=== PATIENT | female | born 1940 | race Caucasian/White ===

== ENCOUNTER 2016-06-03 19:03 | Inpatient (IN) | payer OTHER ==
[~2016-06-03] VITALS: Ht 162.6 cm; Wt 128.5 kg
[~2016-06-03 19:03] MED LIST: ADVIL PM CAPLE1 EACH PO; ADVIL100 MG PO; BAYER WOMEN'S1 EACH PO; HYDROCHLOROTHIA25 M1 PO; KEFLEX250 MG PO; LASIX20 MG PO; LOMOTIL 2.5-0.1 EACH PO; LOPRESSOR50 M1 PO; PANTOPRAZOLE SO40 M1 PO; SYNTHROID125 MCG PO; TRAMADOL50 MG PO
[2016-06-03 20:05] LABS: PT 12.4 SEC (9.4-12.5)
[2016-06-03 20:11] LABS: ABSOLUTE BASOPHIL COUNT 0.1 /CUMM (0.0-0.2); ABSOLUTE EOSINOPHIL COUNT 0.1 /CUMM (0.0-0.7); ABSOLUTE GRANULOCYTE CT 4.5 /CUMM (1.4-6.5); ABSOLUTE LYMPH COUNT 2.4 /CUMM (1.2-3.4); ABSOLUTE MONOCYTE COUNT 0.6 /CUMM (0.10-0.60); BASOPHIL % 0.8 % (0.0-2.0); EOSINOPHIL % 1.7 % (0-5); GRANULOCYTE % 58.6 % (42.2-75.2); MEAN CORPUSCULAR VOLUME 84.8 FL (81.0-99.0); MEAN PLATELET VOLUME 7.4 FL (7.4-10.4); PLATELET COUNT 214 /CUMM (130-400); RBC DISTRIBUTION WIDTH 15.6 % (11.5-14.5); RED BLOOD CELL CT 3.66 /CUMM (4.20-5.40); WHITE BLOOD CELL COUNT 7.7 /CUMM (4.8-10.8)
--- NOTE | 2016-06-03 20:29 | ED GI/GU/ABDOMINAL COMPLAINT ---
History of Present Illness General Chief Complaint: General Adult Stated Complaint: BLEEDING PER RECTUM Source: patient, family, old records Exam Limitations: no limitations Vital Signs & Intake/Output Vital Signs & Intake/Output Vital Signs Date Time Temp Pulse Resp B/P Pulse O2 O2 Flow FiO2 Ox Delivery Rate 06/04 0048 64 206/98 06/04 0000 97.8 64 20 206/98 92 Room Air 06/04 0000 94 Nasal 1.0L Cannula 06/03 2254 96.0 65 18 170/62 97 Room Air 06/03 2150 98.4 67 18 203/84 95 Room Air 06/03 2142 97.4 67 18 203/84 06/03 2118 Room Air 06/03 2029 200/96 06/03 1922 98.6 78 22 171/94 95 Room Air ED Intake and Output 06/04 0000 06/03 1200 Intake Total 0 Output Total Balance 0 Intake, Oral 0 Allergies Coded Allergies: NO KNOWN ALLERGIES (01/25/16) Reconcile Medications Aspirin/Calcium Carbonate (Nanette Women's Aspirin Tablet) 81 MG-300 MG CALCIUM ( 777 MG) TABLET 81 MG PO DAILY HEART (Reported) Hydrochlorothiazide 25 MG TABLET 25 MG PO EOD EDEMA (Reported) Ibuprofen (Advil) 100 MG TABLET 100 MG PO PRN PRN PAIN (Reported) Levothyroxine Sodium (Synthroid) 125 MCG TABLET 125 MCG PO DAILY HYPOTHYROID (Reported) Metoprolol Tartrate (Lopressor) 50 MG TABLET 50 MG PO DAILY HEART (Reported) Pantoprazole Sodium 40 MG TABLET.DR 40 MG PO DAILY ACID REFLUX (Reported) Triage Note: PER PT HAD ABD PAIN X 2 WEEKS NONE THIS WEEK BUT SINCE THIS AM WHEN WIPING NOTICED BLOOD ON PAPER, COMING FROM RECTUM. RIGHT PRIOR TO ARRIVAL PT NOTICED SIGNIFICANT BLODD IN TIOLET. DENIIES PAIN BUT REPORTS DIZZYNESS. Triage Nurses Notes Reviewed? yes ? n Is pt currently ? No HPI: Patient is a 75-year-old female presents complaining of rectal bleeding. Patient reports that when she urinated this morning she was wiping her rectum and she had blood on the toilet paper. His occurred a couple of times. This afternoon patient had an episode of diarrhea with a large amount of blood present. Intermittent lightheadedness. Lightheadedness is currently mild. Pain is 0 out of 10. Patient takes 81 mg of aspirin daily and takes Advil approximately 4 times per week. Patient denies chest pain, difficulty breathing , nausea, vomiting, fevers, chills. (JEFF ARIAS) Past History Travel History Traveled to [place] past 21 day No Medical History Any Pertinent Medical History? 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 No (JEFF ARIAS) Review of Systems Review of Systems Constitutional: Reports: malaise. Denies: chills, fever. EENTM: Reports: no symptoms. Respiratory: Denies: cough, short of breath. Cardiovascular: Denies: chest pain, syncope. GI: Reports: see HPI. Genitourinary: Reports: no symptoms. Musculoskeletal: Reports: no symptoms. Skin: Reports: no symptoms. Neurological/Psychological: Reports: no symptoms. Hematologic/Endocrine: Reports: bleeding. Immunologic/Allergic: Reports: no symptoms. (JEFF ARIAS) Physical Exam Physical Exam General Appearance: well developed/nourished, alert, awake Head: atraumatic, normal appearance Eyes: Bilateral: normal appearance, PERRL, EOMI. Ears, Nose, Throat, Mouth: hearing grossly normal, moist mucous membrane Neck: normal inspection, supple, full range of motion Respiratory: normal breath sounds, chest non-tender, no respiratory distress, lungs clear Cardiovascular: regular rate/rhythm (no appreciable murmur) Gastrointestinal: normal bowel sounds, soft, non-tender Rectal: bloody stool Back: normal inspection, normal range of motion Extremities: normal range of motion Neurologic/Psych: no motor/sensory deficits, awake, alert, oriented x 3, normal gait, normal mood/affect Skin: intact, normal color, warm/dry Core Measures ACS in differential dx? No Severe Sepsis Present: No Septic Shock Present: No (JEFF ARIAS) Progress Differential Diagnosis: upper GI bleed, lower GI bleed(diverticular, hemorrhoidal, ischemic colitis) Plan of Care: Orders Procedure Date/time Status Nothing by Mouth 06/04 B Active CBC WITHOUT DIFFERENTIAL 06/04 599 Active BASIC ELECTROLYTES PLUS BUN&CR 06/04 06 Active ICU LAB BUNDLE 06/04 030 Active CBC WITHOUT DIFFERENTIAL 06/04 030 Active Weight 06/04 137 Active Turn and Reposition 06/04 137 Active Teach/Educate 06/04 137 Active Skin Integrity Protocol 06/04 137 Active Skin/Pressure Ulcer Assess (Sk 06/04 137 Active Precautions 06/04 137 Active Pain Treatment and Response 06/04 137 Active Nutritional Intake, Monitor 06/04 137 Active Isolation 06/04 137 Active Patient Care Conference 06/04 137 Active Activity/Ambulation 06/04 137 Active Clear Liquid Diet 06/03 D Complete VRE ACTIVE SURVIELLANCE 06/03 2349 Active ACTIVE SURVEILLANCE NARES 06/03 234 Active URINALYSIS 06/03 2325 Active Code Status 06/03 223 Active Pathway - chart 06/03 215 Active Patient Data 06/03 2154 Active Patient Data 06/03 214 Active Add-on Test (ER Only) 06/03 2148 Active Admit to inpatient 06/03 213 Active EKG 06/03 2029 Active MISTAKE 06/03 2002 Active TROPONIN LEVEL 06/03 1942 Complete PROTHROMBIN TIME 06/03 1922 Complete LACTIC ACID 06/03 1922 Complete COMPREHENSIVE METABOLIC PANEL 06/03 1922 Complete CBC WITHOUT DIFFERENTIAL 06/03 1922 Complete TYPE & SCREEN (NOT X-MATCH) 06/03 1922 Complete Saline Lock 06/03 UNK Active VTE Mechanical Prophylaxis 06/03 UNK Active Vital Signs 06/03 UNK Active Intake & Output 06/03 UNK Active Current Medications Sig/Liv Start time Last Medication Dose Stop Time Status Admin Levothyroxine Sodium 0.125 MG DAILY AC 06/04 699 AC (Synthroid) Omeprazole 40 MG DAILY AC 06/04 699 AC (Prilosec) Laboratory Tests 06/03/162222: Lactic Acid Cancelled 06/03/161942: Anion Gap 8, Estimated GFR 34 L, BUN/Creatinine Ratio 24.7, Glucose 114 H, Lactic Acid 0.9, Calcium 8.8, Total Bilirubin 0.5, AST 20, ALT 25, Alkaline Phosphatase 74, Troponin I < 0.01, Total Protein 6.6, Albumin 3.3 L, Globulin 3.3, Albumin/Globulin Ratio 1.0 L, PT 12.4, INR 1.18, CBC w Diff NO MAN DIFF REQ, RBC 3.66 L, MCV 84.8, MCH 28.0, RDW 15.6 H, MPV 7.4, Gran % 58.6, Lymphocytes % 31.6, Monocytes % 7.3, Eosinophils % 1.7, Basophils % 0.8, Absolute Granulocytes 4.5, Absolute Lymphocytes 2.4, Absolute Monocytes 0.6, Absolute Eosinophils 0.1, Absolute Basophils 0.1, PUBS MCHC 33.0 Microbiology 06/03 2348 UPPER RESP: Surveillance Culture - COLB 06/03 2348 GI: Surveillance Culture - COLB 06/03/2016 9:04:50 PM: Discussed with Dr. Whatley. Discussed with Dr. Jernigan: recommends admission. Serial CBC. Possible colonoscopy tomorrow if continues to bleed. Discussed with Dr. Farrell: will admit patient. (JEFF ARIAS) Initial ED EKG: normal sinus rhythm, LVH, no ST T wave changes (JEFF ARIAS) Departure Departure Disposition: STILL A PATIENT Condition: Stable Clinical Impression Primary Impression: Lower GI bleed Secondary Impressions: Accelerated hypertension Referrals: BRAVO ROY MD (PCP/Family) Departure Forms: Customer Survey General Discharge Information Admission Note [facility] Documentation of Exam: Documentation of any treatments & extenuating circumstances including Concerns Regarding Discharge (functional status, medication knowledge or non-compliance, living conditions, etc.) that warrant an admission rather than observation: Serial CBC, GI consultation, monitor for any increase/further bleeding, possible colonoscopy, blood pressure monitoring (JEFF ARIAS) PA/SOFT HAT BINDER Co-Sign Statement Statement: ED Attending supervision documentation- [] I saw and evaluated the patient. I have also reviewed all the pertinent lab results and diagnostic results. I agree with the findings and the plan of care as documented in the PA's/SOFT HAT BINDER's documentation. [x] I have reviewed the ED Record and agree with the PA's/SOFT HAT BINDER's documentation. [] Additions or exceptions (if any) to the PAs/SOFT HAT BINDER's note and plan are summarized below: [] (MARY ROBBINS,RAFITA Bernal)
--- NOTE | 2016-06-03 22:47 | History & Physical ---
TYRONE PEARCE 06/03/16 2235: General Information and HPI MD Statement: I have seen and personally examined SIRENA CELESTIN and documented this H&P. The patient is a 75 year old F who presented with a patient stated chief complaint of [gi lbeed]. Source of Information: patient Exam Limitations: no limitations History of Present Illness: This is a 75 YO Female with past medical history of hypertension, hypothyroidism status post thyroidectomy, chronic pain, gastroesophageal reflux disease, current smoker, nonalcoholic came in with chief complain of bright red blood per rectum since the morning of admission. Apparently, the patient was doing all right until one day prior to admission, patient started having bleeding per rectum since the morning of the day of admission that is 06/03/2016. Initially the patient had some bright red blood on the tissue paper, every time that she would use the toilet, however later patient had a one episode of bigger loose watery bowel movement with bright red blood mixed with stools. It was difficult for her to quantify the blood as it was mixed with the stools however she said that this was a significant amount and she had to keep using more tissue paper in order to control the blood.After this episode she presented to [facility].She had nor more episodes after comign to ER till I saw her. She also complain of some dizziness, lightheadedness and chills since today morning. At baseline she has been constipated, however she would use Benefiber and have alternating diarrhea also. She denied any history of hemorrhoids or previous episodes of bright red blood. She has been following up with all her doctors at [facility] and she had a colonoscopy 6 years ago which was completely normal and showed mild diverticulitis. 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 Most of her doctors are at [facility]. She had a nuclear stress test recently 6 months ago which was within normal limit. Her financial analysis advisor is Dr. Barron at [facility]. Allergies/Medications Allergies: Coded Allergies: NO KNOWN ALLERGIES (01/25/16) Home Med list Aspirin/Calcium Carbonate (Nanette Women's Aspirin Tablet) 81 MG-300 MG CALCIUM ( 777 MG) TABLET 81 MG PO DAILY HEART (Reported) Hydrochlorothiazide 25 MG TABLET 25 MG PO EOD EDEMA (Reported) Ibuprofen (Advil) 100 MG TABLET 100 MG PO PRN PRN PAIN (Reported) Levothyroxine Sodium (Synthroid) 125 MCG TABLET 125 MCG PO DAILY HYPOTHYROID (Reported) Metoprolol Tartrate (Lopressor) 50 MG TABLET 50 MG PO DAILY HEART (Reported) Pantoprazole Sodium 40 MG TABLET.DR 40 MG PO DAILY ACID REFLUX (Reported) Compliance With Home Meds: GOOD Past History Travel History Traveled to [place] past 21 day No Medical History Neurological: NONE EENT: NONE Cardiovascular: hypertension Respiratory: NONE Gastrointestinal: diverticulitis, GERD Hepatic: NONE Renal: NONE Musculoskeletal: NONE Psychiatric: NONE Endocrine: NONE Blood Disorders: NONE Cancer(s): 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 Past Family/Social History Family History Relations & Conditions if any MOTHER FH: Alzheimers disease Psychosocial History Where do you live? Home Who Do You Live With? spouse Smoking Status: Current Everyday Smoker ETOH Use: denies use Illicit Drug Use: denies illicit drug use Functional Ability ADLs Independent: dressing, eating, toileting, bathing. Ambulation: independent IADLs Independent: shopping, housework, finances, food prep, telephone, transportation , medication admin. 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 Denies: diaphoresis, fever, malaise, unexplained weight loss. EENTM: Denies: blurred vision, double vision, visual changes, eye pain. Cardiovascular: Denies: chest pain, edema, orthopena, palpitations. Respiratory: Denies: cough, hemoptysis, orthopnea, short of breath. GI: Reports: diarrhea, melena, bloody stool. Denies: bloating, constipation, distention, bowel incontinence, nausea. Genitourinary: Reports: no symptoms. Musculoskeletal: Reports: no symptoms. Skin: Reports: no symptoms. Neurological/Psychological: Reports: no symptoms. Hematologic/Endocrine: Reports: no symptoms. Immunologic/Allergic: Reports: no symptoms. All Other Systems: Reviewed and Negative Exam & Diagnostic Data Last 24 Hrs of Vital Signs/I&O Vital Signs Date Time Temp Pulse Resp B/P Pulse O2 O2 Flow FiO2 Ox Delivery Rate 06/03 2149 98.4 67 18 203/84 95 Room Air 06/03 2141 97.4 67 18 203/84 06/03 2117 Room Air 06/03 2028 200/96 06/032 98.6 78 22 171/94 95 Room Air Physical Exam General Appearance Alert, Oriented X3, Cooperative, No Acute Distress Skin No Rashes, No Breakdown, No Significant Lesion HEENT Atraumatic, PERRLA, EOMI Neck Supple, No JVD, No thryomegaly Lymphatic no lad Cardiovascular Regular Rate, Normal S1, Normal S2, No Murmurs Lungs Clear to Auscultation, Normal Air Movement Abdomen Normal Bowel Sounds, Soft, No Tenderness Extremities No Clubbing, No Cyanosis, edema + Vascular Normal Pulses Rectal guaic positive. bright red blood present on intial presentation. Last 24 Hrs of Labs/Raji: Laboratory Tests 06/03/162222: Lactic Acid Cancelled 06/03/161942: Anion Gap 8, Estimated GFR 34 L, BUN/Creatinine Ratio 24.7, Glucose 114 H, Lactic Acid 0.9, Calcium 8.8, Total Bilirubin 0.5, AST 20, ALT 25, Alkaline Phosphatase 74, Troponin I < 0.01, Total Protein 6.6, Albumin 3.3 L, Globulin 3.3, Albumin/Globulin Ratio 1.0 L, PT 12.4, INR 1.18, CBC w Diff NO MAN DIFF REQ, RBC 3.66 L, MCV 84.8, MCH 28.0, RDW 15.6 H, MPV 7.4, Gran % 58.6, Lymphocytes % 31.6, Monocytes % 7.3, Eosinophils % 1.7, Basophils % 0.8, Absolute Granulocytes 4.5, Absolute Lymphocytes 2.4, Absolute Monocytes 0.6, Absolute Eosinophils 0.1, Absolute Basophils 0.1, PUBS MCHC 33.0 Diagnostic Data EKG Results Normal sinus rhythm, rate of 65, left axis deviation, QTC of 441, PA of 172. Assessment/Plan Assessment: This is a 75-year-old morbidly obese female with past medical history of hypertension, hypothyroidism status post thyroidectomy, chronic pain, gastroesophageal reflux disease, current smoker, nonalcoholic came in with chief complain of bright red blood per rectum since the morning of admission with one episode of significant bright red blood along with loose stools mixed. Tmax - 98.6, pulse of 78, respirations 22, blood pressure of 200/96, 95% on room air. White count of 7.7, H/H of 10.3/31.0, platelet of 214.(Baseline H/H of 10.5/34). Sodium of 139, potassium of 3.8, BUN and creatinine 35/1.5. GFR of 34. Glucose of 114, lactic acid 0.9, liver function tests within normal limit. We'll admit patient to ICU for close monitoring. #1 BRBPR * Continue to maintain on 2 large bore IV lines. * Continue to monitor vitals every shift. * Crossmatch and type. * Keep the patient nothing by mouth in anticipation of colonoscopy/endoscopy. * Blood transfusion if H/H less than 8. * Continue Po protonix daily. * Hold aspirin, hold ibuprofen. * GI consult placed for am. * NPO after MN,clear liquis now. * If patient deteriorates overnight/ more bleeding episodes,then call gI stat. * Next CBC at 3 am with am labs. #2 Hypertension. * Patient takes metoprolol Tartarete 50 mg OD , which she had taken today. * She also takes hydrochlorthiazide 25 mg daily which she hasnt take since last 2 weeks as she ran out of it. * BP on higher side. * Recived 5 mg norvasc in ER. * Continue to watch BP closely. * Will hold home BP medications for now. * If BP still higher will give one time dose. * Will hold aspirin. #3 Hypothyroidism. * s/p thyroidectomy for thyroid cancer * Continue levothyroxine 125mcg daily. * Will check Tsh and free t4. #4 CKD * Stage : G3b * Creatinine 1.5 ( baseline 1.4) * Avoid all nephrotoxin. * Avoid nsaids, even on discharge, patient 3 to 5 every week for long time * Ideally we would like to hydrate patient but her BP in on higher side and she is also not. actively bleeding, therefore will watch BP. FC Mild/Mod/severe pain pathway. DVT px with ALPS ( gi bleed) clear liquids now and npo after MN. As Ranked By This Provider Problem List: 1. Lower GI bleed 2. Hypertension 3. Hypothyroidism Core Measures/Miscellaneous Acute Coronary Syndrome ACS Diagnosis: No Cerebrovascular Accident CVA/TIA Diagnosis: No Congestive Heart Failure CHF Diagnosis: No Venous Thromboembolism VTE Risk Factors: Age > 40 [facility] prophylaxis d/t: No contraindications No VTE Pharm Prophylaxis d/t: Active bleeding VTE Diagnosis: No VTE Type: NONE VTE Confirmed by (Test): NONE Severe Sepsis Severe Sepsis Present: No Septic Shock Septic Shock Present: No Miscellaneous Documentation Attending [facility] Primary Care Physician: BRAVO ROY MD Patient sees these Specialists .. Level of Patient Care: Critical Care (CRI) MT NIEVES MD 06/03/16 2330: Attending MD Review Statement Attending Statement Attending MD Statement: examined this patient, discuss w/resident/PA/ENTEROSTOMAL THERAPY NURSE, agreed w/resident/PA/ENTEROSTOMAL THERAPY NURSE Attending Assessment/Plan: 75 yo morbidly obese F smoker with h/o HTN, CKD stage 3B, acquired hypothyroidism 2/2 thyroidectomy for thyroid cancer, GERD, vertigo, stroke, arthritis, chronic diarrhea of unclear etiology, pw 2-episodes of bright red blood per rectum. She initiatlly noted blood on toilet paper followed by an episode of painless bloody diarrhea with a few clots. She then had another small bleeding episode without any stools in it. No further episodes in the ER. C/o lightheadedness, but no LOC. No similar episodes in the past, no h/o hemorrhoids. Last colonoscopy 6 yrs ago showed diverticulosis (Nancy). She reports last episode of diverticulitis was 4 months ago for which she was placed on antibiotics but she developed profuse diarrhea so she stopped them. She is on a low-dose aspirin for stroke and she also takes Advil at bedtime 4 times a week for arthritic pain. Vitals are stable except for hypertension. Rectal exam done in the ER bloody stool. Labs: H/H 10.3/31, INR 1.18, BUN 37, creat 1.5 (baseline), glucose 114, lactic acid 0.9, trop neg, EKG: SR, LVH, Qtc 441. Orthostats are negative. 1. Lower GI bleed likely diverticular bleed vs. Hemorrhoidal bleed, other possibility is ischemic colitis; with acute blood loss anemia. ICU admit, vitals Q1 hour, monitor further bleeding, guaiac all stools, type and crossmatch, monitor CBC Q12, transfuse if Hb < 7.0, hold aspirin and NSAIDs, NPO, gentle IV hydration as BP tolerates. GI consulted (Dr. Jernigan). Plan is if patient bleeds again, will prep her for colonoscopy in AM. 2. Hypertensive urgency. Patient's home meds are metoprolol and HCTZ, but she ran out of HCTZ for over 2 weeks. Amlodipine 5 mg was given in ER, will consider IV hydralazine as needed. Will keep SBP ~ 140-160, avoid drastic drop in BP. Repeat EKG and troponin in AM. Obtain Echo and Cardio consult in AM. Smoking cessation counseling. 3. GERD. Ct. PPI. 4. Hypothyroidism. Ct. Synthroid. DVT ppx Alps. Full code. TTS > 40 mins
--- NOTE | 2016-06-03 23:30 | Admission Certification ---
Admission Certification Certification Statement - As attending physician, I certify that at the time of - admission, based on clinical presentation, severity of - symptoms, need for further diagnostic testing and - therapeutic interventions, and risk of adverse outcomes - without in-hospital treatment, in my clinical assessment, - this patient requires an acute hospital stay for a minimum - of two nights or longer. I have also considered psychsocial - factors such as support system, advanced age, financial - issues, cognitive issues, and failed out-patient treatments, - past re-admission history, safety of patient, and lack of - compliance as applicable. Specific rationale supporting this admission is: Lower GI bleeding, ABLA, hypertensive urgency.
[2016-06-04] VITALS: BP 206/98
[2016-06-04 03:42] LABS: ABSOLUTE BASOPHIL COUNT 0.1 /CUMM (0.0-0.2); ABSOLUTE EOSINOPHIL COUNT 0.2 /CUMM (0.0-0.7); ABSOLUTE GRANULOCYTE CT 4.5 /CUMM (1.4-6.5); ABSOLUTE LYMPH COUNT 2.9 /CUMM (1.2-3.4); ABSOLUTE MONOCYTE COUNT 0.7 /CUMM (0.10-0.60); EOSINOPHIL % 1.9 % (0-5); GRANULOCYTE % 53.7 % (42.2-75.2); HEMATOCRIT 28.3 % (37-47); MEAN CORPUSCULAR HGB CONC 32.7 G/DL (33.0-37.0); MEAN CORPUSCULAR VOLUME 85.4 FL (81.0-99.0); MEAN PLATELET VOLUME 7.2 FL (7.4-10.4); PLATELET COUNT 200 /CUMM (130-400); RED BLOOD CELL CT 3.32 /CUMM (4.20-5.40); WHITE BLOOD CELL COUNT 8.4 /CUMM (4.8-10.8)
[2016-06-04 08:00] VITALS: BP 160/80
--- NOTE | 2016-06-04 08:52 | Cons- CRCU ---
DINORA BRAGG MD 06/04/16 0851: General Information and HPI Consulting Request Date of Consult: 06/04/16 Requested By: Dr. Farrell Reason for Consult: GI bleed Source of Information: patient Exam Limitations: no limitations History of Present Illness: Pt was admitted to ICU for GI bleed and hypertensive urgency. Pt reported having 1 bloody bowel movement consisting of loose stool mixed in with bright red blood, most likely diverticular bleed given her hx of diverculitis. The amount was significant for her to present to the hospital. Her hb on admssion was 10.3, which is her baseline, and 9.3 this morning. 9am - pt had cranberry colored formed stool . She has not been prepped for colonoscopy. SHe has history of diverticulitis (classic abdominal pain, without bleed), and has noted blood in the past when she wipes, which could be internal hemorrhoid. Denies pain with bowel movement, unlikely external hemorrhoid. She has never been diagnosed with hemorrhoid in the past. SHe had colonoscopy 6 years ago and was asked to return in 10 years. Her blood pressure was up to 206/98, for which she was given 1X amlodipie. Her BP this morning 160/80, will give one time 10mg hydralazine. Her HR is in the low 60s. She follows up with p d driver at [facility] and recently had a stress test, which she reported as normal. Cardiology consult with Dr. Golden has been called. Mag was 1.4, given 2 gm mag sulfate. She is currently stable, BP on the higher side, not tachycardic, she is complaining of diffuse throbbing headache for which we are going to give tylenol and 1Xhydralazine to lower her bp. Pt reports that her BP is never as high as what she came in with. Her home meds are still held - including antihypertensives, aspirin, advil. Allergies/Medications Allergies: Coded Allergies: NO KNOWN ALLERGIES (01/25/16) Home Med List: Aspirin/Calcium Carbonate (Nanette Women's Aspirin Tablet) 81 MG-300 MG CALCIUM ( 777 MG) TABLET 81 MG PO DAILY HEART (Reported) Hydrochlorothiazide 25 MG TABLET 25 MG PO EOD EDEMA (Reported) Ibuprofen (Advil) 100 MG TABLET 100 MG PO PRN PRN PAIN (Reported) Levothyroxine Sodium (Synthroid) 125 MCG TABLET 125 MCG PO DAILY HYPOTHYROID (Reported) Metoprolol Tartrate (Lopressor) 50 MG TABLET 50 MG PO DAILY HEART (Reported) Pantoprazole Sodium 40 MG TABLET.DR 40 MG PO DAILY ACID REFLUX (Reported) Review of Systems Review of Systems Constitutional: Denies: chills, fever. EENTM: Reports: see HPI. Cardiovascular: Denies: chest pain. Respiratory: Denies: cough, short of breath. GI: Reports: bloody stool. Denies: abdominal pain, bloating, constipation, diarrhea , nausea. 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 Family History Relations & Conditions If Any: MOTHER FH: Alzheimers disease Psychosocial History Where Do You Live? Home Who Do You Live With? spouse Smoking Status: Current Everyday Smoker ETOH Use: denies use Illicit Drug Use: denies illicit drug use Functional Ability ADLs Independent: dressing, eating, toileting, bathing. Ambulation: independent IADLs Independent: shopping, housework, finances, food prep, telephone, transportation , medication admin. 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 Exam & Diagnostic Data Last 24 Hrs of Vital Signs/I&O Vital Signs Date Time Temp Pulse Resp B/P Pulse O2 O2 Flow FiO2 Ox Delivery Rate 06/05 799 96 Nasal 1.0L Cannula 06/04 08 97.7 68 20 160/80 96 Nasal 1.0L Cannula 06/04 0426 94 Nasal 1.0L Cannula 06/04 0048 64 206/98 08 0000 97.8 64 20 206/98 92 Room Air 06/04 0000 94 Nasal 1.0L Cannula 06/03 2254 96.0 65 18 170/62 97 Room Air 06/03 2150 98.4 67 18 203/84 95 Room Air 06/03 2142 97.4 67 18 203/84 06/038 Room Air 06/039 200/96 06/03 1922 98.6 78 22 171/94 95 Room Air Intake & Output 06/04 1600 06/04 0800 04 0000 Intake Total 240 0 Output Total 275 Balance -35 0 Intake, IV 120 Intake, Oral 120 0 Number 0 Bowel Movements Output, Urine 275 Patient 128.537 kg Weight Physical Exam General Appearance: alert, awake, comfortable Head: normal appearance Eyes: Bilateral: normal appearance. Ears, Nose, Throat: hearing grossly normal Neck: full range of motion Respiratory: normal breath sounds, no respiratory distress Cardiovascular: regular rate/rhythm Peripheral Pulses: 2+ radial (R), 2+ radial (L) Gastrointestinal: normal bowel sounds, soft, non-tender Last 48 Hrs of Labs/Raji: Laboratory Tests 06/04/16 0620: Urine Color YEL, Urine Clarity CLEAR, Urine pH 5.5, Ur Specific [place] >= 1.030 , Urine Protein 100 H, Urine Ketones NEG, Urine Nitrite NEG, Urine Bilirubin NEG, Urine Urobilinogen 0.2, Ur Leukocyte Esterase NEG, Ur Microscopic SEDIMENT EXAMINED, Urine RBC 25-50 H, Urine WBC 1-3 H, Ur Epithelial Cells MOD H, Urine Bacteria MOD H, Hyaline Casts 3-5 H, Granular Casts FEW H, Urine Mucus FEW, Urine Hemoglobin MOD H, Urine Glucose NEG 06/04/16 0600: Sodium Cancelled, Potassium Cancelled, Chloride Cancelled, Carbon Dioxide Cancelled, Anion Gap Cancelled, BUN Cancelled, Creatinine Cancelled, BUN/ Creatinine Ratio Cancelled, CBC w Diff Cancelled, WBC Cancelled, RBC Cancelled, Hgb Cancelled, Hct Cancelled, MCV Cancelled, MCH Cancelled, RDW Cancelled, Plt Count Cancelled, MPV Cancelled, PUBS MCHC Cancelled 06/04/16 0310: Anion Gap 9, Estimated GFR 34 L, Glucose 96, Calcium 8.5, Phosphorus 3.9, Magnesium 1.4 L, Total Bilirubin 0.4, AST 18, ALT 29, Troponin I < 0.01, Albumin 2.9 L, CBC w Diff NO MAN DIFF REQ, RBC 3.32 L, MCV 85.4, MCH 28.0, RDW 16.0 H, MPV 7.2 L, Gran % 53.7, Lymphocytes % 34.9, Monocytes % 8.5, Eosinophils % 1.9, Basophils % 1.0, Absolute Granulocytes 4.5, Absolute Lymphocytes 2.9, Absolute Monocytes 0.7 H, Absolute Eosinophils 0.2, Absolute Basophils 0.1, PUBS MCHC 32.7 L 06/03/162222: Lactic Acid Cancelled 06/03/161942: Anion Gap 8, Estimated GFR 34 L, BUN/Creatinine Ratio 24.7, Glucose 114 H, Lactic Acid 0.9, Calcium 8.8, Total Bilirubin 0.5, AST 20, ALT 25, Alkaline Phosphatase 74, Troponin I < 0.01, Total Protein 6.6, Albumin 3.3 L, Globulin 3.3, Albumin/Globulin Ratio 1.0 L, PT 12.4, INR 1.18, CBC w Diff NO MAN DIFF REQ, RBC 3.66 L, MCV 84.8, MCH 28.0, RDW 15.6 H, MPV 7.4, Gran % 58.6, Lymphocytes % 31.6, Monocytes % 7.3, Eosinophils % 1.7, Basophils % 0.8, Absolute Granulocytes 4.5, Absolute Lymphocytes 2.4, Absolute Monocytes 0.6, Absolute Eosinophils 0.1, Absolute Basophils 0.1, PUBS MCHC 33.0 Diagnostic Data EKG Results SR rate 66 LVH Qtc 453 Assessment/Plan Impression/Plan: 75-year-old morbidly obese female with PMH of hypertension, hypothyroidism s/p thyroidectomy, chronic pain, gastroesophageal reflux disease, current smoker, nonalcoholic came in with chief complain of bright red blood per rectum. Hb was 10.3 on admission, which is her baseline. Problem list: # Bright red blood per rectum most likely diverticular bleed # Acute blood loss anemia due to GI bleed # Hypertensive urgency # Hypothyroidism # CKD stage 3b Respiratory - Stable ID - No infection suspected Cardiovascular # Hypertensive urgency - Pt on metoprolol tartrate 50 mg OD (taken on day of admission), and HCTZ 25mg daily (has not taken in 2weeks since she ran out) - Pt sees p d driver at [facility], recently had stress test that pt reports as normal - BP was 206/98, given 5 mg amlodipine --> BP 170 * Resume metoprolol 50 mg od and hctz 25 mg as discussed with GI * Cardiology, Dr. Golden, consulted * Aspirin on hold Hematology # Acute blood loss anemia due to GI bleed - HB 10.3 on admission (baseline 10.5) * CBC Q8 * Type and cross done, transfuse if hb < 8 * Hold aspirin and ibuprofen Metabolic # Hypothyroidism s/p thyroidectomy for thyroid cancer * Continue levothyroxine 125mcg daily. * Will check Tsh and free t4. # CKD stage 3b - Creatinine 1.5 ( baseline 1.4) * Avoid all nephrotoxin. * Avoid nsaids, even on discharge, patient takes 3 to 5 every week for long time Alimentary # GI bleed, most likely diverticular bleed given her hx of diverticulitis - Last colonoscopy 6 years ago, told to come back in 10 years * NPO--> full liquid, as disccused with GI, will advance diet as per GI * Dr. Jernigan has been consulted * Continue PPI * Hold aspirin, ibuprofen * If pt has significant bleed and would like to pursue colonoscopy, then we would prep her for colonoscopy tomorrow as she is currently stable Neuro - No issues Diet: Full liquid DVT ppx: alps, no pharm due to GI bleed FULL CODE Consults: GI , cardio, CRCU Labs: ICU and CBC (acute blood loss anemia), hypomagnesiumia Consult Acknowledgment - Thank you for your consult request. DESHAWN BILLS MD 06/04/16 1056: Assessment/Plan Other Findings/Comments: Deshawn Helton M.D. have examined this patient, reviewed available EMR data, personally reviewed images, discussed with resident/PA/ORTHOTIC/PROSTHETIC PRACTITIONER, discussed management plan with housestaff and nursing staff, discussed managment plan all of healthcare providers, discussed management plan with patient and/or family, agreed with resident/PA/ORTHOTIC/PROSTHETIC PRACTITIONER. The past history and parts of the chart have been autopopulated. Impression 75 year old woman * Lower GI bleed - acute blood loss anemia * Diverticulosis * CKD * HTN urgency * Hypothyrodism Plan - GI consultation appreciated - IV access - 2 large bore IV catheters - monitor cbc, coags - patient type and crossed - Ibuprofen and aspirin held - NPO - PPI - Cardiology consultation was requested overnight - ECHO - bp monitoring and management DVT prophylaxis - ALPS - no a/c given GI bleed TTS 40 min Consult Acknowledgment - Thank you for your consult request.
--- NOTE | 2016-06-04 10:07 | Cons- Gastroenterology ---
General Information and HPI Consulting Request Date of Consult: 06/04/16 Requested By: LIZBETH ROBBINS,SKY Reason for Consult: Painless rectal bleeding, anemia. Irregular bowel habits. Source of Information: patient, old records Exam Limitations: no limitations History of Present Illness: Ms. Barton is a 75-year-old female with a history of hypertension and diverticulosis on a colonoscopy approximately 6 years ago who presented to [facility] yesterday with reports of bright blood per rectum. The patient notes that yesterday morning after going to the bathroom and wiping she noted a scant amount of blood on the toilet paper. After noticing this several hours later she went to the bathroom and then had one bloody bowel movement mixed in with stool and she was not able to completely assess how much stool she passed only to say that it was a lot. The bleeding was not associated any lightheadedness, shortness of breath or chest pain. She also did not have any associated abdominal pain with the bleeding. She has never had similar bleeding like this in the past. She does have some constipation which alternates with diarrhea, but she denies any recent straining. She has also been without any abdominal pain with eating, heartburn, dysphagia, or vomiting. She does take a daily baby aspirin, but she does not take any other NSAIDs. On presentation to the emergency room she was hypertensive and not tachycardic. She had a hemoglobin checked which was at her baseline levels and she was started on IV protonix. She was admitted to the ICU where she has remained hemodynamically stable, but she did have a bowel movement this morning with some blood mixed in with it and her hemoglobin has fallen approximately 1 g from yesterday. She has been nothing by mouth since midnight, but she has not been given a bowel prep. Allergies/Medications Allergies: Coded Allergies: NO KNOWN ALLERGIES (01/25/16) Home Med List: Aspirin/Calcium Carbonate (Nanette Women's Aspirin Tablet) 81 MG-300 MG CALCIUM ( 777 MG) TABLET 81 MG PO DAILY HEART (Reported) Hydrochlorothiazide 25 MG TABLET 25 MG PO EOD EDEMA (Reported) Ibuprofen (Advil) 100 MG TABLET 100 MG PO PRN PRN PAIN (Reported) Levothyroxine Sodium (Synthroid) 125 MCG TABLET 125 MCG PO DAILY HYPOTHYROID (Reported) Metoprolol Tartrate (Lopressor) 50 MG TABLET 50 MG PO DAILY HEART (Reported) Pantoprazole Sodium 40 MG TABLET.DR 40 MG PO DAILY ACID REFLUX (Reported) Current Medications: Current Medications Sig/Liv Start time Last Medication Dose Route Stop Time Status Admin Acetaminophen 650 MG ONCE ONE 06/04 0900 DC 06/04 PO 06/04 0801 0917 Amlodipine Besylate 5 MG ONCE ONE 06/04 0015 DC 06/04 PO 06/04 0016 0048 Amlodipine Besylate 0 .STK-MED ONE 06/039 DC PO Amlodipine Besylate 5 MG ONCE ONE 06/03 213 DC 06/03 PO 06/03 2130 214 Hydralazine HCl 10 MG ONCE ONE 06/04 0900 DC IV 06/04 09 Hydrochlorothiazide 25 MG Q48H 06/04 1000 AC PO Levothyroxine Sodium 0.125 MG DAILY AC 06/04 0700 AC 06/04 PO 0614 Magnesium Sulfate 1 GM ONCE ONE 06/04 0715 AC 06/04 Dextrose/Water 100 ML IV 06/04 1114 0804 Magnesium Sulfate 1 GM ONCE ONE 06/04 0430 DC 06/04 Dextrose/Water 100 ML IV 06/04 0529 0530 Metoprolol Tartrate 50 MG DAILY 06/04 1000 UNVr PO Omeprazole 40 MG DAILY AC 06/04 0700 AC 06/04 PO 0702 Pantoprazole Sodium 0 .STK-MED ONE 06/03 2210 DC IV Pantoprazole Sodium 40 MG BID 06/03 2200 DC 06/03 IV 2213 Patient Medication 1 UNIT ONE NR 06/04 1000 AC Teaching ED 06/04 1030 Past History Travel History Traveled to [place] past 21 day No Medical History Blood Transfusion Hx: No Neurological: vertigo EENT: NONE Cardiovascular: hypertension Respiratory: NONE Gastrointestinal: diverticulitis, GERD Hepatic: NONE Renal: NONE Musculoskeletal: osteoarthritis Psychiatric: NONE Endocrine: NONE Blood Disorders: NONE Cancer(s): thyroid cancer COLLECTIONS REP/Reproductive: NONE Surgical History Surgical History: appendectomy, cholecystectomy, hysterectomy, thyroidectomy. Family History Relations & Conditions If Any: MOTHER FH: Alzheimers disease Psychosocial History Where Do You Live? Home Who Do You Live With? spouse Smoking Status: Current Everyday Smoker ETOH Use: denies use Illicit Drug Use: denies illicit drug use Functional Ability ADLs Independent: dressing, eating, toileting, bathing. Ambulation: independent IADLs Independent: shopping, housework, finances, food prep, telephone, transportation , medication admin. 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 EENTM: Denies: no symptoms. Cardiovascular: Denies: no symptoms. Respiratory: Denies: no symptoms. GI: Reports: see HPI. Genitourinary: Denies: no symptoms. Musculoskeletal: Denies: no symptoms. Skin: Denies: no symptoms. Neurological/Psychological: Denies: no symptoms. Hematologic/Endocrine: Denies: no symptoms. Immunologic/Allergic: Denies: no symptoms. All Other Systems: Reviewed and Negative Exam & Diagnostic Data Vital Signs and I&O Vital Signs Date Time Temp Pulse Resp B/P Pulse O2 O2 Flow FiO2 Ox Delivery Rate 06/05 799 96 Nasal 1.0L Cannula 06/05 799 97.7 68 20 160/80 96 Nasal 1.0L Cannula 06/04 0426 94 Nasal 1.0L Cannula 06/04 0048 64 206/98 06/04 0000 97.8 64 20 206/98 92 Room Air 06/04 0000 94 Nasal 1.0L Cannula 06/03 2254 96.0 65 18 170/62 97 Room Air 06/03 2150 98.4 67 18 203/84 95 Room Air 06/03 2142 97.4 67 18 203/84 06/03 2118 Room Air 06/03 2029 200/96 06/03 1922 98.6 78 22 171/94 95 Room Air Intake & Output 06/04 1600 06/04 0400 06/03 1600 06/03 0400 06/02 1600 06/02 0400 Intake Total 240 0 Output Total 275 Balance -35 0 Intake, IV 120 Intake, Oral 120 0 Number 0 Bowel Movements Output, Urine 275 Patient 283 lb Weight Physical Exam General Appearance: well developed/nourished, no apparent distress, alert, awake , comfortable, obese Head: atraumatic, normal appearance Eyes: Bilateral: normal appearance. Ears, Nose, Throat: normal pharynx, normal ENT inspection Neck: normal inspection, supple, full range of motion Respiratory: normal breath sounds, chest non-tender, no respiratory distress Cardiovascular: regular rate/rhythm Gastrointestinal: normal bowel sounds, soft, non-tender Rectal: deferred Back: normal inspection, normal range of motion Extremities: normal inspection, normal capillary refill, normal range of motion, no edema Neurologic/Psych: no motor/sensory deficits, awake, alert, oriented x 3 Skin: intact, normal color, warm/dry Results Pertinent Lab Results: Laboratory Tests 06/04 06/04 06/04 0918 0620 0600 Chemistry Sodium Cancelled Potassium Cancelled Chloride Cancelled Carbon Dioxide Cancelled Anion Gap Cancelled BUN Cancelled Creatinine Cancelled BUN/Creatinine Ratio Cancelled Troponin I Pending Hematology CBC w Diff Pending Cancelled WBC Pending Cancelled RBC Pending Cancelled Hgb Pending Cancelled Hct Pending Cancelled MCV Pending Cancelled MCH Pending Cancelled RDW Pending Cancelled Plt Count Pending Cancelled MPV Pending Cancelled PUBS MCHC Pending Cancelled Urines Urine Color (YEL,AMB,STR) YEL Urine Clarity (CLEAR) CLEAR Urine pH (5.0 - 8.0) 5.5 Ur Specific [place] (1.001 - 1.035) >= 1.030 Urine Protein (NEG,<30 MG/DL) 100 H Urine Ketones (NEG) NEG Urine Nitrite (NEG) NEG Urine Bilirubin (NEG) NEG Urine Urobilinogen (0.1 - 1.0 EU/dl) 0.2 Ur Leukocyte Esterase (NEG) NEG Ur Microscopic SEDIMENT EXAMINED Urine RBC (0 - 5 /HPF) 25-50 H Urine WBC (0 - 2 /HPF) 1-3 H Ur Epithelial Cells (NONE,FEW) MOD H Urine Bacteria (NEG/NONE) MOD H Hyaline Casts (0/LPF) 3-5 H Granular Casts (NONE /LPF) FEW H Urine Mucus (FEW,NONE) FEW Urine Hemoglobin (NEG) MOD H Urine Glucose (N MG/DL) NEG 06/04 06/03 0310 2223 Chemistry Sodium (137 - 145 mmol/L) 142 Potassium (3.5 - 5.1 mmol/L) 3.8 Chloride (98 - 107 mmol/L) 108 H Carbon Dioxide (22 - 30 mmol/L) 25 Anion Gap (5 - 16) 9 BUN (7 - 17 mg/dL) 34 H Creatinine (0.5 - 1.0 mg/dL) 1.5 H Estimated GFR (>60 ml/min) 34 L Glucose (65 - 99 mg/dL) 96 Lactic Acid Cancelled Calcium (8.4 - 10.2 mg/dL) 8.5 Phosphorus (2.5 - 4.5 mg/dL) 3.9 Magnesium (1.6 - 2.3 mg/dL) 1.4 L Total Bilirubin (0.2 - 1.3 mg/dL) 0.4 AST (14 - 36 U/L) 18 ALT (9 - 52 U/L) 29 Troponin I (< 0.11 ng/ml) < 0.01 Albumin (3.5 - 5.0 g/dL) 2.9 L Hematology CBC w Diff NO MAN DIFF REQ WBC (4.8 - 10.8 /CUMM) 8.4 RBC (4.20 - 5.40 /CUMM) 3.32 L Hgb (12.0 - 16.0 G/DL) 9.3 L Hct (37 - 47 %) 28.3 L MCV (81.0 - 99.0 FL) 85.4 MCH (27.0 - 31.0 PG) 28.0 RDW (11.5 - 14.5 %) 16.0 H Plt Count (130 - 400 /CUMM) 200 MPV (7.4 - 10.4 FL) 7.2 L Gran % (42.2 - 75.2 %) 53.7 Lymphocytes % (20.5 - 51.1 %) 34.9 Monocytes % (1.7 - 9.3 %) 8.5 Eosinophils % (0 - 5 %) 1.9 Basophils % (0.0 - 2.0 %) 1.0 Absolute Granulocytes (1.4 - 6.5 /CUMM) 4.5 Absolute Lymphocytes (1.2 - 3.4 /CUMM) 2.9 Absolute Monocytes (0.10 - 0.60 /CUMM) 0.7 H Absolute Eosinophils (0.0 - 0.7 /CUMM) 0.2 Absolute Basophils (0.0 - 0.2 /CUMM) 0.1 PUBS MCHC (33.0 - 37.0 G/DL) 32.7 L 06/03 1942 Chemistry Sodium (137 - 145 mmol/L) 139 Potassium (3.5 - 5.1 mmol/L) 3.8 Chloride (98 - 107 mmol/L) 106 Carbon Dioxide (22 - 30 mmol/L) 25 Anion Gap (5 - 16) 8 BUN (7 - 17 mg/dL) 37 H Creatinine (0.5 - 1.0 mg/dL) 1.5 H Estimated GFR (>60 ml/min) 34 L BUN/Creatinine Ratio (7 - 25 %) 24.7 Glucose (65 - 99 mg/dL) 114 H Lactic Acid (0.7 - 2.1 mmol/L) 0.9 Calcium (8.4 - 10.2 mg/dL) 8.8 Total Bilirubin (0.2 - 1.3 mg/dL) 0.5 AST (14 - 36 U/L) 20 ALT (9 - 52 U/L) 25 Alkaline Phosphatase (<127 U/L) 74 Troponin I (< 0.11 ng/ml) < 0.01 Total Protein (6.3 - 8.2 g/dL) 6.6 Albumin (3.5 - 5.0 g/dL) 3.3 L Globulin (1.9 - 4.2 gm/dL) 3.3 Albumin/Globulin Ratio (1.1 - 2.2 %) 1.0 L Coagulation PT (9.4 - 12.5 SEC) 12.4 INR (0.90 - 1.19) 1.18 Hematology CBC w Diff NO MAN DIFF REQ WBC (4.8 - 10.8 /CUMM) 7.7 RBC (4.20 - 5.40 /CUMM) 3.66 L Hgb (12.0 - 16.0 G/DL) 10.3 L Hct (37 - 47 %) 31.0 L MCV (81.0 - 99.0 FL) 84.8 MCH (27.0 - 31.0 PG) 28.0 RDW (11.5 - 14.5 %) 15.6 H Plt Count (130 - 400 /CUMM) 214 MPV (7.4 - 10.4 FL) 7.4 Gran % (42.2 - 75.2 %) 58.6 Lymphocytes % (20.5 - 51.1 %) 31.6 Monocytes % (1.7 - 9.3 %) 7.3 Eosinophils % (0 - 5 %) 1.7 Basophils % (0.0 - 2.0 %) 0.8 Absolute Granulocytes (1.4 - 6.5 /CUMM) 4.5 Absolute Lymphocytes (1.2 - 3.4 /CUMM) 2.4 Absolute Monocytes (0.10 - 0.60 /CUMM) 0.6 Absolute Eosinophils (0.0 - 0.7 /CUMM) 0.1 Absolute Basophils (0.0 - 0.2 /CUMM) 0.1 PUBS MCHC (33.0 - 37.0 G/DL) 33.0 Assessment/Plan Assessment/Recommendations: Assessment: Ms. Barton is a 75-year-old female who presents with painless rectal bleeding most likely secondary to a self-limited diverticular bleed based on her history and clinical course. As the bleeding started with first noticing just some blood on the toilet paper it is also possible she may have just had a hemorrhoidal bleed, but she denies any recent straining. Other potential etiologies of the bleeding are bleeding from a large polyp or tumor, an AVM, a dieulafoys lesion or colitis, but the latter possibility is less likely without any abdominal pain. A rapid transit upper GI bleed is also possible, however she is without any dyspeptic symptoms and is too hemodynamically stable to be the case. As it has been 6 years since her last colonoscopy she should have a repeat one to further assess the etiology of the bleeding, but that doesn't necessarily need to be done as an inpatient if the bleeding clinically stops. She did have some scant bleeding this am and her hgb hasn't fallen by that much so as she is now hypertensive I suspect her bleeding has markedly slowed if it hasn't arleady stopped altogether. Recommendations: 1. Continue observation in the ICU. 2. Advanced to a full liquid diet with nothing red. 3. Maintain 2 large-bore IVs at all times. 4. Follow CBCs Q8 hours and transfuse as needed to keep her hemoglobin greater than 7. 5. Would hold her aspirin for now. 6. Would discontinue the IV Protonix. 7. If she continues to have bloody bowel movements would prep with Colyte until she is passing pinkish clear stool in anticipation of performing a diagnostic/ therapeutic colonoscopy in the a.m. or will do sooner if hemodynamically significant bleeding ensues. 8. If bleeding completely stops and patient is uninterested in performing a colonoscopy while she is here with then transfer her out of the ICU and advance her diet and have her follow-up as an outpatient for a colonoscopy. I will continue to follow this patient and make further recommendations based on her clinical course and results of repeat blood work. Problem List: 1. Lower GI bleed Copies To: BRAVO ROY MD Consult Acknowledgment - Thank you for your consult request.
[2016-06-04 10:50] LABS: ABSOLUTE BASOPHIL COUNT 0.1 /CUMM (0.0-0.2); ABSOLUTE EOSINOPHIL COUNT 0.2 /CUMM (0.0-0.7); ABSOLUTE GRANULOCYTE CT 4.1 /CUMM (1.4-6.5); ABSOLUTE LYMPH COUNT 2.3 /CUMM (1.2-3.4); ABSOLUTE MONOCYTE COUNT 0.6 /CUMM (0.10-0.60); BASOPHIL % 0.9 % (0.0-2.0); EOSINOPHIL % 2.2 % (0-5); GRANULOCYTE % 56.9 % (42.2-75.2); HEMATOCRIT 28.9 % (37-47); MEAN CORPUSCULAR HGB 27.8 PG (27.0-31.0); MEAN CORPUSCULAR HGB CONC 32.4 G/DL (33.0-37.0); MEAN CORPUSCULAR VOLUME 85.7 FL (81.0-99.0); MEAN PLATELET VOLUME 7.5 FL (7.4-10.4); PLATELET COUNT 196 /CUMM (130-400); RED BLOOD CELL CT 3.37 /CUMM (4.20-5.40); WHITE BLOOD CELL COUNT 7.3 /CUMM (4.8-10.8)
[2016-06-04 16:00] VITALS: BP 160/82
[2016-06-04 18:00] LABS: ABSOLUTE BASOPHIL COUNT 0.1 /CUMM (0.0-0.2); ABSOLUTE EOSINOPHIL COUNT 0.1 /CUMM (0.0-0.7); ABSOLUTE GRANULOCYTE CT 4.1 /CUMM (1.4-6.5); ABSOLUTE LYMPH COUNT 2.2 /CUMM (1.2-3.4); ABSOLUTE MONOCYTE COUNT 0.6 /CUMM (0.10-0.60); BASOPHIL % 0.8 % (0.0-2.0); GRANULOCYTE % 58.2 % (42.2-75.2); MEAN CORPUSCULAR HGB 27.8 PG (27.0-31.0); MEAN CORPUSCULAR HGB CONC 32.7 G/DL (33.0-37.0); MEAN CORPUSCULAR VOLUME 84.9 FL (81.0-99.0); MEAN PLATELET VOLUME 7.5 FL (7.4-10.4); PLATELET COUNT 186 /CUMM (130-400); RBC DISTRIBUTION WIDTH 16.2 % (11.5-14.5); RED BLOOD CELL CT 3.42 /CUMM (4.20-5.40); WHITE BLOOD CELL COUNT 7.1 /CUMM (4.8-10.8)
--- NOTE | 2016-06-04 22:29 | Cons- Cardiology ---
General Information and HPI Consulting Request Date of Consult: 06/04/16 Requested By: LIZBETH ROBBINS,SKY Reason for Consult: Poorly controlled hypertension. Source of Information: patient, old records Exam Limitations: no limitations History of Present Illness: Mrs. Princess Barton is 75-year-old female with a history of morbid obesity, obstructive sleep apnea without CPAP, long-standing tobacco use, hypertension, thyroid cancer s/p resection and subsequent hypothyroidism on replacement, chronic kidney disease, chronic anemia, gastroesophageal reflux disease who presented to the ED on 06/03/2016 with a c/o BRBPR on a background of known diverticular disease. She states she has had abdominal pain starting 3 weeks ago for approximately 2 weeks, but this past week had none, but yesterday morning noted blood on the toilet paper and then when she went to the bathroom, thinking she was having diarrhea saw bright red blood in the toilet. She denied any associated chest discomfort, palpitations, shortness of breath, etc. recently but did admit to some earlier dizziness. She denies any history of coronary, valvular, dysrhythmic/conduction disease, or cardiomyopathy. She states that she had a "negative" pharmacologic stress test and echocardiogram that revealed some "wall thickening" in December 2015. Allergies/Medications Allergies: Coded Allergies: NO KNOWN ALLERGIES (01/25/16) Home Med List: Aspirin/Calcium Carbonate ([facility] Women's Aspirin Tablet) 81 MG-300 MG CALCIUM ( 777 MG) TABLET 81 MG PO DAILY HEART (Reported) Hydrochlorothiazide 25 MG TABLET 25 MG PO EOD EDEMA (Reported) Ibuprofen (Advil) 100 MG TABLET 100 MG PO PRN PRN PAIN (Reported) Levothyroxine Sodium (Synthroid) 125 MCG TABLET 125 MCG PO DAILY HYPOTHYROID (Reported) Metoprolol Tartrate (Lopressor) 50 MG TABLET 50 MG PO DAILY HEART (Reported) Pantoprazole Sodium 40 MG TABLET.DR 40 MG PO DAILY ACID REFLUX (Reported) Review of Systems Review of Systems: A 14 point system review was obtained was not contributory, other than for the fact that she wears glasses, has had bronchitis, intermittent diarrhea, previous UTIs, and previous anemia. 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 Family History Relations & Conditions If Any: MOTHER FH: Alzheimers disease Psychosocial History Where Do You Live? Home Who Do You Live With? spouse Smoking Status: Current Everyday Smoker ETOH Use: denies use Illicit Drug Use: denies illicit drug use Functional Ability ADLs Independent: dressing, eating, toileting, bathing. Ambulation: independent IADLs Independent: shopping, housework, finances, food prep, telephone, transportation , medication admin. 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 Exam & Diagnostic Data Vital Signs and I&O Vital Signs Date Time Temp Pulse Resp B/P Pulse O2 O2 Flow FiO2 Ox Delivery Rate 06/04 1600 97.2 61 24 160/82 94 Room Air 06/04 1600 94 Room Air 06/04 1200 93 Room Air Room Air 06/04 1143 67 171/63 06/04 1133 72 146/77 06/04 0800 96 Nasal 1.0L Cannula 06/04 0800 97.7 68 20 160/80 96 Nasal 1.0L Cannula 06/04 0426 94 Nasal 1.0L Cannula 06/04 0048 64 206/98 04/08 0000 97.8 64 20 206/98 92 Room Air 06/04 0000 94 Nasal 1.0L Cannula 06/03 2254 96.0 65 18 170/62 97 Room Air Intake & Output 06/04 1600 08 0800 /08 0000 06/03 1600 06/03 0800 06/03 0000 Intake Total 860 240 0 Output Total 600 275 Balance 260 -35 0 Intake, IV 260 120 Intake, Oral 600 120 0 Number 2 0 Bowel Movements Output, Urine 600 275 Patient 283 lb Weight Physical Exam: Well-developed, morbidly obese elderly female in no acute distress. Vital signs: See above. HEENT: Normocephalic, atraumatic, EOMI, slightly dry mucous membranes. Neck: No JVD, no bruits. Lungs: Clear to auscultation bilaterally. Heart: S1, S2 with no murmur, gallop, or rub appreciated. PMI not well felt. Abdomen: Soft, nontender, positive bowel sounds. Extremities: No edema. Labs/Raji Results: Laboratory Tests 06/04 06/04 1650 0918 Chemistry Troponin I (< 0.11 ng/ml) < 0.01 Hematology CBC w Diff NO MAN DIFF REQ NO MAN DIFF REQ WBC (4.8 - 10.8 /CUMM) 7.1 7.3 RBC (4.20 - 5.40 /CUMM) 3.42 L 3.37 L Hgb (12.0 - 16.0 G/DL) 9.5 L 9.4 L Hct (37 - 47 %) 29.0 L 28.9 L MCV (81.0 - 99.0 FL) 84.9 85.7 MCH (27.0 - 31.0 PG) 27.8 27.8 RDW (11.5 - 14.5 %) 16.2 H 16.0 H Plt Count (130 - 400 /CUMM) 186 196 MPV (7.4 - 10.4 FL) 7.5 7.5 Gran % (42.2 - 75.2 %) 58.2 56.9 Lymphocytes % (20.5 - 51.1 %) 30.5 31.9 Monocytes % (1.7 - 9.3 %) 8.5 8.1 Eosinophils % (0 - 5 %) 2.0 2.2 Basophils % (0.0 - 2.0 %) 0.8 0.9 Absolute Granulocytes (1.4 - 6.5 /CUMM) 4.1 4.1 Absolute Lymphocytes (1.2 - 3.4 /CUMM) 2.2 2.3 Absolute Monocytes (0.10 - 0.60 /CUMM) 0.6 0.6 Absolute Eosinophils (0.0 - 0.7 /CUMM) 0.1 0.2 Absolute Basophils (0.0 - 0.2 /CUMM) 0.1 0.1 PUBS MCHC (33.0 - 37.0 G/DL) 32.7 L 32.4 L 06/04 06/04 0620 0600 Chemistry Sodium Cancelled Potassium Cancelled Chloride Cancelled Carbon Dioxide Cancelled Anion Gap Cancelled BUN Cancelled Creatinine Cancelled BUN/Creatinine Ratio Cancelled Hematology CBC w Diff Cancelled WBC Cancelled RBC Cancelled Hgb Cancelled Hct Cancelled MCV Cancelled MCH Cancelled RDW Cancelled Plt Count Cancelled MPV Cancelled PUBS MCHC Cancelled Urines Urine Color (YEL,AMB,STR) YEL Urine Clarity (CLEAR) CLEAR Urine pH (5.0 - 8.0) 5.5 Ur Specific [place] (1.001 - 1.035) >= 1.030 Urine Protein (NEG,<30 MG/DL) 100 H Urine Ketones (NEG) NEG Urine Nitrite (NEG) NEG Urine Bilirubin (NEG) NEG Urine Urobilinogen (0.1 - 1.0 EU/dl) 0.2 Ur Leukocyte Esterase (NEG) NEG Ur Microscopic SEDIMENT EXAMINED Urine RBC (0 - 5 /HPF) 25-50 H Urine WBC (0 - 2 /HPF) 1-3 H Ur Epithelial Cells (NONE,FEW) MOD H Urine Bacteria (NEG/NONE) MOD H Hyaline Casts (0/LPF) 3-5 H Granular Casts (NONE /LPF) FEW H Urine Mucus (FEW,NONE) FEW Urine Hemoglobin (NEG) MOD H Urine Glucose (N MG/DL) NEG 06/04 06/03 0310 2223 Chemistry Sodium (137 - 145 mmol/L) 142 Potassium (3.5 - 5.1 mmol/L) 3.8 Chloride (98 - 107 mmol/L) 108 H Carbon Dioxide (22 - 30 mmol/L) 25 Anion Gap (5 - 16) 9 BUN (7 - 17 mg/dL) 34 H Creatinine (0.5 - 1.0 mg/dL) 1.5 H Estimated GFR (>60 ml/min) 34 L Glucose (65 - 99 mg/dL) 96 Lactic Acid Cancelled Calcium (8.4 - 10.2 mg/dL) 8.5 Phosphorus (2.5 - 4.5 mg/dL) 3.9 Magnesium (1.6 - 2.3 mg/dL) 1.4 L Total Bilirubin (0.2 - 1.3 mg/dL) 0.4 AST (14 - 36 U/L) 18 ALT (9 - 52 U/L) 29 Troponin I (< 0.11 ng/ml) < 0.01 Albumin (3.5 - 5.0 g/dL) 2.9 L Hematology CBC w Diff NO MAN DIFF REQ WBC (4.8 - 10.8 /CUMM) 8.4 RBC (4.20 - 5.40 /CUMM) 3.32 L Hgb (12.0 - 16.0 G/DL) 9.3 L Hct (37 - 47 %) 28.3 L MCV (81.0 - 99.0 FL) 85.4 MCH (27.0 - 31.0 PG) 28.0 RDW (11.5 - 14.5 %) 16.0 H Plt Count (130 - 400 /CUMM) 200 MPV (7.4 - 10.4 FL) 7.2 L Gran % (42.2 - 75.2 %) 53.7 Lymphocytes % (20.5 - 51.1 %) 34.9 Monocytes % (1.7 - 9.3 %) 8.5 Eosinophils % (0 - 5 %) 1.9 Basophils % (0.0 - 2.0 %) 1.0 Absolute Granulocytes (1.4 - 6.5 /CUMM) 4.5 Absolute Lymphocytes (1.2 - 3.4 /CUMM) 2.9 Absolute Monocytes (0.10 - 0.60 /CUMM) 0.7 H Absolute Eosinophils (0.0 - 0.7 /CUMM) 0.2 Absolute Basophils (0.0 - 0.2 /CUMM) 0.1 PUBS MCHC (33.0 - 37.0 G/DL) 32.7 L 06/03 1943 Chemistry Sodium (137 - 145 mmol/L) 139 Potassium (3.5 - 5.1 mmol/L) 3.8 Chloride (98 - 107 mmol/L) 106 Carbon Dioxide (22 - 30 mmol/L) 25 Anion Gap (5 - 16) 8 BUN (7 - 17 mg/dL) 37 H Creatinine (0.5 - 1.0 mg/dL) 1.5 H Estimated GFR (>60 ml/min) 34 L BUN/Creatinine Ratio (7 - 25 %) 24.7 Glucose (65 - 99 mg/dL) 114 H Lactic Acid (0.7 - 2.1 mmol/L) 0.9 Calcium (8.4 - 10.2 mg/dL) 8.8 Total Bilirubin (0.2 - 1.3 mg/dL) 0.5 AST (14 - 36 U/L) 20 ALT (9 - 52 U/L) 25 Alkaline Phosphatase (<127 U/L) 74 Troponin I (< 0.11 ng/ml) < 0.01 Total Protein (6.3 - 8.2 g/dL) 6.6 Albumin (3.5 - 5.0 g/dL) 3.3 L Globulin (1.9 - 4.2 gm/dL) 3.3 Albumin/Globulin Ratio (1.1 - 2.2 %) 1.0 L Coagulation PT (9.4 - 12.5 SEC) 12.4 INR (0.90 - 1.19) 1.18 Hematology CBC w Diff NO MAN DIFF REQ WBC (4.8 - 10.8 /CUMM) 7.7 RBC (4.20 - 5.40 /CUMM) 3.66 L Hgb (12.0 - 16.0 G/DL) 10.3 L Hct (37 - 47 %) 31.0 L MCV (81.0 - 99.0 FL) 84.8 MCH (27.0 - 31.0 PG) 28.0 RDW (11.5 - 14.5 %) 15.6 H Plt Count (130 - 400 /CUMM) 214 MPV (7.4 - 10.4 FL) 7.4 Gran % (42.2 - 75.2 %) 58.6 Lymphocytes % (20.5 - 51.1 %) 31.6 Monocytes % (1.7 - 9.3 %) 7.3 Eosinophils % (0 - 5 %) 1.7 Basophils % (0.0 - 2.0 %) 0.8 Absolute Granulocytes (1.4 - 6.5 /CUMM) 4.5 Absolute Lymphocytes (1.2 - 3.4 /CUMM) 2.4 Absolute Monocytes (0.10 - 0.60 /CUMM) 0.6 Absolute Eosinophils (0.0 - 0.7 /CUMM) 0.1 Absolute Basophils (0.0 - 0.2 /CUMM) 0.1 PUBS MCHC (33.0 - 37.0 G/DL) 33.0 Diagnostic Data EKG Results 06/04/2016) sinus rhythm and left ventricular hypertrophy with repolarization abnormalities. No significant change when compared to the previous tracing from 06/03/2016. Assessment/Plan Assessment/Plan Mrs. Barton is an elderly female with a history of morbid obesity, ONIEL w/o CPAP, long-standing tobacco use, HTN, thyroid cancer s/p resection and subsequent hypothyroidism, CKD, chronic anemia, and GERD who presented to the ED on 08/2016 with a c/o BRBPR on a background of known diverticular disease. According to the record, she takes metoprolol titrate 50 mg once daily and hydrochlorothiazide 25 mg once daily for her hypertension. Metoprolol tartrate is a twice daily agent can should be taken as 25 mg twice daily. The record also suggested she is on ibuprofen which is contraindicated given her CKD and relatively contraindicated given her long-standing hypertension. This needs to be stopped. Would hold her diuretic for at least a short-term and continue her on metoprolol 25 mg twice daily until she needs to be nothing by mouth. Can then give IV metoprolol 2.5-5 mg every 6 hours as needed assuming her heart rate does not become too bradycardic. Would also try and get the results of her recent noninvasive cardiac evaluation (echocardiogram and pharmacologic stress test). Continue to follow-up on GI recommendations. Continue with mechanical DVT prophylaxis. Further recommendations will follow, Thank you. Consult Acknowledgment - Thank you for your consult request.
[2016-06-04 23:17] LABS: ABSOLUTE BASOPHIL COUNT 0.1 /CUMM (0.0-0.2); ABSOLUTE EOSINOPHIL COUNT 0.2 /CUMM (0.0-0.7); ABSOLUTE GRANULOCYTE CT 4.4 /CUMM (1.4-6.5); ABSOLUTE LYMPH COUNT 2.3 /CUMM (1.2-3.4); ABSOLUTE MONOCYTE COUNT 0.6 /CUMM (0.10-0.60); EOSINOPHIL % 2.1 % (0-5); HEMATOCRIT 28.9 % (37-47); MEAN CORPUSCULAR HGB 27.9 PG (27.0-31.0); MEAN CORPUSCULAR HGB CONC 32.8 G/DL (33.0-37.0); MEAN PLATELET VOLUME 7.3 FL (7.4-10.4); PLATELET COUNT 191 /CUMM (130-400); RBC DISTRIBUTION WIDTH 15.6 % (11.5-14.5); WHITE BLOOD CELL COUNT 7.6 /CUMM (4.8-10.8)
[2016-06-05 01:02] VITALS: BP 175/71
[2016-06-05 04:24] LABS: ABSOLUTE BASOPHIL COUNT 0 /CUMM (0.0-0.2); ABSOLUTE EOSINOPHIL COUNT 0.2 /CUMM (0.0-0.7); ABSOLUTE GRANULOCYTE CT 4.1 /CUMM (1.4-6.5); ABSOLUTE LYMPH COUNT 2.7 /CUMM (1.2-3.4); ABSOLUTE MONOCYTE COUNT 0.6 /CUMM (0.10-0.60); BASOPHIL % 0.6 % (0.0-2.0); EOSINOPHIL % 2.1 % (0-5); GRANULOCYTE % 54.1 % (42.2-75.2); HEMATOCRIT 28.7 % (37-47); MEAN CORPUSCULAR HGB 28.1 PG (27.0-31.0); MEAN CORPUSCULAR VOLUME 85.3 FL (81.0-99.0); MEAN PLATELET VOLUME 7.7 FL (7.4-10.4); PLATELET COUNT 187 /CUMM (130-400); RBC DISTRIBUTION WIDTH 15.9 % (11.5-14.5); RED BLOOD CELL CT 3.36 /CUMM (4.20-5.40); WHITE BLOOD CELL COUNT 7.6 /CUMM (4.8-10.8)
[2016-06-05 08:00] VITALS: BP 160/82
--- NOTE | 2016-06-05 08:19 | PN- Resident CRCU ---
Subjective HPI/CRCU Issues: Patient seen and examined this morning. She was lying comfortably in bed in no acute distress. Nothing by mouth for colonoscopy today. She had episode of bleeding per rectum this a.m. but lesser in amount as compared to previous episodes. Otherwise no complain of any nausea vomiting abdominal pain, dizziness or any urinary symptoms.. 24 Hour Events: Had an episode of V. tach 8 beat run Objective Vital Signs & I&O Last 8 Hrs of Vitals and I&O: Laboratory Tests 06/05/16 1620: Anion Gap 10, Estimated GFR 37 L, Glucose 113 H, Calcium 8.4, Phosphorus 4.5, Magnesium 1.7, Total Bilirubin 0.7, AST 22, ALT 28, Albumin 3.4 L, PT 11.4, INR 1.09, APTT 28, CBC w Diff NO MAN DIFF REQ, RBC 3.56 L, MCV 85.4, MCH 27.5, RDW 15.9 H, MPV 7.4, Gran % 85.0 H, Lymphocytes % 8.7 L, Monocytes % 5.4, Eosinophils % 0.6, Basophils % 0.3, Absolute Granulocytes 11.2 H, Absolute Lymphocytes 1.1 L, Absolute Monocytes 0.7 H, Absolute Eosinophils 0.1, Absolute Basophils 0, PUBS MCHC 32.2 L 06/05/16 0400: Anion Gap 9, Estimated GFR 37 L, Glucose 90, Calcium 8.9, Phosphorus 3.6, Magnesium 1.8, Total Bilirubin 0.7, AST 22, ALT 33, Albumin 3.2 L, CBC w Diff NO MAN DIFF REQ, RBC 3.36 L, MCV 85.3, MCH 28.1, RDW 15.9 H, MPV 7.7, Gran % 54.1, Lymphocytes % 35.9, Monocytes % 7.3, Eosinophils % 2.1, Basophils % 0.6, Absolute Granulocytes 4.1, Absolute Lymphocytes 2.7, Absolute Monocytes 0.6, Absolute Eosinophils 0.2, Absolute Basophils 0, PUBS MCHC 33.0 06/05/16 0132: Magnesium Cancelled 06/04/16 2240: CBC w Diff NO MAN DIFF REQ, RBC 3.40 L, MCV 85.0, MCH 27.9, RDW 15.6 H, MPV 7.3 L, Gran % 58.0, Lymphocytes % 30.8, Monocytes % 8.1, Eosinophils % 2.1, Basophils % 1.0, Absolute Granulocytes 4.4, Absolute Lymphocytes 2.3, Absolute Monocytes 0.6, Absolute Eosinophils 0.2, Absolute Basophils 0.1, PUBS MCHC 32.8 L Vital Signs Date Time Temp Pulse Resp B/P Pulse O2 O2 Flow FiO2 Ox Delivery Rate 06/05 1200 96 Nasal 2.0L Cannula 06/05 810 66 160/80 06/06 799 98.0 59 20 160/82 94 Room Air 06/06 799 94 Room Air 06/05 0102 98.4 64 20 175/71 95 Intake & Output 06/05 1600 06/05 0800 04 0000 Intake Total 6269 389 0529 Output Total 900 450 500 Balance 498 -210 2220 Intake, IV 798 Intake, Oral 284 946 3763 Number 4 6 5 Bowel Movements Output, Stool 600 Output, Urine 300 450 500 Intake & Output 06/05 1600 Intake Total 1398 Output Total 900 Balance 498 Intake, IV 798 Intake, Oral 600 Number 4 Bowel Movements Output, Stool 600 Output, Urine 300 Exam General Appearance: well developed/nourished, no apparent distress, comfortable Respiratory: normal breath sounds Cardiovascular: regular rate/rhythm Gastrointestinal: normal bowel sounds, soft Extremities: normal inspection Current Medications: Current Medications Sig/Liv Start time Last Medication Dose Route Stop Time Status Admin Acetaminophen 650 MG Q6P PRN 06/04 1945 AC 06/04 PO 2327 Dextrose/Sodium 1,000 ML Q20H 06/05 0830 AC 06/05 [place] 0850 Hydrochlorothiazide 25 MG Q48H 06/04 1000 AC 06/04 PO 1143 Levothyroxine Sodium 0.125 MG DAILY AC 06/04 699 AC 06/05 PO 0613 Magnesium Sulfate 1 GM ONCE ONE 06/06 0745 [place] 06/05 Dextrose/Water 100 ML IV 06/05 1244 0850 Metoprolol Tartrate 25 MG BID 06/05 1000 AC 06/05 PO 0811 Metoprolol Tartrate 50 MG DAILY 06/04 1000 DC 06/04 PO 1143 Omeprazole 40 MG DAILY AC 06/04 0700 AC 06/05 PO 0613 Ondansetron HCl 4 MG ONCE ONE 06/05 1530 DC IV 06/05 1531 Potassium Phosphate 15 mMol ONE ONE 06/06 0745 DC 06/05 Dextrose/Water 250 ML IV 06/05 8337 7889 Impression/Plan Impression/Problem List Impression: This is a 75-year-old morbidly obese female with past medical history of hypertension, hypothyroidism status post thyroidectomy, chronic pain, gastroesophageal reflux disease, current smoker, nonalcoholic came in with chief complain of bright red blood per rectum since the morning of admission with one episode of significant bright red blood along with loose stools mixed. Tmax - 98.6, pulse of 78, respirations 22, blood pressure of 200/96, 95% on room air. White count of 7.7, H/H of 10.3/31.0, platelet of 214.(Baseline H/H of 10.5/34). Sodium of 139, potassium of 3.8, BUN and creatinine 35/1.5. GFR of 34. Glucose of 114, lactic acid 0.9, liver function tests within normal limit. Patient monitored in ICU for the following. #1 BRBPR * Continue to maintain on 2 large bore IV lines. * Continue to monitor vitals every shift. * Crossmatch and type. * Keep the patient nothing by mouth in anticipation of colonoscopy/endoscopy today. * Blood transfusion if H/H less than 8. * Continue protonix daily. * Hold aspirin, hold ibuprofen #2 Hypertension. * Cont metoprolol Tartarete 50 mg OD, hydrochlorthiazide 25 mg daily * Continue to watch BP closely. #3 Hypothyroidism. * s/p thyroidectomy for thyroid cancer * Continue levothyroxine 125mcg daily. #4 CKD * Stage : G3b * Creatinine 1.5 ( baseline 1.4) * Avoid all nephrotoxin. * Avoid nsaids, FC Mild/Mod/severe pain pathway. DVT px with ALPS ( gi bleed) Problem List: 1. Hypertension 2. Lower GI bleed 3. Hypothyroidism Pain Ratin Tomorrow's Labs & Rationales: icu bundle cbc Plan DVT/Prophylaxis: pharmacological
--- NOTE | 2016-06-05 09:45 | PN- CRCU ---
Subjective HPI/Critical Care Issues: pt seen and examined afebrile hemodynamically stable 94% on room air hemoglobin stable some clots/bleeding overnight plan for scope today Objective Current Medications: Current Medications Sig/Liv Start time Last Medication Dose Route Stop Time Status Admin Acetaminophen 650 MG Q6P PRN 06/04 1945 AC 06/04 PO 2327 Dextrose/Sodium 1,000 ML Q20H 06/05 0830 AC 06/05 Chloride IV 0850 Hydrochlorothiazide 25 MG Q48H 06/04 1000 AC 06/04 PO 1143 Levothyroxine Sodium 0.125 MG DAILY AC 06/04 0700 AC 06/05 PO 0613 Magnesium Sulfate 1 GM ONCE ONE 06/05 0845 AC 06/05 Dextrose/Water 100 ML IV 06/05 1244 0850 Magnesium Sulfate 1 GM ONCE ONE 06/04 0715 DC 06/04 Dextrose/Water 100 ML IV 06/04 1114 0804 Metoprolol Tartrate 25 MG BID 06/05 1000 AC 06/05 PO 0811 Metoprolol Tartrate 50 MG DAILY 06/04 1000 DC 06/04 PO 1143 Omeprazole 40 MG DAILY AC 06/04 0700 AC 06/05 PO 0613 Patient Medication 1 UNIT ONE NR 06/04 1000 SD Teaching ED 06/04 1030 Patient Medication 1 UNIT ONE NR 06/04 1000 SD Teaching ED 06/04 1030 Polyethylene Glycol 1 GAL ONCE ONE 06/04 1345 DC 06/04 PO 06/04 1346 1650 Potassium Phosphate 15 mMol ONE ONE 06/05 0845 AC Dextrose/Water 250 ML IV 06/05 1248 Vital Signs & I&O Last 24 Hrs of Vitals and I&O: Vital Signs Date Time Temp Pulse Resp B/P Pulse O2 O2 Flow FiO2 Ox Delivery Rate 06/05 0811 66 160/80 06/05 0800 98.0 59 20 160/82 94 Room Air 06/05 0800 94 Room Air 06/05 0102 98.4 64 20 175/71 95 06/04 1600 97.2 61 24 160/82 94 Room Air 06/04 1600 94 Room Air 06/04 1200 93 Room Air Room Air 06/04 1143 67 171/63 06/04 1133 72 146/77 Intake & Output 06/05 1600 06/05 0800 06/05 0000 Intake Total 240 2720 Output Total 450 500 Balance -210 2220 Intake, Oral 240 2720 Number 6 5 Bowel Movements Output, Urine 450 500 Exam Other Physical Findings: Gen - alert and awake HEENT - NCAT CVS - S1, S2, no murmurs, rubs or gallops Lungs - clear to auscultation bilaterally Abdomen - soft, non-tender, bs+ Ext - no edema, no cyanosis Results Last 24 Hrs of Lab Results: Laboratory Tests 06/05/16 0400: Anion Gap 9, Estimated GFR 37 L, Glucose 90, Calcium 8.9, Phosphorus 3.6, Magnesium 1.8, Total Bilirubin 0.7, AST 22, ALT 33, Albumin 3.2 L, CBC w Diff NO MAN DIFF REQ, RBC 3.36 L, MCV 85.3, MCH 28.1, RDW 15.9 H, MPV 7.7, Gran % 54.1, Lymphocytes % 35.9, Monocytes % 7.3, Eosinophils % 2.1, Basophils % 0.6, Absolute Granulocytes 4.1, Absolute Lymphocytes 2.7, Absolute Monocytes 0.6, Absolute Eosinophils 0.2, Absolute Basophils 0, PUBS MCHC 33.0 06/05/16 0132: Magnesium Cancelled 06/04/16 2240: CBC w Diff NO MAN DIFF REQ, RBC 3.40 L, MCV 85.0, MCH 27.9, RDW 15.6 H, MPV 7.3 L, Gran % 58.0, Lymphocytes % 30.8, Monocytes % 8.1, Eosinophils % 2.1, Basophils % 1.0, Absolute Granulocytes 4.4, Absolute Lymphocytes 2.3, Absolute Monocytes 0.6, Absolute Eosinophils 0.2, Absolute Basophils 0.1, PUBS MCHC 32.8 L 06/04/16 1650: CBC w Diff NO MAN DIFF REQ, RBC 3.42 L, MCV 84.9, MCH 27.8, RDW 16.2 H, MPV 7.5, Gran % 58.2, Lymphocytes % 30.5, Monocytes % 8.5, Eosinophils % 2.0, Basophils % 0.8, Absolute Granulocytes 4.1, Absolute Lymphocytes 2.2, Absolute Monocytes 0.6, Absolute Eosinophils 0.1, Absolute Basophils 0.1, PUBS MCHC 32.7 L Impression/Plan Impression/Plan Impression/Plan: Impression 75 year old woman * Lower GI bleed - acute blood loss anemia * Diverticulosis * CKD * HTN urgency * Hypothyrodism Plan - GI consultation appreciated - IV access - 2 large bore IV catheters - monitor cbc, coags - patient type and crossed - Ibuprofen and aspirin held - NPO - PPI - Cardiology consultation appreciated, f/u recommendations - plan for endoscopy today - bp monitoring and management DVT prophylaxis - ALPS - no a/c given GI bleed TTS 35 min
--- NOTE | 2016-06-05 11:26 | Proc Note Colonoscopy ---
Colonoscopy Procedure Medical History: unchanged (see meditech consult) Mental Status: alert/oriented Candidate for Sedation? Yes Date of Last Colonoscopy: Approximately 6 years ago. Procedure Date: 06/05/16 Procedure Type: colonoscopy w/biopsy Dermatology Physician: Cesar Jernigan MD ASA Classification: III Indications: Hematochezia. Instrument (Colonoscope): single channel Meds Received: MAC Patient's Tolerance: good Complications: none Extent Reached: cecum Prep: good Procedure: After getting written informed consent the patient was placed in the left lateral decubitus position with pulse oximetry, cardiac monitoring, and supplemental oxygen was given. IV sedation was given until the desired effect was achieved. A rectal exam was performed which was normal. A high definition variable stiffness Olympus colonoscope was then inserted into the anus and advanced to the cecum with little difficulty. Retroflexed views were obtained and photodocumentation was obtained. Close inspection of the colonic mucosa was performed on insertion and withdrawal of the colonoscope with a withdrawal time that was adequate in length to closely inspect all folds and wild of the colon. Findings: There were numerous scattered diverticula appreciated in the sigmoid colon and there were also a few diverticula appreciated in the descending colon, in the ascending colon and cecum. There was a moderate amount of fresh and old blood with clots in the sigmoid colon, but when the blood was irrigated away there was no active reaccumulation appreciated. None of the visualized diverticula had any stigmata of recent bleeding such as a visible vessel and no active bleeding was appreciated anywhere within the colon. There was bile appreciated in the transverse colon and right colon and there was also bile seen coming from the terminal ileum, but the ileum was not able to be intubated. There were two 4 mm sessile polyps and a 2mm sessile polyp in the ascending colon which were removed with cold biopsy forceps without any significant bleeding ensuing and the pieces were sent to pathology for further evaluation. Retroflexed views in the rectum revealed small internal hemorrhoids. Impression: 1. Findings consistent with a resolving sigmoid diverticular bleed without any active bleeding appreciated. 2. 3 diminutive ascending colon polyp status post removal via cold biopsy forceps. 3. Small internal hemorrhoids. Recommendations: 1. Advance diet as tolerated. 2. Follow CBCs Q 12 hours and transfuse as needed to keep hemoglobin greater than 8. 3. If she continues to have evidence of active bleeding would then consult interventional radiology to pursue an angiogram for potential treatment. 4. She should follow up the pathology results with me as an outpatient. 5. Would hold NSAIDs. Followup Colonscopy Screen In: pending biopsy result(s) CC: KIRILL ROBBINS,BRAVO
[2016-06-05 16:00] VITALS: BP 160/82
--- NOTE | 2016-06-05 16:14 | Event Note ---
Event Note Event Note: Patient developed a one episode of bloody bowel movements with clots this afternoon. GI was consulted by the housestaff recommended IR intervention start. Discussed with Dr. sinha and Dr. Kan recommended CT angiogram with and without contrast (GI protocol) if evidence of bleeding she will probably need a mineralization. Patient white this appears to be stable. Her heart rate initially was in the 60s currently in 70s. Blood pressure on manual was was 160. Currently on IV fluids. Stat labs ordered, ICU attending updated who agreed with the above plan Patient has history of chronic kidney disease with readmitted baseline today. CT angio Will put her to risk of worsening kidney functions and possible dialysis. Risks and benefits explained to the patient and her family. She agreed to have the imaging done. We will go ahead and obtain a angiogram and further plan based on the reports. Nursing updated on the plan
[2016-06-05 16:54] LABS: ABSOLUTE BASOPHIL COUNT 0 /CUMM (0.0-0.2); ABSOLUTE EOSINOPHIL COUNT 0.1 /CUMM (0.0-0.7); ABSOLUTE GRANULOCYTE CT 11.2 /CUMM (1.4-6.5); ABSOLUTE LYMPH COUNT 1.1 /CUMM (1.2-3.4); ABSOLUTE MONOCYTE COUNT 0.7 /CUMM (0.10-0.60); BASOPHIL % 0.3 % (0.0-2.0); EOSINOPHIL % 0.6 % (0-5); HEMATOCRIT 30.4 % (37-47); MEAN CORPUSCULAR HGB 27.5 PG (27.0-31.0); MEAN CORPUSCULAR HGB CONC 32.2 G/DL (33.0-37.0); MEAN CORPUSCULAR VOLUME 85.4 FL (81.0-99.0); MEAN PLATELET VOLUME 7.4 FL (7.4-10.4); PLATELET COUNT 207 /CUMM (130-400); RBC DISTRIBUTION WIDTH 15.9 % (11.5-14.5); RED BLOOD CELL CT 3.56 /CUMM (4.20-5.40)
[2016-06-05 17:02] LABS: PT 11.4 SEC (9.4-12.5); PTT 28 SEC (25-37)
[2016-06-05 17:18] LABS: WHITE BLOOD CELL COUNT 13.1 /CUMM (4.8-10.8)
--- NOTE | 2016-06-05 18:27 | Event Note ---
Event Note Event Note: [facility] called, reported that patient has CT evidence of perforated bowel. Dr. Jernigan was made aware, surgery was consulted stat, patient to go to OR soon. Also spoke to anesthesia, for placement of central line.
--- NOTE | 2016-06-05 18:36 | CT SCAN REPORT ---
EXAMINATION: CT ANGIOGRAM ABDOMEN AND PELVIS CLINICAL INFORMATION: A 75-year-old female presented with GI bleed following recent colonoscopic polyp removal. COMPARISON: None. TECHNIQUE: Multiple axial images were obtained through the abdomen and pelvis before, and after the administration of 100 mL of Optiray 320 intravenous contrast. Images were reviewed on a dedicated 3-D workstation. DLP: 2072.66 mGy-cm. FINDINGS: There is a large amount of free intraperitoneal air and significant amount of right-sided retroperitoneal air present, consistent with a hollow viscus perforation. Although the exact site of perforation cannot be definitely identified, given the patient's history of recent right-sided colonoscopic polypectomy, possibly arising from the right-sided colon, at the site of polypectomy. There is no CT evidence of any GI bleed identified. Moderate-sized hiatal hernia is noted. The small bowel loops are decompressed. Extensive colonic diverticulosis related changes are noted predominantly within the sigmoid and descending colon. The liver, biliary tree, pancreas, spleen, both adrenals are unremarkable. The gallbladder is not visualized, presumably surgically absent. There is an exophytic cortical renal cyst present at the superior as well as inferior pole of the left kidney, otherwise both kidneys are unremarkable. Atherosclerotic changes are noted within the aorta and its branches. There is no pelvic mass present. There is no free fluid identified. The urinary bladder is unremarkable. No suspicious lytic or sclerotic abnormality. IMPRESSION: 1. Extensive predominantly right hemiabdomen, right hemipelvic intraperitoneal as well as retroperitoneal extraluminal air identified, consistent with hollow viscus perforation. Although the exact site of perforation is not evident on these images, given the patient's recent history of right-sided colonoscopic polypectomy, possibly arising from the right-sided colon at the site of polypectomy. Please correlate with endoscopic findings. 2. No CT evidence of acute GI hemorrhage. 3. Surgical consultation is recommended. This critical result was discussed with Dr. Yamini Reynaga at 5:47 PM on 06/05/2016 and it was ascertained that the content and urgency of the report was understood at the time of direct communication.
--- NOTE | 2016-06-05 19:53 | Cons- General Surgery ---
General Information and HPI Consulting Request Date of Consult: 06/05/16 Requested By: LIZBETH ROBBINS,SKY Reason for Consult: bowel perforation History of Present Illness: This is a 75-year-old woman who presents to the medical service with gastrointestinal bleeding. She had symptoms of hematochezia and underwent colonoscopy for further evaluation, after bowel prep. Findings at colonoscopy showed diverticulosis with blood and clots in the sigmoid colon. The remainder the findings were unremarkable. Following colonoscopy she had some mild abdominal pain. She also passed some more clotted blood and CT scan with IV contrast (CT angiogram) was performed to look for source of bleeding. There is no contrast extravasation to suggest an active bleed. There was however free. Intraperitoneal air consistent with perforation. Patient now complains of diffuse abdominal pain. However she is comfortable. There is no nausea vomiting. No fevers chills or sweats. Allergies/Medications Allergies: Coded Allergies: NO KNOWN ALLERGIES (01/25/16) Home Med List: Aspirin/Calcium Carbonate (Nanette Women's Aspirin Tablet) 81 MG-300 MG CALCIUM ( 777 MG) TABLET 81 MG PO DAILY HEART (Reported) Hydrochlorothiazide 25 MG TABLET 25 MG PO EOD EDEMA (Reported) Ibuprofen (Advil) 100 MG TABLET 100 MG PO PRN PRN PAIN (Reported) Levothyroxine Sodium (Synthroid) 125 MCG TABLET 125 MCG PO DAILY HYPOTHYROID (Reported) Metoprolol Tartrate (Lopressor) 50 MG TABLET 50 MG PO DAILY HEART (Reported) Pantoprazole Sodium 40 MG TABLET.DR 40 MG PO DAILY ACID REFLUX (Reported) Current Medications: Current Medications Sig/Liv Start time Last Medication Dose Route Stop Time Status Admin Acetaminophen 650 MG Q6P PRN 06/04 1945 AC 06/04 PO 2327 Ampicillin Sodium/ 1,500 MG Q6 06/05 1815 AC Sulbactam Sodium IV Sodium Chloride 100 ML Dextrose/Sodium 1,000 ML Q20H 06/05 0830 AC 06/05 [place] 0850 Furosemide 20 MG ONCE ONE 06/05 1830 CAN IV 06/05 1831 Hydrochlorothiazide 25 MG Q48H 06/04 1000 AC 06/04 PO 1143 Levothyroxine Sodium 0.125 MG DAILY AC 06/04 0700 AC 06/05 PO 0613 Magnesium Sulfate 1 GM ONCE ONE 06/05 0845 DC 06/05 Dextrose/Water 100 ML IV 06/05 1244 0850 Metoprolol Tartrate 25 MG BID 06/05 1000 AC 06/05 PO 0811 Metoprolol Tartrate 50 MG DAILY 06/04 1000 DC 06/04 PO 1143 Omeprazole 40 MG DAILY AC 06/04 0700 AC 06/05 PO 0613 Ondansetron HCl 4 MG ONCE ONE 06/05 1530 DC IV 06/05 1531 Potassium Phosphate 15 mMol ONE ONE 06/05 0845 DC 06/05 Dextrose/Water 250 ML IV 06/05 1248 1215 Past History Medical History Blood Transfusion Hx: No Neurological: vertigo EENT: NONE Cardiovascular: hypertension Respiratory: NONE Gastrointestinal: diverticulitis, GERD Hepatic: NONE Renal: NONE Musculoskeletal: osteoarthritis Psychiatric: NONE Endocrine: obesity Blood Disorders: NONE Cancer(s): thyroid cancer BANDER/Reproductive: NONE Surgical History Pertinent Surgical History: appendectomy, cholecystectomy, hysterectomy, thyroidectomy. Family History Relations & Conditions If Any: MOTHER FH: Alzheimers disease Psychosocial History Where Do You Live? Home Who Do You Live With? spouse Smoking Status: Current Everyday Smoker ETOH Use: denies use Illicit Drug Use: denies illicit drug use Functional Ability ADLs Independent: dressing, eating, toileting, bathing. Ambulation: independent IADLs Independent: shopping, housework, finances, food prep, telephone, transportation , medication admin. 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 Abdominal pain per HPI. Remainder 12 points negative Exam & Diagnostic Data Vital Signs and I&O Vital Signs Date Time Temp Pulse Resp B/P Pulse O2 O2 Flow FiO2 Ox Delivery Rate 06/05 1200 96 Nasal 2.0L Cannula 06/05 810 66 160/80 06/06 799 98.0 59 20 160/82 94 Room Air 06/06 799 94 Room Air 06/05 0102 98.4 64 20 175/71 95 Intake & Output 06/05 1600 06/05 0000 06/04 1600 06/04 0000 Intake Total 5121 122 5364 860 240 0 Output Total 900 450 500 600 275 Balance 498 -210 2220 260 -35 0 Intake, IV 798 260 120 Intake, Oral 104 845 5333 600 120 0 Number 4 6 5 2 0 Bowel Movements Output, Stool 600 Output, Urine 300 450 500 600 275 Patient 283 lb Weight Physical Exam: Gen.: She looks her stated age she is of obese habitus. She is in no distress. HEENT: Anicteric PERRL EOMI Chest: Nontender normal excursion normal effort Abdomen: Morbidly obese, soft diffuse tenderness without guarding. No hernias no mass Extremities: No cyanosis clubbing or edema Last 24 Hours of Labs: Laboratory Tests 06/05 06/05 1830 1620 Chemistry Sodium (137 - 145 mmol/L) 139 Potassium (3.5 - 5.1 mmol/L) 4.1 Chloride (98 - 107 mmol/L) 103 Carbon Dioxide (22 - 30 mmol/L) 26 Anion Gap (5 - 16) 10 BUN (7 - 17 mg/dL) 24 H Creatinine (0.5 - 1.0 mg/dL) 1.4 H Estimated GFR (>60 ml/min) 37 L Glucose (65 - 99 mg/dL) 113 H Calcium (8.4 - 10.2 mg/dL) 8.4 Phosphorus (2.5 - 4.5 mg/dL) 4.5 Magnesium (1.6 - 2.3 mg/dL) 1.7 Total Bilirubin (0.2 - 1.3 mg/dL) 0.7 AST (14 - 36 U/L) 22 ALT (9 - 52 U/L) 28 Albumin (3.5 - 5.0 g/dL) 3.4 L Coagulation PT (9.4 - 12.5 SEC) 11.4 INR (0.90 - 1.19) 1.09 APTT (25 - 37 SEC) 28 Hematology CBC w Diff NO MAN DIFF REQ WBC (4.8 - 10.8 /CUMM) 13.1 H RBC (4.20 - 5.40 /CUMM) 3.56 L Hgb (12.0 - 16.0 G/DL) 9.8 L Hct (37 - 47 %) 30.4 L MCV (81.0 - 99.0 FL) 85.4 MCH (27.0 - 31.0 PG) 27.5 RDW (11.5 - 14.5 %) 15.9 H Plt Count (130 - 400 /CUMM) 207 MPV (7.4 - 10.4 FL) 7.4 Gran % (42.2 - 75.2 %) 85.0 H Lymphocytes % (20.5 - 51.1 %) 8.7 L Monocytes % (1.7 - 9.3 %) 5.4 Eosinophils % (0 - 5 %) 0.6 Basophils % (0.0 - 2.0 %) 0.3 Absolute Granulocytes (1.4 - 6.5 /CUMM) 11.2 H Absolute Lymphocytes (1.2 - 3.4 /CUMM) 1.1 L Absolute Monocytes (0.10 - 0.60 /CUMM) 0.7 H Absolute Eosinophils (0.0 - 0.7 /CUMM) 0.1 Absolute Basophils (0.0 - 0.2 /CUMM) 0 PUBS MCHC (33.0 - 37.0 G/DL) 32.2 L Urines Urine Color (YEL,AMB,STR) Pending Urine Clarity (CLEAR) Pending Urine pH (5.0 - 8.0) Pending Ur Specific [place] (1.001 - 1.035) Pending Urine Protein (NEG,<30 MG/DL) Pending Urine Ketones (NEG) Pending Urine Nitrite (NEG) Pending Urine Bilirubin (NEG) Pending Urine Urobilinogen (0.1 - 1.0 EU/dl) Pending Ur Leukocyte Esterase (NEG) Pending Ur Microscopic SEDIMENT EXAMINED Urine RBC (0 - 5 /HPF) Pending Urine Hemoglobin (NEG) Pending Urine Glucose (N MG/DL) Pending 06/05 06/05 0400 0132 Chemistry Sodium (137 - 145 mmol/L) 137 Potassium (3.5 - 5.1 mmol/L) 3.9 Chloride (98 - 107 mmol/L) 105 Carbon Dioxide (22 - 30 mmol/L) 23 Anion Gap (5 - 16) 9 BUN (7 - 17 mg/dL) 28 H Creatinine (0.5 - 1.0 mg/dL) 1.4 H Estimated GFR (>60 ml/min) 37 L Glucose (65 - 99 mg/dL) 90 Calcium (8.4 - 10.2 mg/dL) 8.9 Phosphorus (2.5 - 4.5 mg/dL) 3.6 Magnesium (1.6 - 2.3 mg/dL) 1.8 Cancelled Total Bilirubin (0.2 - 1.3 mg/dL) 0.7 AST (14 - 36 U/L) 22 ALT (9 - 52 U/L) 33 Albumin (3.5 - 5.0 g/dL) 3.2 L Hematology CBC w Diff NO MAN DIFF REQ WBC (4.8 - 10.8 /CUMM) 7.6 RBC (4.20 - 5.40 /CUMM) 3.36 L Hgb (12.0 - 16.0 G/DL) 9.5 L Hct (37 - 47 %) 28.7 L MCV (81.0 - 99.0 FL) 85.3 MCH (27.0 - 31.0 PG) 28.1 RDW (11.5 - 14.5 %) 15.9 H Plt Count (130 - 400 /CUMM) 187 MPV (7.4 - 10.4 FL) 7.7 Gran % (42.2 - 75.2 %) 54.1 Lymphocytes % (20.5 - 51.1 %) 35.9 Monocytes % (1.7 - 9.3 %) 7.3 Eosinophils % (0 - 5 %) 2.1 Basophils % (0.0 - 2.0 %) 0.6 Absolute Granulocytes (1.4 - 6.5 /CUMM) 4.1 Absolute Lymphocytes (1.2 - 3.4 /CUMM) 2.7 Absolute Monocytes (0.10 - 0.60 /CUMM) 0.6 Absolute Eosinophils (0.0 - 0.7 /CUMM) 0.2 Absolute Basophils (0.0 - 0.2 /CUMM) 0 PUBS MCHC (33.0 - 37.0 G/DL) 33.0 06/04 2240 Hematology CBC w Diff NO MAN DIFF REQ WBC (4.8 - 10.8 /CUMM) 7.6 RBC (4.20 - 5.40 /CUMM) 3.40 L Hgb (12.0 - 16.0 G/DL) 9.5 L Hct (37 - 47 %) 28.9 L MCV (81.0 - 99.0 FL) 85.0 MCH (27.0 - 31.0 PG) 27.9 RDW (11.5 - 14.5 %) 15.6 H Plt Count (130 - 400 /CUMM) 191 MPV (7.4 - 10.4 FL) 7.3 L Gran % (42.2 - 75.2 %) 58.0 Lymphocytes % (20.5 - 51.1 %) 30.8 Monocytes % (1.7 - 9.3 %) 8.1 Eosinophils % (0 - 5 %) 2.1 Basophils % (0.0 - 2.0 %) 1.0 Absolute Granulocytes (1.4 - 6.5 /CUMM) 4.4 Absolute Lymphocytes (1.2 - 3.4 /CUMM) 2.3 Absolute Monocytes (0.10 - 0.60 /CUMM) 0.6 Absolute Eosinophils (0.0 - 0.7 /CUMM) 0.2 Absolute Basophils (0.0 - 0.2 /CUMM) 0.1 PUBS MCHC (33.0 - 37.0 G/DL) 32.8 L Imaging Results: CT scan of the abdomen pelvis with IV contrast was personally reviewed. The images show diffuse intraperitoneal air. It is difficult to assess with a perforation originates but more than likely the sigmoid colon. No contrast extravasation to suggest ongoing bleeding. Assessment/Plan Assessment/Plan Colonic perforation after colonoscopy performed for assessment of lower intestinal bleeding. Her clinical syndrome on presentation was that of diverticular bleeding. No active bleeding was seen on colonoscopy. From a discussion with the research technologist, his impression was that she was bleeding from her sigmoid colon which is also the site of perforation. Patient was taken the operating room for emergent exploration. She was given Unasyn 1.5 g IV. She'll get another dose as her volume of distribution is quite large. In regards to surgery, options for her would be repair of the perforation and/or resection. Since she was giving a bowel prep, there is a good chance that there will not be peritonitis present which would prohibit an anastomosis. If the source of her perforation and the source of bleeding is her sigmoid colon, the best avenue of surgical approach would be sigmoid colectomy with anastomosis, assuming there is not the presence of peritonitis. If the bowels inflamed such that an anastomotic leak would be higher than usual, diverting end colostomy or ileostomy will be performed. Patient understands the rationale behind surgical intervention. She is informed the risks of the operation including bleeding infection, anastomotic leak and other unforeseen medical complications such as DVT, PE, pneumonia, myocardial infarction. She agrees to proceed. Copies To: BRAVO ROY MD Consult Acknowledgment - Thank you for your consult request.
--- NOTE | 2016-06-05 23:15 | ECHOCARDIOGRAM REPORT ---
SIRENA CELESTIN Age: 75 : 1940 Gender: F Exam Date: 06/05/2016 08:18 Exam Location: [facility] Ht (in): 64 Wt (lb): 283 BSA: 2.49 BP: 175 / 71 Ordering Physician: LUX CLARK MD Referring Physician: Hung Golden MD Technologist: Sheri Morales [facility] Room Number: 108 Indications: HYPERTENSION Rhythm: Sinus Technical Quality: Fair FINDINGS Left Ventricle Normal size left ventricle. Severe concentric left ventricular hypertrophy. No obvious regional wall motion abnormalities. Normal left ventricular ejection fraction visually estimated at >60%. Abnormal relaxation filling pattern of the left ventricle for age (stage 1 diastolic dysfunction). Mildly increased left ventricular outflow tract velocity (1.3 m/s). Right Ventricle Normal right ventricular size and function. Right Atrium Normal right atrial size. Left Atrium Normal left atrial size. Mitral Valve Mild mitral annular calcification. Mitral valve mildly thickened. Mild mitral regurgitation. Aortic Valve Trileaflet aortic valve. Minimal aortic sclerosis. No hemodynamically significant aortic stenosis. Mild aortic regurgitation. Tricuspid Valve Structurally normal tricuspid valve. Trace tricuspid regurgitation. Right ventricular systolic pressure estimated at 33 mmHg. Pulmonic Valve Pulmonic valve not well visualized, grossly normal. Trace/mild pulmonic regurgitation Pericardium No pericardial effusion. Great Vessels Normal size aortic root. Dilated inferior vena cava. CONCLUSIONS Normal size left ventricle. Severe concentric left ventricular hypertrophy. No obvious regional wall motion abnormalities. Normal left ventricular ejection fraction visually estimated at > 60%. Abnormal relaxation filling pattern of the left ventricle for age (stage 1 diastolic dysfunction). Mildly increased left ventricular outflow tract velocity (1.3 m/s). Normal right ventricular size and function. Normal atrial size. Mild mitral regurgitation. Mild aortic regurgitation. Trace tricuspid regurgitation. Right ventricular systolic pressure estimated at 33 mmHg. Trace/mild pulmonic regurgitation. Dilated inferior vena cava. Hung Golden M.D. (Electronically Signed) Final Date: 05 June 2016 23:14 MEASUREMENTS (Male / Female) Normal Values 2D ECHO LV Diastolic Diameter PLAX 4.6 cm 4.2 - 5.9 / 3.9 - 5.3 cm LV Systolic Diameter PLAX 3.1 cm 2.1 - 4.0 cm LV Fractional Shortening PLAX 32.6 % 25 - 46 % LV Ejection Fraction 2D Teich 61.0 % IVS Diastolic Thickness 1.7 cm LVPW Diastolic Thickness 1.7 cm LV Relative Wall Thickness 0.7 RV Internal Dim ED PLAX 3.1 cm 1.9 - 3.8 cm LVOT Diameter 2.0 cm Aortic Root Diameter 3.2 cm LA Systolic Diameter LX 4.1 cm 3.0 - 4.0 / 2.7 - 3.8 cm LA Volume 46.0 cm 18 - 58 / 22 - 52 cm Ascending Aorta Diameter 3.3 cm DOPPLER AV Peak Velocity 181.0 cm/s AV Peak Gradient 13.1 mmHg AV Mean Velocity 125.0 cm/s AV Mean Gradient 7.0 mmHg AV Velocity Time Integral 45.9 cm LVOT Peak Velocity 132.0 cm/s LVOT Peak Gradient 7.0 mmHg LVOT Mean Velocity 93.3 cm/s LVOT Mean Gradient 4.0 mmHg LVOT Velocity Time Integral 34.4 cm LVOT Stroke Volume 108.1 cm AV Area Cont Eq vti 2.4 cm AV Area Cont Eq pk 2.3 cm MV Peak Velocity 134.0 cm/s MV Peak Gradient 7.2 mmHg MV Mean Velocity 71.8 cm/s MV Mean Gradient 2.0 mmHg Mitral E Point Velocity 88.8 cm/s Mitral A Point Velocity 113.0 cm/s Mitral E to A Ratio 0.8 MV PHT Velocity 113.0 cm/s MV Deceleration [place] 440.0 cm/s MV Pressure Half Time 77.0 ms MV Area PHT 2.9 cm MV Deceleration Time 299.0 ms TR Peak Velocity 266.0 cm/s TR Peak Gradient 28.3 mmHg Right Atrial Pressure 5.0 mmHg Pulmonary Artery Systolic Pressu 33.3 mmHg Right Ventricular Systolic Press 33.3 mmHg PV Peak Velocity 123.0 cm/s PV Peak Gradient 6.1 mmHg PV Mean Velocity 79.6 cm/s PV Mean Gradient 3.0 mmHg PV Velocity Time Integral 31.7 cm LV E' Lateral Velocity 4.7 cm/s Mitral E to LV E' Lateral Ratio 19.0 LV E' Septal Velocity 6.1 cm/s Mitral E to LV E' Septal Ratio 14.5
--- NOTE | 2016-06-05 23:37 | Operative Report ---
Operative/Inv Procedure Report Surgery Date: 06/05/16 Name of Procedure: Exploratory laparotomy with right hemicolectomy Pre-Operative Diagnosis: Colonic perforation Post-Operative Diagnosis: Same Estimated Blood Loss: 50ml to 100ml Surgeon/Tobacco Flavorer: Samir Garrido M.D./Monse SOLANO Anesthesia: general endotracheal tube Specimens: Right colon Operative Indication: See consultation note same day Operative/Procedure Note Note: Patient brought to the operating room and laid supine. Gen. anesthesia was obtained and she was then placed in lithotomy position. Her abdomen was prepped and draped. A midline incision made sharply subcutaneous tissues dissected with cautery. We incised the fascia with cautery and open the wound fully. Bookwalter retraction system was placed. There were numerous dense adhesions of omentum in the pelvis from her prior hysterectomy. This was difficult portion of the case and we used LigaSure as well as cautery dissection to mobilize it up out of the pelvis. We were then able to reflect it superiorly. Concerned that the sigmoid colon was a site of the perforation. Sigmoid was chronically inflamed from what appeared to be diverticular disease. Mobilized along the white line at this left colon/sigmoid junction. The left ovary was adhered densely to it and was dissected free. The colon was tortuous with a knuckle of distal sigmoid stuck to the left pelvic sidewall. Eventually I was able to dissect it free. The colon was then run from the splenic flexure down to the rectum. There is no evidence of perforation this area. The transverse colon was normal. There is retroperitoneal pneumatosis on the right hemipelvis. I looked at the right colon and indeed there was an area of pneumatosis intestinalis emanating from the mid right colon. I then mobilized the right colon along the white line of T[place]t with cautery. We then brought the right colon up through the avascular plane with cautery. We chose lines of transection. The transverse colon was circumferentially dissected and then divided with the BRODY stapler. The mesentery was then taken with LigaSure device. The ileum was then divided with the BRODY stapler. In the right colon passed off the field. The ileum was attached to the transverse colon with the 3 -0 silk suture. Enterotomies were created and a [id number]-plaw anastomosis created with a reload of the BRODY stapler. The common enterotomy was then closed with another reload of the BRODY stapler. The mesenteric defect wasn't closed with interrupted 3-0 Vicryl suture. Right upper quadrant and pelvis with and suction irrigated normal saline. Hemostasis was adequate. I reinspected the sigmoid again no injury was identified. An concluded the operation. The omentum was placed back over the bowel. The fascia was closed with a running 0 Maxon suture. The wound irrigated with saline and skin closed with kemi. Sterile dressings were applied. Sponge and needle counts are correct. CC: KIRILL ROBBINS,BRAVO
[2016-06-06] VITALS: BP 154/58
--- NOTE | 2016-06-06 01:20 | RADIOLOGY REPORT ---
EXAMINATION: CHEST 1 VIEW CLINICAL INFORMATION: Intubated. COMPARISON: Abdominal and pelvic CT from 06/05/2016. TECHNIQUE: An AP view of the chest is provided. FINDINGS: The cardiac silhouette is enlarged. There is retrocardiac opacification. An endotracheal tube has been placed. The tip is directed towards the right mainstem bronchus. Retraction by approximately 3 cm is recommended. A right central venous line is in place. The tip extends into the upper left hemithorax, likely within the left subclavian vein. An enteric tube is in place. The tip extends into the left upper quadrant, likely within the stomach. There is left perihilar infiltration. The osseous structures are unremarkable. IMPRESSION: Lines and tubes in place as stated above. Right mainstem intubation. Retraction of the endotracheal tube by approximately 3 cm is recommended. Placement of a right central venous line. Tip extends into the left subclavian vein. Repositioning is recommended. Cardiomegaly with retrocardiac opacification and left perihilar infiltration. The aforementioned was discussed with Dr. Altman at 0111 hours.
[2016-06-06 01:57] LABS: ABSOLUTE BASOPHIL COUNT 0 /CUMM (0.0-0.2); ABSOLUTE EOSINOPHIL COUNT 0 /CUMM (0.0-0.7); ABSOLUTE GRANULOCYTE CT 15.4 /CUMM (1.4-6.5); ABSOLUTE LYMPH COUNT 0.8 /CUMM (1.2-3.4); ABSOLUTE MONOCYTE COUNT 0.9 /CUMM (0.10-0.60); BASOPHIL % 0 % (0.0-2.0); EOSINOPHIL % 0 % (0-5); GRANULOCYTE % 90.3 % (42.2-75.2); HEMATOCRIT 29.9 % (37-47); MEAN CORPUSCULAR HGB 28.4 PG (27.0-31.0); MEAN CORPUSCULAR HGB CONC 33.3 G/DL (33.0-37.0); MEAN CORPUSCULAR VOLUME 85.3 FL (81.0-99.0); MEAN PLATELET VOLUME 7.2 FL (7.4-10.4); PLATELET COUNT 202 /CUMM (130-400); RBC DISTRIBUTION WIDTH 15.6 % (11.5-14.5); RED BLOOD CELL CT 3.51 /CUMM (4.20-5.40)
--- NOTE | 2016-06-06 06:01 | PN- General Surgery ---
See Addendum Subjective Subjective: Pt awake and alert on the vent - just starting to wean She is appropriately responsive. No complaints. No pain Objective Vital Signs and I&Os Vital Signs Date Time Temp Pulse Resp B/P Pulse O2 O2 Flow FiO2 Ox Delivery Rate 06/06 0400 100 Ventilator 60% 06/06 0220 60 06/06 0148 84 16 172/70 06/06 0107 97.7 84 16 172/62 06/06 0100 97 Ventilator 60% 06/06 0000 97.9 88 12 154/58 92 Ventilator 60% 06/05 2358 60 06/05 1600 99.3 76 24 160/82 94 Nasal 2.0L Cannula 06/05 1600 94 Nasal 2.0L Cannula 06/05 1200 96 Nasal 2.0L Cannula 06/05 0811 66 160/80 06/05 0800 98.0 59 20 160/82 94 Room Air 06/05 0800 94 Room Air Intake & Output 06/06 0800 06/06 0000 06/05 1600 06/05 0800 06/05 0000 06/04 1600 Intake Total 600 0407 866 6354 860 Output Total 310 900 450 500 600 Balance 290 498 -210 2220 260 Intake, Blood 350 Product Intake, IV 250 798 260 Intake, Oral 377 473 0759 600 Number 1 4 6 5 2 Bowel Movements Output, Stool 600 Output, Urine 310 300 450 500 600 Physical Exam: temp 98.5 HR 78 regular 150/63 (systolic 120-150) Vent currently AC16/500/60/+5/100% IVF: D5 1/2NS at 75cc/hr Urine output 55+cc/hr NGT: 50cc total from OR - light colored General: vented, awake, alert, responds appropriately Chest: clear anteriorly bilaterally, RRR Abd: soft, nondistended, hypoactive bs Ext: warm, no edema, +sensate, 5/5 JANEL BLE Wound: dressed, dry Assessment/Plan Assessment/Plan 75 yo female with GI bleed from diverticulitis s/p right hemicolectomy following colonoscopy perforation Pt is doing well VSS Unasyn - 1 dose post op completed - no further antibiotics needed from surgical standpoint Wean vent per pulmonary/critical care team Further recommendations after extubation npo/ngt/ivf
[2016-06-06 06:14] LABS: ABSOLUTE BASOPHIL COUNT 0 /CUMM (0.0-0.2); ABSOLUTE EOSINOPHIL COUNT 0 /CUMM (0.0-0.7); ABSOLUTE GRANULOCYTE CT 17.8 /CUMM (1.4-6.5); ABSOLUTE LYMPH COUNT 0.5 /CUMM (1.2-3.4); ABSOLUTE MONOCYTE COUNT 1.1 /CUMM (0.10-0.60); BASOPHIL % 0 % (0.0-2.0); EOSINOPHIL % 0.1 % (0-5); GRANULOCYTE % 91.9 % (42.2-75.2); HEMATOCRIT 28.8 % (37-47); MEAN CORPUSCULAR HGB CONC 32.9 G/DL (33.0-37.0); MEAN CORPUSCULAR VOLUME 85.1 FL (81.0-99.0); MEAN PLATELET VOLUME 7.2 FL (7.4-10.4); PLATELET COUNT 211 /CUMM (130-400); RBC DISTRIBUTION WIDTH 15.5 % (11.5-14.5); RED BLOOD CELL CT 3.39 /CUMM (4.20-5.40); WHITE BLOOD CELL COUNT 19.4 /CUMM (4.8-10.8)
[2016-06-06 08:00] VITALS: BP 112/70; BP 114/60
--- NOTE | 2016-06-06 08:11 | RADIOLOGY REPORT ---
EXAMINATION: XR PORTABLE CHEST CLINICAL INFORMATION: Follow-up intubation. COMPARISON: CXR from 06/05/2016 TECHNIQUE: Portable AP view of the chest was obtained. FINDINGS: Lungs are hypoinflated resulting in crowding of bronchovascular structures in the bases. Probable atelectasis in the retrocardiac region of the left lower lobe. No pneumothorax. Endotracheal tube is now 2.2 cm above the de. Enteric tube extends below the diaphragm and into the stomach. The right IJ central line has been adjusted and its tip is now located in the region of junction of the SVC with the azygos vein. Cardiac silhouette is normal in size. No acute osseous findings. IMPRESSION: - Endotracheal tube tip is now 2.2 cm above the de. - Right IJ central line has been adjusted and its tip is now located in the proximal SVC.
--- NOTE | 2016-06-06 09:42 | PN- Resident CRCU ---
Subjective HPI/CRCU Issues: Pt had colonoscopy 06/05/16, polyps were removed from sigmoid and ascending colon. Initially was doing well, but after about 4 hours, had BM with about 500 ml of blood clot. Pt was taken for CTA which showed perforation. Pt was taken to OR for exploratory laparotomy and right colectomy was done with anastomosis of ileum with transverse colon. Pt remained intubated overnight, but has been off sedation (propofol). She is calm, so UE restrains removed. Her blood sugar was 250 this morning. Pt put on novolin ss (npo), will change to low dose novolog once pt extubated and eating. she is currently on d51/2 ns at 75ml/hr. SHe has right IJ central line, a line, and dailey as well. 24 Hour Events: max temp 100.9 hr 56-84 sb sr systolic bp 129-199 diastolic bp 52-82 + 5097 - 2045 BS 253 on tele monitor, alexia down to 40, and had an episode of 8 beat run. na 139 to 136 k 4 to 3.6, ordered 40 meq kcl via central line wbc 17 to 19.4 with bands . given the inc in wbc , would continue unasyn (3000 q12 based on her clearance, discussed with pharmacy). hb 10 to 9.5 sp 1 unit RBC after large amount of bloody bm. her bun/cr went up after the cta, from cr of 1.4 to 1.6 Objective Vital Signs & I&O Last 8 Hrs of Vitals and I&O: Intake & Output 06/06 1600 06/06 0800 06/06 0000 Intake Total 449 600 Output Total 265 310 Balance 184 290 Intake, Blood 350 Product Intake, IV 389 250 Intake, Other 60 Number 1 Bowel Movements Output, 50 Gastric Drainage Output, Urine 215 310 Laboratory Tests 06/06 06/06 06/06 0800 0620 0555 Blood Gas pH (7.35 - 7.45 PH) 7.37 pCO2 (35 - 45 TORR) 39 pO2 (80 - 100 TORR) 84 HCO3 (21 - 28 MEQ/L) 22 ABG O2 Sat (Measured) (>96.0 %) 96.0 P-50 (Temp Corrected) N Carboxyhemoglobin (1.5 - 5.0 %) 0.3 L O2 Concentration % .50 Respiration Rate (BPM) 16 O2 Delivery Method VENT Vent Mode A/C Expiratory Pressure (CMH2O/P) 5 Tidal Volume (CC) 500 Chemistry Sodium (137 - 145 mmol/L) 136 L Potassium (3.5 - 5.1 mmol/L) 3.6 Chloride (98 - 107 mmol/L) 103 Carbon Dioxide (22 - 30 mmol/L) 21 L Anion Gap (5 - 16) 11 BUN (7 - 17 mg/dL) 24 H Creatinine (0.5 - 1.0 mg/dL) 1.6 H Estimated GFR (>60 ml/min) 32 L Glucose (65 - 99 mg/dL) 253 H Calcium (8.4 - 10.2 mg/dL) 8.3 L Phosphorus (2.5 - 4.5 mg/dL) 3.2 Magnesium (1.6 - 2.3 mg/dL) 1.6 Total Bilirubin (0.2 - 1.3 mg/dL) 0.5 AST (14 - 36 U/L) 18 ALT (9 - 52 U/L) 25 Albumin (3.5 - 5.0 g/dL) 2.6 L Hematology CBC w Diff Cancelled MAN DIFF ORDERED WBC (4.8 - 10.8 /CUMM) Cancelled 19.4 H RBC (4.20 - 5.40 /CUMM) Cancelled 3.39 L Hgb (12.0 - 16.0 G/DL) Cancelled 9.5 L Hct (37 - 47 %) Cancelled 28.8 L MCV (81.0 - 99.0 FL) Cancelled 85.1 MCH (27.0 - 31.0 PG) Cancelled 28.0 RDW (11.5 - 14.5 %) Cancelled 15.5 H Plt Count (130 - 400 /CUMM) Cancelled 211 MPV (7.4 - 10.4 FL) Cancelled 7.2 L Gran % (42.2 - 75.2 %) 91.9 H Lymphocytes % (20.5 - 51.1 %) 2.5 L Monocytes % (1.7 - 9.3 %) 5.5 Eosinophils % (0 - 5 %) 0.1 Basophils % (0.0 - 2.0 %) 0 L Absolute Granulocytes (1.4 - 6.5 /CUMM) 17.8 H Segmented Neutrophils (42.2 - 75.2 %) 90 H Band Neutrophils (0.0 - 5.0 %) 7 H Absolute Lymphocytes (1.2 - 3.4 /CUMM) 0.5 L Lymphocytes (20.5 - 51.1 %) 1 L Monocytes (1.7 - 9.3 %) 1 L Absolute Monocytes (0.10 - 0.60 /CUMM) 1.1 H Absolute Eosinophils (0.0 - 0.7 /CUMM) 0 Basophils (0.0 - 2.0 %) 1 Absolute Basophils (0.0 - 0.2 /CUMM) 0 Platelet Estimate (ADEQUATE) ADEQUATE Polychromasia 1+ Basophilic Stippling SLIGHT Ovalocytes FEW Stomatocytes FEW PUBS MCHC (33.0 - 37.0 G/DL) Cancelled 32.9 L Miscellaneous Phlebotomy Draw Site LAUREN Other Body Source Fld Total RBCs Counted (%) 100 06/06 06/06 06/06 0130 0100 0020 Blood Gas pH (7.35 - 7.45 PH) 7.30 *L pCO2 (35 - 45 TORR) 41 pO2 (80 - 100 TORR) 85 HCO3 (21 - 28 MEQ/L) 20 L ABG O2 Sat (Measured) (>96.0 %) 94.0 L P-50 (Temp Corrected) N Carboxyhemoglobin (1.5 - 5.0 %) 0.3 L O2 Concentration % .60 Respiration Rate (BPM) 12 O2 Delivery Method VENT Vent Mode A/C Expiratory Pressure (CMH2O/P) 5 Tidal Volume (CC) 500 Hematology CBC w Diff MAN DIFF ORDERED Cancelled WBC (4.8 - 10.8 /CUMM) 17.0 H Cancelled RBC (4.20 - 5.40 /CUMM) 3.51 L Cancelled Hgb (12.0 - 16.0 G/DL) 10.0 L Cancelled Hct (37 - 47 %) 29.9 L Cancelled MCV (81.0 - 99.0 FL) 85.3 Cancelled MCH (27.0 - 31.0 PG) 28.4 Cancelled RDW (11.5 - 14.5 %) 15.6 H Cancelled Plt Count (130 - 400 /CUMM) 202 Cancelled MPV (7.4 - 10.4 FL) 7.2 L Cancelled Gran % (42.2 - 75.2 %) 90.3 H Lymphocytes % (20.5 - 51.1 %) 4.5 L Monocytes % (1.7 - 9.3 %) 5.2 Eosinophils % (0 - 5 %) 0 Basophils % (0.0 - 2.0 %) 0 L Absolute Granulocytes (1.4 - 6.5 /CUMM) 15.4 H Segmented Neutrophils (42.2 - 75.2 %) 80 H Band Neutrophils (0.0 - 5.0 %) 7 H Absolute Lymphocytes (1.2 - 3.4 /CUMM) 0.8 L Lymphocytes (20.5 - 51.1 %) 6 L Monocytes (1.7 - 9.3 %) 7 Absolute Monocytes (0.10 - 0.60 /CUMM) 0.9 H Absolute Eosinophils (0.0 - 0.7 /CUMM) 0 Absolute Basophils (0.0 - 0.2 /CUMM) 0 Platelet Estimate (ADEQUATE) ADEQUATE Polychromasia 1+ Ovalocytes FEW Stomatocytes FEW PUBS MCHC (33.0 - 37.0 G/DL) 33.3 Cancelled Miscellaneous Phlebotomy Draw Site LAUREN Other Body Source Fld Total RBCs Counted (%) 100 06/05 06/05 2117 1830 Blood Gas pH (7.35 - 7.45 PH) 7.42 pCO2 (35 - 45 TORR) 37 pO2 (80 - 100 TORR) 64 L HCO3 (21 - 28 MEQ/L) 24 ABG O2 Sat (Measured) (>96.0 %) 91.0 L Carboxyhemoglobin (1.5 - 5.0 %) 0.3 L O2 Concentration % 100% O2 Delivery Method ANESTHESIA Miscellaneous Phlebotomy Draw Site [facility] Urines Urinalysis MANY H Urine Color (YEL,AMB,STR) YEL Urine Clarity (CLEAR) CLEAR Urine pH (5.0 - 8.0) 6.0 Ur Specific [place] (1.001 - 1.035) 1.025 Urine Protein (NEG,<30 MG/DL) 100 H Urine Ketones (NEG) NEG Urine Nitrite (NEG) NEG Urine Bilirubin (NEG) NEG Urine Urobilinogen (0.1 - 1.0 EU/dl) 0.2 Ur Leukocyte Esterase (NEG) NEG Ur Microscopic SEDIMENT EXAMINED Urine RBC (0 - 5 /HPF) 3-5 Urine WBC (0 - 2 /HPF) 3-5 H Ur Epithelial Cells (NONE,FEW) FEW Urine Bacteria (NEG/NONE) FEW H Urine Mucus (FEW,NONE) FEW Urine Hemoglobin (NEG) MOD H Urine Glucose (N MG/DL) NEG 06/05 1620 Chemistry Sodium (137 - 145 mmol/L) 139 Potassium (3.5 - 5.1 mmol/L) 4.1 Chloride (98 - 107 mmol/L) 103 Carbon Dioxide (22 - 30 mmol/L) 26 Anion Gap (5 - 16) 10 BUN (7 - 17 mg/dL) 24 H Creatinine (0.5 - 1.0 mg/dL) 1.4 H Estimated GFR (>60 ml/min) 37 L Glucose (65 - 99 mg/dL) 113 H Calcium (8.4 - 10.2 mg/dL) 8.4 Phosphorus (2.5 - 4.5 mg/dL) 4.5 Magnesium (1.6 - 2.3 mg/dL) 1.7 Total Bilirubin (0.2 - 1.3 mg/dL) 0.7 AST (14 - 36 U/L) 22 ALT (9 - 52 U/L) 28 Albumin (3.5 - 5.0 g/dL) 3.4 L Coagulation PT (9.4 - 12.5 SEC) 11.4 INR (0.90 - 1.19) 1.09 APTT (25 - 37 SEC) 28 Hematology CBC w Diff NO MAN DIFF REQ WBC (4.8 - 10.8 /CUMM) 13.1 H RBC (4.20 - 5.40 /CUMM) 3.56 L Hgb (12.0 - 16.0 G/DL) 9.8 L Hct (37 - 47 %) 30.4 L MCV (81.0 - 99.0 FL) 85.4 MCH (27.0 - 31.0 PG) 27.5 RDW (11.5 - 14.5 %) 15.9 H Plt Count (130 - 400 /CUMM) 207 MPV (7.4 - 10.4 FL) 7.4 Gran % (42.2 - 75.2 %) 85.0 H Lymphocytes % (20.5 - 51.1 %) 8.7 L Monocytes % (1.7 - 9.3 %) 5.4 Eosinophils % (0 - 5 %) 0.6 Basophils % (0.0 - 2.0 %) 0.3 Absolute Granulocytes (1.4 - 6.5 /CUMM) 11.2 H Absolute Lymphocytes (1.2 - 3.4 /CUMM) 1.1 L Absolute Monocytes (0.10 - 0.60 /CUMM) 0.7 H Absolute Eosinophils (0.0 - 0.7 /CUMM) 0.1 Absolute Basophils (0.0 - 0.2 /CUMM) 0 PUBS MCHC (33.0 - 37.0 G/DL) 32.2 L Laboratory Tests 06/06/16 0800: CBC w Diff Cancelled, WBC Cancelled, RBC Cancelled, Hgb Cancelled, Hct Cancelled , MCV Cancelled, MCH Cancelled, RDW Cancelled, Plt Count Cancelled, MPV Cancelled, PUBS MCHC Cancelled 06/06/16 0620: pH 7.37, pCO2 39, pO2 84, HCO3 22, ABG O2 Sat (Measured) 96.0, P-50 (Temp Corrected) N, Carboxyhemoglobin 0.3 L, O2 Concentration % .50, Respiration Rate 16, O2 Delivery Method VENT, Vent Mode A/C, Expiratory Pressure 5, Tidal Volume 500, Phlebotomy Draw Site [facility] 06/06/16 0555: Anion Gap 11, Estimated GFR 32 L, Glucose 253 H, Calcium 8.3 L, Phosphorus 3.2, Magnesium 1.6, Total Bilirubin 0.5, AST 18, ALT 25, Albumin 2.6 L, CBC w Diff MAN DIFF ORDERED, RBC 3.39 L, MCV 85.1, MCH 28.0, RDW 15.5 H, MPV 7.2 L, Gran % 91.9 H, Lymphocytes % 2.5 L, Monocytes % 5.5, Eosinophils % 0.1, Basophils % 0 L, Absolute Granulocytes 17.8 H, Segmented Neutrophils 90 H, Band Neutrophils 7 H, Absolute Lymphocytes 0.5 L, Lymphocytes 1 L, Monocytes 1 L, Absolute Monocytes 1.1 H, Absolute Eosinophils 0, Basophils 1, Absolute Basophils 0, Platelet Estimate ADEQUATE, Polychromasia 1+, Basophilic Stippling SLIGHT, Ovalocytes FEW, Stomatocytes FEW, PUBS MCHC 32.9 L, Fld Total RBCs Counted 100 06/06/16 0130: CBC w Diff MAN DIFF ORDERED, RBC 3.51 L, MCV 85.3, MCH 28.4, RDW 15.6 H, MPV 7.2 L, Gran % 90.3 H, Lymphocytes % 4.5 L, Monocytes % 5.2, Eosinophils % 0, Basophils % 0 L, Absolute Granulocytes 15.4 H, Segmented Neutrophils 80 H, Band Neutrophils 7 H, Absolute Lymphocytes 0.8 L, Lymphocytes 6 L, Monocytes 7, Absolute Monocytes 0.9 H, Absolute Eosinophils 0, Absolute Basophils 0, Platelet Estimate ADEQUATE, Polychromasia 1+, Ovalocytes FEW, Stomatocytes FEW, PUBS MCHC 33.3, Fld Total RBCs Counted 100 06/06/16 0100: CBC w Diff Cancelled, WBC Cancelled, RBC Cancelled, Hgb Cancelled, Hct Cancelled , MCV Cancelled, MCH Cancelled, RDW Cancelled, Plt Count Cancelled, MPV Cancelled, PUBS MCHC Cancelled 06/06/16 0020: pH 7.30 *L, pCO2 41, pO2 85, HCO3 20 L, ABG O2 Sat (Measured) 94.0 L, P-50 ( Temp Corrected) N, Carboxyhemoglobin 0.3 L, O2 Concentration % .60, Respiration Rate 12, O2 Delivery Method VENT, Vent Mode A/C, Expiratory Pressure 5, Tidal Volume 500, Phlebotomy Draw Site [facility] 06/05/16 2117: pH 7.42, pCO2 37, pO2 64 L, HCO3 24, ABG O2 Sat (Measured) 91.0 L, Carboxyhemoglobin 0.3 L, O2 Concentration % 100%, O2 Delivery Method ANESTHESIA , Phlebotomy Draw Site [facility] 06/05/16 1830: Urinalysis MANY H, Urine Color YEL, Urine Clarity CLEAR, Urine pH 6.0, Ur Specific [place] 1.025, Urine Protein 100 H, Urine Ketones NEG, Urine Nitrite NEG, Urine Bilirubin NEG, Urine Urobilinogen 0.2, Ur Leukocyte Esterase NEG, Ur Microscopic SEDIMENT EXAMINED, Urine RBC 3-5, Urine WBC 3-5 H, Ur Epithelial Cells FEW, Urine Bacteria FEW H, Urine Mucus FEW, Urine Hemoglobin MOD H, Urine Glucose NEG 06/05/16 1620: Anion Gap 10, Estimated GFR 37 L, Glucose 113 H, Calcium 8.4, Phosphorus 4.5, Magnesium 1.7, Total Bilirubin 0.7, AST 22, ALT 28, Albumin 3.4 L, PT 11.4, INR 1.09, APTT 28, CBC w Diff NO MAN DIFF REQ, RBC 3.56 L, MCV 85.4, MCH 27.5, RDW 15.9 H, MPV 7.4, Gran % 85.0 H, Lymphocytes % 8.7 L, Monocytes % 5.4, Eosinophils % 0.6, Basophils % 0.3, Absolute Granulocytes 11.2 H, Absolute Lymphocytes 1.1 L, Absolute Monocytes 0.7 H, Absolute Eosinophils 0.1, Absolute Basophils 0, PUBS MCHC 32.2 L Microbiology Date/Time Procedure - Status Source Growth 06/05 1846 Blood Culture - RECD BLOOD 06/06 1831 Blood Culture - RECD BLOOD 06/05 1829 Urine Culture - RES URINE ROUT Vital Signs Date Time Temp Pulse Resp B/P Pulse O2 O2 Flow FiO2 Ox Delivery Rate 06/06 0824 40 06/06 0800 100 Ventilator 50% 06/06 0800 97.7 74 16 114/60 100 Ventilator 50% 06/06 0555 50 06/06 0400 100 Ventilator 60% 06/06 0220 60 06/06 0148 84 16 172/70 06/06 0107 97.7 84 16 172/62 06/06 0100 97 Ventilator 60% 06/06 0000 97.9 88 12 154/58 92 Ventilator 60% 06/05 2358 60 06/05 1600 99.3 76 24 160/82 94 Nasal 2.0L Cannula 06/05 1600 94 Nasal 2.0L Cannula 06/05 1200 96 Nasal 2.0L Cannula Exam General Appearance: alert, awake, comfortable, intubated Head: atraumatic, normal appearance Respiratory: normal breath sounds Cardiovascular: regular rate/rhythm Gastrointestinal: normal bowel sounds, soft, non-tender Extremities: no edema Weaning Parameters NIF: 38 Minute Volume: 10.5 Resp rate: 18 Vt: 588 Heart Rate: 80 Weaning Schedule Start Time: 903 Minute Volume: 9.09 Resp Rate: 17 Vt: 535 Heart Rate: 77 Current Medications: Current Medications Sig/Liv Start time Last Medication Dose Route Stop Time Status Admin Acetaminophen 650 MG Q6P PRN 06/06 0045 AC PO Acetaminophen 1,000 MG .STK-MED ONE 06/05 1841 DC IV 06/05 1842 Acetaminophen 650 MG Q6P PRN 06/04 1944 DC 06/04 PO 2327 Ampicillin Sodium/ 3,000 MG Q12H 06/06 1330 AC Sulbactam Sodium IV Sodium Chloride 100 ML Ampicillin Sodium/ 3,000 MG ONCE ONE 06/06 0045 DC 06/06 Sulbactam Sodium IV 06/06 0114 0139 Sodium Chloride 100 ML Ampicillin Sodium/ 1,500 MG Q6 06/05 1815 DC 06/05 Sulbactam Sodium IV 1905 Sodium Chloride 100 ML Dexamethasone 4 MG .STK-MED ONE 06/05 1842 DC IM 06/05 1843 Dextrose/Sodium 1,000 ML Q20H 06/06 0430 AC 06/06 Chloride IV 0140 Dextrose/Sodium 1,000 ML Q20H 06/05 0830 DC 06/05 Chloride IV 06/06 0429 0850 Fentanyl Citrate 250 MCG .STK-MED ONE 06/05 184 DC IM 06/05 1842 Furosemide 20 MG ONCE ONE 06/05 1830 CAN IV 06/05 1831 Hydrochlorothiazide 25 MG Q48H 06/06 1000 AC PO Hydrochlorothiazide 25 MG Q48H 06/04 1000 DC 06/04 PO 1143 Hydromorphone HCl 2 MG .STK-MED ONE 06/05 1840 DC IM 06/05 1841 Insulin Aspart 0 TIDAC 06/06 1200 CAN SC Insulin Human Regular 0 Q6 06/06 1200 AC SC Levothyroxine Sodium 0.125 MG DAILY AC 06/06 0700 AC 06/06 PO 0701 Levothyroxine Sodium 0.125 MG DAILY AC 06/04 0700 DC 06/05 PO 0613 Lidocaine 3 ML ONCE ONE 06/06 0600 DC 06/06 SC 06/06 0601 0701 Lorazepam 1 MG Q4P PRN 06/06 0345 AC IV Magnesium Sulfate 1 GM ONCE ONE 06/05 0845 DC 06/05 Dextrose/Water 100 ML IV 06/05 1244 0850 Metoprolol Tartrate 25 MG BID 06/06 1000 AC 06/06 PO 0107 Metoprolol Tartrate 5 MG .STK-MED ONE 06/06 0032 DC IV 06/06 0033 Metoprolol Tartrate 25 MG BID 06/05 1000 DC 06/05 PO 0811 Midazolam HCl 2 MG .STK-MED ONE 06/05 184 DC IM 06/05 1842 Morphine Sulfate 2 MG Q3P PRN 06/06 0045 AC 06/06 IV 0335 Morphine Sulfate 4 MG Q3P PRN 06/06 0045 AC IV Non-Formulary 0 SEE ADMIN CRITERIA 06/06 0015 CAN Medication ANY Omeprazole 40 MG DAILY AC 06/04 0700 DC 06/05 PO 0613 Ondansetron HCl 4 MG Q6P PRN 06/06 0045 AC IV Ondansetron HCl 4 MG ONCE ONE 06/05 1530 DC IV 06/05 1531 Pantoprazole Sodium 40 MG DAILY 06/06 1000 AC IV Potassium Chloride 40 MEQ ONCE ONE 06/06 0830 CAN PO 06/06 0831 Potassium Chloride 20 MEQ Q1H 06/06 0830 DC IV 06/06 0931 Potassium Phosphate 15 mMol ONE ONE 06/05 0845 DC 06/05 Dextrose/Water 250 ML IV 06/05 1248 1215 Propofol 1,000 MG Q3H PRN 06/06 0345 CAN N/A 100 ML IV Propofol 1,000 MG Q3H 06/06 0100 DC N/A 100 ML IV Sodium Chloride 1,000 ML Q13H 06/06 0045 DC IV Impression/Plan Impression/Problem List Impression: 75-year-old morbidly obese female with PMH of hypertension, hypothyroidism s/p thyroidectomy, chronic pain, gastroesophageal reflux disease, current smoker, nonalcoholic came in with chief complain of bright red blood per rectum. Hb was 10.3 on admission, which is her baseline. Pt continued to have frankly bloody bowel movement, hence colonoscopy was pursued. Pt had colonoscopy 06/05/16, polyps were removed from sigmoid and ascending colon. Initially was doing well, but after about 4 hours, had BM with about 500 ml of blood clot, with 1 PRBC given without checking CBC. Pt was taken for CTA which showed perforation. Pt was taken to OR for exploratory laparotomy and right colectomy was done with anastomosis of ileum with transverse colon. Problem list: # Bright red blood per rectum most likely diverticular bleed # Perforation post colonoscopy, sp right colectomy # Acute blood loss anemia due to GI bleed # Hypertensive urgency # Hypothyroidism # CKD stage 3b Right IJ Day #2 (not on pressors) Intubated day # 2 (plan to extubate today, not on sedation) - extubated / A line day #2 (plan to remove today) - removed 06/06 Dailey day #2 (plan to remove if pt able to ambulate, pt prefers to keep it on for today) NG tube day # 2 (remove once diet can be advanced, as per surgery would wait until return of bowel functon before advancing diet) UE restrain discontinued after 1 day Respiratory - Intubated for exploratory laparotomy 06/05/16 * Will try to extubate today ID - WBC up to 19.4, possible peritonitis with perforation * Continue unasyn 3000 q 12 based on cr clearance Cardiovascular # Hypertensive urgency - Pt on metoprolol tartrate 50 mg OD (taken on day of admission), and HCTZ 25mg daily (has not taken in 2weeks since she ran out) - 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 Golden, consulted * Aspirin on hold # 8 beat run Vtach 06/05/16 * Replete K, mag, and phos as needed Hematology # Acute blood loss anemia due to GI bleed - HB 10.3 on admission (baseline 10.5) - Pt had 1 PRBC transfusion 06/05/16 after large bloody bm post colonoscopy ( without checking CBC) * CBC Q12 * Type and cross done, transfuse if hb < 8 * Hold aspirin and ibuprofen Metabolic # Hyperglycemia - BS was 253 on 06/05/16 * Place on novolin (as NPO), on d51/2 ns at 75ml/hr. Will change to novolog ss once patient resumes diet post extubation. * Accucheck tidac/qhs, follow up blood sugar closely # Hypothyroidism s/p thyroidectomy for thyroid cancer * Continue levothyroxine 125mcg daily. * Will check Tsh and free t4. # CKD stage 3b - Creatinine 1.5 on admission ( baseline 1.4) - Cr went up from 1.4 to 1.6 after CTA 06/05/16 * Avoid all nephrotoxin. * Avoid nsaids, even on discharge, patient takes 3 to 5 every week for long time Alimentary # GI bleed, most likely diverticular bleed given her hx of diverticulitis - Last colonoscopy 6 years ago, told to come back in 10 years * Dr. Jernigan has been consulted, sp colonoscopy 06/05/16 with polypectomy, follow up pathology as outpatient * Continue PPI * Hold aspirin, ibuprofen * Advance diet as per GI and surgery Neuro - No issues Diet: NPO DVT ppx: alps, no pharm due to GI bleed FULL CODE Consults: GI , cardio, CRCU, surgery Labs: ICU and CBC (acute blood loss anemia), hypomagnesiumia, hypokalemia Problem List: 1. Lower GI bleed 2. S/P right colectomy Pain Ratin Tomorrow's Labs & Rationales: ICU and CBC critically ill Plan DVT/Prophylaxis: mechanical
--- NOTE | 2016-06-06 09:45 | PN- CRCU ---
Subjective HPI/Critical Care Issues: Patient seen and examined this morning. Overnight events are noted. She is status post exploratory laparotomy with a right hemicolectomy. This was performed secondary to findings after colonoscopy of a intraperitoneal as well as retroperitoneal extraluminal hair. This was consistent with a hollow viscus perforation. Her hemoglobin is stable and her mental status is intact she is on mechanical ventilation overnight without any IV pressors. Objective Current Medications: Current Medications Sig/Liv Start time Last Medication Dose Route Stop Time Status Admin Acetaminophen 650 MG Q6P PRN 06/06 0045 AC PO Acetaminophen 1,000 MG .STK-MED ONE 06/05 1842 DC IV 06/05 1843 Acetaminophen 650 MG Q6P PRN 06/04 1945 DC 06/04 PO 2327 Ampicillin Sodium/ 3,000 MG Q12H 06/06 1330 AC Sulbactam Sodium IV Sodium Chloride 100 ML Ampicillin Sodium/ 3,000 MG ONCE ONE 06/06 0045 DC 06/06 Sulbactam Sodium IV 06/06 0114 0139 Sodium Chloride 100 ML Ampicillin Sodium/ 1,500 MG Q6 06/05 1815 DC 06/05 Sulbactam Sodium IV 1905 Sodium Chloride 100 ML Dexamethasone 4 MG .STK-MED ONE 06/05 1842 DC IM 06/05 1843 Dextrose/Sodium 1,000 ML Q20H 06/06 0430 AC 06/06 Chloride IV 0140 Dextrose/Sodium 1,000 ML Q20H 06/05 0830 DC 06/05 Chloride IV 06/06 0429 0850 Fentanyl Citrate 250 MCG .STK-MED ONE 06/05 184 DC IM 06/05 184 Furosemide 20 MG ONCE ONE 06/05 1830 CAN IV 06/05 183 Hydrochlorothiazide 25 MG Q48H 06/06 1000 AC PO Hydrochlorothiazide 25 MG Q48H 06/04 1000 DC 06/04 PO 1143 Hydromorphone HCl 2 MG .STK-MED ONE 06/05 1840 DC IM 06/05 184 Insulin Aspart 0 TIDAC 06/06 1200 CAN SC Insulin Human Regular 0 Q6 06/06 1200 AC SC Levothyroxine Sodium 0.125 MG DAILY AC 06/06 0700 AC 06/06 PO 0701 Levothyroxine Sodium 0.125 MG DAILY AC 06/04 0700 DC 06/05 PO 0613 Lidocaine 3 ML ONCE ONE 06/06 0600 DC 06/06 SC 06/06 0601 0701 Lorazepam 1 MG Q4P PRN 06/06 0345 AC IV Magnesium Sulfate 1 GM ONCE ONE 06/05 0845 DC 06/05 Dextrose/Water 100 ML IV 06/05 1244 0850 Metoprolol Tartrate 25 MG BID 06/06 1000 AC 06/06 PO 0107 Metoprolol Tartrate 5 MG .STK-MED ONE 06/06 0032 DC IV 06/06 0033 Metoprolol Tartrate 25 MG BID 06/05 1000 DC 06/05 PO 0811 Midazolam HCl 2 MG .STK-MED ONE 06/05 1841 DC IM 06/05 1842 Morphine Sulfate 2 MG Q3P PRN 06/06 0045 AC 06/06 IV 0335 Morphine Sulfate 4 MG Q3P PRN 06/06 0045 AC IV Non-Formulary 0 SEE ADMIN CRITERIA 06/06 0015 CAN Medication ANY Omeprazole 40 MG DAILY AC 06/04 0700 DC 06/05 PO 0613 Ondansetron HCl 4 MG Q6P PRN 06/06 0045 AC IV Ondansetron HCl 4 MG ONCE ONE 06/05 1530 DC IV 06/05 1531 Pantoprazole Sodium 40 MG DAILY 06/06 1000 AC IV Potassium Chloride 40 MEQ ONCE ONE 06/06 0830 CAN PO 06/06 0831 Potassium Chloride 20 MEQ Q1H 06/06 0830 DC IV 06/06 0931 Potassium Phosphate 15 mMol ONE ONE 06/05 0845 DC 06/05 Dextrose/Water 250 ML IV 06/05 1248 1215 Propofol 1,000 MG Q3H PRN 06/06 0345 CAN N/A 100 ML IV Propofol 1,000 MG Q3H 06/06 0100 DC N/A 100 ML IV Sodium Chloride 1,000 ML Q13H 06/06 0045 DC IV Vital Signs & I&O Last 24 Hrs of Vitals and I&O: Vital Signs Date Time Temp Pulse Resp B/P Pulse O2 O2 Flow FiO2 Ox Delivery Rate 06/06 0824 40 06/06 08 100 Ventilator 50% 06/06 08 97.7 74 16 114/60 100 Ventilator 50% 06/06 0555 50 06/06 0400 100 Ventilator 60% 06/06 0220 60 06/06 0148 84 16 172/70 06/067 97.7 84 16 172/62 06/06 0100 97 Ventilator 60% 06/06 0000 97.9 88 12 154/58 92 Ventilator 60% 06/05 2358 60 06/05 1600 99.3 76 24 160/82 94 Nasal 2.0L Cannula 06/05 1600 94 Nasal 2.0L Cannula 06/05 1200 96 Nasal 2.0L Cannula Intake & Output 06/06 0800 06/06 0000 Intake Total 449 600 Output Total 265 310 Balance 184 290 Intake, Blood 350 Product Intake, IV 389 250 Intake, Other 60 Number 1 Bowel Movements Output, 50 Gastric Drainage Output, Urine 215 310 Exam Other Physical Findings: Gen - alert and awake HEENT - ETT CVS - S1, S2, no murmurs, rubs or gallops Lungs - transmitted Abdomen - soft, non-tender, bs+, dressing intact Ext - no edema, no cyanosis Results Last 24 Hrs of Lab Results: Laboratory Tests 06/06/16 0800: CBC w Diff Cancelled, WBC Cancelled, RBC Cancelled, Hgb Cancelled, Hct Cancelled , MCV Cancelled, MCH Cancelled, RDW Cancelled, Plt Count Cancelled, MPV Cancelled, PUBS MCHC Cancelled 06/06/16 0620: pH 7.37, pCO2 39, pO2 84, HCO3 22, ABG O2 Sat (Measured) 96.0, P-50 (Temp Corrected) N, Carboxyhemoglobin 0.3 L, O2 Concentration % .50, Respiration Rate 16, O2 Delivery Method VENT, Vent Mode A/C, Expiratory Pressure 5, Tidal Volume 500, Phlebotomy Draw Site [place] 06/06/16 0555: Anion Gap 11, Estimated GFR 32 L, Glucose 253 H, Calcium 8.3 L, Phosphorus 3.2, Magnesium 1.6, Total Bilirubin 0.5, AST 18, ALT 25, Albumin 2.6 L, CBC w Diff MAN DIFF ORDERED, RBC 3.39 L, MCV 85.1, MCH 28.0, RDW 15.5 H, MPV 7.2 L, Gran % 91.9 H, Lymphocytes % 2.5 L, Monocytes % 5.5, Eosinophils % 0.1, Basophils % 0 L, Absolute Granulocytes 17.8 H, Segmented Neutrophils 90 H, Band Neutrophils 7 H, Absolute Lymphocytes 0.5 L, Lymphocytes 1 L, Monocytes 1 L, Absolute Monocytes 1.1 H, Absolute Eosinophils 0, Basophils 1, Absolute Basophils 0, Platelet Estimate ADEQUATE, Polychromasia 1+, Basophilic Stippling SLIGHT, Ovalocytes FEW, Stomatocytes FEW, PUBS MCHC 32.9 L, Fld Total RBCs Counted 100 06/06/16 0130: CBC w Diff MAN DIFF ORDERED, RBC 3.51 L, MCV 85.3, MCH 28.4, RDW 15.6 H, MPV 7.2 L, Gran % 90.3 H, Lymphocytes % 4.5 L, Monocytes % 5.2, Eosinophils % 0, Basophils % 0 L, Absolute Granulocytes 15.4 H, Segmented Neutrophils 80 H, Band Neutrophils 7 H, Absolute Lymphocytes 0.8 L, Lymphocytes 6 L, Monocytes 7, Absolute Monocytes 0.9 H, Absolute Eosinophils 0, Absolute Basophils 0, Platelet Estimate ADEQUATE, Polychromasia 1+, Ovalocytes FEW, Stomatocytes FEW, PUBS MCHC 33.3, Fld Total RBCs Counted 100 06/06/16 0100: CBC w Diff Cancelled, WBC Cancelled, RBC Cancelled, Hgb Cancelled, Hct Cancelled , MCV Cancelled, MCH Cancelled, RDW Cancelled, Plt Count Cancelled, MPV Cancelled, PUBS MCHC Cancelled 06/06/16 0020: pH 7.30 *L, pCO2 41, pO2 85, HCO3 20 L, ABG O2 Sat (Measured) 94.0 L, P-50 ( Temp Corrected) N, Carboxyhemoglobin 0.3 L, O2 Concentration % .60, Respiration Rate 12, O2 Delivery Method VENT, Vent Mode A/C, Expiratory Pressure 5, Tidal Volume 500, Phlebotomy Draw Site [place] 06/05/16 2117: pH 7.42, pCO2 37, pO2 64 L, HCO3 24, ABG O2 Sat (Measured) 91.0 L, Carboxyhemoglobin 0.3 L, O2 Concentration % 100%, O2 Delivery Method ANESTHESIA , Phlebotomy Draw Site [place] 06/05/16 1830: Urinalysis MANY H, Urine Color YEL, Urine Clarity CLEAR, Urine pH 6.0, Ur Specific [place] 1.025, Urine Protein 100 H, Urine Ketones NEG, Urine Nitrite NEG, Urine Bilirubin NEG, Urine Urobilinogen 0.2, Ur Leukocyte Esterase NEG, Ur Microscopic SEDIMENT EXAMINED, Urine RBC 3-5, Urine WBC 3-5 H, Ur Epithelial Cells FEW, Urine Bacteria FEW H, Urine Mucus FEW, Urine Hemoglobin MOD H, Urine Glucose NEG 06/05/16 1620: Anion Gap 10, Estimated GFR 37 L, Glucose 113 H, Calcium 8.4, Phosphorus 4.5, Magnesium 1.7, Total Bilirubin 0.7, AST 22, ALT 28, Albumin 3.4 L, PT 11.4, INR 1.09, APTT 28, CBC w Diff NO MAN DIFF REQ, RBC 3.56 L, MCV 85.4, MCH 27.5, RDW 15.9 H, MPV 7.4, Gran % 85.0 H, Lymphocytes % 8.7 L, Monocytes % 5.4, Eosinophils % 0.6, Basophils % 0.3, Absolute Granulocytes 11.2 H, Absolute Lymphocytes 1.1 L, Absolute Monocytes 0.7 H, Absolute Eosinophils 0.1, Absolute Basophils 0, PUBS MCHC 32.2 L Impression/Plan Impression/Plan Impression/Plan: Impression 75 year old woman * Lower GI bleed - acute blood loss anemia * Diverticulosis * CKD * HTN urgency * Hypothyrodism Plan - GI and surgery appreciated, f/u recommendations - monitor cbc, coags - Ibuprofen and aspirin held - NPO - PPI - Cardiology consultation appreciated, f/u recommendations - bp monitoring and management - CPAP trial with plan for extubation DVT prophylaxis - ALPS - no a/c given GI bleed TTS 35 min
--- NOTE | 2016-06-06 11:01 | Transfer of Care Summary ---
Hospital Course Course Hospital Course: 75-year-old morbidly obese female with PMH of hypertension, hypothyroidism s/p thyroidectomy, chronic pain, gastroesophageal reflux disease, current smoker, nonalcoholic came in with chief complain of bright red blood per rectum. Hb was 10.3 on admission, which is her baseline. Pt continued to have frankly bloody bowel movement, hence colonoscopy was pursued. Her hemoglobin remained stable. Pt had colonoscopy 06/05/16, findings consistent with a resolving sigmoid diverticular bleed without any active bleeding appreciated, 3 diminutive ascending colon polyps s/p removal via cold biopsy forceps, & small internal hemorrhoids. Initially was doing well, but after about 4 hours, had BM with about 500 ml of blood clot, with 1 PRBC given without rechecking CBC. Pt was taken for CTA which showed perforation. Pt was taken to OR for exploratory laparotomy and right colectomy was done with anastomosis of ileum with transverse colon. Post op, she remained intubated in the ICU, but sedation was discontinued overnight, and patient remained calm. Pt was successfully extubated. A line removed. Spoke to surgery regarding possibly advancing her diet, they recommend waiting for return of bowel function (passing gas/stool) before starting diet. Pt prefers to have dailey in place for now for comfort. Still has a right IJ and NG in place. She is receiving IVF 75ml/hr D51/2 NS, and blood sugar was noted to be high at 253. Hence accucheck and novolin ordered Q6. Pt has no prior hx of diabetes. Assessment/Plan: Problem list: # Bright red blood per rectum most likely diverticular bleed # Perforation post colonoscopy, sp right colectomy # Acute blood loss anemia due to GI bleed # Hypertensive urgency # Hypothyroidism # CKD stage 3b Right IJ Day #2 (not on pressors) Dailey day #2 (plan to remove if pt able to ambulate, pt prefers to keep it on for today) NG tube day # 2 (remove once diet can be advanced, as per surgery would wait until return of bowel functon before advancing diet) Intubated for 2 days, extubated now A line for 2 days removed 06/06 UE restrain discontinued after 1 day Respiratory - Intubated for exploratory laparotomy 06/05/16 - Extubated 06/06/16 - Respiratory status now stable ID - WBC up to 19.4, possible peritonitis with perforation * Continue unasyn 3000 q 12 based on cr clearance. Would consider discontinuing based on clinical course. 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 Golden, consulted * Aspirin on hold # 8 beat run Vtach 06/05/16 * Replete K, mag, and phos as needed Hematology # Acute blood loss anemia due to GI bleed - HB 10.3 on admission (baseline 10.5) - Pt had 1 PRBC transfusion 06/05/16 after large bloody BM post colonoscopy ( without rechecking CBC) * CBC Q12 * Type and cross done, transfuse if hb < 8 * Hold aspirin and ibuprofen Metabolic # Hyperglycemia - BS was 253 on 06/05/16 * Place on novolin (as NPO), on d51/2 ns at 75ml/hr. Will change to novolog ss once patient resumes diet post extubation. * Accucheck Q6, follow up blood sugar closely # Hypothyroidism s/p thyroidectomy for thyroid cancer - tsh 3.130, ft4 1.21 * Continue levothyroxine 125mcg daily # CKD stage 3b - Creatinine 1.5 on admission ( baseline 1.4) - Cr went up from 1.4 to 1.6 after CTA 06/05/16 * Avoid all nephrotoxin. * Avoid nsaids, even on discharge, patient takes 3 to 5 every week for long time Alimentary # GI bleed, most likely diverticular bleed given her hx of diverticulitis - Last colonoscopy 6 years ago, told to come back in 10 years * Dr. Jernigan has been consulted, sp colonoscopy 06/05/16 with polypectomy, follow up pathology as outpatient * Continue PPI * Hold aspirin, ibuprofen * Advance diet as per GI and surgery Neuro - No issues Diet: NPO DVT ppx: alps, no pharm due to GI bleed FULL CODE Consults: GI , cardio, CRCU, surgery Labs: ICU and CBC (acute blood loss anemia), hypomagnesiumia, hypokalemia Attending MD Review Statement Documenting Attending: OSMEL BILLS MD
--- NOTE | 2016-06-06 11:24 | PN- Cardiology ---
Subjective Subjective: Yesterday's events reviewed in detail. Was in the ICU yesterday (06/05/2016) to see Mrs. Barton and learned that she had been taken to the OR for a bowel perforation following her colonoscopy. Objective Vital Signs and I&Os Vital Signs Date Time Temp Pulse Resp B/P Pulse O2 O2 Flow FiO2 Ox Delivery Rate 06/06 1020 69 136/53 06/06 0824 40 06/06 0800 100 Ventilator 50% 06/06 0800 97.7 74 16 114/60 100 Ventilator 50% 06/06 0555 50 06/06 0400 100 Ventilator 60% 06/06 0220 60 06/06 0148 84 16 172/70 06/06 0107 97.7 84 16 172/62 06/06 0100 97 Ventilator 60% 06/06 0000 97.9 88 12 154/58 92 Ventilator 60% 06/05 2358 60 06/05 1600 99.3 76 24 160/82 94 Nasal 2.0L Cannula 06/05 1600 94 Nasal 2.0L Cannula 06/05 1200 96 Nasal 2.0L Cannula Intake & Output 06/06 1600 06/06 0800 06/06 0000 06/05 1600 06/05 0800 06/05 0000 Intake Total 573 613 6077 240 2720 Output Total 265 310 900 450 500 Balance 184 290 498 -210 2220 Intake, Blood 350 Product Intake, IV 389 250 798 Intake, Oral 343 484 2620 Intake, Other 60 Number 1 4 6 5 Bowel Movements Output, 50 Gastric Drainage Output, Stool 600 Output, Urine 215 310 300 450 500 Current Medications: Current Medications Sig/Liv Start time Last Medication Dose Route Stop Time Status Admin Acetaminophen 650 MG Q6P PRN 06/06 0045 AC PO Acetaminophen 1,000 MG .STK-MED ONE 06/05 1842 DC IV 06/05 1843 Acetaminophen 650 MG Q6P PRN 06/04 1945 DC 06/04 PO 2327 Ampicillin Sodium/ 3,000 MG Q12H 06/06 1330 AC Sulbactam Sodium IV Sodium Chloride 100 ML Ampicillin Sodium/ 3,000 MG ONCE ONE 06/06 0045 DC 06/06 Sulbactam Sodium IV 06/06 0114 0139 Sodium Chloride 100 ML Ampicillin Sodium/ 1,500 MG Q6 06/05 1815 DC 06/05 Sulbactam Sodium IV 1905 Sodium Chloride 100 ML Dexamethasone 4 MG .STK-MED ONE 06/05 184 DC IM 06/05 1843 Dextrose/Sodium 1,000 ML Q20H 06/06 0430 AC 06/06 Chloride IV 0140 Dextrose/Sodium 1,000 ML Q20H 06/05 0830 DC 06/05 Chloride IV 06/06 0429 0850 Fentanyl Citrate 250 MCG .STK-MED ONE 06/05 184 DC IM 06/05 1842 Furosemide 20 MG ONCE ONE 06/05 1830 CAN IV 06/05 1831 Hydrochlorothiazide 25 MG Q48H 06/06 1000 AC PO Hydrochlorothiazide 25 MG Q48H 06/04 1000 DC 06/04 PO 1143 Hydromorphone HCl 2 MG .STK-MED ONE 06/05 184 DC IM 06/05 184 Insulin Aspart 0 TIDAC 06/06 1200 CAN SC Insulin Human Regular 0 Q6 06/06 1200 AC SC Levothyroxine Sodium 0.125 MG DAILY AC 06/06 0700 AC 06/06 PO 0701 Levothyroxine Sodium 0.125 MG DAILY AC 06/04 0700 DC 06/05 PO 0613 Lidocaine 3 ML ONCE ONE 06/06 0600 DC 06/06 SC 06/06 0601 0701 Lorazepam 1 MG Q4P PRN 06/06 0345 DC IV Magnesium Sulfate 1 GM ONCE ONE 06/05 0845 DC 06/05 Dextrose/Water 100 ML IV 06/05 1244 0850 Metoprolol Tartrate 25 MG BID 06/06 1000 AC 06/06 PO 1020 Metoprolol Tartrate 5 MG .STK-MED ONE 06/06 0032 DC IV 06/06 0033 Metoprolol Tartrate 25 MG BID 06/05 1000 DC 06/05 PO 0811 Midazolam HCl 2 MG .STK-MED ONE 06/05 184 DC IM 06/05 184 Morphine Sulfate 2 MG Q3P PRN 06/06 0045 AC 06/06 IV 0335 Morphine Sulfate 4 MG Q3P PRN 06/06 0045 AC IV Non-Formulary 0 SEE ADMIN CRITERIA 06/06 0015 CAN Medication ANY Omeprazole 40 MG DAILY AC 06/04 0700 DC 06/05 PO 0613 Ondansetron HCl 4 MG Q6P PRN 06/06 0045 AC IV Ondansetron HCl 4 MG ONCE ONE 06/05 1530 DC IV 06/05 1531 Pantoprazole Sodium 40 MG DAILY 06/06 1000 AC 06/06 IV 1020 Potassium Chloride 40 MEQ ONCE ONE 06/06 0830 CAN PO 06/06 0831 Potassium Chloride 20 MEQ Q1H 06/06 0830 DC 06/06 IV 06/06 0931 1016 Potassium Phosphate 15 mMol ONE ONE 06/05 0845 DC 06/05 Dextrose/Water 250 ML IV 06/05 1248 1215 Propofol 1,000 MG Q3H PRN 06/06 0345 CAN N/A 100 ML IV Propofol 1,000 MG Q3H 06/06 0100 DC N/A 100 ML IV Sodium Chloride 1,000 ML Q13H 06/06 0045 DC IV Results Last 48 Hrs of Labs/Mics: Laboratory Tests 06/06/16 0800: CBC w Diff Cancelled, WBC Cancelled, RBC Cancelled, Hgb Cancelled, Hct Cancelled , MCV Cancelled, MCH Cancelled, RDW Cancelled, Plt Count Cancelled, MPV Cancelled, PUBS MCHC Cancelled 06/06/16 0620: pH 7.37, pCO2 39, pO2 84, HCO3 22, ABG O2 Sat (Measured) 96.0, P-50 (Temp Corrected) N, Carboxyhemoglobin 0.3 L, O2 Concentration % .50, Respiration Rate 16, O2 Delivery Method VENT, Vent Mode A/C, Expiratory Pressure 5, Tidal Volume 500, Phlebotomy Draw Site [place] 06/06/16 0555: Anion Gap 11, Estimated GFR 32 L, Glucose 253 H, Calcium 8.3 L, Phosphorus 3.2, Magnesium 1.6, Total Bilirubin 0.5, AST 18, ALT 25, Albumin 2.6 L, TSH 3.130, Free T4 1.21, CBC w Diff MAN DIFF ORDERED, RBC 3.39 L, MCV 85.1, MCH 28.0, RDW 15.5 H, MPV 7.2 L, Gran % 91.9 H, Lymphocytes % 2.5 L, Monocytes % 5.5, Eosinophils % 0.1, Basophils % 0 L, Absolute Granulocytes 17.8 H, Segmented Neutrophils 90 H, Band Neutrophils 7 H, Absolute Lymphocytes 0.5 L, Lymphocytes 1 L, Monocytes 1 L, Absolute Monocytes 1.1 H, Absolute Eosinophils 0, Basophils 1, Absolute Basophils 0, Platelet Estimate ADEQUATE, Polychromasia 1+, Basophilic Stippling SLIGHT, Ovalocytes FEW, Stomatocytes FEW, PUBS MCHC 32.9 L, Fld Total RBCs Counted 100 06/06/16 0525: Hemoglobin A1c Pending 06/06/16 0130: CBC w Diff MAN DIFF ORDERED, RBC 3.51 L, MCV 85.3, MCH 28.4, RDW 15.6 H, MPV 7.2 L, Gran % 90.3 H, Lymphocytes % 4.5 L, Monocytes % 5.2, Eosinophils % 0, Basophils % 0 L, Absolute Granulocytes 15.4 H, Segmented Neutrophils 80 H, Band Neutrophils 7 H, Absolute Lymphocytes 0.8 L, Lymphocytes 6 L, Monocytes 7, Absolute Monocytes 0.9 H, Absolute Eosinophils 0, Absolute Basophils 0, Platelet Estimate ADEQUATE, Polychromasia 1+, Ovalocytes FEW, Stomatocytes FEW, PUBS MCHC 33.3, Fld Total RBCs Counted 100 06/06/16 0100: CBC w Diff Cancelled, WBC Cancelled, RBC Cancelled, Hgb Cancelled, Hct Cancelled , MCV Cancelled, MCH Cancelled, RDW Cancelled, Plt Count Cancelled, MPV Cancelled, PUBS MCHC Cancelled 06/06/16 0020: pH 7.30 *L, pCO2 41, pO2 85, HCO3 20 L, ABG O2 Sat (Measured) 94.0 L, P-50 ( Temp Corrected) N, Carboxyhemoglobin 0.3 L, O2 Concentration % .60, Respiration Rate 12, O2 Delivery Method VENT, Vent Mode A/C, Expiratory Pressure 5, Tidal Volume 500, Phlebotomy Draw Site [place] 06/05/16 2117: pH 7.42, pCO2 37, pO2 64 L, HCO3 24, ABG O2 Sat (Measured) 91.0 L, Carboxyhemoglobin 0.3 L, O2 Concentration % 100%, O2 Delivery Method ANESTHESIA , Phlebotomy Draw Site [place] 06/05/16 1830: Urinalysis MANY H, Urine Color YEL, Urine Clarity CLEAR, Urine pH 6.0, Ur Specific [place] 1.025, Urine Protein 100 H, Urine Ketones NEG, Urine Nitrite NEG, Urine Bilirubin NEG, Urine Urobilinogen 0.2, Ur Leukocyte Esterase NEG, Ur Microscopic SEDIMENT EXAMINED, Urine RBC 3-5, Urine WBC 3-5 H, Ur Epithelial Cells FEW, Urine Bacteria FEW H, Urine Mucus FEW, Urine Hemoglobin MOD H, Urine Glucose NEG 04/09/17 1620: Anion Gap 10, Estimated GFR 37 L, Glucose 113 H, Calcium 8.4, Phosphorus 4.5, Magnesium 1.7, Total Bilirubin 0.7, AST 22, ALT 28, Albumin 3.4 L, PT 11.4, INR 1.09, APTT 28, CBC w Diff NO MAN DIFF REQ, RBC 3.56 L, MCV 85.4, MCH 27.5, RDW 15.9 H, MPV 7.4, Gran % 85.0 H, Lymphocytes % 8.7 L, Monocytes % 5.4, Eosinophils % 0.6, Basophils % 0.3, Absolute Granulocytes 11.2 H, Absolute Lymphocytes 1.1 L, Absolute Monocytes 0.7 H, Absolute Eosinophils 0.1, Absolute Basophils 0, PUBS MCHC 32.2 L 06/05/16 0400: Anion Gap 9, Estimated GFR 37 L, Glucose 90, Calcium 8.9, Phosphorus 3.6, Magnesium 1.8, Total Bilirubin 0.7, AST 22, ALT 33, Albumin 3.2 L, CBC w Diff NO MAN DIFF REQ, RBC 3.36 L, MCV 85.3, MCH 28.1, RDW 15.9 H, MPV 7.7, Gran % 54.1, Lymphocytes % 35.9, Monocytes % 7.3, Eosinophils % 2.1, Basophils % 0.6, Absolute Granulocytes 4.1, Absolute Lymphocytes 2.7, Absolute Monocytes 0.6, Absolute Eosinophils 0.2, Absolute Basophils 0, PUBS MCHC 33.0 06/05/16 0132: Magnesium Cancelled 06/04/16 2240: CBC w Diff NO MAN DIFF REQ, RBC 3.40 L, MCV 85.0, MCH 27.9, RDW 15.6 H, MPV 7.3 L, Gran % 58.0, Lymphocytes % 30.8, Monocytes % 8.1, Eosinophils % 2.1, Basophils % 1.0, Absolute Granulocytes 4.4, Absolute Lymphocytes 2.3, Absolute Monocytes 0.6, Absolute Eosinophils 0.2, Absolute Basophils 0.1, PUBS MCHC 32.8 L 06/04/16 1650: CBC w Diff NO MAN DIFF REQ, RBC 3.42 L, MCV 84.9, MCH 27.8, RDW 16.2 H, MPV 7.5, Gran % 58.2, Lymphocytes % 30.5, Monocytes % 8.5, Eosinophils % 2.0, Basophils % 0.8, Absolute Granulocytes 4.1, Absolute Lymphocytes 2.2, Absolute Monocytes 0.6, Absolute Eosinophils 0.1, Absolute Basophils 0.1, PUBS MCHC 32.7 L Recent Imaging Studies: CXR (06/06/2069): Endotracheal tube tip is now 2.2 cm above the de. Right IJ central line has been adjusted and its tip is now located in the proximal SVC. Echocardiogram (06/05/2016): Normal size left ventricle. Severe concentric left ventricular hypertrophy. No obvious regional wall motion abnormalities. Normal left ventricular ejection fraction visually estimated at >60%. Abnormal relaxation filling pattern of the left ventricle for age (stage 1 diastolic dysfunction). Mildly increased left ventricular outflow tract velocity (1.3 m/s). Normal right ventricular size and function. Normal atrial size. Mild mitral regurgitation. Mild aortic regurgitation. Trace tricuspid regurgitation. Right ventricular systolic pressure estimated at 33 mmHg. Trace/mild pulmonic regurgitation. Dilated inferior vena cava. CT abdomen/pelvis (06/05/2016): Extensive predominantly right hemiabdomen, right hemipelvic intraperitoneal as well as retroperitoneal extraluminal air identified, consistent with hollow viscus perforation. Although the exact site of perforation is not evident on these images, given the patient's recent history of right-sided colonoscopic polypectomy, possibly arising from the right-sided colon at the site of polypectomy. Please correlate with endoscopic findings. No CT evidence of acute GI hemorrhage. Surgical consultation is recommended. This critical result was discussed with Dr. Yamini Reynaga at 5:47 PM on 2016 and it was ascertained that the content and urgency of the report was understood at the time of direct communication. Assessment/Plan Assessment/Plan Mrs. Barton is an elderly female with a history of morbid obesity, ONIEL w/o CPAP, long-standing tobacco use, HTN, thyroid cancer s/p resection and subsequent hypothyroidism, CKD, chronic anemia, and GERD who presented to the ED on 08/2016 with a c/o BRBPR on a background of known diverticular disease. She underwent a colonoscopy yesterday (06/05/2016): findings c/w a resolving sigmoid diverticular bleed without any active bleeding appreciated, 3 diminutive ascending colon polyps s/p removal via cold biopsy forceps, & small internal hemorrhoids. She remained hemodynamically stable, but passed BRBPR and subsequently began having abdominal pain and was discovered to have had a colonic perforation requiring emergency exploratory laparotomy with right hemicolectomy. Fortunately, her echocardiogram revealed preserved left ventricular systolic function. She clinically continues to improve and is presently without complaints. For now, we'll continue with her present cardiac regimen. Continue telemetry? Yes
[2016-06-06 16:00] VITALS: BP 140/62
[2016-06-06 17:53] LABS: ABSOLUTE BASOPHIL COUNT 0 /CUMM (0.0-0.2); ABSOLUTE EOSINOPHIL COUNT 0 /CUMM (0.0-0.7); ABSOLUTE GRANULOCYTE CT 17.1 /CUMM (1.4-6.5); ABSOLUTE LYMPH COUNT 1.4 /CUMM (1.2-3.4); ABSOLUTE MONOCYTE COUNT 1.4 /CUMM (0.10-0.60); BASOPHIL % 0.1 % (0.0-2.0); EOSINOPHIL % 0 % (0-5); HEMATOCRIT 26.4 % (37-47); MEAN CORPUSCULAR HGB 27.8 PG (27.0-31.0); MEAN CORPUSCULAR HGB CONC 32.5 G/DL (33.0-37.0); MEAN CORPUSCULAR VOLUME 85.6 FL (81.0-99.0); MEAN PLATELET VOLUME 7.6 FL (7.4-10.4); PLATELET COUNT 202 /CUMM (130-400); RBC DISTRIBUTION WIDTH 15.6 % (11.5-14.5); RED BLOOD CELL CT 3.09 /CUMM (4.20-5.40)
[2016-06-06 18:05] LABS: GRANULOCYTE % 85.7 % (42.2-75.2)
[2016-06-07] VITALS: BP 128/76
[2016-06-07 04:21] LABS: ABSOLUTE BASOPHIL COUNT 0 /CUMM (0.0-0.2); ABSOLUTE EOSINOPHIL COUNT 0 /CUMM (0.0-0.7); ABSOLUTE GRANULOCYTE CT 13.9 /CUMM (1.4-6.5); ABSOLUTE LYMPH COUNT 1.8 /CUMM (1.2-3.4); ABSOLUTE MONOCYTE COUNT 1.4 /CUMM (0.10-0.60); BASOPHIL % 0.2 % (0.0-2.0); EOSINOPHIL % 0.1 % (0-5); GRANULOCYTE % 81.3 % (42.2-75.2); HEMATOCRIT 25.4 % (37-47); MEAN CORPUSCULAR HGB 28.1 PG (27.0-31.0); MEAN CORPUSCULAR HGB CONC 32.6 G/DL (33.0-37.0); MEAN CORPUSCULAR VOLUME 86.3 FL (81.0-99.0); MEAN PLATELET VOLUME 7.3 FL (7.4-10.4); PLATELET COUNT 198 /CUMM (130-400); RBC DISTRIBUTION WIDTH 15.7 % (11.5-14.5); RED BLOOD CELL CT 2.94 /CUMM (4.20-5.40); WHITE BLOOD CELL COUNT 17.1 /CUMM (4.8-10.8)
--- NOTE | 2016-06-07 05:28 | PN- General Surgery ---
See Addendum Subjective Subjective: POD#2, extubated yesterday. No OOB postop. Pain controlled. +flatus, no bm. denies n/v. Objective Vital Signs and I&Os Vital Signs Date Time Temp Pulse Resp B/P Pulse O2 O2 Flow FiO2 Ox Delivery Rate 06/07 0400 97 Nasal 3.0L Cannula 06/07 0000 97.1 68 16 128/76 98 Nasal 3.0L Cannula 06/07 0000 98 Nasal 3.0L Cannula 06/06 2141 86 158/60 06/06 2000 98 Nasal 3.0L Cannula 06/06 1600 94 Nasal 3.0L Cannula 06/06 1600 97.9 72 19 140/62 96 Nasal 3.0L Cannula 06/06 1200 97 Nasal 3.0L Cannula 06/06 1020 69 136/53 06/06 0824 40 06/06 0800 100 Ventilator 50% 06/06 08 97.7 74 16 114/60 100 Ventilator 50% 06/06 0555 50 Intake & Output 06/07 0800 06/07 0000 06/06 1600 06/06 0800 06/06 0000 06/05 1600 Intake Total 613 820 790 490 2453 Output Total 500 450 265 310 900 Balance 113 370 184 290 498 Intake, Blood 350 Product Intake, IV 613 820 389 250 798 Intake, Oral 600 Intake, Other 60 Number 1 4 Bowel Movements Output, 150 250 50 Gastric Drainage Output, Stool 600 Output, Urine 350 200 215 310 300 Patient 283 lb Weight Physical Exam: Gen NAD: Card: s1s2 RRR Pulm: no audible wheeze Abd: obese, ttp, dressig c/d/i, +bs, no r/g Ext: calves soft nt, obese, ALPS on Assessment/Plan Assessment/Plan 75yoF POD2 s/p r colectomy 2/2 colonic perforation, currently extubated and stable. recommendations: - WBC trending down, continue to follow - watch BUN/Cr, ?need more IVF - dc dailey - strict i&os- ?dc ngt if return bowel fxn, low ngt output, continue iv ppi while ngt in place - dvt ppx, OOB, ambulate- NEEDS hep sq or lovenox, NEEDS OOB - unasyn per medical team\- will dw attending Problem List: 1. S/P right colectomy Core Measures/Miscellaneous Venous Thromboembolism VTE Risk Factors: Surgery VTE Contraindications: No Contraindications VTE Diagnosis: No VTE Type: NONE VTE Confirmed by (Test): NONE Beta Nawaf Is Beta Nawaf a Home Med? Yes Antibiotics Is Patient on Antibiotics? Yes
--- NOTE | 2016-06-07 07:03 | PN- Resident CRCU ---
Subjective HPI/CRCU Issues: Pt had colonoscopy on 06/05/16, polyps were removed from sigmoid and ascending colon. Initially was doing well, but after about 4 hours, had BM with about 500 ml of blood clot. Pt was taken for CTA which showed perforation. Pt was taken to OR for exploratory laparotomy and right colectomy was done with anastomosis of ileum with transverse colon. Pt remained intubated overnight on 06/06/15, but has been off sedation (propofol) since 06/07/15. She is calm, off of UE restrains removed. Her blood sugar was 250 this morning. Pt put on novolin ss (npo), will change to low dose novolog once pt extubated and eating. she is currently on d51/2 ns at 75ml/hr. She has right IJ central line, a line, and dailey as well. 24 Hour Events: max temp 97.1 hr 68-74 sr systolic bp 147-156 diastolic bp 69 + 2148 - 1450 BS 115 Objective Vital Signs & I&O Last 8 Hrs of Vitals and I&O: Intake & Output 06/07 1600 06/07 0800 06/07 0000 Intake Total 715 613 Output Total 500 500 Balance 215 113 Intake, IV 715 613 Output, 50 150 Gastric Drainage Output, Urine 450 350 Laboratory Tests 06/07 06/06 0400 1700 Chemistry Sodium (137 - 145 mmol/L) 136 L 137 Potassium (3.5 - 5.1 mmol/L) 4.4 4.3 Chloride (98 - 107 mmol/L) 104 103 Carbon Dioxide (22 - 30 mmol/L) 27 25 Anion Gap (5 - 16) 5 10 BUN (7 - 17 mg/dL) 30 H 28 H Creatinine (0.5 - 1.0 mg/dL) 1.8 H 1.8 H Estimated GFR (>60 ml/min) 28 L 28 L BUN/Creatinine Ratio (7 - 25 %) 15.6 Glucose (65 - 99 mg/dL) 98 Calcium (8.4 - 10.2 mg/dL) 8.0 L Phosphorus (2.5 - 4.5 mg/dL) 3.9 Magnesium (1.6 - 2.3 mg/dL) 1.6 Total Bilirubin (0.2 - 1.3 mg/dL) 0.7 AST (14 - 36 U/L) 18 ALT (9 - 52 U/L) 29 Albumin (3.5 - 5.0 g/dL) 2.3 L Hematology CBC w Diff NO MAN DIFF REQ NO MAN DIFF REQ WBC (4.8 - 10.8 /CUMM) 17.1 H 20.0 H RBC (4.20 - 5.40 /CUMM) 2.94 L 3.09 L Hgb (12.0 - 16.0 G/DL) 8.3 L 8.6 L Hct (37 - 47 %) 25.4 L 26.4 L MCV (81.0 - 99.0 FL) 86.3 85.6 MCH (27.0 - 31.0 PG) 28.1 27.8 RDW (11.5 - 14.5 %) 15.7 H 15.6 H Plt Count (130 - 400 /CUMM) 198 202 MPV (7.4 - 10.4 FL) 7.3 L 7.6 Gran % (42.2 - 75.2 %) 81.3 H 85.7 H Lymphocytes % (20.5 - 51.1 %) 10.5 L 7.1 L Monocytes % (1.7 - 9.3 %) 7.9 7.1 Eosinophils % (0 - 5 %) 0.1 0 Basophils % (0.0 - 2.0 %) 0.2 0.1 Absolute Granulocytes (1.4 - 6.5 /CUMM) 13.9 H 17.1 H Absolute Lymphocytes (1.2 - 3.4 /CUMM) 1.8 1.4 Absolute Monocytes (0.10 - 0.60 /CUMM) 1.4 H 1.4 H Absolute Eosinophils (0.0 - 0.7 /CUMM) 0 0 Absolute Basophils (0.0 - 0.2 /CUMM) 0 0 PUBS MCHC (33.0 - 37.0 G/DL) 32.6 L 32.5 L Vital Signs Date Time Temp Pulse Resp B/P Pulse O2 O2 Flow FiO2 Ox Delivery Rate 06/07 0801 81 162/74 06/07 0800 97.0 79 22 162/74 94 Nasal 1.0L Cannula 06/07 0800 94 Nasal 1.0L Cannula 06/07 0400 97 Nasal 3.0L Cannula 06/07 0000 97.1 68 16 128/76 98 Nasal 3.0L Cannula 06/07 0000 98 Nasal 3.0L Cannula 06/06 2141 86 158/60 06/07 1999 98 Nasal 3.0L Cannula 06/06 1600 94 Nasal 3.0L Cannula 06/06 1600 97.9 72 19 140/62 96 Nasal 3.0L Cannula 06/06 1200 97 Nasal 3.0L Cannula 06/06 1020 69 136/53 Exam General Appearance: alert, awake, comfortable, obese Head: atraumatic, normal appearance Neck: normal inspection, supple, full range of motion, CV line site no tederness or erythema Respiratory: chest non-tender, no respiratory distress Cardiovascular: regular rate/rhythm, normal peripheral pulses Gastrointestinal: tenderness over the incision site on the left side of the midline abdomen tenderness in epigaster Extremities: normal capillary refill, no edema Cranial Nerves: normal hearing, normal speech, PERRL Skin: intact, normal color, warm/dry Weaning Parameters NIF: 38 Minute Volume: 10.5 Resp rate: 18 Vt: 588 Heart Rate: 80 Weaning Schedule Start Time: 0904 Minute Volume: 9.09 Resp Rate: 17 Vt: 535 Heart Rate: 77 End Time: 0941 Minute Volume: 11.4 Resp Rate: 19 Vt: 601 Heart Rate: 73 Current Medications: Current Medications Sig/Liv Start time Last Medication Dose Route Stop Time Status Admin Acetaminophen 650 MG Q6P PRN 06/06 0045 AC PO Ampicillin Sodium/ 3,000 MG Q12H 06/06 1330 AC 06/07 Sulbactam Sodium IV 0150 Sodium Chloride 100 ML Dextrose/Sodium 1,000 ML Q20H 06/06 0430 AC 06/07 Chloride IV 0009 Hydrochlorothiazide 25 MG Q48H 06/06 1000 AC PO Insulin Aspart 0 TIDAC 06/06 1200 CAN SC Insulin Human Regular 0 Q6 06/06 1200 AC 06/07 SC 0610 Levothyroxine Sodium 0.125 MG DAILY AC 06/06 0700 AC 06/07 PO 0610 Lorazepam 1 MG Q4P PRN 06/06 0345 DC IV Magnesium Sulfate 1 GM Q2H 06/07 0630 AC 06/07 Dextrose/Water 100 ML IV 06/07 1029 0800 Metoprolol Tartrate 25 MG BID 06/06 1000 AC 06/07 PO 0801 Morphine Sulfate 2 MG Q3P PRN 06/06 0045 AC 06/07 IV 0801 Morphine Sulfate 4 MG Q3P PRN 06/06 0045 AC IV Ondansetron HCl 4 MG Q6P PRN 06/06 0045 AC IV Pantoprazole Sodium 40 MG DAILY 06/06 1000 AC 06/07 IV 0800 Potassium Chloride 20 MEQ Q1H 06/06 0830 DC 06/06 IV 06/06 0931 1030 Sodium Chloride 2 SPRAY Q4P PRN 06/06 1645 AC 06/06 MILLA 1814 Impression/Plan Impression/Problem List Impression: 75-year-old morbidly obese female with PMH of hypertension, hypothyroidism s/p thyroidectomy, chronic pain, gastroesophageal reflux disease, current smoker, nonalcoholic came in with chief complain of bright red blood per rectum. Hb was 10.3 on admission, which is her baseline. Pt continued to have frankly bloody bowel movement, hence colonoscopy was pursued. Pt had colonoscopy 06/05/16, polyps were removed from sigmoid and ascending colon. Initially was doing well, but after about 4 hours, had BM with about 500 ml of blood clot, with 1 PRBC given without checking CBC. Pt was taken for CTA which showed perforation. Pt was taken to OR for exploratory laparotomy and right colectomy was done with anastomosis of ileum with transverse colon. Problem list: # Bright red blood per rectum most likely diverticular bleed # Perforation post colonoscopy, sp right colectomy # Acute blood loss anemia due to GI bleed # Hypertensive urgency # Hypothyroidism # CKD stage 3b Right IJ Day #3 (not on pressors) Intubated day # 2 (plan to extubate today, not on sedation) - extubated 06/06 A line day #3 (plan to remove today) - removed 06/06 Dailey day #3 (plan to remove if pt able to ambulate, pt prefers to keep it on for today) NG tube day # 3 (remove once diet can be advanced, as per surgery would wait until return of bowel functon before advancing diet) UE restrain discontinued after 1 day Respiratory - Intubated for exploratory laparotomy 06/05/16 * Will try to extubate today ID - WBC up to 19.4, possible peritonitis with perforation * Continue unasyn 3000 q 12 based on cr clearance Cardiovascular Hypertensive urgency - Pt on metoprolol tartrate 50 mg OD (taken on day of admission), and HCTZ 25mg daily (has not taken in 2weeks since she ran out) - 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 Golden, consulted * Aspirin on hold 8 beat run Vtach 06/05/16 * Replete K, mag, and phos as needed Hematology Acute blood loss anemia due to GI bleed - HB 10.3 on admission (baseline 10.5) - Pt had 1 PRBC transfusion 06/05/16 after large bloody bm post colonoscopy ( without checking CBC) * CBC Q12 * Type and cross done, transfuse if hb < 8 * Hold aspirin and ibuprofen Metabolic Hyperglycemia - BS was 253 on 06/05/16 * Place on novolin (as NPO), on d51/2 ns at 75ml/hr. Will change to novolog ss once patient resumes diet post extubation. * Accucheck tidac/qhs, follow up blood sugar closely Hypothyroidism s/p thyroidectomy for thyroid cancer * Continue levothyroxine 125mcg daily. * Will check Tsh and free t4. CKD stage 3b - Creatinine 1.5 on admission ( baseline 1.4) - Cr went up from 1.4 to 1.6 after CTA 06/05/16 * Avoid all nephrotoxin. * Avoid nsaids, even on discharge, patient takes 3 to 5 every week for long time Alimentary GI bleed, most likely diverticular bleed given her hx of diverticulitis - Last colonoscopy 6 years ago, told to come back in 10 years * Dr. Jernigan has been consulted, sp colonoscopy 06/05/16 with polypectomy, follow up pathology as outpatient * Continue PPI * Hold aspirin, ibuprofen * Advance diet as per GI and surgery Neuro - No issues Diet: NPO DVT ppx: alps, no pharm due to GI bleed FULL CODE Consults: GI , cardio, CRCU, surgery Labs: ICU and CBC (acute blood loss anemia), hypomagnesiumia, hypokalemia Problem List: 1. Lower GI bleed 2. S/P right colectomy Pain Ratin Tomorrow's Labs & Rationales: ICU and CBC critically ill Plan DVT/Prophylaxis: mechanical
[2016-06-07 08:00] VITALS: BP 162/74
--- NOTE | 2016-06-07 09:18 | PN- CRCU ---
Subjective HPI/Critical Care Issues: Patient seen and examined this morning. She appears to be doing much better. She has been extubated and feeling well. The pain is controlled. Her hemoglobin is stable at this time. Objective Current Medications: Current Medications Sig/Liv Start time Last Medication Dose Route Stop Time Status Admin Acetaminophen 650 MG Q6P PRN 06/06 0045 AC PO Ampicillin Sodium/ 3,000 MG Q12H 06/06 1330 AC 06/07 Sulbactam Sodium IV 0150 Sodium Chloride 100 ML Dextrose/Sodium 1,000 ML Q20H 06/06 0430 AC 06/07 Chloride IV 0009 Hydrochlorothiazide 25 MG Q48H 06/06 1000 AC PO Insulin Aspart 0 TIDAC 06/06 1200 CAN SC Insulin Human Regular 0 Q6 06/06 1200 AC 06/07 SC 0610 Levothyroxine Sodium 0.125 MG DAILY AC 06/06 0700 AC 06/07 PO 0610 Lorazepam 1 MG Q4P PRN 06/06 0345 DC IV Magnesium Sulfate 1 GM Q2H 06/07 0630 AC 06/07 Dextrose/Water 100 ML IV 06/07 1029 0800 Metoprolol Tartrate 25 MG BID 06/06 1000 AC 06/07 PO 0801 Morphine Sulfate 2 MG Q3P PRN 06/06 0045 AC 06/07 IV 0801 Morphine Sulfate 4 MG Q3P PRN 06/06 0045 AC IV Ondansetron HCl 4 MG Q6P PRN 06/06 0045 AC IV Pantoprazole Sodium 40 MG DAILY 06/06 1000 AC 06/07 IV 0800 Potassium Chloride 20 MEQ Q1H 06/06 0830 DC 06/06 IV 06/06 0931 1030 Sodium Chloride 2 SPRAY Q4P PRN 06/06 1645 AC 06/06 MILLA 1814 Vital Signs & I&O Last 24 Hrs of Vitals and I&O: Vital Signs Date Time Temp Pulse Resp B/P Pulse O2 O2 Flow FiO2 Ox Delivery Rate 06/07 0801 81 162/74 06/07 0800 97.0 79 22 162/74 94 Nasal 1.0L Cannula 06/07 0400 97 Nasal 3.0L Cannula 06/07 0000 97.1 68 16 128/76 98 Nasal 3.0L Cannula 06/07 0000 98 Nasal 3.0L Cannula 06/06 2141 86 158/60 06/06 2000 98 Nasal 3.0L Cannula 06/06 1600 94 Nasal 3.0L Cannula 06/06 1600 97.9 72 19 140/62 96 Nasal 3.0L Cannula 06/06 1200 97 Nasal 3.0L Cannula 06/06 1020 69 136/53 Intake & Output 06/07 1600 06/07 0800 06/07 0000 Intake Total 715 613 Output Total 500 500 Balance 215 113 Intake, IV 715 613 Output, 50 150 Gastric Drainage Output, Urine 450 350 Exam Other Physical Findings: Gen - alert and awake HEENT - nasogastric tube CVS - S1, S2, no murmurs, rubs or gallops Lungs - clear to auscultation bilaterally Abdomen - soft, non-tender, bs+, surgical incision and dressing are intact Ext - no edema, no cyanosis Results Last 24 Hrs of Lab Results: Laboratory Tests 06/07/16 0400: Anion Gap 5, Estimated GFR 28 L, Glucose 98, Calcium 8.0 L, Phosphorus 3.9, Magnesium 1.6, Total Bilirubin 0.7, AST 18, ALT 29, Albumin 2.3 L, CBC w Diff NO MAN DIFF REQ, RBC 2.94 L, MCV 86.3, MCH 28.1, RDW 15.7 H, MPV 7.3 L, Gran % 81.3 H, Lymphocytes % 10.5 L, Monocytes % 7.9, Eosinophils % 0.1, Basophils % 0.2, Absolute Granulocytes 13.9 H, Absolute Lymphocytes 1.8, Absolute Monocytes 1.4 H, Absolute Eosinophils 0, Absolute Basophils 0, PUBS MCHC 32.6 L 06/06/16 1700: Anion Gap 10, Estimated GFR 28 L, BUN/Creatinine Ratio 15.6, CBC w Diff NO MAN DIFF REQ, RBC 3.09 L, MCV 85.6, MCH 27.8, RDW 15.6 H, MPV 7.6, Gran % 85.7 H, Lymphocytes % 7.1 L, Monocytes % 7.1, Eosinophils % 0, Basophils % 0.1, Absolute Granulocytes 17.1 H, Absolute Lymphocytes 1.4, Absolute Monocytes 1.4 H, Absolute Eosinophils 0, Absolute Basophils 0, PUBS MCHC 32.5 L Impression/Plan Impression/Plan Impression/Plan: Impression 75 year old woman * Lower GI bleed - acute blood loss anemia * Bowel perforation status post resection * Diverticulosis * CKD * HTN urgency * Hypothyrodism Plan - GI and surgery appreciated, f/u recommendations - monitor cbc, coags - Ibuprofen and aspirin held - Elementary status post surgery and GI - PPI - Cardiology consultation appreciated, f/u recommendations - bp monitoring and management DVT prophylaxis - ALPS - no a/c given GI bleed ask gastroenterology when the DVT prophylaxis can be restarted safely TTS 35 min
[2016-06-07 15:58] VITALS: BP 120/58
[2016-06-08] VITALS: BP 130/54
--- NOTE | 2016-06-08 05:41 | PN- General Surgery ---
See Addendum Subjective Subjective: The patient continues to feel better. She is passing gas. There is no nausea or vomiting. She has mild to moderate pain throughout her abdomen and required IV morphine a few hours ago. She denies any fever or flulike illness. Objective Vital Signs and I&Os Vital Signs Date Time Temp Pulse Resp B/P Pulse O2 O2 Flow FiO2 Ox Delivery Rate 06/08 0400 97 Nasal 1.0L Cannula 06/08 0000 97 Nasal 1.0L Cannula 06/07 2126 84 148/66 06/07 2000 94 Nasal 1.0L Cannula 06/07 1600 96 Nasal 1.0L Cannula 06/07 1558 98.7 80 22 120/58 96 Nasal 1.0L Cannula 06/07 1200 95 Nasal 1.0L Cannula 06/07 0801 81 162/74 06/07 0800 97.0 79 22 162/74 94 Nasal 1.0L Cannula 06/07 0800 94 Nasal 1.0L Cannula Intake & Output 06/08 0800 06/08 0000 06/07 1600 06/07 0800 06/07 0000 06/06 1600 Intake Total 1091 1273 715 613 820 Output Total 400 350 500 500 450 Balance 691 923 215 113 370 Intake, IV 1091 1153 715 613 820 Intake, Oral 0 Intake, Other 120 Number 0 Bowel Movements Output, 50 50 150 250 Gastric Drainage Output, Urine 350 350 450 350 200 Patient 283 lb Weight Physical Exam: Well-developed well-nourished no apparent distress. HEENT: Atraumatic, extraocular motion intact Neck: Supple, no lymphadenopathy Respiratory: No respiratory distress clear to auscultation anterior Heart: Regular rate and rhythm no murmur Abdomen: Midline Incision clean dry and intact, no erythema no discharge kemi in place. Mild to moderate tenderness throughout abdomen Bowel sounds hypoactive Extremities: No edema, no calf pain Neuro: Alert and oriented x3 Psych: Mood affect normal, normal memory normal judgment. Skin: Warm and dry, no rash on exposed skin Results Last 48 Hours of Labs: Laboratory Tests 06/07 06/06 0400 1700 Chemistry Sodium (137 - 145 mmol/L) 136 L 137 Potassium (3.5 - 5.1 mmol/L) 4.4 4.3 Chloride (98 - 107 mmol/L) 104 103 Carbon Dioxide (22 - 30 mmol/L) 27 25 Anion Gap (5 - 16) 5 10 BUN (7 - 17 mg/dL) 30 H 28 H Creatinine (0.5 - 1.0 mg/dL) 1.8 H 1.8 H Estimated GFR (>60 ml/min) 28 L 28 L BUN/Creatinine Ratio (7 - 25 %) 15.6 Glucose (65 - 99 mg/dL) 98 Calcium (8.4 - 10.2 mg/dL) 8.0 L Phosphorus (2.5 - 4.5 mg/dL) 3.9 Magnesium (1.6 - 2.3 mg/dL) 1.6 Total Bilirubin (0.2 - 1.3 mg/dL) 0.7 AST (14 - 36 U/L) 18 ALT (9 - 52 U/L) 29 Albumin (3.5 - 5.0 g/dL) 2.3 L Hematology CBC w Diff NO MAN DIFF REQ NO MAN DIFF REQ WBC (4.8 - 10.8 /CUMM) 17.1 H 20.0 H RBC (4.20 - 5.40 /CUMM) 2.94 L 3.09 L Hgb (12.0 - 16.0 G/DL) 8.3 L 8.6 L Hct (37 - 47 %) 25.4 L 26.4 L MCV (81.0 - 99.0 FL) 86.3 85.6 MCH (27.0 - 31.0 PG) 28.1 27.8 RDW (11.5 - 14.5 %) 15.7 H 15.6 H Plt Count (130 - 400 /CUMM) 198 202 MPV (7.4 - 10.4 FL) 7.3 L 7.6 Gran % (42.2 - 75.2 %) 81.3 H 85.7 H Lymphocytes % (20.5 - 51.1 %) 10.5 L 7.1 L Monocytes % (1.7 - 9.3 %) 7.9 7.1 Eosinophils % (0 - 5 %) 0.1 0 Basophils % (0.0 - 2.0 %) 0.2 0.1 Absolute Granulocytes (1.4 - 6.5 /CUMM) 13.9 H 17.1 H Absolute Lymphocytes (1.2 - 3.4 /CUMM) 1.8 1.4 Absolute Monocytes (0.10 - 0.60 /CUMM) 1.4 H 1.4 H Absolute Eosinophils (0.0 - 0.7 /CUMM) 0 0 Absolute Basophils (0.0 - 0.2 /CUMM) 0 0 PUBS MCHC (33.0 - 37.0 G/DL) 32.6 L 32.5 L 06/06 06/06 06/06 0800 0620 0555 Blood Gas pH (7.35 - 7.45 PH) 7.37 pCO2 (35 - 45 TORR) 39 pO2 (80 - 100 TORR) 84 HCO3 (21 - 28 MEQ/L) 22 ABG O2 Sat (Measured) (>96.0 %) 96.0 P-50 (Temp Corrected) N Carboxyhemoglobin (1.5 - 5.0 %) 0.3 L O2 Concentration % .50 Respiration Rate (BPM) 16 O2 Delivery Method VENT Vent Mode A/C Expiratory Pressure (CMH2O/P) 5 Tidal Volume (CC) 500 Chemistry Sodium (137 - 145 mmol/L) 136 L Potassium (3.5 - 5.1 mmol/L) 3.6 Chloride (98 - 107 mmol/L) 103 Carbon Dioxide (22 - 30 mmol/L) 21 L Anion Gap (5 - 16) 11 BUN (7 - 17 mg/dL) 24 H Creatinine (0.5 - 1.0 mg/dL) 1.6 H Estimated GFR (>60 ml/min) 32 L Glucose (65 - 99 mg/dL) 253 H Calcium (8.4 - 10.2 mg/dL) 8.3 L Phosphorus (2.5 - 4.5 mg/dL) 3.2 Magnesium (1.6 - 2.3 mg/dL) 1.6 Total Bilirubin (0.2 - 1.3 mg/dL) 0.5 AST (14 - 36 U/L) 18 ALT (9 - 52 U/L) 25 Albumin (3.5 - 5.0 g/dL) 2.6 L TSH (0.270 - 4.200 uIU/mL) 3.130 Free T4 (0.78 - 2.44 ng/dL) 1.21 Hematology CBC w Diff Cancelled MAN DIFF ORDERED WBC (4.8 - 10.8 /CUMM) Cancelled 19.4 H RBC (4.20 - 5.40 /CUMM) Cancelled 3.39 L Hgb (12.0 - 16.0 G/DL) Cancelled 9.5 L Hct (37 - 47 %) Cancelled 28.8 L MCV (81.0 - 99.0 FL) Cancelled 85.1 MCH (27.0 - 31.0 PG) Cancelled 28.0 RDW (11.5 - 14.5 %) Cancelled 15.5 H Plt Count (130 - 400 /CUMM) Cancelled 211 MPV (7.4 - 10.4 FL) Cancelled 7.2 L Gran % (42.2 - 75.2 %) 91.9 H Lymphocytes % (20.5 - 51.1 %) 2.5 L Monocytes % (1.7 - 9.3 %) 5.5 Eosinophils % (0 - 5 %) 0.1 Basophils % (0.0 - 2.0 %) 0 L Absolute Granulocytes (1.4 - 6.5 /CUMM) 17.8 H Segmented Neutrophils (42.2 - 75.2 %) 90 H Band Neutrophils (0.0 - 5.0 %) 7 H Absolute Lymphocytes (1.2 - 3.4 /CUMM) 0.5 L Lymphocytes (20.5 - 51.1 %) 1 L Monocytes (1.7 - 9.3 %) 1 L Absolute Monocytes (0.10 - 0.60 /CUMM) 1.1 H Absolute Eosinophils (0.0 - 0.7 /CUMM) 0 Basophils (0.0 - 2.0 %) 1 Absolute Basophils (0.0 - 0.2 /CUMM) 0 Platelet Estimate (ADEQUATE) ADEQUATE Polychromasia 1+ Basophilic Stippling SLIGHT Ovalocytes FEW Stomatocytes FEW PUBS MCHC (33.0 - 37.0 G/DL) Cancelled 32.9 L Miscellaneous Phlebotomy Draw Site LAUREN Other Body Source Fld Total RBCs Counted (%) 100 Assessment/Plan Assessment/Plan 75yoF POD 3 s/p r colectomy 2/2 colonic perforation, currently stable. recommendations: - follow labs today. - watch BUN/Cr - dc dailey -DC right IJ central line - strict i&os, continue IV fluids until adequate by mouth intake - dvt ppx, OOB, ambulate -heparin sq for DVT prophylaxsis -Out of bed with physical therapy -Clear diet, advance as tolerated per surgery -No antibiotics required from a surgical standpoint Core Measures/Miscellaneous Venous Thromboembolism VTE Risk Factors: Surgery VTE Contraindications: No Contraindications VTE Diagnosis: No VTE Type: NONE VTE Confirmed by (Test): NONE Beta Nawaf Is Beta Nawaf a Home Med? Yes Antibiotics Is Patient on Antibiotics? Yes
[2016-06-08 06:01] LABS: ABSOLUTE BASOPHIL COUNT 0.1 /CUMM (0.0-0.2); ABSOLUTE EOSINOPHIL COUNT 0.2 /CUMM (0.0-0.7); ABSOLUTE GRANULOCYTE CT 10.6 /CUMM (1.4-6.5); ABSOLUTE LYMPH COUNT 2.1 /CUMM (1.2-3.4); ABSOLUTE MONOCYTE COUNT 0.9 /CUMM (0.10-0.60); BASOPHIL % 0.4 % (0.0-2.0); EOSINOPHIL % 1.4 % (0-5); GRANULOCYTE % 76.8 % (42.2-75.2); MEAN CORPUSCULAR HGB 28.4 PG (27.0-31.0); MEAN CORPUSCULAR HGB CONC 33.1 G/DL (33.0-37.0); MEAN CORPUSCULAR VOLUME 85.6 FL (81.0-99.0); PLATELET COUNT 210 /CUMM (130-400); RBC DISTRIBUTION WIDTH 15.7 % (11.5-14.5); RED BLOOD CELL CT 2.68 /CUMM (4.20-5.40); WHITE BLOOD CELL COUNT 13.8 /CUMM (4.8-10.8)
--- NOTE | 2016-06-08 07:53 | PN- Resident CRCU ---
Subjective HPI/CRCU Issues: CRCU issues: 1. Acute blood loss anemia due to GI bleed 2. Impaired kidney function 3. S/P colonoscopy and polypectomy on 06/05/16 4. S/P right colectomy due to bowel perforation on 06/05/16 5. Hypertensive urgency Patient's NG tube was DC'd yesterday, she is started on clear liquid diet today and will advance as tolerated. She has not had a bowel movement since 06/05/16, has gas passage, denies any abdominal pain. 24 Hour Events: Intake & Output 06/08 1600 06/08 0800 06/08 0000 Intake Total 689 1091 Output Total 550 400 Balance 139 691 Intake, IV 629 1091 Intake, Oral 60 Output, 50 Gastric Drainage Output, Urine 550 350 Laboratory Tests 06/08 0405 Chemistry Sodium (137 - 145 mmol/L) 134 L Potassium (3.5 - 5.1 mmol/L) 4.3 Chloride (98 - 107 mmol/L) 103 Carbon Dioxide (22 - 30 mmol/L) 26 Anion Gap (5 - 16) 5 BUN (7 - 17 mg/dL) 32 H Creatinine (0.5 - 1.0 mg/dL) 1.9 H Estimated GFR (>60 ml/min) 26 L Glucose (65 - 99 mg/dL) 86 Calcium (8.4 - 10.2 mg/dL) 7.7 L Phosphorus (2.5 - 4.5 mg/dL) 3.4 Magnesium (1.6 - 2.3 mg/dL) 2.0 Total Bilirubin (0.2 - 1.3 mg/dL) 0.8 AST (14 - 36 U/L) 15 ALT (9 - 52 U/L) 27 Albumin (3.5 - 5.0 g/dL) 2.1 L Hematology CBC w Diff NO MAN DIFF REQ WBC (4.8 - 10.8 /CUMM) 13.8 H RBC (4.20 - 5.40 /CUMM) 2.68 L Hgb (12.0 - 16.0 G/DL) 7.6 L Hct (37 - 47 %) 23.0 L MCV (81.0 - 99.0 FL) 85.6 MCH (27.0 - 31.0 PG) 28.4 RDW (11.5 - 14.5 %) 15.7 H Plt Count (130 - 400 /CUMM) 210 MPV (7.4 - 10.4 FL) 8.0 Gran % (42.2 - 75.2 %) 76.8 H Lymphocytes % (20.5 - 51.1 %) 15.0 L Monocytes % (1.7 - 9.3 %) 6.4 Eosinophils % (0 - 5 %) 1.4 Basophils % (0.0 - 2.0 %) 0.4 Absolute Granulocytes (1.4 - 6.5 /CUMM) 10.6 H Absolute Lymphocytes (1.2 - 3.4 /CUMM) 2.1 Absolute Monocytes (0.10 - 0.60 /CUMM) 0.9 H Absolute Eosinophils (0.0 - 0.7 /CUMM) 0.2 Absolute Basophils (0.0 - 0.2 /CUMM) 0.1 PUBS MCHC (33.0 - 37.0 G/DL) 33.1 Vital Signs Date Time Temp Pulse Resp B/P Pulse O2 O2 Flow FiO2 Ox Delivery Rate 06/08 0846 79 170/70 06/08 0800 98.9 79 18 140/80 95 Nasal 1.0L Cannula 06/08 0800 95 Nasal 1.0L Cannula 06/08 0400 97 Nasal 1.0L Cannula 06/08 0000 98.1 76 16 130/54 95 Nasal 1.0L Cannula 06/08 0000 97 Nasal 1.0L Cannula 06/07 2126 84 148/66 06/07 2000 94 Nasal 1.0L Cannula 06/07 1600 96 Nasal 1.0L Cannula 06/07 1558 98.7 80 22 120/58 96 Nasal 1.0L Cannula Intake & Output 06/08 1600 06/08 0800 06/08 0000 Intake Total 689 1091 Output Total 550 400 Balance 139 691 Intake, IV 629 1091 Intake, Oral 60 Output, 50 Gastric Drainage Output, Urine 550 350 Objective Vital Signs & I&O Last 8 Hrs of Vitals and I&O: max temp 98.1 hr 72-78 sr systolic bp 112-160 diastolic bp 51-57 BS 101-169 Exam General Appearance: well developed/nourished, no apparent distress, comfortable, obese Head: atraumatic, normal appearance, has right IJ line in place , there is no tenderness or erythema at the site. Ears, Nose, Throat: normal ENT inspection, hearing grossly normal Neck: normal inspection, supple, full range of motion Respiratory: chest non-tender, no respiratory distress, quiet respiration, lungs clear Cardiovascular: regular rate/rhythm Gastrointestinal: soft, non-tender Extremities: normal inspection, normal capillary refill, normal range of motion Cranial Nerves: normal hearing, normal speech, PERRL Skin: intact, normal color, warm/dry Back: normal inspection Weaning Parameters NIF: 38 Minute Volume: 10.5 Resp rate: 18 Vt: 588 Heart Rate: 80 Weaning Schedule Start Time: 0904 Minute Volume: 9.09 Resp Rate: 17 Vt: 535 Heart Rate: 77 End Time: 0941 Minute Volume: 11.4 Resp Rate: 19 Vt: 601 Heart Rate: 73 Current Medications: Current Medications Sig/Liv Start time Last Medication Dose Route Stop Time Status Admin Acetaminophen 1,000 MG Q6P PRN 06/07 1330 AC 06/08 N/A 1 UNIT IV 0755 Acetaminophen 650 MG Q6P PRN 06/06 0045 AC PO Ampicillin Sodium/ 3,000 MG Q12H 06/06 1330 DC 06/07 Sulbactam Sodium IV 0150 Sodium Chloride 100 ML Benzocaine/Menthol 1 DIVYA Q2P PRN 06/07 2045 AC PO Dextrose/Sodium 1,000 ML Q20H 06/06 0430 DC 06/08 Chloride IV 0604 Heparin Sodium 5,000 UNIT Q8 06/07 1400 AC 06/08 (Porcine) SC 0604 Hydrochlorothiazide 25 MG Q48H 06/06 1000 DC PO Insulin Human Regular 0 Q6 06/06 1200 DC 06/07 SC 1340 Levothyroxine Sodium 0.125 MG DAILY AC 06/06 0700 AC 06/08 PO 0604 Metoprolol Tartrate 25 MG BID 06/06 1000 AC 06/08 PO 0846 Morphine Sulfate 2 MG Q3P PRN 06/06 0045 AC 06/08 IV 0847 Morphine Sulfate 4 MG Q3P PRN 06/06 0045 AC IV Omeprazole 40 MG DAILY AC 06/09 0700 AC PO Ondansetron HCl 4 MG Q6P PRN 06/06 0045 AC IV Pantoprazole Sodium 40 MG DAILY 06/06 1000 DC 06/08 IV 0846 Sodium Chloride 500 ML BOLUS ONE 06/07 1800 DC 06/07 IV 06/07 1859 1815 Sodium Chloride 2 SPRAY Q4P PRN 06/06 1645 AC 06/06 MILLA 1814 Impression/Plan Impression/Problem List Impression: 75-year-old morbidly obese female with PMH of hypertension, hypothyroidism s/p thyroidectomy, chronic pain, gastroesophageal reflux disease, current smoker, nonalcoholic came in with chief complain of bright red blood per rectum. Hb was 10.3 on admission, which is her baseline. Pt continued to have frankly bloody bowel movement, hence colonoscopy was pursued. Pt had colonoscopy 06/05/16, polyps were removed from sigmoid and ascending colon. Initially was doing well, but after about 4 hours, had BM with about 500 ml of blood clot, with 1 PRBC given without checking CBC. Pt was taken for CTA which showed perforation. Pt was taken to OR for exploratory laparotomy and right colectomy was done with anastomosis of ileum with transverse colon. Problem list: # Bright red blood per rectum most likely diverticular bleed # Perforation post colonoscopy, sp right colectomy # Acute blood loss anemia due to GI bleed # Hypertensive urgency # Hypothyroidism # CKD stage 3b Right IJ Day #4 (not on pressors, will DC today, after H/H results and if no episode of GIB)) Extubated on 06/06 (one day after operation) A line day #3 (plan to remove today) - removed 06/06 Dailey day #4 (DC'd dailey today) NG tube DC's on 06/07/16 (started diet today) UE restrain discontinued after 1 day Respiratory Intubated for exploratory laparotomy 06/05/16. Extubated on 06/06/2016. currently no issues, lung exam clear, no coughs or SOB. ID WBC went up to 19.4 after colonoscopy, possible peritonitis with perforation. She was given Unasyn until 1 day postop, now off antibiotics. WBC is trending down and pt has not had any fevers. Cardiovascular Hypertensive urgency * Pt on metoprolol tartrate 50 mg OD (taken on day of admission), and HCTZ 25mg daily (on hold due to impaired renal fx) * Pt sees certified orthotist practice manager at [place], recently had stress test that pt reports as normal * BP wet up to 206/98, currently well controlled * Continue metoprolol 50 mg od and hctz 25 mg (hold if hypotensive) * Cardiology, Dr. Golden, consulted appreciate recommendations * Aspirin on hold due to GIB 8 beat run Vtach on 06/05/16, no further epidsodes so far * Replete K, mag, and phos as needed Hematology -Acute blood loss anemia due to GI bleed * HB 10.3 on admission (baseline 10.5) * Pt had 1 PRBC transfusion 06/05/16 after large bloody bm post colonoscopy ( without checking CBC) * slight drop in H/H since yesterday, repeat CBC this pm * Type and cross done, transfuse if hb < 7 * Hold aspirin and ibuprofen Endocrine -Hyperglycemia * BS was 253 on 06/05/16 * Placed on novolin (as NPO), on d51/2 ns at 75ml/hr. Will change to novolog ss once patient resumes diet post extubation. * Accucheck tidac/qhs, follow up blood sugar closely - Hypothyroidism s/p thyroidectomy for thyroid cancer, Tsh and free t4 WNL * Continue levothyroxine 125mcg daily. 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 Jernigan has been consulted, sp colonoscopy 06/05/16 with polypectomy, follow up pathology as outpatient * Continue PPI * Hold aspirin, ibuprofen * Advanced diet as per GI and surgery Neuro - No issues Diet: Full liquid diet DVT ppx: alps, no pharm due to GI bleed FULL CODE Consults: GI , cardio, CRCU, surgery Labs: ICU and CBC (acute blood loss anemia), hypomagnesiumia, hypokalemia Problem List: 1. Lower GI bleed 2. Hypothyroidism 3. Hypertension 4. S/P right colectomy Pain Ratin Tomorrow's Labs & Rationales: CBC (acute blood loss anemia) ICU bundle (monitoring kidney function and electrolytes) Plan DVT/Prophylaxis: mechanical
[2016-06-08 08:00] VITALS: BP 140/80
--- NOTE | 2016-06-08 08:03 | PN- Gastroenterology ---
Assessment/Plan Assessment/Recommendations: Assessment: Ms. Barton is a 75-year-old female who presented with painless rectal bleeding found to be secondary to a diverticular bleed who unfortunately then was found to have free air on a ct angiogram which was being done to assess for active bleeding. She was found to have right sided pneumatosis in her surgery and she ultimately underwent a right sided hemicolectomy from which she is now recovering from without any significant complications and she also has not had any further rectal bleeding since the surgery. Recommendations: 1. Diet as per surgical team. 2. Analgesia as needed 3. She should follow up the pathology results with me as an outpatient. 4. GI should be reconsulted for any recurrent bleeding. As she is no longer bleeding and is now s/p right sided hemicolectomy will sign off at this time and ask that GI be re-contacted for any new GI issues. Problem List: 1. Constipation 2. Lower GI bleed Subjective Subjective: Pt s/p extubation yesterday and doing well. She is passing gas, but has not passed any stool. She also has not had any further rectal bleeding. Minimal abdominal pain. Objective Vital Signs and I&Os Vital Signs Date Time Temp Pulse Resp B/P Pulse O2 O2 Flow FiO2 Ox Delivery Rate 06/10 0800 95 Nasal 1.0L Cannula 06/10 0800 98.5 75 23 198/90 94 Nasal 1.0L Cannula 06/10 0752 79 212/83 06/10 0752 79 212/83 06/10 0400 96 Nasal 1.0L Cannula 06/10 0000 93 Ventilator 40% 06/10 0000 98.3 83 20 180/88 93 Nasal 1.0L Cannula 06/09 2357 81 20 180/83 06/09 2055 80 20 190/90 06/09 2000 95 Nasal 1.0L Cannula 06/09 1928 74 183/67 06/09 1600 95 Nasal 1.0L Cannula 06/09 1600 99.0 74 18 148/62 95 Nasal 1.0L Cannula 06/09 1454 99.3 06/09 1338 100.4 06/09 1309 76 200/88 06/09 1229 67 193/87 06/09 1200 94 Nasal 1.0L Cannula Intake & Output 06/10 1600 06/10 0400 06/09 1600 06/09 0400 06/08 1600 06/08 0400 Intake Total 388 007 4749 1160 3573 1091 Output Total 6621 143 3927 400 Balance 439 808 242 506 0524 691 Intake, Blood 143 Product Intake, IV 146 480 1819 700 1453 1091 Intake, Oral 50 450 082 945 5239 Number 0 Bowel Movements Output, 50 Gastric Drainage Output, Urine 3248 097 2018 350 Physical Exam General Appearance: well developed/nourished, obese, NGT in place Ears, Nose, Throat: normal pharynx, normal ENT inspection Neck: normal inspection, supple Respiratory: normal breath sounds, chest non-tender Cardiovascular: regular rate/rhythm Abdomen: normal bowel sounds, soft, tenderness Rectal: deferred Extremities: normal inspection Current Medications: Current Medications Sig/Liv Start time Last Medication Dose Route Stop Time Status Admin Acetaminophen 1,000 MG Q6P PRN 06/07 1330 AC 06/09 N/A 1 UNIT IV 1338 Acetaminophen 650 MG Q6P PRN 06/06 0045 AC PO Benzocaine/Menthol 1 DIVYA Q2P PRN 06/07 2045 AC PO Bisacodyl 10 MG ONCE ONE 06/10 0945 CAN UT 06/10 0946 Heparin Sodium 5,000 UNIT Q8 06/07 1400 AC 06/10 (Porcine) SC 0544 Hydralazine HCl 25 MG TID 06/09 1830 AC 06/10 PO 0752 Hydralazine HCl 5 MG ONCE ONE 06/09 1315 DC 06/09 IV 06/09 1316 1309 Hydralazine HCl 5 MG ONCE ONE 06/09 1230 DC 06/09 IV 06/09 1231 1229 Levothyroxine Sodium 0.125 MG DAILY AC 06/06 0700 AC 06/10 PO 0656 Metoprolol Tartrate 25 MG BID 06/06 1000 AC 06/10 PO 0752 Morphine Sulfate 2 MG Q3P PRN 06/06 0045 AC 06/08 IV 2200 Morphine Sulfate 4 MG Q3P PRN 06/06 0045 AC IV Omeprazole 40 MG DAILY AC 06/09 0700 AC 06/10 PO 0656 Ondansetron HCl 4 MG Q6P PRN 06/06 0045 AC IV Sodium Chloride 1,000 ML Q13H 06/08 1500 AC 06/10 IV 0546 Sodium Chloride 2 SPRAY Q4P PRN 06/06 1645 AC 06/06 MILLA 1814 Results Pertinent Lab Results: Laboratory Tests 06/10 06/09 0459 1500 Chemistry Sodium (137 - 145 mmol/L) 136 L Potassium (3.5 - 5.1 mmol/L) 4.1 Chloride (98 - 107 mmol/L) 105 Carbon Dioxide (22 - 30 mmol/L) 24 Anion Gap (5 - 16) 7 BUN (7 - 17 mg/dL) 25 H Creatinine (0.5 - 1.0 mg/dL) 1.6 H Estimated GFR (>60 ml/min) 32 L Glucose (65 - 99 mg/dL) 96 Calcium (8.4 - 10.2 mg/dL) 8.2 L Phosphorus (2.5 - 4.5 mg/dL) 3.0 Magnesium (1.6 - 2.3 mg/dL) 1.8 Total Bilirubin (0.2 - 1.3 mg/dL) 0.9 AST (14 - 36 U/L) 14 ALT (9 - 52 U/L) 28 Albumin (3.5 - 5.0 g/dL) 2.2 L Hematology CBC w Diff NO MAN DIFF REQ Cancelled WBC (4.8 - 10.8 /CUMM) 10.8 Cancelled RBC (4.20 - 5.40 /CUMM) 2.86 L Cancelled Hgb (12.0 - 16.0 G/DL) 8.1 L Cancelled Hct (37 - 47 %) 24.4 L Cancelled MCV (81.0 - 99.0 FL) 85.2 Cancelled MCH (27.0 - 31.0 PG) 28.2 Cancelled RDW (11.5 - 14.5 %) 15.5 H Cancelled Plt Count (130 - 400 /CUMM) 267 Cancelled MPV (7.4 - 10.4 FL) 7.3 L Cancelled Gran % (42.2 - 75.2 %) 75.7 H Lymphocytes % (20.5 - 51.1 %) 13.3 L Monocytes % (1.7 - 9.3 %) 9.2 Eosinophils % (0 - 5 %) 1.5 Basophils % (0.0 - 2.0 %) 0.3 Absolute Granulocytes (1.4 - 6.5 /CUMM) 8.2 H Absolute Lymphocytes (1.2 - 3.4 /CUMM) 1.4 Absolute Monocytes (0.10 - 0.60 /CUMM) 1.0 H Absolute Eosinophils (0.0 - 0.7 /CUMM) 0.2 Absolute Basophils (0.0 - 0.2 /CUMM) 0 PUBS MCHC (33.0 - 37.0 G/DL) 33.1 Cancelled 06/094 2040 Chemistry Sodium (137 - 145 mmol/L) 134 L Potassium (3.5 - 5.1 mmol/L) 4.1 Chloride (98 - 107 mmol/L) 104 Carbon Dioxide (22 - 30 mmol/L) 24 Anion Gap (5 - 16) 6 BUN (7 - 17 mg/dL) 30 H Creatinine (0.5 - 1.0 mg/dL) 1.8 H 1.8 H Estimated GFR (>60 ml/min) 28 L 28 L Glucose (65 - 99 mg/dL) 82 Calcium (8.4 - 10.2 mg/dL) 7.7 L Phosphorus (2.5 - 4.5 mg/dL) 3.5 Magnesium (1.6 - 2.3 mg/dL) 1.9 Total Bilirubin (0.2 - 1.3 mg/dL) 0.8 AST (14 - 36 U/L) 15 ALT (9 - 52 U/L) 33 Albumin (3.5 - 5.0 g/dL) 2.1 L Hematology CBC w Diff NO MAN DIFF REQ NO MAN DIFF REQ WBC (4.8 - 10.8 /CUMM) 9.5 11.6 H RBC (4.20 - 5.40 /CUMM) 2.60 L 2.72 L Hgb (12.0 - 16.0 G/DL) 7.3 *L 7.7 L Hct (37 - 47 %) 22.5 L 23.1 L MCV (81.0 - 99.0 FL) 86.5 85.2 MCH (27.0 - 31.0 PG) 28.0 28.5 RDW (11.5 - 14.5 %) 15.3 H 15.8 H Plt Count (130 - 400 /CUMM) 225 223 MPV (7.4 - 10.4 FL) 7.5 8.1 Gran % (42.2 - 75.2 %) 70.0 71.7 Lymphocytes % (20.5 - 51.1 %) 18.9 L 19.0 L Monocytes % (1.7 - 9.3 %) 8.0 6.9 Eosinophils % (0 - 5 %) 2.6 2.1 Basophils % (0.0 - 2.0 %) 0.5 0.3 Absolute Granulocytes (1.4 - 6.5 /CUMM) 6.7 H 8.3 H Absolute Lymphocytes (1.2 - 3.4 /CUMM) 1.8 2.2 Absolute Monocytes (0.10 - 0.60 /CUMM) 0.8 H 0.8 H Absolute Eosinophils (0.0 - 0.7 /CUMM) 0.3 0.2 Absolute Basophils (0.0 - 0.2 /CUMM) 0 0 PUBS MCHC (33.0 - 37.0 G/DL) 32.3 L 33.5 06/08 06/08 06/08 1630 1455 1306 Chemistry Sodium (137 - 145 mmol/L) 134 L Potassium (3.5 - 5.1 mmol/L) 4.2 Chloride (98 - 107 mmol/L) 101 Carbon Dioxide (22 - 30 mmol/L) 25 Anion Gap (5 - 16) 7 BUN (7 - 17 mg/dL) 32 H Creatinine (0.5 - 1.0 mg/dL) 2.0 H Estimated GFR (>60 ml/min) 24 L Glucose (65 - 99 mg/dL) 112 H Calcium (8.4 - 10.2 mg/dL) 7.7 L Phosphorus (2.5 - 4.5 mg/dL) 3.5 Magnesium (1.6 - 2.3 mg/dL) 2.0 Total Bilirubin (0.2 - 1.3 mg/dL) 1.0 AST (14 - 36 U/L) 16 ALT (9 - 52 U/L) 29 Albumin (3.5 - 5.0 g/dL) 2.3 L Miscellaneous Ref Lab Test Result Pending Urines Ur Random Creatinine (mg/dL) 69.9 Ur Random Microalbumin (<1.7 mg/dl) 71.4 H Ur Random Sodium (30 - 90 mmol/L) 75 Ur Random Potassium (mmol/L) 17.0 Fraction Sodium Excret (<1% %) 1.6 H U Cystine/Creat Ratio (mcg/mg) 1021.45 06/08 06/08 1242 UNK Coagulation PT (9.4 - 12.5 SEC) 12.4 INR (0.90 - 1.19) 1.18 APTT (25 - 37 SEC) 28 Hematology CBC w Diff NO MAN DIFF REQ WBC (4.8 - 10.8 /CUMM) 12.8 H RBC (4.20 - 5.40 /CUMM) 2.81 L Hgb (12.0 - 16.0 G/DL) 7.9 L Hct (37 - 47 %) 24.0 L MCV (81.0 - 99.0 FL) 85.7 MCH (27.0 - 31.0 PG) 28.2 RDW (11.5 - 14.5 %) 15.6 H Plt Count (130 - 400 /CUMM) 237 MPV (7.4 - 10.4 FL) 6.9 L Gran % (42.2 - 75.2 %) 76.0 H Lymphocytes % (20.5 - 51.1 %) 14.7 L Monocytes % (1.7 - 9.3 %) 6.8 Eosinophils % (0 - 5 %) 1.9 Basophils % (0.0 - 2.0 %) 0.6 Absolute Granulocytes (1.4 - 6.5 /CUMM) 9.8 H Absolute Lymphocytes (1.2 - 3.4 /CUMM) 1.9 Absolute Monocytes (0.10 - 0.60 /CUMM) 0.9 H Absolute Eosinophils (0.0 - 0.7 /CUMM) 0.2 Absolute Basophils (0.0 - 0.2 /CUMM) 0.1 PUBS MCHC (33.0 - 37.0 G/DL) 32.9 L Urines Urine Total Volume Cancelled Ur Total Protein 24 Hr Cancelled 06/08 0405 Chemistry Sodium (137 - 145 mmol/L) 134 L Potassium (3.5 - 5.1 mmol/L) 4.3 Chloride (98 - 107 mmol/L) 103 Carbon Dioxide (22 - 30 mmol/L) 26 Anion Gap (5 - 16) 5 BUN (7 - 17 mg/dL) 32 H Creatinine (0.5 - 1.0 mg/dL) 1.9 H Estimated GFR (>60 ml/min) 26 L Glucose (65 - 99 mg/dL) 86 Calcium (8.4 - 10.2 mg/dL) 7.7 L Phosphorus (2.5 - 4.5 mg/dL) 3.4 Magnesium (1.6 - 2.3 mg/dL) 2.0 Total Bilirubin (0.2 - 1.3 mg/dL) 0.8 AST (14 - 36 U/L) 15 ALT (9 - 52 U/L) 27 Albumin (3.5 - 5.0 g/dL) 2.1 L Hematology CBC w Diff NO MAN DIFF REQ WBC (4.8 - 10.8 /CUMM) 13.8 H RBC (4.20 - 5.40 /CUMM) 2.68 L Hgb (12.0 - 16.0 G/DL) 7.6 L Hct (37 - 47 %) 23.0 L MCV (81.0 - 99.0 FL) 85.6 MCH (27.0 - 31.0 PG) 28.4 RDW (11.5 - 14.5 %) 15.7 H Plt Count (130 - 400 /CUMM) 210 MPV (7.4 - 10.4 FL) 8.0 Gran % (42.2 - 75.2 %) 76.8 H Lymphocytes % (20.5 - 51.1 %) 15.0 L Monocytes % (1.7 - 9.3 %) 6.4 Eosinophils % (0 - 5 %) 1.4 Basophils % (0.0 - 2.0 %) 0.4 Absolute Granulocytes (1.4 - 6.5 /CUMM) 10.6 H Absolute Lymphocytes (1.2 - 3.4 /CUMM) 2.1 Absolute Monocytes (0.10 - 0.60 /CUMM) 0.9 H Absolute Eosinophils (0.0 - 0.7 /CUMM) 0.2 Absolute Basophils (0.0 - 0.2 /CUMM) 0.1 PUBS MCHC (33.0 - 37.0 G/DL) 33.1
--- NOTE | 2016-06-08 09:37 | PN- CRCU ---
Subjective HPI/Critical Care Issues: pt seen and examined comfortable some fatigue hgb 7.6 cr 1.9 no bleeding or bm no dyspnea, no cp, no n/v/d/c Objective Current Medications: Current Medications Sig/Liv Start time Last Medication Dose Route Stop Time Status Admin Acetaminophen 1,000 MG Q6P PRN 06/07 1330 AC 06/08 N/A 1 UNIT IV 0755 Acetaminophen 650 MG Q6P PRN 06/06 0045 AC PO Ampicillin Sodium/ 3,000 MG Q12H 06/06 1330 DC 06/07 Sulbactam Sodium IV 0150 Sodium Chloride 100 ML Benzocaine/Menthol 1 DIVYA Q2P PRN 06/07 2045 AC PO Dextrose/Sodium 1,000 ML Q20H 06/06 0430 DC 06/08 Chloride IV 0604 Heparin Sodium 5,000 UNIT Q8 06/07 1400 AC 06/08 (Porcine) SC 0604 Hydrochlorothiazide 25 MG Q48H 06/06 1000 DC PO Insulin Human Regular 0 Q6 06/06 1200 DC 06/07 SC 1340 Levothyroxine Sodium 0.125 MG DAILY AC 06/06 0700 AC 06/08 PO 0604 Magnesium Sulfate 1 GM Q2H 06/07 0630 DC 06/07 Dextrose/Water 100 ML IV 06/07 1029 0800 Metoprolol Tartrate 25 MG BID 06/06 1000 AC 06/08 PO 0846 Morphine Sulfate 2 MG Q3P PRN 06/06 0045 AC 06/08 IV 0847 Morphine Sulfate 4 MG Q3P PRN 06/06 0045 AC IV Omeprazole 40 MG DAILY AC 06/09 0700 AC PO Ondansetron HCl 4 MG Q6P PRN 06/06 0045 AC IV Pantoprazole Sodium 40 MG DAILY 06/06 1000 DC 06/08 IV 0846 Sodium Chloride 500 ML BOLUS ONE 06/07 1800 DC 06/07 IV 06/07 1859 1815 Sodium Chloride 2 SPRAY Q4P PRN 06/06 1645 AC 06/06 MILLA 1814 Vital Signs & I&O Last 24 Hrs of Vitals and I&O: Vital Signs Date Time Temp Pulse Resp B/P Pulse O2 O2 Flow FiO2 Ox Delivery Rate 06/08 0846 79 170/70 06/08 0800 98.9 79 18 140/80 95 Nasal 1.0L Cannula 06/08 0800 95 Nasal 1.0L Cannula 06/08 0400 97 Nasal 1.0L Cannula 06/08 0000 98.1 76 16 130/54 95 Nasal 1.0L Cannula 06/08 0000 97 Nasal 1.0L Cannula 06/07 2126 84 148/66 06/08 1999 94 Nasal 1.0L Cannula 06/07 1600 96 Nasal 1.0L Cannula 06/07 1558 98.7 80 22 120/58 96 Nasal 1.0L Cannula 06/07 1200 95 Nasal 1.0L Cannula Intake & Output 06/08 1600 06/08 0800 06/08 0000 Intake Total 689 1091 Output Total 550 400 Balance 139 691 Intake, IV 629 1091 Intake, Oral 60 Output, 50 Gastric Drainage Output, Urine 550 350 Exam Other Physical Findings: Gen - alert and awake HEENT - right ij CVS - S1, S2, no murmurs, rubs or gallops Lungs - clear to auscultation bilaterally Abdomen - soft, non-tender, bs+, surgical incision and dressing are intact Ext - no edema, no cyanosis Results Last 24 Hrs of Lab Results: Laboratory Tests 06/08/16 0405: Anion Gap 5, Estimated GFR 26 L, Glucose 86, Calcium 7.7 L, Phosphorus 3.4, Magnesium 2.0, Total Bilirubin 0.8, AST 15, ALT 27, Albumin 2.1 L, CBC w Diff NO MAN DIFF REQ, RBC 2.68 L, MCV 85.6, MCH 28.4, RDW 15.7 H, MPV 8.0, Gran % 76.8 H, Lymphocytes % 15.0 L, Monocytes % 6.4, Eosinophils % 1.4, Basophils % 0.4, Absolute Granulocytes 10.6 H, Absolute Lymphocytes 2.1, Absolute Monocytes 0.9 H, Absolute Eosinophils 0.2, Absolute Basophils 0.1, PUBS MCHC 33.1 Impression/Plan Impression/Plan Impression/Plan: Impression 75 year old woman * Lower GI bleed - acute blood loss anemia * Bowel perforation status post resection * Diverticulosis * CKD * HTN urgency * Hypothyrodism * MARGAUX - prerenal and contrast induced most likely Plan - GI and surgery appreciated, f/u recommendations - nephrology consultation - repeat cbc this afternoon - monitor cbc, coags - Alimentary status post surgery and GI - PPI - Cardiology consultation appreciated, f/u recommendations - bp monitoring and management DVT prophylaxis at all times TTS 35 min if h/h stable this pm, remove ij
--- NOTE | 2016-06-08 10:05 | Cons- Nephrology ---
General Information and HPI Consulting Request Date of Consult: 06/08/16 Requested By: OSMEL BILLS MD Reason for Consult: MARGAUX on CKD Source of Information: patient, old records Exam Limitations: no limitations History of Present Illness: The patient is a 75-year-old woman with a past medical history most significant for stage III chronic kidney disease with baseline serum creatinine of 1.4, hypertension, hypothyroidism, GERD who initially presented on 06/03 with bright red blood per rectum. In the ER, her initial blood pressure was 171/94. Her initial hemoglobin was 10.3. She was seen by GI and ultimately had an endoscopy on 06/05 which demonstrated findings consistent with a resolving sigmoid diverticular bleed without any active bleeding appreciated. The patient had an episode of bloody bowel movement after the procedure for which she ultimately underwent a CTA ( 100ml contrast) on 06/05. The CTA demonstrated a perforated bowel. She ended up needing to be taken to the operating room emergently that night and underwent a right hemicolectomy. The procedure had an estimated blood loss of 50-100ml. No notation of any drop in blood pressure during the procedureher lowest blood pressure documented was 120/58 yesterday. Her hemoglobin has since done trended to 7.6. Nephrology is now consulted for an elevation in her creatinine. Her creatinine was 1.4 prior to the CTA (06/05 - 100ml contrast) as well as prior to going to the operating room and her creatinine has slowly trended and is now 1.9. No shock although BP down to 120/58 yesterday and Hg downtrending to 7.6. No other notable nephrotoxins noted. No peripheral eosinophilia. Urinalysis prior to these interventions with 100 mg/dL protein, 3-5 RBCs, 3-5 WBCs. No dedicated renal imaging although the CTA noted that there were 2 exophytic cortical renal cysts in the left kidney but the kidneys are otherwise noted to be unremarkable without hydronephrosis. Of note, the patient also underwent a transthoracic echocardiogram which demonstrated heart failure with preserved EF and a dilated inferior vena cava. The patient has been getting IVF - 3L yesterday - 1.1L UOP. IVF currently at 75cc/hr. No swelling or SOB. She is having clear liquids. Last chest x-ray on 06/06 with low lung volumes and some vascular crowding - she has some cough. 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 She does not remember any details about the visit nor dysuria remember about any follow- up. She reports having had HTN for a few years and has been taking NSAID's for a few years. No hx of DM. No hx of nephrolithiasis. No urinary issues. No famhx of kidney disease. Allergies/Medications Allergies: Coded Allergies: NO KNOWN ALLERGIES (01/25/16) Home Med List: Aspirin/Calcium Carbonate ([facility] Women's Aspirin Tablet) 81 MG-300 MG CALCIUM ( 777 MG) TABLET 81 MG PO DAILY HEART (Reported) Hydrochlorothiazide 25 MG TABLET 25 MG PO EOD EDEMA (Reported) Ibuprofen (Advil) 100 MG TABLET 100 MG PO PRN PRN PAIN (Reported) Levothyroxine Sodium (Synthroid) 125 MCG TABLET 125 MCG PO DAILY HYPOTHYROID (Reported) Metoprolol Tartrate (Lopressor) 50 MG TABLET 50 MG PO DAILY HEART (Reported) Pantoprazole Sodium 40 MG TABLET.DR 40 MG PO DAILY ACID REFLUX (Reported) Current Medications: Current Medications Sig/Liv Start time Last Medication Dose Route Stop Time Status Admin Acetaminophen 1,000 MG Q6P PRN 06/07 1330 AC 06/08 N/A 1 UNIT IV 0755 Acetaminophen 650 MG Q6P PRN 06/06 0045 AC PO Ampicillin Sodium/ 3,000 MG Q12H 06/06 1330 DC 06/07 Sulbactam Sodium IV 0150 Sodium Chloride 100 ML Benzocaine/Menthol 1 DIVYA Q2P PRN 06/07 2045 AC PO Dextrose/Sodium 1,000 ML Q20H / 0430 DC 06/08 Chloride IV 0604 Heparin Sodium 5,000 UNIT Q8 06/07 1400 AC 06/08 (Porcine) SC 0604 Hydrochlorothiazide 25 MG Q48H 06/06 1000 DC PO Insulin Human Regular 0 Q6 06/06 1200 DC 06/07 SC 1340 Levothyroxine Sodium 0.125 MG DAILY AC 06/06 0700 AC 06/08 PO 0604 Magnesium Sulfate 1 GM Q2H 06/07 0630 DC 06/07 Dextrose/Water 100 ML IV 06/07 1029 0800 Metoprolol Tartrate 25 MG BID / 1000 AC 06/08 PO 0846 Morphine Sulfate 2 MG Q3P PRN 06/06 0045 AC 06/08 IV 0847 Morphine Sulfate 4 MG Q3P PRN 06/06 0045 AC IV Omeprazole 40 MG DAILY AC 06/09 0700 AC PO Ondansetron HCl 4 MG Q6P PRN 06/06 0045 AC IV Pantoprazole Sodium 40 MG DAILY 06/06 1000 DC 06/08 IV 0846 Sodium Chloride 500 ML BOLUS ONE 06/07 1800 DC 06/07 IV 06/07 1859 1815 Sodium Chloride 2 SPRAY Q4P PRN 06/06 1645 AC 06/06 MILLA 1814 Review of Systems Review of Systems: Complete 14 point ROS neg except as per HPI Past History Travel History Traveled to [place] past 21 day No Medical History Blood Transfusion Hx: No Neurological: vertigo EENT: NONE Cardiovascular: hypertension Respiratory: NONE Gastrointestinal: diverticulitis, GERD Hepatic: NONE Renal: NONE Musculoskeletal: osteoarthritis Psychiatric: NONE Endocrine: obesity Blood Disorders: NONE Cancer(s): thyroid cancer 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 Family History Relations & Conditions If Any: MOTHER FH: Alzheimers disease Psychosocial History Where Do You Live? Home Who Do You Live With? spouse Smoking Status: Current Everyday Smoker ETOH Use: denies use Illicit Drug Use: denies illicit drug use Functional Ability ADLs Independent: dressing, eating, toileting, bathing. Ambulation: independent IADLs Independent: shopping, housework, finances, food prep, telephone, transportation , medication admin. 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 Exam & Diagnostic Data Vital Signs and I&O Vital Signs Date Time Temp Pulse Resp B/P Pulse O2 O2 Flow FiO2 Ox Delivery Rate 06/08 0846 79 170/70 06/08 0800 98.9 79 18 140/80 95 Nasal 1.0L Cannula 06/08 0800 95 Nasal 1.0L Cannula 06/08 0400 97 Nasal 1.0L Cannula 06/08 0000 98.1 76 16 130/54 95 Nasal 1.0L Cannula 06/08 0000 97 Nasal 1.0L Cannula 06/07 2126 84 148/66 06/07 2000 94 Nasal 1.0L Cannula 06/07 1600 96 Nasal 1.0L Cannula 06/07 1558 98.7 80 22 120/58 96 Nasal 1.0L Cannula 06/07 1200 95 Nasal 1.0L Cannula Intake & Output 06/08 1600 06/08 0400 0406/07 Intake Total 689 1091 0647 531 1088 600 Output Total 550 400 850 500 715 310 Balance 888 089 0934 113 554 290 Intake, Blood 350 Product Intake, IV 629 1091 9203 298 1589 250 Intake, Oral 60 0 Intake, Other 120 60 Number 0 1 Bowel Movements Output, 50 50 150 300 Gastric Drainage Output, Urine 550 350 800 350 415 310 Patient 283 lb Weight Physical Exam: Gen - OK appearing Head - NCAT Eyes - anicteric sclera, EOMI Neck - supple CV - RRR Chest - coughing, clear anteriorly Abd - soft Upper ext - no edema Lower ext - no edema Skin - no rash Neuro - AOX3 Results Pertinent Lab Results: Laboratory Tests 06/080 Chemistry Sodium (137 - 145 mmol/L) 134 L 136 L Potassium (3.5 - 5.1 mmol/L) 4.3 4.4 Chloride (98 - 107 mmol/L) 103 104 Carbon Dioxide (22 - 30 mmol/L) 26 27 Anion Gap (5 - 16) 5 5 BUN (7 - 17 mg/dL) 32 H 30 H Creatinine (0.5 - 1.0 mg/dL) 1.9 H 1.8 H Estimated GFR (>60 ml/min) 26 L 28 L Glucose (65 - 99 mg/dL) 86 98 Calcium (8.4 - 10.2 mg/dL) 7.7 L 8.0 L Phosphorus (2.5 - 4.5 mg/dL) 3.4 3.9 Magnesium (1.6 - 2.3 mg/dL) 2.0 1.6 Total Bilirubin (0.2 - 1.3 mg/dL) 0.8 0.7 AST (14 - 36 U/L) 15 18 ALT (9 - 52 U/L) 27 29 Albumin (3.5 - 5.0 g/dL) 2.1 L 2.3 L Hematology CBC w Diff NO MAN DIFF REQ NO MAN DIFF REQ WBC (4.8 - 10.8 /CUMM) 13.8 H 17.1 H RBC (4.20 - 5.40 /CUMM) 2.68 L 2.94 L Hgb (12.0 - 16.0 G/DL) 7.6 L 8.3 L Hct (37 - 47 %) 23.0 L 25.4 L MCV (81.0 - 99.0 FL) 85.6 86.3 MCH (27.0 - 31.0 PG) 28.4 28.1 RDW (11.5 - 14.5 %) 15.7 H 15.7 H Plt Count (130 - 400 /CUMM) 210 198 MPV (7.4 - 10.4 FL) 8.0 7.3 L Gran % (42.2 - 75.2 %) 76.8 H 81.3 H Lymphocytes % (20.5 - 51.1 %) 15.0 L 10.5 L Monocytes % (1.7 - 9.3 %) 6.4 7.9 Eosinophils % (0 - 5 %) 1.4 0.1 Basophils % (0.0 - 2.0 %) 0.4 0.2 Absolute Granulocytes (1.4 - 6.5 /CUMM) 10.6 H 13.9 H Absolute Lymphocytes (1.2 - 3.4 /CUMM) 2.1 1.8 Absolute Monocytes (0.10 - 0.60 /CUMM) 0.9 H 1.4 H Absolute Eosinophils (0.0 - 0.7 /CUMM) 0.2 0 Absolute Basophils (0.0 - 0.2 /CUMM) 0.1 0 PUBS MCHC (33.0 - 37.0 G/DL) 33.1 32.6 L 06/06 06/06 06/06 1700 0800 0620 Blood Gas pH (7.35 - 7.45 PH) 7.37 pCO2 (35 - 45 TORR) 39 pO2 (80 - 100 TORR) 84 HCO3 (21 - 28 MEQ/L) 22 ABG O2 Sat (Measured) (>96.0 %) 96.0 P-50 (Temp Corrected) N Carboxyhemoglobin (1.5 - 5.0 %) 0.3 L O2 Concentration % .50 Respiration Rate (BPM) 16 O2 Delivery Method VENT Vent Mode A/C Expiratory Pressure (CMH2O/P) 5 Tidal Volume (CC) 500 Chemistry Sodium (137 - 145 mmol/L) 137 Potassium (3.5 - 5.1 mmol/L) 4.3 Chloride (98 - 107 mmol/L) 103 Carbon Dioxide (22 - 30 mmol/L) 25 Anion Gap (5 - 16) 10 BUN (7 - 17 mg/dL) 28 H Creatinine (0.5 - 1.0 mg/dL) 1.8 H Estimated GFR (>60 ml/min) 28 L BUN/Creatinine Ratio (7 - 25 %) 15.6 Hematology CBC w Diff NO MAN DIFF REQ Cancelled WBC (4.8 - 10.8 /CUMM) 20.0 H Cancelled RBC (4.20 - 5.40 /CUMM) 3.09 L Cancelled Hgb (12.0 - 16.0 G/DL) 8.6 L Cancelled Hct (37 - 47 %) 26.4 L Cancelled MCV (81.0 - 99.0 FL) 85.6 Cancelled MCH (27.0 - 31.0 PG) 27.8 Cancelled RDW (11.5 - 14.5 %) 15.6 H Cancelled Plt Count (130 - 400 /CUMM) 202 Cancelled MPV (7.4 - 10.4 FL) 7.6 Cancelled Gran % (42.2 - 75.2 %) 85.7 H Lymphocytes % (20.5 - 51.1 %) 7.1 L Monocytes % (1.7 - 9.3 %) 7.1 Eosinophils % (0 - 5 %) 0 Basophils % (0.0 - 2.0 %) 0.1 Absolute Granulocytes (1.4 - 6.5 /CUMM) 17.1 H Absolute Lymphocytes (1.2 - 3.4 /CUMM) 1.4 Absolute Monocytes (0.10 - 0.60 /CUMM) 1.4 H Absolute Eosinophils (0.0 - 0.7 /CUMM) 0 Absolute Basophils (0.0 - 0.2 /CUMM) 0 PUBS MCHC (33.0 - 37.0 G/DL) 32.5 L Cancelled Miscellaneous Phlebotomy Draw Site [place] 06/06 06/06 9080 2336 Chemistry Sodium (137 - 145 mmol/L) 136 L Potassium (3.5 - 5.1 mmol/L) 3.6 Chloride (98 - 107 mmol/L) 103 Carbon Dioxide (22 - 30 mmol/L) 21 L Anion Gap (5 - 16) 11 BUN (7 - 17 mg/dL) 24 H Creatinine (0.5 - 1.0 mg/dL) 1.6 H Estimated GFR (>60 ml/min) 32 L Glucose (65 - 99 mg/dL) 253 H Hemoglobin A1c (4.2 - 5.8 %) 5.5 Calcium (8.4 - 10.2 mg/dL) 8.3 L Phosphorus (2.5 - 4.5 mg/dL) 3.2 Magnesium (1.6 - 2.3 mg/dL) 1.6 Total Bilirubin (0.2 - 1.3 mg/dL) 0.5 AST (14 - 36 U/L) 18 ALT (9 - 52 U/L) 25 Albumin (3.5 - 5.0 g/dL) 2.6 L TSH (0.270 - 4.200 uIU/mL) 3.130 Free T4 (0.78 - 2.44 ng/dL) 1.21 Hematology CBC w Diff MAN DIFF ORDERED WBC (4.8 - 10.8 /CUMM) 19.4 H RBC (4.20 - 5.40 /CUMM) 3.39 L Hgb (12.0 - 16.0 G/DL) 9.5 L Hct (37 - 47 %) 28.8 L MCV (81.0 - 99.0 FL) 85.1 MCH (27.0 - 31.0 PG) 28.0 RDW (11.5 - 14.5 %) 15.5 H Plt Count (130 - 400 /CUMM) 211 MPV (7.4 - 10.4 FL) 7.2 L Gran % (42.2 - 75.2 %) 91.9 H Lymphocytes % (20.5 - 51.1 %) 2.5 L Monocytes % (1.7 - 9.3 %) 5.5 Eosinophils % (0 - 5 %) 0.1 Basophils % (0.0 - 2.0 %) 0 L Absolute Granulocytes (1.4 - 6.5 /CUMM) 17.8 H Segmented Neutrophils (42.2 - 75.2 %) 90 H Band Neutrophils (0.0 - 5.0 %) 7 H Absolute Lymphocytes (1.2 - 3.4 /CUMM) 0.5 L Lymphocytes (20.5 - 51.1 %) 1 L Monocytes (1.7 - 9.3 %) 1 L Absolute Monocytes (0.10 - 0.60 /CUMM) 1.1 H Absolute Eosinophils (0.0 - 0.7 /CUMM) 0 Basophils (0.0 - 2.0 %) 1 Absolute Basophils (0.0 - 0.2 /CUMM) 0 Platelet Estimate (ADEQUATE) ADEQUATE Polychromasia 1+ Basophilic Stippling SLIGHT Ovalocytes FEW Stomatocytes FEW PUBS MCHC (33.0 - 37.0 G/DL) 32.9 L Other Body Source F[place] Total RBCs Counted (%) 100 06/06 06/06 06/06 0130 0100 0020 Blood Gas pH (7.35 - 7.45 PH) 7.30 *L pCO2 (35 - 45 TORR) 41 pO2 (80 - 100 TORR) 85 HCO3 (21 - 28 MEQ/L) 20 L ABG O2 Sat (Measured) (>96.0 %) 94.0 L P-50 (Temp Corrected) N Carboxyhemoglobin (1.5 - 5.0 %) 0.3 L O2 Concentration % .60 Respiration Rate (BPM) 12 O2 Delivery Method VENT Vent Mode A/C Expiratory Pressure (CMH2O/P) 5 Tidal Volume (CC) 500 Hematology CBC w Diff MAN DIFF ORDERED Cancelled WBC (4.8 - 10.8 /CUMM) 17.0 H Cancelled RBC (4.20 - 5.40 /CUMM) 3.51 L Cancelled Hgb (12.0 - 16.0 G/DL) 10.0 L Cancelled Hct (37 - 47 %) 29.9 L Cancelled MCV (81.0 - 99.0 FL) 85.3 Cancelled MCH (27.0 - 31.0 PG) 28.4 Cancelled RDW (11.5 - 14.5 %) 15.6 H Cancelled Plt Count (130 - 400 /CUMM) 202 Cancelled MPV (7.4 - 10.4 FL) 7.2 L Cancelled Gran % (42.2 - 75.2 %) 90.3 H Lymphocytes % (20.5 - 51.1 %) 4.5 L Monocytes % (1.7 - 9.3 %) 5.2 Eosinophils % (0 - 5 %) 0 Basophils % (0.0 - 2.0 %) 0 L Absolute Granulocytes (1.4 - 6.5 /CUMM) 15.4 H Segmented Neutrophils (42.2 - 75.2 %) 80 H Band Neutrophils (0.0 - 5.0 %) 7 H Absolute Lymphocytes (1.2 - 3.4 /CUMM) 0.8 L Lymphocytes (20.5 - 51.1 %) 6 L Monocytes (1.7 - 9.3 %) 7 Absolute Monocytes (0.10 - 0.60 /CUMM) 0.9 H Absolute Eosinophils (0.0 - 0.7 /CUMM) 0 Absolute Basophils (0.0 - 0.2 /CUMM) 0 Platelet Estimate (ADEQUATE) ADEQUATE Polychromasia 1+ Ovalocytes FEW Stomatocytes FEW PUBS MCHC (33.0 - 37.0 G/DL) 33.3 Cancelled Miscellaneous Phlebotomy Draw Site [place] Other Body Source Fld Total RBCs Counted (%) 100 06/05 06/05 2117 1830 Blood Gas pH (7.35 - 7.45 PH) 7.42 pCO2 (35 - 45 TORR) 37 pO2 (80 - 100 TORR) 64 L HCO3 (21 - 28 MEQ/L) 24 ABG O2 Sat (Measured) (>96.0 %) 91.0 L Carboxyhemoglobin (1.5 - 5.0 %) 0.3 L O2 Concentration % 100% O2 Delivery Method ANESTHESIA Miscellaneous Phlebotomy Draw Site [place] Urines Urinalysis MANY H Urine Color (YEL,AMB,STR) YEL Urine Clarity (CLEAR) CLEAR Urine pH (5.0 - 8.0) 6.0 Ur Specific [place] (1.001 - 1.035) 1.025 Urine Protein (NEG,<30 MG/DL) 100 H Urine Ketones (NEG) NEG Urine Nitrite (NEG) NEG Urine Bilirubin (NEG) NEG Urine Urobilinogen (0.1 - 1.0 EU/dl) 0.2 Ur Leukocyte Esterase (NEG) NEG Ur Microscopic SEDIMENT EXAMINED Urine RBC (0 - 5 /HPF) 3-5 Urine WBC (0 - 2 /HPF) 3-5 H Ur Epithelial Cells (NONE,FEW) FEW Urine Bacteria (NEG/NONE) FEW H Urine Mucus (FEW,NONE) FEW Urine Hemoglobin (NEG) MOD H Urine Glucose (N MG/DL) NEG 06/05 1620 Chemistry Sodium (137 - 145 mmol/L) 139 Potassium (3.5 - 5.1 mmol/L) 4.1 Chloride (98 - 107 mmol/L) 103 Carbon Dioxide (22 - 30 mmol/L) 26 Anion Gap (5 - 16) 10 BUN (7 - 17 mg/dL) 24 H Creatinine (0.5 - 1.0 mg/dL) 1.4 H Estimated GFR (>60 ml/min) 37 L Glucose (65 - 99 mg/dL) 113 H Calcium (8.4 - 10.2 mg/dL) 8.4 Phosphorus (2.5 - 4.5 mg/dL) 4.5 Magnesium (1.6 - 2.3 mg/dL) 1.7 Total Bilirubin (0.2 - 1.3 mg/dL) 0.7 AST (14 - 36 U/L) 22 ALT (9 - 52 U/L) 28 Albumin (3.5 - 5.0 g/dL) 3.4 L Coagulation PT (9.4 - 12.5 SEC) 11.4 INR (0.90 - 1.19) 1.09 APTT (25 - 37 SEC) 28 Hematology CBC w Diff NO MAN DIFF REQ WBC (4.8 - 10.8 /CUMM) 13.1 H RBC (4.20 - 5.40 /CUMM) 3.56 L Hgb (12.0 - 16.0 G/DL) 9.8 L Hct (37 - 47 %) 30.4 L MCV (81.0 - 99.0 FL) 85.4 MCH (27.0 - 31.0 PG) 27.5 RDW (11.5 - 14.5 %) 15.9 H Plt Count (130 - 400 /CUMM) 207 MPV (7.4 - 10.4 FL) 7.4 Gran % (42.2 - 75.2 %) 85.0 H Lymphocytes % (20.5 - 51.1 %) 8.7 L Monocytes % (1.7 - 9.3 %) 5.4 Eosinophils % (0 - 5 %) 0.6 Basophils % (0.0 - 2.0 %) 0.3 Absolute Granulocytes (1.4 - 6.5 /CUMM) 11.2 H Absolute Lymphocytes (1.2 - 3.4 /CUMM) 1.1 L Absolute Monocytes (0.10 - 0.60 /CUMM) 0.7 H Absolute Eosinophils (0.0 - 0.7 /CUMM) 0.1 Absolute Basophils (0.0 - 0.2 /CUMM) 0 PUBS MCHC (33.0 - 37.0 G/DL) 32.2 L Imaging/Other Studies: EXAMINATION: XR PORTABLE CHEST CLINICAL INFORMATION: Follow-up intubation. COMPARISON: CXR from 06/05/2016 TECHNIQUE: Portable AP view of the chest was obtained. FINDINGS: Lungs are hypoinflated resulting in crowding of bronchovascular structures in the bases. Probable atelectasis in the retrocardiac region of the left lower lobe. No pneumothorax. Endotracheal tube is now 2.2 cm above the de. Enteric tube extends below the diaphragm and into the stomach. The right IJ central line has been adjusted and its tip is now located in the region of junction of the SVC with the azygos vein. Cardiac silhouette is normal in size. No acute osseous findings. IMPRESSION: - Endotracheal tube tip is now 2.2 cm above the de. - Right IJ central line has been adjusted and its tip is now located in the proximal SVC. EXAMINATION: CT ANGIOGRAM ABDOMEN AND PELVIS CLINICAL INFORMATION: A 75-year-old female presented with GI bleed following recent colonoscopic polyp removal. COMPARISON: None. TECHNIQUE: Multiple axial images were obtained through the abdomen and pelvis before, and after the administration of 100 mL of Optiray 320 intravenous contrast. Images were reviewed on a dedicated 3-D workstation. DLP: 2072.66 mGy-cm. FINDINGS: There is a large amount of free intraperitoneal air and significant amount of right-sided retroperitoneal air present, consistent with a hollow viscus perforation. Although the exact site of perforation cannot be definitely identified, given the patient's history of recent right-sided colonoscopic polypectomy, possibly arising from the right-sided colon, at the site of polypectomy. There is no CT evidence of any GI bleed identified. Moderate-sized hiatal hernia is noted. The small bowel loops are decompressed. Extensive colonic diverticulosis related changes are noted predominantly within the sigmoid and descending colon. The liver, biliary tree, pancreas, spleen, both adrenals are unremarkable. The gallbladder is not visualized, presumably surgically absent. There is an exophytic cortical renal cyst present at the superior as well as inferior pole of the left kidney, otherwise both kidneys are unremarkable. Atherosclerotic changes are noted within the aorta and its branches. There is no pelvic mass present. There is no free fluid identified. The urinary bladder is unremarkable. No suspicious lytic or sclerotic abnormality. IMPRESSION: 1. Extensive predominantly right hemiabdomen, right hemipelvic intraperitoneal as well as retroperitoneal extraluminal air identified, consistent with hollow viscus perforation. Although the exact site of perforation is not evident on these images, given the patient's recent history of right-sided colonoscopic polypectomy, possibly arising from the right-sided colon at the site of polypectomy. Please correlate with endoscopic findings. 2. No CT evidence of acute GI hemorrhage. 3. Surgical consultation is recommended. TTE\ CONCLUSIONS Normal size left ventricle. Severe concentric left ventricular hypertrophy. No obvious regional wall motion abnormalities. Normal left ventricular ejection fraction visually estimated at > 60%. Abnormal relaxation filling pattern of the left ventricle for age (stage 1 diastolic dysfunction). Mildly increased left ventricular outflow tract velocity (1.3 m/s). Normal right ventricular size and function. Normal atrial size. Mild mitral regurgitation. Mild aortic regurgitation. Trace tricuspid regurgitation. Right ventricular systolic pressure estimated at 33 mmHg. Trace/mild pulmonic regurgitation. Dilated inferior vena cava. Assessment/Plan Assessment/Recommendations Assessment: Stage III CKD - Unclear if proteinuric prior to this admission. DDx for kidney disease would include hypertensive nephrosclerosis, obesity glomerulopathy, and 2/2 chronic NSAID use. Should rule out monoclonal protein. MARGAUX - 2/2 contrast induced nephropathy. Cannot rule out undocumented intra-op hypotension (or at least relative hypotension). Agree with some IVF to avoid pre-renal azotemia while PO intake is low post-op although would have a low threshold to stop and/or at least lower to 50cc/hr. HTN - Somewhat labile. Off thiazide now. Just on BB which seems reasonable. Recommendations: -Low threshold to lower IVF to 50cc/hr by the end of the day if taking in adequate PO - may even need to stop if increased SOB -Would check urine protein, microalbumin, creatinine -Would check urine Na -SPEP and KLFLC -Non-urgent renal U/S for sizing -Agree with BB monotherapy for now - would not overtreat HTN given GI bleed with downtrending Hg -?Transfusion if Hg<7 -Would avoid NSAID's in future Please call [phone] with ?'s
[2016-06-08 12:54] LABS: ABSOLUTE BASOPHIL COUNT 0.1 /CUMM (0.0-0.2); ABSOLUTE EOSINOPHIL COUNT 0.2 /CUMM (0.0-0.7); ABSOLUTE GRANULOCYTE CT 9.8 /CUMM (1.4-6.5); ABSOLUTE LYMPH COUNT 1.9 /CUMM (1.2-3.4); ABSOLUTE MONOCYTE COUNT 0.9 /CUMM (0.10-0.60); BASOPHIL % 0.6 % (0.0-2.0); EOSINOPHIL % 1.9 % (0-5); MEAN CORPUSCULAR HGB 28.2 PG (27.0-31.0); MEAN CORPUSCULAR HGB CONC 32.9 G/DL (33.0-37.0); MEAN CORPUSCULAR VOLUME 85.7 FL (81.0-99.0); MEAN PLATELET VOLUME 6.9 FL (7.4-10.4); PLATELET COUNT 237 /CUMM (130-400); RBC DISTRIBUTION WIDTH 15.6 % (11.5-14.5); RED BLOOD CELL CT 2.81 /CUMM (4.20-5.40); WHITE BLOOD CELL COUNT 12.8 /CUMM (4.8-10.8)
[2016-06-08 13:27] LABS: PT 12.4 SEC (9.4-12.5); PTT 28 SEC (25-37)
[2016-06-08 16:00] VITALS: BP 155/62
[2016-06-08 21:39] LABS: ABSOLUTE BASOPHIL COUNT 0 /CUMM (0.0-0.2); ABSOLUTE EOSINOPHIL COUNT 0.2 /CUMM (0.0-0.7); ABSOLUTE GRANULOCYTE CT 8.3 /CUMM (1.4-6.5); ABSOLUTE LYMPH COUNT 2.2 /CUMM (1.2-3.4); ABSOLUTE MONOCYTE COUNT 0.8 /CUMM (0.10-0.60); BASOPHIL % 0.3 % (0.0-2.0); EOSINOPHIL % 2.1 % (0-5); GRANULOCYTE % 71.7 % (42.2-75.2); HEMATOCRIT 23.1 % (37-47); MEAN CORPUSCULAR HGB 28.5 PG (27.0-31.0); MEAN CORPUSCULAR HGB CONC 33.5 G/DL (33.0-37.0); MEAN CORPUSCULAR VOLUME 85.2 FL (81.0-99.0); MEAN PLATELET VOLUME 8.1 FL (7.4-10.4); PLATELET COUNT 223 /CUMM (130-400); RBC DISTRIBUTION WIDTH 15.8 % (11.5-14.5); RED BLOOD CELL CT 2.72 /CUMM (4.20-5.40); WHITE BLOOD CELL COUNT 11.6 /CUMM (4.8-10.8)
[2016-06-09] VITALS: BP 174/80
[2016-06-09 05:35] LABS: ABSOLUTE GRANULOCYTE CT 6.7 /CUMM (1.4-6.5); ABSOLUTE LYMPH COUNT 1.8 /CUMM (1.2-3.4)
[2016-06-09 05:42] LABS: ABSOLUTE BASOPHIL COUNT 0 /CUMM (0.0-0.2); ABSOLUTE EOSINOPHIL COUNT 0.3 /CUMM (0.0-0.7); ABSOLUTE MONOCYTE COUNT 0.8 /CUMM (0.10-0.60); BASOPHIL % 0.5 % (0.0-2.0); EOSINOPHIL % 2.6 % (0-5); HEMATOCRIT 22.5 % (37-47); MEAN CORPUSCULAR HGB CONC 32.3 G/DL (33.0-37.0); MEAN CORPUSCULAR VOLUME 86.5 FL (81.0-99.0); MEAN PLATELET VOLUME 7.5 FL (7.4-10.4); PLATELET COUNT 225 /CUMM (130-400); RBC DISTRIBUTION WIDTH 15.3 % (11.5-14.5); WHITE BLOOD CELL COUNT 9.5 /CUMM (4.8-10.8)
--- NOTE | 2016-06-09 05:54 | PN- General Surgery ---
Subjective Subjective: resting comfortably this am no major complaints denies cp, sob, no n+v with diet using commode at bedside to urinate, no bm Objective Vital Signs and I&Os Vital Signs Date Time Temp Pulse Resp B/P Pulse O2 O2 Flow FiO2 Ox Delivery Rate 06/09 0000 99.8 73 20 174/80 94 Nasal 1.0L Cannula 06/09 0000 94 Nasal 1.0L Cannula 06/08 2200 71 20 173/67 06/08 2100 96 Nasal 1.0L Cannula 06/08 1600 97.7 68 20 155/62 91 Room Air 06/08 1600 92 Nasal 1.0L Cannula 06/08 1200 95 Nasal 1.0L Cannula 06/08 0846 79 170/70 06/08 0800 98.9 79 18 140/80 95 Nasal 1.0L Cannula 06/08 0800 95 Nasal 1.0L Cannula Intake & Output 06/09 0800 06/09 0000 06/08 1600 06/08 0800 06/08 0000 06/07 1600 Intake Total 1160 2884 689 1091 1273 Output Total 320 500 550 400 350 Balance 840 2384 139 691 923 Intake, IV 700 442 795 9824 1153 Intake, Oral 460 2060 60 0 Intake, Other 120 Number 0 0 Bowel Movements Output, 50 Gastric Drainage Output, Urine 320 500 550 350 350 Physical Exam: cv: rrr lungs; clear abd: soft mild diffuse perincisioal tenderness wound c/d/i no guarding to palp ext: no calf tenderness to palp\ distal cms intact Assessment/Plan Assessment/Plan surgically stable plan advance diet as tolerated cont oob with pt/ambulate await improvd bowel fxn Core Measures/Miscellaneous Venous Thromboembolism VTE Risk Factors: Surgery VTE Contraindications: No Contraindications VTE Diagnosis: No VTE Type: NONE VTE Confirmed by (Test): NONE Beta Nawaf Is Beta Nawaf a Home Med? Yes Antibiotics Is Patient on Antibiotics? Yes
--- NOTE | 2016-06-09 07:29 | PN- Resident CRCU ---
Subjective HPI/CRCU Issues: CRCU issues: 1. Acute blood loss anemia possibly due to GI bleed 2. Impaired kidney function 3. S/P colonoscopy and polypectomy on 06/05/16 4. S/P right colectomy due to bowel perforation on 06/05/16 5. Hypertensive urgency - BP currently controlled Patient's NG tube was DC'd on 06/07/16, she was started on clear liquid diet on 06/08/16 and are advancing as tolerated. Today on full liquid, she has not had a bowel movement since 06/05/16, has gas passage, denies any abdominal pain. reports a pain on the lateral of the left thigh eariler in the morning, currently resolved, skin is tender to touch, no erythema noted. Encouraged her to get out of the bed to chair more often. Patient's IJ was also removed yesterday at night, after sterilizing the skin around the line, pressure was applied for 15 minutes and the area was packed with sterile gauze. She has two large boer catheter IV lines on right and left arms at the moment. Patient's dailey was removed yesterday as well. 24 Hour Events: Intake & Output 06/09 1600 06/09 0800 06/09 0000 Intake Total 1044 1160 Output Total 790 320 Balance 254 840 Intake, IV 984 700 Intake, Oral 60 460 Output, Urine 790 320 Laboratory Tests 06/09 06/08 0454 2040 Chemistry Sodium (137 - 145 mmol/L) 134 L Potassium (3.5 - 5.1 mmol/L) 4.1 Chloride (98 - 107 mmol/L) 104 Carbon Dioxide (22 - 30 mmol/L) 24 Anion Gap (5 - 16) 6 BUN (7 - 17 mg/dL) 30 H Creatinine (0.5 - 1.0 mg/dL) 1.8 H 1.8 H Estimated GFR (>60 ml/min) 28 L 28 L Glucose (65 - 99 mg/dL) 82 Calcium (8.4 - 10.2 mg/dL) 7.7 L Phosphorus (2.5 - 4.5 mg/dL) 3.5 Magnesium (1.6 - 2.3 mg/dL) 1.9 Total Bilirubin (0.2 - 1.3 mg/dL) 0.8 AST (14 - 36 U/L) 15 ALT (9 - 52 U/L) 33 Albumin (3.5 - 5.0 g/dL) 2.1 L Hematology CBC w Diff NO MAN DIFF REQ NO MAN DIFF REQ WBC (4.8 - 10.8 /CUMM) 9.5 11.6 H RBC (4.20 - 5.40 /CUMM) 2.60 L 2.72 L Hgb (12.0 - 16.0 G/DL) 7.3 *L 7.7 L Hct (37 - 47 %) 22.5 L 23.1 L MCV (81.0 - 99.0 FL) 86.5 85.2 MCH (27.0 - 31.0 PG) 28.0 28.5 RDW (11.5 - 14.5 %) 15.3 H 15.8 H Plt Count (130 - 400 /CUMM) 225 223 MPV (7.4 - 10.4 FL) 7.5 8.1 Gran % (42.2 - 75.2 %) 70.0 71.7 Lymphocytes % (20.5 - 51.1 %) 18.9 L 19.0 L Monocytes % (1.7 - 9.3 %) 8.0 6.9 Eosinophils % (0 - 5 %) 2.6 2.1 Basophils % (0.0 - 2.0 %) 0.5 0.3 Absolute Granulocytes (1.4 - 6.5 /CUMM) 6.7 H 8.3 H Absolute Lymphocytes (1.2 - 3.4 /CUMM) 1.8 2.2 Absolute Monocytes (0.10 - 0.60 /CUMM) 0.8 H 0.8 H Absolute Eosinophils (0.0 - 0.7 /CUMM) 0.3 0.2 Absolute Basophils (0.0 - 0.2 /CUMM) 0 0 PUBS MCHC (33.0 - 37.0 G/DL) 32.3 L 33.5 06/08 06/08 06/08 1630 1455 1306 Chemistry Sodium (137 - 145 mmol/L) 134 L Potassium (3.5 - 5.1 mmol/L) 4.2 Chloride (98 - 107 mmol/L) 101 Carbon Dioxide (22 - 30 mmol/L) 25 Anion Gap (5 - 16) 7 BUN (7 - 17 mg/dL) 32 H Creatinine (0.5 - 1.0 mg/dL) 2.0 H Estimated GFR (>60 ml/min) 24 L Glucose (65 - 99 mg/dL) 112 H Calcium (8.4 - 10.2 mg/dL) 7.7 L Phosphorus (2.5 - 4.5 mg/dL) 3.5 Magnesium (1.6 - 2.3 mg/dL) 2.0 Total Bilirubin (0.2 - 1.3 mg/dL) 1.0 AST (14 - 36 U/L) 16 ALT (9 - 52 U/L) 29 Albumin (3.5 - 5.0 g/dL) 2.3 L Miscellaneous Ref Lab Test Result Pending Urines Ur Random Creatinine (mg/dL) 69.9 Ur Random Microalbumin (<1.7 mg/dl) 71.4 H Ur Random Sodium (30 - 90 mmol/L) 75 Ur Random Potassium (mmol/L) 17.0 Fraction Sodium Excret (<1% %) 1.6 H U Cystine/Creat Ratio (mcg/mg) 1021.45 06/08 06/08 1242 UNK Coagulation PT (9.4 - 12.5 SEC) 12.4 INR (0.90 - 1.19) 1.18 APTT (25 - 37 SEC) 28 Hematology CBC w Diff NO MAN DIFF REQ WBC (4.8 - 10.8 /CUMM) 12.8 H RBC (4.20 - 5.40 /CUMM) 2.81 L Hgb (12.0 - 16.0 G/DL) 7.9 L Hct (37 - 47 %) 24.0 L MCV (81.0 - 99.0 FL) 85.7 MCH (27.0 - 31.0 PG) 28.2 RDW (11.5 - 14.5 %) 15.6 H Plt Count (130 - 400 /CUMM) 237 MPV (7.4 - 10.4 FL) 6.9 L Gran % (42.2 - 75.2 %) 76.0 H Lymphocytes % (20.5 - 51.1 %) 14.7 L Monocytes % (1.7 - 9.3 %) 6.8 Eosinophils % (0 - 5 %) 1.9 Basophils % (0.0 - 2.0 %) 0.6 Absolute Granulocytes (1.4 - 6.5 /CUMM) 9.8 H Absolute Lymphocytes (1.2 - 3.4 /CUMM) 1.9 Absolute Monocytes (0.10 - 0.60 /CUMM) 0.9 H Absolute Eosinophils (0.0 - 0.7 /CUMM) 0.2 Absolute Basophils (0.0 - 0.2 /CUMM) 0.1 PUBS MCHC (33.0 - 37.0 G/DL) 32.9 L Urines Urine Total Volume Cancelled Ur Total Protein 24 Hr Cancelled Vital Signs Date Time Temp Pulse Resp B/P Pulse O2 O2 Flow FiO2 Ox Delivery Rate 06/09 0800 96 Nasal 1.0L Cannula 06/09 0800 97.9 70 18 158/60 96 Nasal 1.0L Cannula 06/09 0400 95 Nasal 1.0L Cannula 06/09 0000 99.8 73 20 174/80 94 Nasal 1.0L Cannula 06/09 0000 94 Nasal 1.0L Cannula 06/08 2200 71 20 173/67 06/08 2100 96 Nasal 1.0L Cannula 06/08 1600 97.7 68 20 155/62 91 Room Air 06/08 1600 92 Nasal 1.0L Cannula 06/08 1200 95 Nasal 1.0L Cannula Objective Vital Signs & I&O Last 8 Hrs of Vitals and I&O: max temp 99.8 hr 66-76 sr systolic bp 139-164 diastolic bp 62-64 Intake 1044 cc Output 790 cc BS 82-119 Exam General Appearance: well developed/nourished, no apparent distress Head: atraumatic, normal appearance Ears, Nose, Throat: normal ENT inspection Neck: normal inspection, supple Respiratory: chest non-tender, no respiratory distress, quiet respiration Cardiovascular: regular rate/rhythm, normal peripheral pulses Gastrointestinal: soft, non-tender, increased bowel sounds Extremities: normal capillary refill, no edema, calf tenderness, obese Cranial Nerves: normal hearing, normal speech, PERRL Skin: intact, normal color, warm/dry, no erythema noted on the skin of the left lateral thigh, no tenderness noted. Back: normal range of motion Weaning Parameters NIF: 38 Minute Volume: 10.5 Resp rate: 18 Vt: 588 Heart Rate: 80 Weaning Schedule Start Time: 0904 Minute Volume: 9.09 Resp Rate: 17 Vt: 535 Heart Rate: 77 End Time: 0941 Minute Volume: 11.4 Resp Rate: 19 Vt: 601 Heart Rate: 73 Current Medications: Current Medications Sig/Liv Start time Last Medication Dose Route Stop Time Status Admin Acetaminophen 1,000 MG .STK-MED ONE 06/09 0103 DC IV 06/09 0104 Acetaminophen 1,000 MG Q6P PRN 06/07 1330 AC 06/09 N/A 1 UNIT IV 1338 Acetaminophen 650 MG Q6P PRN 06/06 0045 AC PO Benzocaine/Menthol 1 DIVYA Q2P PRN 06/07 2045 AC PO Bisacodyl 10 MG ONCE ONE 06/09 1015 DC AL 06/09 1016 Heparin Sodium 5,000 UNIT Q8 06/07 1400 AC 06/09 (Porcine) SC 1309 Hydralazine HCl 25 MG TID 06/09 1830 AC 06/09 PO 1928 Hydralazine HCl 5 MG ONCE ONE 06/09 1315 DC 06/09 IV 06/09 1316 1309 Hydralazine HCl 5 MG ONCE ONE 06/09 1230 DC 06/09 IV 06/09 1231 1229 Levothyroxine Sodium 0.125 MG DAILY AC 06/06 0700 AC 06/09 PO 0652 Metoprolol Tartrate 25 MG BID 06/06 1000 AC 06/09 PO 1014 Morphine Sulfate 2 MG Q3P PRN 06/06 0045 AC 06/08 IV 2200 Morphine Sulfate 4 MG Q3P PRN 06/06 0045 AC IV Omeprazole 40 MG DAILY AC 06/09 0700 AC 06/09 PO 0652 Ondansetron HCl 4 MG Q6P PRN 06/06 0045 AC IV Sodium Chloride 1,000 ML Q13H 06/08 1500 AC 06/09 IV 1948 Sodium Chloride 2 SPRAY Q4P PRN 06/06 1645 AC 06/06 MILLA 1814 Impression/Plan Impression/Problem List Impression: 75-year-old morbidly obese female with PMH of hypertension, hypothyroidism s/p thyroidectomy, chronic pain, gastroesophageal reflux disease, current smoker, nonalcoholic came in with chief complain of bright red blood per rectum. Hb was 10.3 on admission, which is her baseline. Pt continued to have frankly bloody bowel movement, hence colonoscopy was pursued. Pt had colonoscopy 06/05/16, polyps were removed from sigmoid and ascending colon. Initially was doing well, but after about 4 hours, had BM with about 500 ml of blood clot, with 1 PRBC given without checking CBC. Pt was taken for CTA which showed perforation. Pt was taken to OR for exploratory laparotomy and right colectomy was done with anastomosis of ileum with transverse colon. Problem list: # Bright red blood per rectum most likely diverticular bleed # Perforation post colonoscopy, sp right colectomy # Acute blood loss anemia due to GI bleed # Hypertensive urgency # Hypothyroidism # CKD stage 3b Right IJ DC's last night Extubated on 06/06 A line day on removed 06/06 Dailey day DC's yesterday NG tube DC's on 06/07/16 (started diet today) UE restrain discontinued after 1 day Respiratory Intubated for exploratory laparotomy 06/05/16. Extubated on 06/06/2016. currently no issues, lung exam clear, no coughs or SOB. ID WBC went up to 19.4 after colonoscopy, possible peritonitis with perforation. She was given Unasyn until 1 day postop, now off antibiotics. WBC is trending down and pt has not had any fevers. watch off antibiotics. Cardiovascular Hypertensive urgency - BP is trending up today Pt sees loan documentation specialist at [place], recently had stress test that pt reports as normal * Continue metoprolol 50 mg od and hctz 25 mg (hold if hypotensive) * Cardiology, Dr. Golden, consulted appreciate recommendations * Aspirin on hold due to GIB * If BP remail elevated, IV hydralazine 8 beat run Vtach on 06/05/16, no further epidsodes so far * Replete K, mag, and phos as needed Hematology -Acute blood loss anemia due to GI bleed * HB 10.3 on admission (baseline 10.5) * Pt had 1 PRBC transfusion 06/05/16 after large bloody bm post colonoscopy ( without checking CBC) * slight drop in H/H since yesterday, repeat CBC this pm * Type and cross done, transfuse if hb < 7 * Hold aspirin and ibuprofen Endocrine -Hyperglycemia * BS was 253 on 06/05/16 * Placed on novolin (as NPO), on d51/2 ns at 75ml/hr. Will change to novolog ss once patient resumes diet post extubation. * Accucheck tidac/qhs, follow up blood sugar closely - Hypothyroidism s/p thyroidectomy for thyroid cancer, Tsh and free t4 WNL * Continue levothyroxine 125mcg daily. 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 Jernigan has been consulted, sp colonoscopy 06/05/16 with polypectomy, follow up pathology as outpatient * Continue PPI * Hold aspirin, ibuprofen * Advanced diet to regular today Neuro - No issues Diet: regular DVT ppx: alps, no pharm due to GI bleed FULL CODE Consults: GI , cardio, CRCU, surgery Labs: ICU and CBC (acute blood loss anemia), hypomagnesiumia, hypokalemia Problem List: 1. Hypertension 2. Lower GI bleed 3. Acute blood loss anemia 4. Constipation 5. S/P right colectomy Pain Ratin Pain Location: no pain Tomorrow's Labs & Rationales: CBC (H/H dropping) ICU bundle (impaired kidney function, monitor electrolytes, hyponatremia) Plan DVT/Prophylaxis: mechanical
[2016-06-09 08:00] VITALS: BP 158/60
--- NOTE | 2016-06-09 10:17 | PN- Nephrology ---
Assessment/Plan Assessment: Stage III CKD - Unclear if proteinuric prior to this admission. Has ~1g of albumin protein - should further define non-albumin protein. DDx for kidney disease would include hypertensive nephrosclerosis, obesity glomerulopathy, and 2/2 chronic NSAID use. Should rule out monoclonal protein. MARGAUX - 2/2 contrast induced nephropathy. Cannot rule out undocumented intra-op hypotension (or at least relative hypotension). Starting to improve. On some IVF while not taking in full PO. HTN - Somewhat labile. Off thiazide now. Just on BB. May need to add more meds if Hg stabilizes and BP remains elevated. Suggestion: -On IVF at 50cc/hr - low threshold to stop if increased WOB -Please send urine for spot protein and creatinine (had microalbumin before) -SPEP and KLFLC -Non-urgent renal U/S for sizing -Agree with BB monotherapy for now - If Hg stabilizes and BP remains elevated, can add amlodipine 5mg daily -?Transfusion if Hg<7 -Would avoid NSAID's in future Please call [phone] with ?'s Subjective Subjective: SCr peaked yesterday at 2.0 Downtrending to 1.8; FENa 1.6% On IVF at 50cc/hr; net positive 3.4L in the last day Eating some clear liquids; no BM but is passing some gas No SOB Hg 7.3 BP 130's-170's MALB/Cr ~1g/g Objective Vital Signs and I&Os Vital Signs Date Time Temp Pulse Resp B/P Pulse O2 O2 Flow FiO2 Ox Delivery Rate 06/09 0800 96 Nasal 1.0L Cannula 06/09 0800 97.9 70 18 158/60 96 Nasal 1.0L Cannula 06/09 0400 95 Nasal 1.0L Cannula 06/09 0000 99.8 73 20 174/80 94 Nasal 1.0L Cannula 06/09 0000 94 Nasal 1.0L Cannula 06/08 2200 71 20 173/67 06/08 2100 96 Nasal 1.0L Cannula 06/08 1600 97.7 68 20 155/62 91 Room Air 06/08 1600 92 Nasal 1.0L Cannula 06/08 1200 95 Nasal 1.0L Cannula Intake & Output 06/09 1600 06/09 0400 06/08 1600 06/08 0400 06/07 1600 06/07 0400 Intake Total 1044 1160 3573 1091 1988 613 Output Total 707 102 9339 400 850 500 Balance 353 993 2603 691 1138 113 Intake, IV 544 252 8240 1091 1868 613 Intake, Oral 60 460 2120 0 Intake, Other 120 Number 0 0 Bowel Movements Output, 50 50 150 Gastric Drainage Output, Urine 940 996 3561 350 800 350 Physical Exam: Gen - NAD, pleasant HEENT - supple CV - RRR Chest - clear anteriorly Abd - soft Ext - no significant edema Neuro - AOX3 Current Medications: Current Medications Sig/Liv Start time Last Medication Dose Route Stop Time Status Admin Acetaminophen 1,000 MG .STK-MED ONE 06/09 0103 DC IV 06/09 0104 Acetaminophen 1,000 MG Q6P PRN 06/07 1330 AC 06/09 N/A 1 UNIT IV 0104 Acetaminophen 650 MG Q6P PRN 06/06 0045 AC PO Benzocaine/Menthol 1 DIVYA Q2P PRN 06/07 2045 AC PO Heparin Sodium 5,000 UNIT Q8 06/07 1400 AC 06/09 (Porcine) SC 0656 Levothyroxine Sodium 0.125 MG DAILY AC 06/06 0700 AC 06/09 PO 0652 Metoprolol Tartrate 25 MG BID 06/06 1000 AC 06/08 PO 2200 Morphine Sulfate 2 MG Q3P PRN 06/06 0045 AC 06/08 IV 2200 Morphine Sulfate 4 MG Q3P PRN 06/06 0045 AC IV Omeprazole 40 MG DAILY AC 06/09 0700 AC 06/09 PO 0652 Ondansetron HCl 4 MG Q6P PRN 06/06 0045 AC IV Sodium Chloride 1,000 ML Q13H 06/08 1500 AC 06/09 IV 0042 Sodium Chloride 2 SPRAY Q4P PRN 06/06 1645 AC 06/06 MILLA 1814 Results Pertinent Lab Results: Laboratory Tests 06/09 06/08 0454 2040 Chemistry Sodium (137 - 145 mmol/L) 134 L Potassium (3.5 - 5.1 mmol/L) 4.1 Chloride (98 - 107 mmol/L) 104 Carbon Dioxide (22 - 30 mmol/L) 24 Anion Gap (5 - 16) 6 BUN (7 - 17 mg/dL) 30 H Creatinine (0.5 - 1.0 mg/dL) 1.8 H 1.8 H Estimated GFR (>60 ml/min) 28 L 28 L Glucose (65 - 99 mg/dL) 82 Calcium (8.4 - 10.2 mg/dL) 7.7 L Phosphorus (2.5 - 4.5 mg/dL) 3.5 Magnesium (1.6 - 2.3 mg/dL) 1.9 Total Bilirubin (0.2 - 1.3 mg/dL) 0.8 AST (14 - 36 U/L) 15 ALT (9 - 52 U/L) 33 Albumin (3.5 - 5.0 g/dL) 2.1 L Hematology CBC w Diff NO MAN DIFF REQ NO MAN DIFF REQ WBC (4.8 - 10.8 /CUMM) 9.5 11.6 H RBC (4.20 - 5.40 /CUMM) 2.60 L 2.72 L Hgb (12.0 - 16.0 G/DL) 7.3 *L 7.7 L Hct (37 - 47 %) 22.5 L 23.1 L MCV (81.0 - 99.0 FL) 86.5 85.2 MCH (27.0 - 31.0 PG) 28.0 28.5 RDW (11.5 - 14.5 %) 15.3 H 15.8 H Plt Count (130 - 400 /CUMM) 225 223 MPV (7.4 - 10.4 FL) 7.5 8.1 Gran % (42.2 - 75.2 %) 70.0 71.7 Lymphocytes % (20.5 - 51.1 %) 18.9 L 19.0 L Monocytes % (1.7 - 9.3 %) 8.0 6.9 Eosinophils % (0 - 5 %) 2.6 2.1 Basophils % (0.0 - 2.0 %) 0.5 0.3 Absolute Granulocytes (1.4 - 6.5 /CUMM) 6.7 H 8.3 H Absolute Lymphocytes (1.2 - 3.4 /CUMM) 1.8 2.2 Absolute Monocytes (0.10 - 0.60 /CUMM) 0.8 H 0.8 H Absolute Eosinophils (0.0 - 0.7 /CUMM) 0.3 0.2 Absolute Basophils (0.0 - 0.2 /CUMM) 0 0 PUBS MCHC (33.0 - 37.0 G/DL) 32.3 L 33.5 06/08 06/08 06/08 1630 1455 1306 Chemistry Sodium (137 - 145 mmol/L) 134 L Potassium (3.5 - 5.1 mmol/L) 4.2 Chloride (98 - 107 mmol/L) 101 Carbon Dioxide (22 - 30 mmol/L) 25 Anion Gap (5 - 16) 7 BUN (7 - 17 mg/dL) 32 H Creatinine (0.5 - 1.0 mg/dL) 2.0 H Estimated GFR (>60 ml/min) 24 L Glucose (65 - 99 mg/dL) 112 H Calcium (8.4 - 10.2 mg/dL) 7.7 L Phosphorus (2.5 - 4.5 mg/dL) 3.5 Magnesium (1.6 - 2.3 mg/dL) 2.0 Total Bilirubin (0.2 - 1.3 mg/dL) 1.0 AST (14 - 36 U/L) 16 ALT (9 - 52 U/L) 29 Albumin (3.5 - 5.0 g/dL) 2.3 L Miscellaneous Ref Lab Test Result Pending Urines Ur Random Creatinine (mg/dL) 69.9 Ur Random Microalbumin (<1.7 mg/dl) 71.4 H Ur Random Sodium (30 - 90 mmol/L) 75 Ur Random Potassium (mmol/L) 17.0 Fraction Sodium Excret (<1% %) 1.6 H U Cystine/Creat Ratio (mcg/mg) 1021.45 06/08 06/08 1242 UNK Coagulation PT (9.4 - 12.5 SEC) 12.4 INR (0.90 - 1.19) 1.18 APTT (25 - 37 SEC) 28 Hematology CBC w Diff NO MAN DIFF REQ WBC (4.8 - 10.8 /CUMM) 12.8 H RBC (4.20 - 5.40 /CUMM) 2.81 L Hgb (12.0 - 16.0 G/DL) 7.9 L Hct (37 - 47 %) 24.0 L MCV (81.0 - 99.0 FL) 85.7 MCH (27.0 - 31.0 PG) 28.2 RDW (11.5 - 14.5 %) 15.6 H Plt Count (130 - 400 /CUMM) 237 MPV (7.4 - 10.4 FL) 6.9 L Gran % (42.2 - 75.2 %) 76.0 H Lymphocytes % (20.5 - 51.1 %) 14.7 L Monocytes % (1.7 - 9.3 %) 6.8 Eosinophils % (0 - 5 %) 1.9 Basophils % (0.0 - 2.0 %) 0.6 Absolute Granulocytes (1.4 - 6.5 /CUMM) 9.8 H Absolute Lymphocytes (1.2 - 3.4 /CUMM) 1.9 Absolute Monocytes (0.10 - 0.60 /CUMM) 0.9 H Absolute Eosinophils (0.0 - 0.7 /CUMM) 0.2 Absolute Basophils (0.0 - 0.2 /CUMM) 0.1 PUBS MCHC (33.0 - 37.0 G/DL) 32.9 L Urines Urine Total Volume Cancelled Ur Total Protein 24 Hr Cancelled 06/08 06/07 0405 0400 Chemistry Sodium (137 - 145 mmol/L) 134 L 136 L Potassium (3.5 - 5.1 mmol/L) 4.3 4.4 Chloride (98 - 107 mmol/L) 103 104 Carbon Dioxide (22 - 30 mmol/L) 26 27 Anion Gap (5 - 16) 5 5 BUN (7 - 17 mg/dL) 32 H 30 H Creatinine (0.5 - 1.0 mg/dL) 1.9 H 1.8 H Estimated GFR (>60 ml/min) 26 L 28 L Glucose (65 - 99 mg/dL) 86 98 Calcium (8.4 - 10.2 mg/dL) 7.7 L 8.0 L Phosphorus (2.5 - 4.5 mg/dL) 3.4 3.9 Magnesium (1.6 - 2.3 mg/dL) 2.0 1.6 Total Bilirubin (0.2 - 1.3 mg/dL) 0.8 0.7 AST (14 - 36 U/L) 15 18 ALT (9 - 52 U/L) 27 29 Albumin (3.5 - 5.0 g/dL) 2.1 L 2.3 L Hematology CBC w Diff NO MAN DIFF REQ NO MAN DIFF REQ WBC (4.8 - 10.8 /CUMM) 13.8 H 17.1 H RBC (4.20 - 5.40 /CUMM) 2.68 L 2.94 L Hgb (12.0 - 16.0 G/DL) 7.6 L 8.3 L Hct (37 - 47 %) 23.0 L 25.4 L MCV (81.0 - 99.0 FL) 85.6 86.3 MCH (27.0 - 31.0 PG) 28.4 28.1 RDW (11.5 - 14.5 %) 15.7 H 15.7 H Plt Count (130 - 400 /CUMM) 210 198 MPV (7.4 - 10.4 FL) 8.0 7.3 L Gran % (42.2 - 75.2 %) 76.8 H 81.3 H Lymphocytes % (20.5 - 51.1 %) 15.0 L 10.5 L Monocytes % (1.7 - 9.3 %) 6.4 7.9 Eosinophils % (0 - 5 %) 1.4 0.1 Basophils % (0.0 - 2.0 %) 0.4 0.2 Absolute Granulocytes (1.4 - 6.5 /CUMM) 10.6 H 13.9 H Absolute Lymphocytes (1.2 - 3.4 /CUMM) 2.1 1.8 Absolute Monocytes (0.10 - 0.60 /CUMM) 0.9 H 1.4 H Absolute Eosinophils (0.0 - 0.7 /CUMM) 0.2 0 Absolute Basophils (0.0 - 0.2 /CUMM) 0.1 0 PUBS MCHC (33.0 - 37.0 G/DL) 33.1 32.6 L 04/10 1700 Chemistry Sodium (137 - 145 mmol/L) 137 Potassium (3.5 - 5.1 mmol/L) 4.3 Chloride (98 - 107 mmol/L) 103 Carbon Dioxide (22 - 30 mmol/L) 25 Anion Gap (5 - 16) 10 BUN (7 - 17 mg/dL) 28 H Creatinine (0.5 - 1.0 mg/dL) 1.8 H Estimated GFR (>60 ml/min) 28 L BUN/Creatinine Ratio (7 - 25 %) 15.6 Hematology CBC w Diff NO MAN DIFF REQ WBC (4.8 - 10.8 /CUMM) 20.0 H RBC (4.20 - 5.40 /CUMM) 3.09 L Hgb (12.0 - 16.0 G/DL) 8.6 L Hct (37 - 47 %) 26.4 L MCV (81.0 - 99.0 FL) 85.6 MCH (27.0 - 31.0 PG) 27.8 RDW (11.5 - 14.5 %) 15.6 H Plt Count (130 - 400 /CUMM) 202 MPV (7.4 - 10.4 FL) 7.6 Gran % (42.2 - 75.2 %) 85.7 H Lymphocytes % (20.5 - 51.1 %) 7.1 L Monocytes % (1.7 - 9.3 %) 7.1 Eosinophils % (0 - 5 %) 0 Basophils % (0.0 - 2.0 %) 0.1 Absolute Granulocytes (1.4 - 6.5 /CUMM) 17.1 H Absolute Lymphocytes (1.2 - 3.4 /CUMM) 1.4 Absolute Monocytes (0.10 - 0.60 /CUMM) 1.4 H Absolute Eosinophils (0.0 - 0.7 /CUMM) 0 Absolute Basophils (0.0 - 0.2 /CUMM) 0 PUBS MCHC (33.0 - 37.0 G/DL) 32.5 L Imaging/Other Studies: EXAMINATION: XR PORTABLE CHEST CLINICAL INFORMATION: Follow-up intubation. COMPARISON: CXR from 06/05/2016 TECHNIQUE: Portable AP view of the chest was obtained. FINDINGS: Lungs are hypoinflated resulting in crowding of bronchovascular structures in the bases. Probable atelectasis in the retrocardiac region of the left lower lobe. No pneumothorax. Endotracheal tube is now 2.2 cm above the de. Enteric tube extends below the diaphragm and into the stomach. The right IJ central line has been adjusted and its tip is now located in the region of junction of the SVC with the azygos vein. Cardiac silhouette is normal in size. No acute osseous findings. IMPRESSION: - Endotracheal tube tip is now 2.2 cm above the de. - Right IJ central line has been adjusted and its tip is now located in the proximal SVC. EXAMINATION: CT ANGIOGRAM ABDOMEN AND PELVIS CLINICAL INFORMATION: A 75-year-old female presented with GI bleed following recent colonoscopic polyp removal. COMPARISON: None. TECHNIQUE: Multiple axial images were obtained through the abdomen and pelvis before, and after the administration of 100 mL of Optiray 320 intravenous contrast. Images were reviewed on a dedicated 3-D workstation. DLP: 2072.66 mGy-cm. FINDINGS: There is a large amount of free intraperitoneal air and significant amount of right-sided retroperitoneal air present, consistent with a hollow viscus perforation. Although the exact site of perforation cannot be definitely identified, given the patient's history of recent right-sided colonoscopic polypectomy, possibly arising from the right-sided colon, at the site of polypectomy. There is no CT evidence of any GI bleed identified. Moderate-sized hiatal hernia is noted. The small bowel loops are decompressed. Extensive colonic diverticulosis related changes are noted predominantly within the sigmoid and descending colon. The liver, biliary tree, pancreas, spleen, both adrenals are unremarkable. The gallbladder is not visualized, presumably surgically absent. There is an exophytic cortical renal cyst present at the superior as well as inferior pole of the left kidney, otherwise both kidneys are unremarkable. Atherosclerotic changes are noted within the aorta and its branches. There is no pelvic mass present. There is no free fluid identified. The urinary bladder is unremarkable. No suspicious lytic or sclerotic abnormality. IMPRESSION: 1. Extensive predominantly right hemiabdomen, right hemipelvic intraperitoneal as well as retroperitoneal extraluminal air identified, consistent with hollow viscus perforation. Although the exact site of perforation is not evident on these images, given the patient's recent history of right-sided colonoscopic polypectomy, possibly arising from the right-sided colon at the site of polypectomy. Please correlate with endoscopic findings. 2. No CT evidence of acute GI hemorrhage. 3. Surgical consultation is recommended. TTE\ CONCLUSIONS Normal size left ventricle. Severe concentric left ventricular hypertrophy. No obvious regional wall motion abnormalities. Normal left ventricular ejection fraction visually estimated at > 60%. Abnormal relaxation filling pattern of the left ventricle for age (stage 1 diastolic dysfunction). Mildly increased left ventricular outflow tract velocity (1.3 m/s). Normal right ventricular size and function. Normal atrial size. Mild mitral regurgitation. Mild aortic regurgitation. Trace tricuspid regurgitation. Right ventricular systolic pressure estimated at 33 mmHg. Trace/mild pulmonic regurgitation. Dilated inferior vena cava.
--- NOTE | 2016-06-09 10:54 | PN- CRCU ---
Subjective HPI/Critical Care Issues: Patient seen and examined this morning. She appears to be doing well. She has not had a bowel movement as of yet. She is afebrile and saturating 96% on 1 L nasal cannula. Her hemoglobin is 7.3 today. Objective Current Medications: Current Medications Sig/Liv Start time Last Medication Dose Route Stop Time Status Admin Acetaminophen 1,000 MG .STK-MED ONE 06/09 0103 DC IV 06/09 0104 Acetaminophen 1,000 MG Q6P PRN 06/07 1330 AC 06/09 N/A 1 UNIT IV 0104 Acetaminophen 650 MG Q6P PRN 06/06 0045 AC PO Benzocaine/Menthol 1 DIVYA Q2P PRN 06/07 2045 AC PO Bisacodyl 10 MG ONCE ONE 06/09 1015 DC NE 06/09 1016 Heparin Sodium 5,000 UNIT Q8 06/07 1400 AC 06/09 (Porcine) SC 0656 Levothyroxine Sodium 0.125 MG DAILY AC 06/06 0700 AC 06/09 PO 0652 Metoprolol Tartrate 25 MG BID 06/06 1000 AC 06/09 PO 1014 Morphine Sulfate 2 MG Q3P PRN 06/06 0045 AC 06/08 IV 2200 Morphine Sulfate 4 MG Q3P PRN 06/06 0045 AC IV Omeprazole 40 MG DAILY AC 06/09 0700 AC 06/09 PO 0652 Ondansetron HCl 4 MG Q6P PRN 06/06 0045 AC IV Sodium Chloride 1,000 ML Q13H 06/08 1500 AC 06/09 IV 0042 Sodium Chloride 2 SPRAY Q4P PRN 06/06 1645 AC 06/06 MILLA 1814 Vital Signs & I&O Last 24 Hrs of Vitals and I&O: Vital Signs Date Time Temp Pulse Resp B/P Pulse O2 O2 Flow FiO2 Ox Delivery Rate 06/09 1014 75 180/77 06/09 0800 96 Nasal 1.0L Cannula 06/09 0800 97.9 70 18 158/60 96 Nasal 1.0L Cannula 06/09 0400 95 Nasal 1.0L Cannula 06/09 0000 99.8 73 20 174/80 94 Nasal 1.0L Cannula 06/09 0000 94 Nasal 1.0L Cannula 06/08 2200 71 20 173/67 06/08 2100 96 Nasal 1.0L Cannula 06/08 1600 97.7 68 20 155/62 91 Room Air 06/08 1600 92 Nasal 1.0L Cannula 06/08 1200 95 Nasal 1.0L Cannula Intake & Output 06/09 1600 06/09 0800 06/09 0000 Intake Total 1044 1160 Output Total 790 320 Balance 254 840 Intake, IV 984 700 Intake, Oral 60 460 Output, Urine 790 320 Exam Other Physical Findings: Gen - alert and awake HEENT - ncat CVS - S1, S2, no murmurs, rubs or gallops Lungs - clear to auscultation bilaterally Abdomen - soft, non-tender, bs+, surgical incision and dressing are intact Ext - no edema, no cyanosis Results Last 24 Hrs of Lab Results: Laboratory Tests 06/09/16 0454: Anion Gap 6, Estimated GFR 28 L, Glucose 82, Calcium 7.7 L, Phosphorus 3.5, Magnesium 1.9, Total Bilirubin 0.8, AST 15, ALT 33, Albumin 2.1 L, CBC w Diff NO MAN DIFF REQ, RBC 2.60 L, MCV 86.5, MCH 28.0, RDW 15.3 H, MPV 7.5, Gran % 70.0, Lymphocytes % 18.9 L, Monocytes % 8.0, Eosinophils % 2.6, Basophils % 0.5 , Absolute Granulocytes 6.7 H, Absolute Lymphocytes 1.8, Absolute Monocytes 0.8 H, Absolute Eosinophils 0.3, Absolute Basophils 0, PUBS MCHC 32.3 L 06/08/16 2040: Estimated GFR 28 L, CBC w Diff NO MAN DIFF REQ, RBC 2.72 L, MCV 85.2, MCH 28.5 , RDW 15.8 H, MPV 8.1, Gran % 71.7, Lymphocytes % 19.0 L, Monocytes % 6.9, Eosinophils % 2.1, Basophils % 0.3, Absolute Granulocytes 8.3 H, Absolute Lymphocytes 2.2, Absolute Monocytes 0.8 H, Absolute Eosinophils 0.2, Absolute Basophils 0, PUBS MCHC 33.5 06/08/16 1630: Ur Random Creatinine 69.9, Ur Random Microalbumin 71.4 H, Ur Random Sodium 75, Ur Random Potassium 17.0, Fraction Sodium Excret 1.6 H, U Cystine/Creat Ratio 1021.45 06/08/16 1455: Ref Lab Test Result Pending 06/08/16 1306: Anion Gap 7, Estimated GFR 24 L, Glucose 112 H, Calcium 7.7 L, Phosphorus 3.5 , Magnesium 2.0, Total Bilirubin 1.0, AST 16, ALT 29, Albumin 2.3 L 06/08/16 1242: PT 12.4, INR 1.18, APTT 28, CBC w Diff NO MAN DIFF REQ, RBC 2.81 L, MCV 85.7, MCH 28.2, RDW 15.6 H, MPV 6.9 L, Gran % 76.0 H, Lymphocytes % 14.7 L, Monocytes % 6.8, Eosinophils % 1.9, Basophils % 0.6, Absolute Granulocytes 9.8 H, Absolute Lymphocytes 1.9, Absolute Monocytes 0.9 H, Absolute Eosinophils 0.2 , Absolute Basophils 0.1, PUBS MCHC 32.9 L Impression/Plan Impression/Plan Impression/Plan: Impression 75 year old woman * Lower GI bleed - acute blood loss anemia * Bowel perforation status post resection * Diverticulosis * CKD * HTN urgency * Hypothyrodism * MARGAUX - prerenal and contrast induced most likely Plan - GI and surgery appreciated, f/u recommendations - nephrology consultation appreciated - repeat cbc this afternoon after blood transfusion - monitor cbc, coags - Alimentary status post surgery and GI - PPI - Cardiology consultation appreciated, f/u recommendations - bp monitoring and management DVT prophylaxis at all times TTS 35 min
[2016-06-09 16:00] VITALS: BP 148/62
--- NOTE | 2016-06-09 18:09 | PN- Cardiology ---
Subjective Subjective: No complaints. Denies any chest discomfort, palpitations, shortness of breath etc. Does state that her stomach "bothers me" when I eat. Objective Vital Signs and I&Os Vital Signs Date Time Temp Pulse Resp B/P Pulse O2 O2 Flow FiO2 Ox Delivery Rate 06/09 1454 99.3 06/09 1338 100.4 06/09 1309 76 200/88 06/09 1229 67 193/87 06/09 1200 94 Nasal 1.0L Cannula 06/09 1014 75 180/77 06/09 0800 96 Nasal 1.0L Cannula 06/09 0800 97.9 70 18 158/60 96 Nasal 1.0L Cannula 06/09 0400 95 Nasal 1.0L Cannula 06/09 0000 99.8 73 20 174/80 94 Nasal 1.0L Cannula 06/09 0000 94 Nasal 1.0L Cannula 06/08 2200 71 20 173/67 06/08 2100 96 Nasal 1.0L Cannula Intake & Output 06/09 1600 06/09 0800 06/09 0000 06/08 1600 06/08 0800 06/08 0000 Intake Total 1201 1044 1160 2884 689 1091 Output Total 550 790 320 500 550 400 Balance 651 223 788 8391 139 691 Intake, Blood 143 Product Intake, IV 458 984 700 448 870 1112 Intake, Oral 600 60 460 2060 60 Number 0 Bowel Movements Output, 50 Gastric Drainage Output, Urine 550 790 320 500 550 350 Physical Exam: Well-developed, morbidly obese elderly female in no acute distress. Vital signs: See above. HEENT: Normocephalic, atraumatic, EOMI, slightly dry mucous membranes. Neck: No JVD, no bruits. Lungs: Clear to auscultation bilaterally. Heart: S1, S2 with no murmur, gallop, or rub appreciated. PMI not well felt. Abdomen: Soft, nontender, positive bowel sounds. Extremities: No edema. Current Medications: Current Medications Sig/Liv Start time Last Medication Dose Route Stop Time Status Admin Acetaminophen 1,000 MG .STK-MED ONE 06/09 0103 DC IV 06/09 0104 Acetaminophen 1,000 MG Q6P PRN 06/07 1330 AC 06/09 N/A 1 UNIT IV 1338 Acetaminophen 650 MG Q6P PRN 06/06 0045 AC PO Benzocaine/Menthol 1 DIVYA Q2P PRN 06/07 2044 AC PO Bisacodyl 10 MG ONCE ONE 06/09 1015 DC ID 06/09 1016 Heparin Sodium 5,000 UNIT Q8 06/07 1400 AC 06/09 (Porcine) SC 1309 Hydralazine HCl 5 MG ONCE ONE 06/09 1315 DC 06/09 IV 06/09 1316 1309 Hydralazine HCl 5 MG ONCE ONE 06/09 1230 DC 06/09 IV 06/09 1231 1229 Levothyroxine Sodium 0.125 MG DAILY AC 06/06 0700 AC 06/09 PO 0652 Metoprolol Tartrate 25 MG BID 06/06 1000 AC 06/09 PO 1014 Morphine Sulfate 2 MG Q3P PRN 06/06 0045 AC 06/08 IV 2200 Morphine Sulfate 4 MG Q3P PRN 06/06 0045 AC IV Omeprazole 40 MG DAILY AC 06/09 0700 AC 06/09 PO 0652 Ondansetron HCl 4 MG Q6P PRN 06/06 0045 AC IV Sodium Chloride 1,000 ML Q13H 06/08 1500 AC 06/09 IV 0042 Sodium Chloride 2 SPRAY Q4P PRN 06/06 1645 AC 06/06 MILLA 1814 Results Last 48 Hrs of Labs/Mics: Laboratory Tests 06/09/16 0454: Anion Gap 6, Estimated GFR 28 L, Glucose 82, Calcium 7.7 L, Phosphorus 3.5, Magnesium 1.9, Total Bilirubin 0.8, AST 15, ALT 33, Albumin 2.1 L, CBC w Diff NO MAN DIFF REQ, RBC 2.60 L, MCV 86.5, MCH 28.0, RDW 15.3 H, MPV 7.5, Gran % 70.0, Lymphocytes % 18.9 L, Monocytes % 8.0, Eosinophils % 2.6, Basophils % 0.5 , Absolute Granulocytes 6.7 H, Absolute Lymphocytes 1.8, Absolute Monocytes 0.8 H, Absolute Eosinophils 0.3, Absolute Basophils 0, PUBS MCHC 32.3 L 06/08/162039: Estimated GFR 28 L, CBC w Diff NO MAN DIFF REQ, RBC 2.72 L, MCV 85.2, MCH 28.5 , RDW 15.8 H, MPV 8.1, Gran % 71.7, Lymphocytes % 19.0 L, Monocytes % 6.9, Eosinophils % 2.1, Basophils % 0.3, Absolute Granulocytes 8.3 H, Absolute Lymphocytes 2.2, Absolute Monocytes 0.8 H, Absolute Eosinophils 0.2, Absolute Basophils 0, PUBS MCHC 33.5 06/08/16 1630: Ur Random Creatinine 69.9, Ur Random Microalbumin 71.4 H, Ur Random Sodium 75, Ur Random Potassium 17.0, Fraction Sodium Excret 1.6 H, U Cystine/Creat Ratio 1021.45 06/08/16 1455: Ref Lab Test Result Pending 06/08/16 1306: Anion Gap 7, Estimated GFR 24 L, Glucose 112 H, Calcium 7.7 L, Phosphorus 3.5 , Magnesium 2.0, Total Bilirubin 1.0, AST 16, ALT 29, Albumin 2.3 L 06/08/16 1242: PT 12.4, INR 1.18, APTT 28, CBC w Diff NO MAN DIFF REQ, RBC 2.81 L, MCV 85.7, MCH 28.2, RDW 15.6 H, MPV 6.9 L, Gran % 76.0 H, Lymphocytes % 14.7 L, Monocytes % 6.8, Eosinophils % 1.9, Basophils % 0.6, Absolute Granulocytes 9.8 H, Absolute Lymphocytes 1.9, Absolute Monocytes 0.9 H, Absolute Eosinophils 0.2 , Absolute Basophils 0.1, PUBS MCHC 32.9 L 06/08/16 1000: Urine Total Volume Cancelled, Ur Total Protein 24 Hr Cancelled 06/08/16 0405: Anion Gap 5, Estimated GFR 26 L, Glucose 86, Calcium 7.7 L, Phosphorus 3.4, Magnesium 2.0, Total Bilirubin 0.8, AST 15, ALT 27, Albumin 2.1 L, CBC w Diff NO MAN DIFF REQ, RBC 2.68 L, MCV 85.6, MCH 28.4, RDW 15.7 H, MPV 8.0, Gran % 76.8 H, Lymphocytes % 15.0 L, Monocytes % 6.4, Eosinophils % 1.4, Basophils % 0.4, Absolute Granulocytes 10.6 H, Absolute Lymphocytes 2.1, Absolute Monocytes 0.9 H, Absolute Eosinophils 0.2, Absolute Basophils 0.1, PUBS MCHC 33.1 Assessment/Plan Assessment/Plan Mrs. Barton is an elderly female with a history of morbid obesity, ONIEL w/o CPAP, long-standing tobacco use, HTN, thyroid cancer s/p resection and subsequent hypothyroidism, CKD, chronic anemia, and GERD who presented to the ED on 08/2016 with a c/o BRBPR on a background of known diverticular disease. She underwent a colonoscopy on 06/05/2016 with findings c/w a resolving sigmoid diverticular bleed without any active bleeding appreciated, 3 diminutive ascending colon polyps s/p removal via cold biopsy forceps, & small internal hemorrhoids. She remained hemodynamically early post procedure, but then passed BRBPR and subsequently began having abdominal pain and was discovered to have had a colonic perforation requiring emergency exploratory laparotomy with right hemicolectomy. As a result of a drop in her H/H (7.3/22.5) she was to be transfused an additional unit of packed cells, but had what was felt to be a transfusion reaction and the transfusion was stopped after only half the unit was given. Awaiting follow up H/H. Blood pressure has been labile today, despite her present antihypertensive regimen (metoprolol 25 mg twice daily). She had been on hydralazine as an outpatient and tolerated this. Would restart hydralazine at 25 mg 3 times daily by mouth. Continue telemetry? Yes
[2016-06-10] VITALS: BP 180/88
[2016-06-10 05:25] LABS: ABSOLUTE BASOPHIL COUNT 0 /CUMM (0.0-0.2); ABSOLUTE EOSINOPHIL COUNT 0.2 /CUMM (0.0-0.7); ABSOLUTE GRANULOCYTE CT 8.2 /CUMM (1.4-6.5); ABSOLUTE LYMPH COUNT 1.4 /CUMM (1.2-3.4); BASOPHIL % 0.3 % (0.0-2.0); EOSINOPHIL % 1.5 % (0-5); GRANULOCYTE % 75.7 % (42.2-75.2); HEMATOCRIT 24.4 % (37-47); MEAN CORPUSCULAR HGB 28.2 PG (27.0-31.0); MEAN CORPUSCULAR HGB CONC 33.1 G/DL (33.0-37.0); MEAN CORPUSCULAR VOLUME 85.2 FL (81.0-99.0); MEAN PLATELET VOLUME 7.3 FL (7.4-10.4); PLATELET COUNT 267 /CUMM (130-400); RBC DISTRIBUTION WIDTH 15.5 % (11.5-14.5); RED BLOOD CELL CT 2.86 /CUMM (4.20-5.40); WHITE BLOOD CELL COUNT 10.8 /CUMM (4.8-10.8)
--- NOTE | 2016-06-10 05:38 | PN- Resident CRCU ---
Subjective HPI/CRCU Issues: CRCU issues: 1. High blood pressure 2. Acute blood loss anemia possibly due to GI bleed 3. Impaired kidney function, possibly contrast induced 4. S/P colonoscopy and polypectomy on 06/05/16 5. S/P right colectomy due to bowel perforation on 06/05/16 6. Hypertensive urgency - BP currently controlled Patient's NG tube was DC'd on 06/07/16, she was started on clear liquid diet on 06/08/16 and are advancing as tolerated. Today on full liquid, she has not had a bowel movement since 06/05/16, has gas passage, denies any abdominal pain. reports a pain on the lateral of the left thigh eariler in the morning, currently resolved, skin is tender to touch, no erythema noted. Encouraged her to get out of the bed to chair more often. Patient's IJ was also removed on 06/08/16 at night, after sterilizing the skin around the line, pressure was applied for 15 minutes and the area was packed with sterile gauze. She has two large boer catheter IV lines on right and left arms at the moment. Patient's dailey was removed 06/08/16 as well. 24 Hour Events: Laboratory Tests 06/10 06/09 0459 1500 Chemistry Sodium (137 - 145 mmol/L) 136 L Potassium (3.5 - 5.1 mmol/L) 4.1 Chloride (98 - 107 mmol/L) 105 Carbon Dioxide (22 - 30 mmol/L) 24 Anion Gap (5 - 16) 7 BUN (7 - 17 mg/dL) 25 H Creatinine (0.5 - 1.0 mg/dL) 1.6 H Estimated GFR (>60 ml/min) 32 L Glucose (65 - 99 mg/dL) 96 Calcium (8.4 - 10.2 mg/dL) 8.2 L Phosphorus (2.5 - 4.5 mg/dL) 3.0 Magnesium (1.6 - 2.3 mg/dL) 1.8 Total Bilirubin (0.2 - 1.3 mg/dL) 0.9 AST (14 - 36 U/L) 14 ALT (9 - 52 U/L) 28 Albumin (3.5 - 5.0 g/dL) 2.2 L Hematology CBC w Diff NO MAN DIFF REQ Cancelled WBC (4.8 - 10.8 /CUMM) 10.8 Cancelled RBC (4.20 - 5.40 /CUMM) 2.86 L Cancelled Hgb (12.0 - 16.0 G/DL) 8.1 L Cancelled Hct (37 - 47 %) 24.4 L Cancelled MCV (81.0 - 99.0 FL) 85.2 Cancelled MCH (27.0 - 31.0 PG) 28.2 Cancelled RDW (11.5 - 14.5 %) 15.5 H Cancelled Plt Count (130 - 400 /CUMM) 267 Cancelled MPV (7.4 - 10.4 FL) 7.3 L Cancelled Gran % (42.2 - 75.2 %) 75.7 H Lymphocytes % (20.5 - 51.1 %) 13.3 L Monocytes % (1.7 - 9.3 %) 9.2 Eosinophils % (0 - 5 %) 1.5 Basophils % (0.0 - 2.0 %) 0.3 Absolute Granulocytes (1.4 - 6.5 /CUMM) 8.2 H Absolute Lymphocytes (1.2 - 3.4 /CUMM) 1.4 Absolute Monocytes (0.10 - 0.60 /CUMM) 1.0 H Absolute Eosinophils (0.0 - 0.7 /CUMM) 0.2 Absolute Basophils (0.0 - 0.2 /CUMM) 0 PUBS MCHC (33.0 - 37.0 G/DL) 33.1 Cancelled Vital Signs Date Time Temp Pulse Resp B/P Pulse O2 O2 Flow FiO2 Ox Delivery Rate 06/10 0400 96 Nasal 1.0L Cannula 06/10 0000 93 Ventilator 40% 06/10 0000 98.3 83 20 180/88 93 Nasal 1.0L Cannula 06/09 2357 81 20 180/83 06/09 2055 80 20 190/90 06/09 2000 95 Nasal 1.0L Cannula 06/09 1928 74 183/67 06/09 1600 95 Nasal 1.0L Cannula 06/09 1600 99.0 74 18 148/62 95 Nasal 1.0L Cannula 06/09 1454 99.3 06/09 1338 100.4 06/09 1309 76 200/88 06/09 1229 67 193/87 06/09 1200 94 Nasal 1.0L Cannula 06/09 1014 75 180/77 06/09 0800 96 Nasal 1.0L Cannula 06/09 08 97.9 70 18 158/60 96 Nasal 1.0L Cannula Intake & Output 06/10 0800 06/10 0000 06/09 1600 Intake Total 332 346 8867 Output Total 550 Balance 439 808 651 Intake, Blood 143 Product Intake, IV 389 358 458 Intake, Oral 50 450 600 Output, Urine 550 Objective Vital Signs & I&O Last 8 Hrs of Vitals and I&O: Intake & Output 06/10 0800 Intake Total 439 Output Total Balance 439 Intake, IV 389 Intake, Oral 50 Exam General Appearance: well developed/nourished Head: atraumatic, normal appearance Ears, Nose, Throat: normal ENT inspection Neck: normal inspection, supple Respiratory: normal breath sounds, chest non-tender, no respiratory distress Cardiovascular: regular rate/rhythm, edema, normal peripheral pulses Gastrointestinal: soft, mild tenderness on the RLQ and epigaster Extremities: normal inspection, normal capillary refill, normal range of motion, no edema Cranial Nerves: normal hearing, normal speech, PERRL Skin: intact, normal color, warm/dry Back: normal inspection Weaning Parameters NIF: 38 Minute Volume: 10.5 Resp rate: 18 Vt: 588 Heart Rate: 80 Weaning Schedule Start Time: 0904 Minute Volume: 9.09 Resp Rate: 17 Vt: 535 Heart Rate: 77 End Time: 0941 Minute Volume: 11.4 Resp Rate: 19 Vt: 601 Heart Rate: 73 Current Medications: Current Medications Sig/Liv Start time Last Medication Dose Route Stop Time Status Admin Acetaminophen 1,000 MG Q6P PRN 06/07 1330 AC 06/09 N/A 1 UNIT IV 1338 Acetaminophen 650 MG Q6P PRN 06/06 0045 AC PO Benzocaine/Menthol 1 DIVYA Q2P PRN 06/07 2045 AC PO Bisacodyl 10 MG ONCE ONE 06/10 0945 CAN PA 06/10 0946 Heparin Sodium 5,000 UNIT Q8 06/07 1400 AC 06/10 (Porcine) SC 0544 Hydralazine HCl 25 MG TID 06/09 1830 AC 06/10 PO 0752 Hydralazine HCl 5 MG ONCE ONE 06/09 1315 DC 06/09 IV 06/09 1316 1309 Hydralazine HCl 5 MG ONCE ONE 06/09 1230 DC 06/09 IV 06/09 1231 1229 Levothyroxine Sodium 0.125 MG DAILY AC 06/06 0700 AC 06/10 PO 0656 Metoprolol Tartrate 50 MG BID 06/10 2200 AC PO Metoprolol Tartrate 25 MG BID 06/06 1000 DC 06/10 PO 0752 Morphine Sulfate 2 MG Q3P PRN 06/06 0045 AC 06/08 IV 2200 Morphine Sulfate 4 MG Q3P PRN 06/06 0045 AC IV Omeprazole 40 MG DAILY AC 06/09 0700 AC 06/10 PO 0656 Ondansetron HCl 4 MG Q6P PRN 06/06 0045 AC IV Sodium Chloride 1,000 ML Q13H 06/08 1500 DC 06/10 IV 0546 Sodium Chloride 2 SPRAY Q4P PRN 06/06 1645 AC 06/06 MILLA 1814 Impression/Plan Impression/Problem List Impression: 75-year-old morbidly obese female with PMH of hypertension, hypothyroidism s/p thyroidectomy, chronic pain, gastroesophageal reflux disease, current smoker, nonalcoholic came in with chief complain of bright red blood per rectum. Hb was 10.3 on admission, which is her baseline. Pt continued to have frankly bloody bowel movement, hence colonoscopy was pursued. Pt had colonoscopy 06/05/16, polyps were removed from sigmoid and ascending colon. Initially was doing well, but after about 4 hours, had BM with about 500 ml of blood clot, with 1 PRBC given without checking CBC. Pt was taken for CTA which showed perforation. Pt was taken to OR for exploratory laparotomy and right colectomy was done with anastomosis of ileum with transverse colon. Problem list: # Bright red blood per rectum most likely diverticular bleed # Perforation post colonoscopy, sp right colectomy # Acute blood loss anemia due to GI bleed # Hypertensive urgency # Hypothyroidism # CKD stage 3b Respiratory Intubated for exploratory laparotomy 06/05/16. Extubated on 06/06/2016. currently no issues, lung exam clear, no coughs or SOB. ID WBC went up to 19.4 after colonoscopy, possible peritonitis with perforation. She was given Unasyn until 1 day postop, now off antibiotics. WBC is trending down and pt has not had any fevers. watch off antibiotics. 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 Golden, on board recommended TID hydralazine * cosider a long acting CCB to increase compliance with the BP medications, also consider adding a renal protective agent such as lisinopril to control the BP * Aspirin on hold due to GIB * If BP remail elevated, IV hydralazine 8 beat run Vtach on 06/05/16, no further epidsodes so far * Replete K, mag, and phos as needed Hematology -Acute blood loss anemia due to GI bleed * HB 10.3 on admission (baseline 10.5) * Pt had 1 PRBC transfusion 06/05/16 after large bloody bm post colonoscopy ( without checking CBC) * Slight drop in H/H, yesterday, received 1 unit pRBC, H/H 8.1/24.4, had chills during transfusion and Temp went up to 100.4 * Hold aspirin and NSAIDs Endocrine -Hyperglycemia * BS was 253 on 06/05/16 * Placed on novolin (as NPO), on d51/2 ns at 75ml/hr. Will change to novolog ss once patient resumes diet post extubation. * Accucheck tidac/qhs, follow up blood sugar closely - Hypothyroidism s/p thyroidectomy for thyroid cancer, Tsh and free t4 WNL * Continue levothyroxine 125mcg daily. 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 Last colonoscopy 6 years ago, told to come back in [address] Jernigan has been consulted, sp colonoscopy 06/05/16 with polypectomy, follow up pathology as outpatient patient had two bowels movements today and after wards reported epigastric pain and difficulty breathing * abdominal Xray * Continue PPI * Hold aspirin, ibuprofen * Advanced diet to regular since yesterday * surgery is made aware Neuro - No issues Diet: regular DVT ppx: alps, no pharm due to GI bleed FULL CODE Consults: GI , cardio, CRCU, surgery Labs: ICU and CBC (acute blood loss anemia), hypomagnesiumia, hypokalemia Problem List: 1. Acute blood loss anemia 2. Hypertension 3. Lower GI bleed 4. S/P right colectomy Pain Ratin Tomorrow's Labs & Rationales: CBC (anemia), BEP (to mnonitor electrolytes) Plan DVT/Prophylaxis: mechanical
[2016-06-10 08:00] VITALS: BP 198/90
--- NOTE | 2016-06-10 09:28 | PN- CRCU ---
Subjective HPI/Critical Care Issues: Patient seen and examined this morning. She appears to be doing much better. Creatinine is 1.6 and a hemoglobin is 8.1. Her abdominal discomfort is controlled with Tylenol. Objective Current Medications: Current Medications Sig/Liv Start time Last Medication Dose Route Stop Time Status Admin Acetaminophen 1,000 MG Q6P PRN 06/07 1330 AC 06/09 N/A 1 UNIT IV 1338 Acetaminophen 650 MG Q6P PRN 06/06 0045 AC PO Benzocaine/Menthol 1 DIVYA Q2P PRN 06/07 2045 AC PO Bisacodyl 10 MG ONCE ONE 06/09 1015 DC SC 06/09 1016 Heparin Sodium 5,000 UNIT Q8 06/07 1400 AC 06/10 (Porcine) SC 0544 Hydralazine HCl 25 MG TID 06/09 1830 AC 06/10 PO 0752 Hydralazine HCl 5 MG ONCE ONE 06/09 1315 DC 06/09 IV 06/09 1316 1309 Hydralazine HCl 5 MG ONCE ONE 06/09 1230 DC 06/09 IV 06/09 1231 1229 Levothyroxine Sodium 0.125 MG DAILY AC 06/06 0700 AC 06/10 PO 0656 Metoprolol Tartrate 25 MG BID 06/06 1000 AC 06/10 PO 0752 Morphine Sulfate 2 MG Q3P PRN 06/06 0045 AC 06/08 IV 2200 Morphine Sulfate 4 MG Q3P PRN 06/06 0045 AC IV Omeprazole 40 MG DAILY AC 06/09 0700 AC 06/10 PO 0656 Ondansetron HCl 4 MG Q6P PRN 06/06 0045 AC IV Sodium Chloride 1,000 ML Q13H 06/08 1500 AC 06/10 IV 0546 Sodium Chloride 2 SPRAY Q4P PRN 06/06 1645 AC 06/06 MILLA 1814 Vital Signs & I&O Last 24 Hrs of Vitals and I&O: Vital Signs Date Time Temp Pulse Resp B/P Pulse O2 O2 Flow FiO2 Ox Delivery Rate 06/10 0800 95 Nasal 1.0L Cannula 06/10 0800 98.5 75 23 198/90 94 Nasal 1.0L Cannula 06/10 0752 79 212/83 06/10 0752 79 212/83 06/10 0400 96 Nasal 1.0L Cannula 06/10 0000 93 Ventilator 40% 06/10 0000 98.3 83 20 180/88 93 Nasal 1.0L Cannula 06/09 2357 81 20 180/83 06/09 2055 80 20 190/90 06/09 2000 95 Nasal 1.0L Cannula 06/09 1928 74 183/67 06/09 1600 95 Nasal 1.0L Cannula 06/09 1600 99.0 74 18 148/62 95 Nasal 1.0L Cannula 06/09 1454 99.3 06/09 1338 100.4 06/09 1309 76 200/88 06/09 1229 67 193/87 06/09 1200 94 Nasal 1.0L Cannula 06/09 1014 75 180/77 Intake & Output 06/10 1600 06/10 0800 06/10 0000 Intake Total 439 808 Output Total Balance 439 808 Intake, IV 389 358 Intake, Oral 50 450 Exam Other Physical Findings: Gen - alert and awake HEENT - ncat CVS - S1, S2, no murmurs, rubs or gallops Lungs - clear to auscultation bilaterally Abdomen - soft, non-tender, bs+, surgical incision and dressing are intact Ext - no edema, no cyanosis Results Last 24 Hrs of Lab Results: Laboratory Tests 06/10/16 0459: Anion Gap 7, Estimated GFR 32 L, Glucose 96, Calcium 8.2 L, Phosphorus 3.0, Magnesium 1.8, Total Bilirubin 0.9, AST 14, ALT 28, Albumin 2.2 L, CBC w Diff NO MAN DIFF REQ, RBC 2.86 L, MCV 85.2, MCH 28.2, RDW 15.5 H, MPV 7.3 L, Gran % 75.7 H, Lymphocytes % 13.3 L, Monocytes % 9.2, Eosinophils % 1.5, Basophils % 0.3, Absolute Granulocytes 8.2 H, Absolute Lymphocytes 1.4, Absolute Monocytes 1.0 H, Absolute Eosinophils 0.2, Absolute Basophils 0, PUBS MCHC 33.1 06/09/16 1500: CBC w Diff Cancelled, WBC Cancelled, RBC Cancelled, Hgb Cancelled, Hct Cancelled , MCV Cancelled, MCH Cancelled, RDW Cancelled, Plt Count Cancelled, MPV Cancelled, PUBS MCHC Cancelled Impression/Plan Impression/Plan Impression/Plan: Impression 75 year old woman * Stabilized Lower GI bleed/blood loss anemia * Bowel perforation status post resection * Diverticulosis * CKD * HTN * Hypothyrodism * MARGAUX - prerenal and contrast induced most likely - improved Plan - GI and surgery appreciated, f/u recommendations - nephrology consultation appreciated - repeat cbc this afternoon after blood transfusion - monitor cbc, coags - Alimentary status post surgery and GI - PPI - s/p antibiotics - Cardiology consultation appreciated, f/u recommendations - bp monitoring and management DVT prophylaxis at all times TTS 35 min Okay with GM if okay with cardiology
--- NOTE | 2016-06-10 11:09 | PN- Nephrology ---
Assessment/Plan Assessment: Stage III CKD - Unclear if proteinuric prior to this admission. Has ~1g of albumin protein. DDx for kidney disease would include hypertensive nephrosclerosis, obesity glomerulopathy, and 2/2 chronic NSAID use. Should rule out monoclonal protein. Reasonable at this point to send some serologies, get a renal U/S, and have her follow-up as an outpatient. MARGAUX - 2/2 contrast induced nephropathy. Cannot rule out undocumented intra-op hypotension (or at least relative hypotension). Improved. HTN - Labile. Had been getting IVF so at least in some part could be volume mediated. Is on BB which is being increased. Had been getting some hydralazine which she had been on in the past - reasonable to continue now although once or twice a day meds may be easier to take outside of the hospital. With her proteinuria, she should be on RAAS inhibition, but I would not start this until she's clinically stable - possibly after discharge. Suggestion: -Would stop IVF -Increase BB as you did; OK to uptitrate hydralazine as you are -Would hold off on starting diuretic and/or RAAS inhibition until clinically stable from an anemia perspective - may end up being close to or after discharge -Serum protein electropheresis, [place] lambda free light chains -Would check CHRIS, dsDNA, C3, C4, Hepatitis B panel, Hepatitis C panel -Non-urgent renal U/S for sizing -Would avoid NSAID's in future Pt can f/u with me in the office after discharge Will see PRN. Please call [phone] with ?'s Subjective Subjective: SCr down to 1.6 Some abd pain Had BM with some blood in it Hg 8.1 after transfusion Breathing labored on exertion; no new imaging; continued on IVF Objective Vital Signs and I&Os Vital Signs Date Time Temp Pulse Resp B/P Pulse O2 O2 Flow FiO2 Ox Delivery Rate 06/10 0800 95 Nasal 1.0L Cannula 06/10 0800 98.5 75 23 198/90 94 Nasal 1.0L Cannula 06/10 0752 79 212/83 06/10 0752 79 21206/10 0400 96 Nasal 1.0L Cannula 06/10 0000 93 Ventilator 40% 06/10 0000 98.3 83 20 180/88 93 Nasal 1.0L Cannula 06/09 2357 81 20 180/83 04/13 2055 80 20 190/90 06/09 2000 95 Nasal 1.0L Cannula 06/09 1928 74 183/67 06/09 1600 95 Nasal 1.0L Cannula 06/09 1600 99.0 74 18 148/62 95 Nasal 1.0L Cannula 06/09 1454 99.3 06/09 1338 100.4 06/09 1309 76 200/88 06/09 1229 67 193/87 06/09 1200 94 Nasal 1.0L Cannula Intake & Output 06/10 1600 06/10 0400 06/09 1600 06/09 0400 06/08 1600 06/08 0400 Intake Total 797 392 8399 1160 3573 1091 Output Total 5980 322 7286 400 Balance 439 808 139 009 9160 691 Intake, Blood 143 Product Intake, IV 914 536 4615 700 1453 1091 Intake, Oral 50 450 166 313 5294 Number 0 Bowel Movements Output, 50 Gastric Drainage Output, Urine 4750 592 9181 350 Physical Exam: Gen - NAD, pleasant HEENT - JVP elevated CV - RRR Chest - clear anteriorly Abd - soft Ext - no significant edema Neuro - AOX3 Current Medications: Current Medications Sig/Liv Start time Last Medication Dose Route Stop Time Status Admin Acetaminophen 1,000 MG Q6P PRN 06/07 1330 AC 06/09 N/A 1 UNIT IV 1338 Acetaminophen 650 MG Q6P PRN 06/06 0045 AC PO Benzocaine/Menthol 1 DIVYA Q2P PRN 06/07 2045 AC PO Bisacodyl 10 MG ONCE ONE 06/10 0945 CAN AK 06/10 0946 Heparin Sodium 5,000 UNIT Q8 06/07 1400 AC 06/10 (Porcine) SC 0544 Hydralazine HCl 25 MG TID 06/09 1830 AC 06/10 PO 0752 Hydralazine HCl 5 MG ONCE ONE 06/09 1315 DC 06/09 IV 06/09 1316 1309 Hydralazine HCl 5 MG ONCE ONE 06/09 1230 DC 06/09 IV 06/09 1231 1229 Levothyroxine Sodium 0.125 MG DAILY AC 06/06 0700 AC 06/10 PO 0656 Magnesium Oxide 400 MG ONE ONE 06/10 1045 DC PO 06/10 1046 Metoprolol Tartrate 50 MG BID 06/10 2200 AC PO Metoprolol Tartrate 25 MG BID 06/06 1000 DC 06/10 PO 0752 Morphine Sulfate 2 MG Q3P PRN 06/06 0045 AC 06/08 IV 2200 Morphine Sulfate 4 MG Q3P PRN 06/06 004 AC IV Omeprazole 40 MG DAILY AC 06/09 0700 AC 06/10 PO 0656 Ondansetron HCl 4 MG Q6P PRN 06/06 0045 AC IV Sodium Chloride 1,000 ML Q13H 06/08 1500 DC 06/10 IV 0546 Sodium Chloride 2 SPRAY Q4P PRN 06/06 1645 06/06 MILLA 1814 Results Pertinent Lab Results: Laboratory Tests 06/10 06/09 0459 1500 Chemistry Sodium (137 - 145 mmol/L) 136 L Potassium (3.5 - 5.1 mmol/L) 4.1 Chloride (98 - 107 mmol/L) 105 Carbon Dioxide (22 - 30 mmol/L) 24 Anion Gap (5 - 16) 7 BUN (7 - 17 mg/dL) 25 H Creatinine (0.5 - 1.0 mg/dL) 1.6 H Estimated GFR (>60 ml/min) 32 L Glucose (65 - 99 mg/dL) 96 Calcium (8.4 - 10.2 mg/dL) 8.2 L Phosphorus (2.5 - 4.5 mg/dL) 3.0 Magnesium (1.6 - 2.3 mg/dL) 1.8 Total Bilirubin (0.2 - 1.3 mg/dL) 0.9 AST (14 - 36 U/L) 14 ALT (9 - 52 U/L) 28 Albumin (3.5 - 5.0 g/dL) 2.2 L Hematology CBC w Diff NO MAN DIFF REQ Cancelled WBC (4.8 - 10.8 /CUMM) 10.8 Cancelled RBC (4.20 - 5.40 /CUMM) 2.86 L Cancelled Hgb (12.0 - 16.0 G/DL) 8.1 L Cancelled Hct (37 - 47 %) 24.4 L Cancelled MCV (81.0 - 99.0 FL) 85.2 Cancelled MCH (27.0 - 31.0 PG) 28.2 Cancelled RDW (11.5 - 14.5 %) 15.5 H Cancelled Plt Count (130 - 400 /CUMM) 267 Cancelled MPV (7.4 - 10.4 FL) 7.3 L Cancelled Gran % (42.2 - 75.2 %) 75.7 H Lymphocytes % (20.5 - 51.1 %) 13.3 L Monocytes % (1.7 - 9.3 %) 9.2 Eosinophils % (0 - 5 %) 1.5 Basophils % (0.0 - 2.0 %) 0.3 Absolute Granulocytes (1.4 - 6.5 /CUMM) 8.2 H Absolute Lymphocytes (1.2 - 3.4 /CUMM) 1.4 Absolute Monocytes (0.10 - 0.60 /CUMM) 1.0 H Absolute Eosinophils (0.0 - 0.7 /CUMM) 0.2 Absolute Basophils (0.0 - 0.2 /CUMM) 0 PUBS MCHC (33.0 - 37.0 G/DL) 33.1 Cancelled 06/09 06/08 0454 2040 Chemistry Sodium (137 - 145 mmol/L) 134 L Potassium (3.5 - 5.1 mmol/L) 4.1 Chloride (98 - 107 mmol/L) 104 Carbon Dioxide (22 - 30 mmol/L) 24 Anion Gap (5 - 16) 6 BUN (7 - 17 mg/dL) 30 H Creatinine (0.5 - 1.0 mg/dL) 1.8 H 1.8 H Estimated GFR (>60 ml/min) 28 L 28 L Glucose (65 - 99 mg/dL) 82 Calcium (8.4 - 10.2 mg/dL) 7.7 L Phosphorus (2.5 - 4.5 mg/dL) 3.5 Magnesium (1.6 - 2.3 mg/dL) 1.9 Total Bilirubin (0.2 - 1.3 mg/dL) 0.8 AST (14 - 36 U/L) 15 ALT (9 - 52 U/L) 33 Albumin (3.5 - 5.0 g/dL) 2.1 L Hematology CBC w Diff NO MAN DIFF REQ NO MAN DIFF REQ WBC (4.8 - 10.8 /CUMM) 9.5 11.6 H RBC (4.20 - 5.40 /CUMM) 2.60 L 2.72 L Hgb (12.0 - 16.0 G/DL) 7.3 *L 7.7 L Hct (37 - 47 %) 22.5 L 23.1 L MCV (81.0 - 99.0 FL) 86.5 85.2 MCH (27.0 - 31.0 PG) 28.0 28.5 RDW (11.5 - 14.5 %) 15.3 H 15.8 H Plt Count (130 - 400 /CUMM) 225 223 MPV (7.4 - 10.4 FL) 7.5 8.1 Gran % (42.2 - 75.2 %) 70.0 71.7 Lymphocytes % (20.5 - 51.1 %) 18.9 L 19.0 L Monocytes % (1.7 - 9.3 %) 8.0 6.9 Eosinophils % (0 - 5 %) 2.6 2.1 Basophils % (0.0 - 2.0 %) 0.5 0.3 Absolute Granulocytes (1.4 - 6.5 /CUMM) 6.7 H 8.3 H Absolute Lymphocytes (1.2 - 3.4 /CUMM) 1.8 2.2 Absolute Monocytes (0.10 - 0.60 /CUMM) 0.8 H 0.8 H Absolute Eosinophils (0.0 - 0.7 /CUMM) 0.3 0.2 Absolute Basophils (0.0 - 0.2 /CUMM) 0 0 PUBS MCHC (33.0 - 37.0 G/DL) 32.3 L 33.5 /12 12 06/08 1630 1455 1306 Chemistry Sodium (137 - 145 mmol/L) 134 L Potassium (3.5 - 5.1 mmol/L) 4.2 Chloride (98 - 107 mmol/L) 101 Carbon Dioxide (22 - 30 mmol/L) 25 Anion Gap (5 - 16) 7 BUN (7 - 17 mg/dL) 32 H Creatinine (0.5 - 1.0 mg/dL) 2.0 H Estimated GFR (>60 ml/min) 24 L Glucose (65 - 99 mg/dL) 112 H Calcium (8.4 - 10.2 mg/dL) 7.7 L Phosphorus (2.5 - 4.5 mg/dL) 3.5 Magnesium (1.6 - 2.3 mg/dL) 2.0 Total Bilirubin (0.2 - 1.3 mg/dL) 1.0 AST (14 - 36 U/L) 16 ALT (9 - 52 U/L) 29 Albumin (3.5 - 5.0 g/dL) 2.3 L Miscellaneous Ref Lab Test Result Pending Urines Ur Random Creatinine (mg/dL) 69.9 Ur Random Microalbumin (<1.7 mg/dl) 71.4 H Ur Random Sodium (30 - 90 mmol/L) 75 Ur Random Potassium (mmol/L) 17.0 Fraction Sodium Excret (<1% %) 1.6 H U Cystine/Creat Ratio (mcg/mg) 1021.45 06/08 06/08 1242 UNK Coagulation PT (9.4 - 12.5 SEC) 12.4 INR (0.90 - 1.19) 1.18 APTT (25 - 37 SEC) 28 Hematology CBC w Diff NO MAN DIFF REQ WBC (4.8 - 10.8 /CUMM) 12.8 H RBC (4.20 - 5.40 /CUMM) 2.81 L Hgb (12.0 - 16.0 G/DL) 7.9 L Hct (37 - 47 %) 24.0 L MCV (81.0 - 99.0 FL) 85.7 MCH (27.0 - 31.0 PG) 28.2 RDW (11.5 - 14.5 %) 15.6 H Plt Count (130 - 400 /CUMM) 237 MPV (7.4 - 10.4 FL) 6.9 L Gran % (42.2 - 75.2 %) 76.0 H Lymphocytes % (20.5 - 51.1 %) 14.7 L Monocytes % (1.7 - 9.3 %) 6.8 Eosinophils % (0 - 5 %) 1.9 Basophils % (0.0 - 2.0 %) 0.6 Absolute Granulocytes (1.4 - 6.5 /CUMM) 9.8 H Absolute Lymphocytes (1.2 - 3.4 /CUMM) 1.9 Absolute Monocytes (0.10 - 0.60 /CUMM) 0.9 H Absolute Eosinophils (0.0 - 0.7 /CUMM) 0.2 Absolute Basophils (0.0 - 0.2 /CUMM) 0.1 PUBS MCHC (33.0 - 37.0 G/DL) 32.9 L Urines Urine Total Volume Cancelled Ur Total Protein 24 Hr Cancelled 06/08 0405 Chemistry Sodium (137 - 145 mmol/L) 134 L Potassium (3.5 - 5.1 mmol/L) 4.3 Chloride (98 - 107 mmol/L) 103 Carbon Dioxide (22 - 30 mmol/L) 26 Anion Gap (5 - 16) 5 BUN (7 - 17 mg/dL) 32 H Creatinine (0.5 - 1.0 mg/dL) 1.9 H Estimated GFR (>60 ml/min) 26 L Glucose (65 - 99 mg/dL) 86 Calcium (8.4 - 10.2 mg/dL) 7.7 L Phosphorus (2.5 - 4.5 mg/dL) 3.4 Magnesium (1.6 - 2.3 mg/dL) 2.0 Total Bilirubin (0.2 - 1.3 mg/dL) 0.8 AST (14 - 36 U/L) 15 ALT (9 - 52 U/L) 27 Albumin (3.5 - 5.0 g/dL) 2.1 L Hematology CBC w Diff NO MAN DIFF REQ WBC (4.8 - 10.8 /CUMM) 13.8 H RBC (4.20 - 5.40 /CUMM) 2.68 L Hgb (12.0 - 16.0 G/DL) 7.6 L Hct (37 - 47 %) 23.0 L MCV (81.0 - 99.0 FL) 85.6 MCH (27.0 - 31.0 PG) 28.4 RDW (11.5 - 14.5 %) 15.7 H Plt Count (130 - 400 /CUMM) 210 MPV (7.4 - 10.4 FL) 8.0 Gran % (42.2 - 75.2 %) 76.8 H Lymphocytes % (20.5 - 51.1 %) 15.0 L Monocytes % (1.7 - 9.3 %) 6.4 Eosinophils % (0 - 5 %) 1.4 Basophils % (0.0 - 2.0 %) 0.4 Absolute Granulocytes (1.4 - 6.5 /CUMM) 10.6 H Absolute Lymphocytes (1.2 - 3.4 /CUMM) 2.1 Absolute Monocytes (0.10 - 0.60 /CUMM) 0.9 H Absolute Eosinophils (0.0 - 0.7 /CUMM) 0.2 Absolute Basophils (0.0 - 0.2 /CUMM) 0.1 PUBS MCHC (33.0 - 37.0 G/DL) 33.1 Imaging/Other Studies: CTA 06/05 IMPRESSION: 1. Extensive predominantly right hemiabdomen, right hemipelvic intraperitoneal as well as retroperitoneal extraluminal air identified, consistent with hollow viscus perforation. Although the exact site of perforation is not evident on these images, given the patient's recent history of right-sided colonoscopic polypectomy, possibly arising from the right-sided colon at the site of polypectomy. Please correlate with endoscopic findings. 2. No CT evidence of acute GI hemorrhage. 3. Surgical consultation is recommended. TTE 06/05 CONCLUSIONS Normal size left ventricle. Severe concentric left ventricular hypertrophy. No obvious regional wall motion abnormalities. Normal left ventricular ejection fraction visually estimated at > 60%. Abnormal relaxation filling pattern of the left ventricle for age (stage 1 diastolic dysfunction). Mildly increased left ventricular outflow tract velocity (1.3 m/s). Normal right ventricular size and function. Normal atrial size. Mild mitral regurgitation. Mild aortic regurgitation. Trace tricuspid regurgitation. Right ventricular systolic pressure estimated at 33 mmHg. Trace/mild pulmonic regurgitation. Dilated inferior vena cava.
--- NOTE | 2016-06-10 11:42 | Event Note ---
Event Note Event Note: Patient reports pain in the epigaster after two episodes of bowel movement, reports nausea and bloating. Stool is guaiac Positive but brown in color, nonbloody. She has become tachycardic to 90s and BP remains high, maximum systolic of 218. She appears short of breath but saturating >92% on 1L NC. In the exam patient has epigastric tenderness and abdominal distention. Lungs are clear to auscultation. Surgery is updated regrading the patient's status and suggested abdominal xray. Patient's BP has also been elevated today, we increased metoprolol dose to 50 mg BID and hydralazine 25 mg TID. She is post-op day after colonoscopy followed by a right hemicolectomy Plan: 1- NPO 2- Abdominal xray 3- additional dose of hydralazine IV 10 mg once Update: Xray showed significant amount of intraperitoneal and presumed retroperitoneal air are noted. Dr. Villalobos, surgery, evaluated the patient and reviewed imaging, reported that the amount of air seen in the abdomen in the current image is increased compared to her post-op imaging and there is a possibility of anastomose leak. Stated that the patient needs to go to the OR for exploratory laparotomy and a temporary ostomy; however family members refused and requested that the patient get transferred to [facility].
--- NOTE | 2016-06-10 12:34 | PN- Cardiology ---
Subjective Subjective: Uncomfortable. Admits to abdominal discomfort. Denies any chest discomfort, palpitations, shortness of breath, or lower extremity discomfort. Objective Vital Signs and I&Os Vital Signs Date Time Temp Pulse Resp B/P Pulse O2 O2 Flow FiO2 Ox Delivery Rate 06/10 1204 100 200/93 06/10 1200 95 Nasal 1.0L Cannula 06/10 0800 95 Nasal 1.0L Cannula 06/10 0800 98.5 75 23 198/90 94 Nasal 1.0L Cannula 06/10 0752 79 212/83 06/10 0752 79 212/83 06/10 0400 96 Nasal 1.0L Cannula 06/10 0000 93 Ventilator 40% 06/10 0000 98.3 83 20 180/88 93 Nasal 1.0L Cannula 06/09 2357 81 20 180/83 06/09 2055 80 20 190/90 06/09 2000 95 Nasal 1.0L Cannula 06/09 1928 74 183/67 06/09 1600 95 Nasal 1.0L Cannula 06/09 1600 99.0 74 18 148/62 95 Nasal 1.0L Cannula 06/09 1454 99.3 06/09 1338 100.4 06/09 1309 76 200/88 06/09 1229 67 193/87 Intake & Output 06/10 1600 06/10 0800 06/10 0000 06/09 1600 06/09 0800 06/09 0000 Intake Total 601 383 8604 1044 1160 Output Total 550 790 320 Balance 439 808 651 254 840 Intake, Blood 143 Product Intake, IV 389 358 458 984 700 Intake, Oral 50 450 600 60 460 Output, Urine 550 790 320 Current Medications: Current Medications Sig/Liv Start time Last Medication Dose Route Stop Time Status Admin Acetaminophen 1,000 MG Q6P PRN 06/07 1330 AC 06/09 N/A 1 UNIT IV 1338 Acetaminophen 650 MG Q6P PRN 06/06 0045 AC PO Benzocaine/Menthol 1 DIVYA Q2P PRN 06/07 2045 AC PO Bisacodyl 10 MG ONCE ONE 06/10 0945 CAN GA 06/10 0946 Heparin Sodium 5,000 UNIT Q8 06/07 1400 AC 06/10 (Porcine) SC 0544 Hydralazine HCl 10 MG ONCE ONE 06/10 1200 DC 06/10 IV 06/10 1201 1204 Hydralazine HCl 25 MG TID 06/09 1830 AC 06/10 PO 0752 Hydralazine HCl 5 MG ONCE ONE 06/09 1315 DC 06/09 IV 06/09 1316 1309 Hydralazine HCl 5 MG ONCE ONE 06/09 1230 DC 06/09 IV 06/09 1231 1229 Labetalol HCl 10 MG ONCE ONE 06/10 1200 CAN IV 06/10 1201 Levothyroxine Sodium 0.125 MG DAILY AC 06/06 0700 AC 06/10 PO 0656 Magnesium Oxide 400 MG ONE ONE 06/10 1045 DC PO 06/10 1046 Metoprolol Tartrate 50 MG BID 06/10 2200 AC PO Metoprolol Tartrate 25 MG BID 06/06 1000 DC 06/10 PO 0752 Morphine Sulfate 2 MG Q3P PRN 06/06 0045 AC 06/10 IV 1203 Morphine Sulfate 4 MG Q3P PRN 06/06 0045 AC IV Omeprazole 40 MG DAILY AC 06/09 0700 AC 06/10 PO 0656 Ondansetron HCl 4 MG Q6P PRN 06/06 0045 AC IV Sodium Chloride 1,000 ML Q13H 06/08 1500 DC 06/10 IV 0546 Sodium Chloride 2 SPRAY Q4P PRN 06/06 1645 AC 06/06 MILLA 1814 Results Last 48 Hrs of Labs/Mics: Laboratory Tests 06/10/16 0459: Anion Gap 7, Estimated GFR 32 L, Glucose 96, Calcium 8.2 L, Phosphorus 3.0, Magnesium 1.8, Total Bilirubin 0.9, AST 14, ALT 28, Albumin 2.2 L, CBC w Diff NO MAN DIFF REQ, RBC 2.86 L, MCV 85.2, MCH 28.2, RDW 15.5 H, MPV 7.3 L, Gran % 75.7 H, Lymphocytes % 13.3 L, Monocytes % 9.2, Eosinophils % 1.5, Basophils % 0.3, Absolute Granulocytes 8.2 H, Absolute Lymphocytes 1.4, Absolute Monocytes 1.0 H, Absolute Eosinophils 0.2, Absolute Basophils 0, PUBS MCHC 33.1 06/09/16 1500: CBC w Diff Cancelled, WBC Cancelled, RBC Cancelled, Hgb Cancelled, Hct Cancelled , MCV Cancelled, MCH Cancelled, RDW Cancelled, Plt Count Cancelled, MPV Cancelled, PUBS MCHC Cancelled 06/09/16 0454: Anion Gap 6, Estimated GFR 28 L, Glucose 82, Calcium 7.7 L, Phosphorus 3.5, Magnesium 1.9, Total Bilirubin 0.8, AST 15, ALT 33, Albumin 2.1 L, CBC w Diff NO MAN DIFF REQ, RBC 2.60 L, MCV 86.5, MCH 28.0, RDW 15.3 H, MPV 7.5, Gran % 70.0, Lymphocytes % 18.9 L, Monocytes % 8.0, Eosinophils % 2.6, Basophils % 0.5 , Absolute Granulocytes 6.7 H, Absolute Lymphocytes 1.8, Absolute Monocytes 0.8 H, Absolute Eosinophils 0.3, Absolute Basophils 0, [facility] MCHC 32.3 L 06/08/16 2040: Estimated GFR 28 L, CBC w Diff NO MAN DIFF REQ, RBC 2.72 L, MCV 85.2, MCH 28.5 , RDW 15.8 H, MPV 8.1, Gran % 71.7, Lymphocytes % 19.0 L, Monocytes % 6.9, Eosinophils % 2.1, Basophils % 0.3, Absolute Granulocytes 8.3 H, Absolute Lymphocytes 2.2, Absolute Monocytes 0.8 H, Absolute Eosinophils 0.2, Absolute Basophils 0, [facility] MCHC 33.5 06/08/16 1630: Ur Random Creatinine 69.9, Ur Random Microalbumin 71.4 H, Ur Random Sodium 75, Ur Random Potassium 17.0, Fraction Sodium Excret 1.6 H, U Cystine/Creat Ratio 1021.45 06/08/16 1455: Ref Lab Test Result REPORT, Ref Lab Test Result Pending 06/08/16 1306: Anion Gap 7, Estimated GFR 24 L, Glucose 112 H, Calcium 7.7 L, Phosphorus 3.5 , Magnesium 2.0, Total Bilirubin 1.0, AST 16, ALT 29, Albumin 2.3 L 06/08/16 1242: PT 12.4, INR 1.18, APTT 28, CBC w Diff NO MAN DIFF REQ, RBC 2.81 L, MCV 85.7, MCH 28.2, RDW 15.6 H, MPV 6.9 L, Gran % 76.0 H, Lymphocytes % 14.7 L, Monocytes % 6.8, Eosinophils % 1.9, Basophils % 0.6, Absolute Granulocytes 9.8 H, Absolute Lymphocytes 1.9, Absolute Monocytes 0.9 H, Absolute Eosinophils 0.2 , Absolute Basophils 0.1, PUBS MCHC 32.9 L Assessment/Plan Assessment/Plan Mrs. Barton is an elderly female with a history of morbid obesity, ONIEL w/o CPAP, long-standing tobacco use, HTN, thyroid cancer s/p resection and subsequent hypothyroidism, CKD, chronic anemia, and GERD who presented to the ED on 08/2016 with a c/o BRBPR on a background of known diverticular disease. She underwent a colonoscopy on 06/05/2016 with findings c/w a resolving sigmoid diverticular bleed without any active bleeding appreciated, 3 diminutive ascending colon polyps s/p removal via cold biopsy forceps, & small internal hemorrhoids. She remained hemodynamically stable early post-procedure, but then passed BRBPR and subsequently began having abdominal pain and was discovered to have had a colonic perforation requiring emergency exploratory laparotomy with right hemicolectomy. As a result of a drop in her H/H (7.3/22.5) she was to be transfused an additional unit of packed cells, but had what was felt to be a transfusion reaction and the transfusion was stopped after only half the unit was given. Blood pressure was elevated yesterday and her outpatient hydralazine 25 mg 3 times daily was restarted and her metoprolol 25 mg twice daily increased to 50 mg twice daily. This morning she remaind hypertensive and mildly tachycardic, likely secondary to her abdominal pain, and required hydralazine 10 mg IV 1. We are awaiting abdominal films. In the meantime, would use IV metoprolol 2.5-5.0 mg to help control her blood pressure and heart rate. Her H/H today stable at 8.1/24.4 and her renal function improved with BUN/ creatinine 25/1.6. Her potassium and magnesium were acceptable. Continue telemetry? Yes (monitor for bradycardia.)
--- NOTE | 2016-06-10 14:51 | RADIOLOGY REPORT ---
EXAMINATION: XR ABDOMEN MULTIPLE VIEWS. CLINICAL INDICATION: 75-year-old female presented with abdominal pain, tenderness, nausea. CT of the abdomen and pelvis done on 06/05/2016, showed extensive predominantly right hemiabdomen, right hemipelvic intraperitoneal as well as retroperitoneal extraluminal air consistent with a viscus perforation. Patient is currently status post right-sided colectomy, postop day 5. COMPARISON: CT of the abdomen and pelvis done on 06/05/2016. TECHNIQUE: Frontal view of the abdomen and pelvis. FINDINGS: Significant amount of free intraperitoneal, as well as apparent retroperitoneal air are identified. Given the patient history of recent right-sided colectomy, postop day 5, the findings may represent postsurgical changes. Close follow-up imaging surveillance is recommended for further clarification. IMPRESSION: Significant amount of intraperitoneal and presumed retroperitoneal air are noted, may represent postsurgical change given the patient history of right-sided colectomy, postop day 5. Close follow-up imaging surveillance is recommended for further clarification. This critical result was discussed with Rosa Altman MD at 1:28 PM on 06/10/2016 and it was ascertained that the content and urgency of the report was understood at the time of direct communication.
--- NOTE | 2016-06-10 15:44 | ULTRASOUND REPORT ---
EXAMINATION: US RETROPERITONEAL COMPLETE (RENAL) CLINICAL INFORMATION: 75-year-old female with proteinuria. Assess size of the kidneys.. COMPARISON: CT of the abdomen and pelvis done on 06/05/2016. TECHNIQUE: Real-time imaging of the kidneys and bladder. FINDINGS: Slightly technically limited study due to patient's body habitus. RIGHT KIDNEY: 9.9 x 4.9 x 5.2 cm (SAG x AP x TRV). The kidney is normal in size, contour, and echogenicity. Renal cortical thickness is normal. No calculi or focal parenchymal lesions. No hydronephrosis. LEFT KIDNEY: 11.3 x 6.3 x 4.7 cm (SAG x AP x TRV). The kidney is normal in size, contour, and echogenicity. Renal cortical thickness is normal. No calculi or focal parenchymal lesions. No hydronephrosis. There is a 2.9 x 2.5 x 3.1 cm cortical cyst present at the inferior pole and 3.8 x 3.0 x 2.8 cm cyst at the superior pole. BLADDER: Well-distended and normal. Bilateral ureteral jets are demonstrated. IMPRESSION: Bilateral normal size kidneys with no evidence of hydronephrosis and/or calculi. Left renal cortical cysts.
[2016-06-10 16:00] VITALS: BP 161/74
--- NOTE | 2016-06-10 16:00 | Patient Discharge Instructions ---
Discharge Instructions General Discharge Information You were seen/treated for: Stabilized Lower GI bleed/blood loss anemia Bowel perforation status post resection Special Instructions: Pt has been transfered to [place] per pt and family request . Diet Recommended Diet: NPO Activity Activity Self Limited: Yes Acute Coronary Syndrome Inclusion Criteria At DC or during hospital stay patient has or had the following: ACS DIAGNOSIS No Discharge Core Measures Meds if any: Prescribed or Continued at Discharge Meds if any: NOT Prescribed or Continued at Discharge Congestive Heart Failure Inclusion Criteria At DC or during hospital stay patient has or had the following: CHF DIAGNOSIS No Discharge Core Measures Meds if any: Prescribed or Continued at Discharge Meds if any: NOT Prescribed or Continued at Discharge Cerebrovascular accident Inclusion Criteria At DC or during hospital stay patient has or had the following: CVA/TIA Diagnosis No Discharge Core Measures Meds if any: Prescribed or Continued at Discharge Meds if any: NOT Prescribed or Continued at Discharge Venous thromboembolism Inclusion Criteria VTE Diagnosis No VTE Type NONE VTE Confirmed by (Test) NONE Discharge Core Measures - Per Current guidelines, there needs to be overlap - treatment for the first 5 days of Warfarin therapy. - If discharged on Warfarin prior to 5 days of - overlap therapy, the patient will need to be - assessed for post discharge needs including - *Post discharge parental anticoagulation - *Warfarin and/or parental anticoagulation education - *Follow up date to check INR post discharge At least 5 days overlap therapy as Inpatient No Meds if any: Prescribed or Continued at Discharge Note: Overlap Therapy is Warfarin and Anticoagulant Meds if any: NOT Prescribed or Continued at Discharge
--- NOTE | 2016-06-10 16:18 | Discharge Summary ---
See Addendum Visit Information Visit Dates Admission Date: 06/03/16 Discharge Date: 06/10/16 Hospital Course Course Attending Physician: SANJU ROBBINS,OSMEL Primary Care Physician: KIRILL ROBBINS,[facility] Course: 75-year-old morbidly obese female with PMH of hypertension, hypothyroidism s/p thyroidectomy, chronic pain, gastroesophageal reflux disease, current smoker, nonalcoholic came in with chief complain of bright red blood per rectum. Hb was 10.3 on admission, which is her baseline. Pt continued to have frankly bloody bowel movement, hence colonoscopy was pursued. Her hemoglobin remained stable. Pt had colonoscopy 06/05/16, findings consistent with a resolving sigmoid diverticular bleed without any active bleeding, 3 diminutive ascending colon polyps s/p removal via cold biopsy forceps, & small internal hemorrhoids. Initially was doing well, but after about 4 hours, had BM with about 500 ml of blood clot, 1 PRBC was given. CTA indicated perforation and Pt was taken to OR for exploratory laparotomy on the same night on 06/08/16, right colectomy was done with anastomosis of ileum with transverse colon. Post-op, she remained intubated in the ICU, but sedation was discontinued overnight, and patient remained calm. Pt was successfully extubated the next day. A line removed. Patient was kept NPO until 06/08/16 and diet was gradually advanced to regular on 06/09/16. Patient's had two bowel movements this morning on 06/10/16 after which she complained of severe epigastric pain and difficulty breathing. Abdominal Xray was performed this pm which showed significant amount of intraperitoneal and presumed retroperitoneal air. Surgery evaluated the patient and recommended laparotomy; the family and the patient refused the surgery and requested to be transferred to [place]. Additional active ICU issues: 1. High blood pressure 2. Acute blood loss anemia - received total of 2 units of blood during this hospital course 3. Impaired kidney function - possibly contrast induced - improved to 1.6 Respiratory Intubated for exploratory laparotomy 06/05/16. Extubated on 06/06/2016. currently no issues, lung exam clear, no coughs or SOB. ID WBC went up to 19.4 after colonoscopy. She was given 3 g IV Unasyn until 1 day postop, now off antibiotics. WBC is trending down and pt has not had any fevers. watched off antibiotics. Cardiovascular Hypertensive urgency - BP was elevated overnight and this am Pt sees folder tier at [place], recently had stress test that pt reports as normal * Increased metoprolol 25 mg to 50 mg BID, hctz on hold due to elevated Cr * started TID hydralazine * If BP remain elevated, can administer IV metoprolol Hematology -Acute blood loss anemia due to GI bleed * HB 10.3 on admission (baseline 10.5) * Pt had 1 PRBC transfusion 06/05/16 after large bloody bm post colonoscopy ( without checking CBC) * Slight drop in H/H, on 06/09/16 received 1 unit pRBC, H/H 8.1/24.4, had chills during transfusion and Temp went up to 100.4 * Held aspirin and NSAIDs Endocrine -Hyperglycemia on admission - resolved * BS was 253 on 06/05/16 * Placed on novolin (as NPO), on d51/2 ns at 75ml/hr. Will change to novolog ss once patient resumes diet post extubation. - Hypothyroidism s/p thyroidectomy for thyroid cancer, Tsh and free t4 WNL * Continued levothyroxine 125mcg daily. 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 * Cr went up from 1.4 to 1.6 after CTA 06/05/16, max 2.0 , most likely due to contrast induced, today further improved to 1.6 * Avoid nsaids, even on discharge, patient takes 3 to 5 every week for long time * HCTZ on hold * Nephrology recommended work up for proteinuria, labs are ordered, patient can follow up outpatient with nephrology Alimentary - GI bleed, most likely diverticular bleed given her hx of diverticulitis * Last colonoscopy 6 years ago, told to come back in 10 years * Continued PPI * Hold aspirin, ibuprofen * Advanced diet to regular today, made NPO later in the day as the patient developed abdominal pain. Neuro - No issues Diet: NPO DVT ppx: alps, no pharm due to GI bleed FULL CODE Allergies: Coded Allergies: lactose (DIARRHEA 06/08/16) Significant Procedures: SERVICE DATE: 06/05/16- EXAM TYPE: CARD - ECHOCARDIOGRAM SIRENA CELESTIN Age: 75 : 1940 Gender: F Exam Date: 06/05/2016 08:18 Exam Location: [facility] Ht (in): 64 Wt (lb): 283 BSA: 2.49 BP: 175 / 71 Ordering Physician: LUX CLARK MD Referring Physician: Dottie Escoto MD Technologist: Sheri Morales LOGAN Room Number: 108 Indications: HYPERTENSION Rhythm: Sinus Technical Quality: Fair FINDINGS Left Ventricle Normal size left ventricle. Severe concentric left ventricular hypertrophy. No obvious regional wall motion abnormalities. Normal left ventricular ejection fraction visually estimated at >60%. Abnormal relaxation filling pattern of the left ventricle for age (stage 1 diastolic dysfunction). Mildly increased left ventricular outflow tract velocity (1.3 m/s). Right Ventricle Normal right ventricular size and function. Right Atrium Normal right atrial size. Left Atrium Normal left atrial size. Mitral Valve Mild mitral annular calcification. Mitral valve mildly thickened. Mild mitral regurgitation. Aortic Valve Trileaflet aortic valve. Minimal aortic sclerosis. No hemodynamically significant aortic stenosis. Mild aortic regurgitation. Tricuspid Valve Structurally normal tricuspid valve. Trace tricuspid regurgitation. Right ventricular systolic pressure estimated at 33 mmHg. Pulmonic Valve Pulmonic valve not well visualized, grossly normal. Trace/mild pulmonic regurgitation Pericardium No pericardial effusion. Great Vessels Normal size aortic root. Dilated inferior vena cava. CONCLUSIONS Normal size left ventricle. Severe concentric left ventricular hypertrophy. No obvious regional wall motion abnormalities. Normal left ventricular ejection fraction visually estimated at > 60%. Abnormal relaxation filling pattern of the left ventricle for age (stage 1 diastolic dysfunction). Mildly increased left ventricular outflow tract velocity (1.3 m/s). Normal right ventricular size and function. Normal atrial size. Mild mitral regurgitation. Mild aortic regurgitation. Trace tricuspid regurgitation. Right ventricular systolic pressure estimated at 33 mmHg. Trace/mild pulmonic regurgitation. Dilated inferior vena cava. Dottie Escoto M.D. (Electronically Signed) Final Date: 05 June 2016 23:14 MEASUREMENTS (Male / Female) Normal Values 2D ECHO LV Diastolic Diameter PLAX 4.6 cm 4.2 - 5.9 / 3.9 - 5.3 cm LV Systolic Diameter PLAX 3.1 cm 2.1 - 4.0 cm LV Fractional Shortening PLAX 32.6 % 25 - 46 % LV Ejection Fraction 2D Teich 61.0 % IVS Diastolic Thickness 1.7 cm LVPW Diastolic Thickness 1.7 cm LV Relative Wall Thickness 0.7 RV Internal Dim ED PLAX 3.1 cm 1.9 - 3.8 cm LVOT Diameter 2.0 cm Aortic Root Diameter 3.2 cm LA Systolic Diameter LX 4.1 cm 3.0 - 4.0 / 2.7 - 3.8 cm LA Volume 46.0 cm 18 - 58 / 22 - 52 cm Ascending Aorta Diameter 3.3 cm DOPPLER AV Peak Velocity 181.0 cm/s AV Peak Gradient 13.1 mmHg AV Mean Velocity 125.0 cm/s AV Mean Gradient 7.0 mmHg AV Velocity Time Integral 45.9 cm LVOT Peak Velocity 132.0 cm/s LVOT Peak Gradient 7.0 mmHg LVOT Mean Velocity 93.3 cm/s LVOT Mean Gradient 4.0 mmHg LVOT Velocity Time Integral 34.4 cm LVOT Stroke Volume 108.1 cm AV Area Cont Eq vti 2.4 cm AV Area Cont Eq pk 2.3 cm MV Peak Velocity 134.0 cm/s MV Peak Gradient 7.2 mmHg MV Mean Velocity 71.8 cm/s MV Mean Gradient 2.0 mmHg Mitral E Point Velocity 88.8 cm/s Mitral A Point Velocity 113.0 cm/s Mitral E to A Ratio 0.8 MV PHT Velocity 113.0 cm/s MV Deceleration [place] 440.0 cm/s MV Pressure Half Time 77.0 ms MV Area PHT 2.9 cm MV Deceleration Time 299.0 ms TR Peak Velocity 266.0 cm/s TR Peak Gradient 28.3 mmHg Right Atrial Pressure 5.0 mmHg Pulmonary Artery Systolic Pressu 33.3 mmHg Right Ventricular Systolic Press 33.3 mmHg PV Peak Velocity 123.0 cm/s PV Peak Gradient 6.1 mmHg PV Mean Velocity 79.6 cm/s PV Mean Gradient 3.0 mmHg PV Velocity Time Integral 31.7 cm LV E' Lateral Velocity 4.7 cm/s Mitral E to LV E' Lateral Ratio 19.0 LV E' Septal Velocity 6.1 cm/s Mitral E to LV E' Septal Ratio 14.5 DICTATED BY: DOTTIE ESCOTO MD DATE/TIME DICTATED:06/05/162313 STORE GIFT WRAP ASSOCIATE:KERRY DATE/TIME TRANSCRIBED:06/05/162313 SERVICE DATE: 06/05/16 EXAM TYPE: CAT - CT ABD & PELVIS ANGIOGRAM EXAMINATION: CT ANGIOGRAM ABDOMEN AND PELVIS CLINICAL INFORMATION: A 75-year-old female presented with GI bleed following recent colonoscopic polyp removal. COMPARISON: None. TECHNIQUE: Multiple axial images were obtained through the abdomen and pelvis before, and after the administration of 100 mL of Optiray 320 intravenous contrast. Images were reviewed on a dedicated 3-D workstation. DLP: 2072.66 mGy-cm. FINDINGS: There is a large amount of free intraperitoneal air and significant amount of right-sided retroperitoneal air present, consistent with a hollow viscus perforation. Although the exact site of perforation cannot be definitely identified, given the patient's history of recent right-sided colonoscopic polypectomy, possibly arising from the right-sided colon, at the site of polypectomy. There is no CT evidence of any GI bleed identified. Moderate-sized hiatal hernia is noted. The small bowel loops are decompressed. Extensive colonic diverticulosis related changes are noted predominantly within the sigmoid and descending colon. The liver, biliary tree, pancreas, spleen, both adrenals are unremarkable. The gallbladder is not visualized, presumably surgically absent. There is an exophytic cortical renal cyst present at the superior as well as inferior pole of the left kidney, otherwise both kidneys are unremarkable. Atherosclerotic changes are noted within the aorta and its branches. There is no pelvic mass present. There is no free fluid identified. The urinary bladder is unremarkable. No suspicious lytic or sclerotic abnormality. IMPRESSION: 1. Extensive predominantly right hemiabdomen, right hemipelvic intraperitoneal as well as retroperitoneal extraluminal air identified, consistent with hollow viscus perforation. Although the exact site of perforation is not evident on these images, given the patient's recent history of right-sided colonoscopic polypectomy, possibly arising from the right-sided colon at the site of polypectomy. Please correlate with endoscopic findings. 2. No CT evidence of acute GI hemorrhage. 3. Surgical consultation is recommended. This critical result was discussed with Dr. Yamini Reynaga at 5:47 PM on 06/05/2016 and it was ascertained that the content and urgency of the report was understood at the time of direct communication. DICTATED BY: ZAKIYA CURRY MD DATE/TIME DICTATED:06/05/161729 STORE GIFT WRAP ASSOCIATE:KERRY DATE/TIME TRANSCRIBED:06/05/161729 SERVICE DATE: 06/05/161735 EXAM TYPE: RAD - XRY-PORTABLE CHEST XRAY EXAMINATION: CHEST 1 VIEW CLINICAL INFORMATION: Intubated. COMPARISON: Abdominal and pelvic CT from 06/05/2016. TECHNIQUE: An AP view of the chest is provided. FINDINGS: The cardiac silhouette is enlarged. There is retrocardiac opacification. An endotracheal tube has been placed. The tip is directed towards the right mainstem bronchus. Retraction by approximately 3 cm is recommended. A right central venous line is in place. The tip extends into the upper left hemithorax, likely within the left subclavian vein. An enteric tube is in place. The tip extends into the left upper quadrant, likely within the stomach. There is left perihilar infiltration. The osseous structures are unremarkable. IMPRESSION: Lines and tubes in place as stated above. Right mainstem intubation. Retraction of the endotracheal tube by approximately 3 cm is recommended. Placement of a right central venous line. Tip extends into the left subclavian vein. Repositioning is recommended. Cardiomegaly with retrocardiac opacification and left perihilar infiltration. The aforementioned was discussed with Dr. Altman at 0111 hours. DICTATED BY: EDITH MESA MD DATE/TIME DICTATED:06/06/16107 STORE GIFT WRAP ASSOCIATE:KERRY DATE/TIME TRANSCRIBED:06/06/16107 SERVICE DATE: 06/06/16 EXAM TYPE: RAD - XRY-PORTABLE CHEST XRAY EXAMINATION: XR PORTABLE CHEST CLINICAL INFORMATION: Follow-up intubation. COMPARISON: CXR from 06/05/2016 TECHNIQUE: Portable AP view of the chest was obtained. FINDINGS: Lungs are hypoinflated resulting in crowding of bronchovascular structures in the bases. Probable atelectasis in the retrocardiac region of the left lower lobe. No pneumothorax. Endotracheal tube is now 2.2 cm above the de. Enteric tube extends below the diaphragm and into the stomach. The right IJ central line has been adjusted and its tip is now located in the region of junction of the SVC with the azygos vein. Cardiac silhouette is normal in size. No acute osseous findings. IMPRESSION: - Endotracheal tube tip is now 2.2 cm above the de. - Right IJ central line has been adjusted and its tip is now located in the proximal SVC. DICTATED BY: KAROLINA SCHUMACHER MD DATE/TIME DICTATED:06/06/16803 STORE GIFT WRAP ASSOCIATE:KERRY DATE/TIME TRANSCRIBED:06/06/1604 SERVICE DATE: 06/10/16- EXAM TYPE: RAD - OGD-[id number]-TJPPSNIZ VIEWS EXAMINATION: XR ABDOMEN MULTIPLE VIEWS. CLINICAL INDICATION: 75-year-old female presented with abdominal pain, tenderness, nausea. CT of the abdomen and pelvis done on 06/05/2016, showed extensive predominantly right hemiabdomen, right hemipelvic intraperitoneal as well as retroperitoneal extraluminal air consistent with a viscus perforation. Patient is currently status post right-sided colectomy, postop day 5. COMPARISON: CT of the abdomen and pelvis done on 06/05/2016. TECHNIQUE: Frontal view of the abdomen and pelvis. FINDINGS: Significant amount of free intraperitoneal, as well as apparent retroperitoneal air are identified. Given the patient history of recent right-sided colectomy, postop day 5, the findings may represent postsurgical changes. Close follow-up imaging surveillance is recommended for further clarification. IMPRESSION: Significant amount of intraperitoneal and presumed retroperitoneal air are noted, may represent postsurgical change given the patient history of right-sided colectomy, postop day 5. Close follow-up imaging surveillance is recommended for further clarification. This critical result was discussed with Rosa Altman MD at 1:28 PM on 06/10/2016 and it was ascertained that the content and urgency of the report was understood at the time of direct communication. DICTATED BY: ZAKIYA CURRY MD DATE/TIME DICTATED:06/10/161417 STORE GIFT WRAP ASSOCIATE:KERRY DATE/TIME TRANSCRIBED:06/10/161417 SERVICE DATE: 06/10/16- EXAM TYPE: US - US-RENAL/KIDNEY EXAMINATION: US RETROPERITONEAL COMPLETE (RENAL) CLINICAL INFORMATION: 75-year-old female with proteinuria. Assess size of the kidneys.. COMPARISON: CT of the abdomen and pelvis done on 06/05/2016. TECHNIQUE: Real-time imaging of the kidneys and bladder. FINDINGS: Slightly technically limited study due to patient's body habitus. RIGHT KIDNEY: 9.9 x 4.9 x 5.2 cm (SAG x AP x TRV). The kidney is normal in size, contour, and echogenicity. Renal cortical thickness is normal. No calculi or focal parenchymal lesions. No hydronephrosis. LEFT KIDNEY: 11.3 x 6.3 x 4.7 cm (SAG x AP x TRV). The kidney is normal in size, contour, and echogenicity. Renal cortical thickness is normal. No calculi or focal parenchymal lesions. No hydronephrosis. There is a 2.9 x 2.5 x 3.1 cm cortical cyst present at the inferior pole and 3.8 x 3.0 x 2.8 cm cyst at the superior pole. BLADDER: Well-distended and normal. Bilateral ureteral jets are demonstrated. IMPRESSION: Bilateral normal size kidneys with no evidence of hydronephrosis and/or calculi. Left renal cortical cysts. DICTATED BY: ZAKIYA CURRY MD DATE/TIME DICTATED:06/10/161515 STORE GIFT WRAP ASSOCIATE:KERRY DATE/TIME TRANSCRIBED:06/10/161515 Disposition Summary Disposition Principal Diagnosis: Lower GI bleed Status post colonoscopy and right hemicolectomy following colonoscopy perforation New onset epigastric pain with intraperitoneal air, requiring laparatomy Additional Diagnosis: hypertension, hypothyroidism s/p thyroidectomy, chronic pain, gastroesophageal reflux disease, current smoker Discharge Disposition: other general hospital Discharge Instructions General Discharge Information Code Status: Full Code Patient's Diet: NPO Patient's Activity: as tolerated Follow-Up Instructions/Appts: Patient will be transferred to [place]. Medications at Discharge Discharge Medications: Stop taking the following medications: Aspirin/Calcium Carbonate (Nanette Women's Aspirin Tablet) 81 MG-300 MG CALCIUM ( 777 MG) TABLET ORAL DAILY Ibuprofen (Advil) 100 MG TABLET ORAL NEEDED as needed for PAIN Continue taking these medications: Levothyroxine Sodium (Synthroid) 125 MCG TABLET 125 Microgram ORAL DAILY Metoprolol Tartrate (Lopressor) 50 MG TABLET 50 Milligram ORAL DAILY Pantoprazole Sodium (Pantoprazole Sodium) 40 MG TABLET.DR 40 Milligram ORAL DAILY Hydrochlorothiazide (Hydrochlorothiazide) 25 MG TABLET 25 Milligram ORAL Every other day Copies To: FILOMENA ROBBINS,LUPE Orozco; JENN ROBBINS,MAREK
--- NOTE | 2016-06-10 16:19 | PN- General Surgery ---
See Addendum Subjective Subjective: Pt's diet was advanced and she was tolerating small amounts of po last night and this morning. She had 2 BM's this morning and was mobilized OOB to the chair. Following mobilization, pt c/o an acute increase in epigastric pain. She was having some RUQ discomfort previously, but this pain was new. I presented for evaluation and pt was bloating and mildly nauseated with intermittent hiccups. She was noted to be distended and tender focally in the epigastric area. Multi- view X-ray of the abdomen was performed, which revealed a large amount of free air. This film was reviewed with the radiologist and compared to previous CXR from POD #1 (which revealed no free air at that time). Attending covering surgeon, Dr. Villalobos, was notified, who also examined the patient and then review films with the radiologist. It was determined that there could possibly be a threatened portion of sigmoid colon, despite extensive intraoperative exploration. Pt was notified of the need for surgical re-exploration and possible Elia's procedure. Pt's family is insisting on transfer to [place] for all further care. Objective Vital Signs and I&Os Vital Signs Date Time Temp Pulse Resp B/P Pulse O2 O2 Flow FiO2 Ox Delivery Rate 06/10 1537 105 176/78 06/10 1204 100 200/93 06/10 1200 95 Nasal 1.0L Cannula 06/10 0800 95 Nasal 1.0L Cannula 06/10 0800 98.5 75 23 198/90 94 Nasal 1.0L Cannula 06/10 0752 79 212/83 06/10 0752 79 212/83 06/10 0400 96 Nasal 1.0L Cannula 06/10 0000 93 Ventilator 40% 06/10 0000 98.3 83 20 180/88 93 Nasal 1.0L Cannula 06/09 2357 81 20 180/83 06/09 2055 80 20 190/90 06/09 2000 95 Nasal 1.0L Cannula 06/09 1928 74 183/67 06/09 1600 95 Nasal 1.0L Cannula 06/09 1600 99.0 74 18 148/62 95 Nasal 1.0L Cannula Intake & Output 06/10 1600 06/10 0800 06/10 0000 06/09 1600 06/09 0800 06/09 0000 Intake Total 450 013 689 4822 1044 1160 Output Total 300 550 790 320 Balance 150 439 808 651 254 840 Intake, Blood 143 Product Intake, IV 200 389 358 458 984 700 Intake, Oral 250 50 450 600 60 460 Number 2 Bowel Movements Output, Urine 300 550 790 320 Physical Exam: General: Pt is awake and alert. NAD. Cardiac: Regular Pulmonary: CTA bilaterally Abdomen: Obese, softly distended, most notable in the epigastric area. There is focal tenderness to light palpation in the epigastric area, extending into the Right mid abdomen. Scant BS are heard. Midline incision is c/d/i with kemi in place. Assessment/Plan Assessment/Plan Pt is a 75 yo F with a hx of active smoking, htn, gerd, and hypothyroidism who is now HD#7 with lower GI bleed, s/p colon perforation after colonoscopy on . She is POD #5 s/p R hemicolectomy. Postop course is complicated by acute onset of abdominal pain with large pneumoperitoneum. Dr. Villalobos had a lengthy discussion with the patient and her family about her condition and the need for re-exploration. They are strongly requesting transfer to [place] for any further treatment, despite the availability of resources to handle this diagnosis here at [facility]. Arrangements have been made for transfer to [place] under Dr. Casanova' service.
[2016-06-10 16:27] VITALS: BP 176/78
--- NOTE | 2016-06-10 17:33 | PN- General Surgery ---
Surgical Brief Attending Note Brief Attending Note: Patient seen and examined, agree with above surgical PA's note today, reviewed hospital course, CT and plain films on PACS myself and with the radiologist, there is more free air today, postoperative day 5, which coincides with an increase in abdominal pain and tachycardia. I explained, illustrated to her and family why she needs urgent reexploration, and probable temporary ostomy. Presently she is not hypotensive and they adamantly assist on transfer. Discussed situation with accepting surgeon.
== END 2016-06-10 17:04 | disposition short-term general hospital (02) | DRG 330 ==
LOC: ENRESERVDT → ENRESERVTM → ERH 19:03 → ERHI 21:39 → CRI 21:39
PROVIDERS: Emergency Medicine; Internal Medicine; Internal Medicine Hematology & Oncology; Ophthalmology; Radiology Diagnostic Radiology; Student in an Organized Health Care Education/Training Program; ADMIT Student in an Organized Health Care Education/Training Program
PROC: 0DTF0ZZ Resection of Right Large Intestine, Open Approach (ICD-10-PCS; principal; 2016-06-05)
PROC: 0DBK8ZZ Excision of Ascending Colon, Via Natural or Artificial Opening Endoscopic (ICD-10-PCS; 2016-06-05)
DX: K57.31 Diverticulosis of large intestine without perforation or abscess with bleeding (principal); I47.2 Ventricular tachycardia; N17.9 Acute kidney failure, unspecified; Z68.42 Body mass index [BMI] 45.0-49.9, adult; E66.01 Morbid (severe) obesity due to excess calories; D62 Acute posthemorrhagic anemia; N18.3 Chronic kidney disease, stage 3 (moderate); K91.71 Accidental puncture and laceration of a digestive system organ or structure during a digestive system procedure; E83.42 Hypomagnesemia; N14.1 Nephropathy induced by other drugs, medicaments and biological substances; E03.9 Hypothyroidism, unspecified; K21.9 Gastro-esophageal reflux disease without esophagitis; I12.9 Hypertensive chronic kidney disease with stage 1 through stage 4 chronic kidney disease, or unspecified chronic kidney disease; Z85.850 Personal history of malignant neoplasm of thyroid; I16.0 Hypertensive urgency; D12.2 Benign neoplasm of ascending colon; K64.8 Other hemorrhoids; Y84.8 Other medical procedures as the cause of abnormal reaction of the patient, or of later complication, without mention of misadventure at the time of the procedure; T50.8X5A Adverse effect of diagnostic agents, initial encounter; K63.89 Other specified diseases of intestine; F17.200 Nicotine dependence, unspecified, uncomplicated
CPT/HCPCS: 83883; 84133; 84156; 84300; CCU; 36415; 74020; 74174; 76775; 81001; 82436; 82570; 86920; 87040; 87086; 88305; 88307; 93005; 93010; 93306; 97110-GO; 97116-GO; 97161-GP; C9399; J0131; J0360; J1100; J1644; J2405; J7040; J7042; J7060; P9016

== ENCOUNTER 2017-06-25 12:28 | Inpatient (IN) | payer OTHER ==
[~2017-06-25] VITALS: Ht 162.6 cm; Wt 99.3 kg
--- NOTE | 2017-06-25 12:49 | ED GI/GU/ABDOMINAL COMPLAINT ---
History of Present Illness General Chief Complaint: General Adult Stated Complaint: LOW BP, CHILL AND SWEATS, SINCE 06/23 Source: patient, family, old records Exam Limitations: no limitations Vital Signs & Intake/Output Vital Signs & Intake/Output Vital Signs Date Time Temp Pulse Resp B/P B/P Pulse O2 O2 Flow FiO2 Mean Ox Delivery Rate 06/25 1310 96 Room Air Room Air 06/25 1236 98.3 87 20 63/44 96 Room Air Allergies Coded Allergies: lactose (DIARRHEA 06/08/16) Reconcile Medications Levothyroxine Sodium 150 MCG TABLET 1 TAB PO DAILY THYROID (Reported) Melatonin 3 MG TABLET 2 TAB PO QPM SLEEP (Reported) Midodrine HCl 5 MG TABLET 1 TAB PO PRN LOW BP (Reported) Midodrine HCl 10 MG TABLET 1 TAB PO TUETHURSAT PRN LOW BP (Reported) Nephro-Vitamins (Nephro-Annette Tablet) 0.8 MG TABLET 1 TAB PO DAILY SUPPLEMENT (Reported) Nystatin 100,000 UNIT/GRAM POWDER 1 GABRIEL TOP AD PRN ABD FOLDS (Reported) Pantoprazole Sodium 40 MG TABLET.DR 40 MG PO DAILY ACID REFLUX (Reported) Sevelamer Carbonate (Renvela) 800 MG TABLET 2 TAB PO TIDWM PHOSPHORUS BINDER (Reported) Trazodone HCl 150 MG TABLET 0.5 TAB PO QPM SLEEP (Reported) Triage Note: PT STATES SHE HAD LOW BP THIS MORNING 54/35. STATES TOOK 5 MG MEDADRINE AND WENT UP TO 65. PT STATES SHE HAS HAD CHILLS AND SWEATS SINCE 06/23. PT STATES RIGHT SIDED BACK PAIN. WENT TO DIALYSIS AND THEY THOUGHT SHE MAY HAD A UTI. PT STATES SHE PRODUCES VERY LITTLE URINE. BP IN TRIAGE 63/44. PT STATES SHE WAS LIGHTHEADED THIS MORNING BUT FEELS WEAK NOW Triage Nurses Notes Reviewed? yes ? n Is pt currently ? No HPI: 76F PMH HTN, HLD, history of GI bleed s/p hemicolectomy complicated by acute renal failure requiring dialysis about a year ago, still on HD through [facility] catheter with last session 1 day ago, presents with hypotension. BP measured at home was 55/35 this morning, so she took a Midodrine 5mg as instructed by her analysis specialist and it came up to 65/45. She reports subjective fevers and chills during the day and sweats at night. She is otherwise well with no complaints. She denies headache, stiff neck, sore throat, cough, chest pain, SOB, abdominal pain, dysuria. She makes very little urine. Her colostomy has loose stool since this morning without blood. Past History Travel History Traveled to [place] past 21 day No Medical History Any Pertinent Medical History? see below for history Neurological: vertigo EENT: NONE Cardiovascular: hypertension Respiratory: NONE Gastrointestinal: diverticulitis, GERD, COLOSTOMY Hepatic: NONE Renal: ESRF Musculoskeletal: osteoarthritis Psychiatric: NONE Endocrine: obesity Blood Disorders: NONE Cancer(s): thyroid cancer BACKSHOE PERSON/Reproductive: NONE History of MRSA: No History of VRE: No History of CDIFF: No Surgical History Surgical History: appendectomy, cholecystectomy, hysterectomy, thyroidectomy. Psychosocial History Who do you live with Spouse What is your primary language East Timorese Tobacco Use: Quit >30 days ago ETOH Use: denies use Illicit Drug Use: denies illicit drug use Family History Family History, If Any: MOTHER FH: Alzheimers disease Hx Contributory? No Review of Systems Review of Systems Constitutional: Reports: no symptoms. EENTM: Reports: no symptoms. Respiratory: Reports: no symptoms. Cardiovascular: Reports: no symptoms. GI: Reports: no symptoms. Genitourinary: Reports: no symptoms. Musculoskeletal: Reports: no symptoms. Skin: Reports: no symptoms. Neurological/Psychological: Reports: no symptoms. Hematologic/Endocrine: Reports: no symptoms. Immunologic/Allergic: Reports: no symptoms. All Other Systems: Reviewed and Negative Physical Exam Physical Exam General Appearance: well developed/nourished, no apparent distress Head: atraumatic, normal appearance Eyes: Bilateral: normal appearance. Ears, Nose, Throat, Mouth: hearing grossly normal, moist mucous membrane Neck: normal inspection, supple, full range of motion Respiratory: normal breath sounds, chest non-tender, no respiratory distress Cardiovascular: regular rate/rhythm Gastrointestinal: soft, non-tender Back: normal inspection, normal range of motion Extremities: normal range of motion Neurologic/Psych: awake, alert, oriented x 3, normal mood/affect Skin: intact, normal color, warm/dry Core Measures ACS in differential dx? No Sepsis Present: No Sepsis Focused Exam Completed? No Progress Differential Diagnosis: AAA, AMI, appendicitis, biliary colic, bowel obstruction , colon cancer, cholecystitis, diverticulitis, ectopic , endometritis, esophageal varices, gastritis, hepatitis, hernia, hemorrhoids, ischemic bowel, inflamm bowel dis, intrauterine , kidney stone, Alice-Kylie tear, ovarian cyst, ovarian torsion, pancreatitis, PID/cervicitis, peptic ulcer, PUD/ GERD, perforated viscous, SBO, threatened AB, UTI/pyelo Plan of Care: Orders Procedure Date/time Status Renal Dialysis Diet 06/25 D Active LACTIC ACID 06/25 1552 Active Patient Data 06/25 1441 Active CULTURE,STOOL 06/25 1440 Active C.DIFFICILE 06/25 1440 Active CULTURE,URINE 06/25 1252 Active BLOOD CULTURE 06/25 1252 Active URINALYSIS 06/25 1252 Active LACTIC ACID 06/25 1252 Complete COMPREHENSIVE METABOLIC PANEL 06/25 1252 Complete CBC WITHOUT DIFFERENTIAL 06/25 125 Complete Current Medications Sig/Liv Start time Last Medication Dose Stop Time Status Admin Sodium Chloride 500 ML BOLUS ONE 06/25 1415 AC (Normal Saline 0.9%) 06/25 1514 Vancomycin HCl 1,000 MG ONCE ONE 06/25 1400 AC 06/25 Sodium Chloride 250 ML 06/25 1459 1439 (Normal Saline 0.9%) Sodium Chloride 500 ML BOLUS ONE 06/25 1345 AC 06/25 (Normal Saline 0.9%) 06/25 1444 1439 Laboratory Tests 06/25/17 1300: Anion Gap 11, Estimated GFR 9 L, BUN/Creatinine Ratio 5.6 L, Glucose 124 H, Lactic Acid 1.7, Calcium 8.7, Total Bilirubin 1.2, AST 22, ALT 19, Alkaline Phosphatase 126, Total Protein 6.6, Albumin 3.2 L, Globulin 3.4, Albumin/ Globulin Ratio 0.9 L, CBC w Diff MAN DIFF ORDERED, RBC 3.27 L, MCV 90.9, MCH 29.6, MCHC 32.6 L, RDW 15.9 H, MPV 7.5, Gran % 84.6 H, Lymphocytes % 8.7 L, Monocytes % 6.4, Eosinophils % 0.2, Basophils % 0.1, Absolute Granulocytes 21.4 H, Segmented Neutrophils 77 H, Band Neutrophils 7 H, Absolute Lymphocytes 2.2, Lymphocytes 8 L, Monocytes 8, Absolute Monocytes 1.6 H, Absolute Eosinophils 0.1, Absolute Basophils 0, Anisocytosis 1+ Microbiology 06/26 1439 STOOL: Clostridium difficile Toxin A & B - ORD 04/29 1440 STOOL: Stool Culture - ORD 06/25 1437 BLOOD: Blood Culture - RECD 06/25 1252 URINE ROUT: Urine Culture - ORD 06/25 1252 BLOOD: Blood Culture - ORD Diagnostic Imaging: Viewed by Me: Radiology Read. Discussed w/RAD: Radiology Read. Radiology Impression: PATIENT: SIRENA CELESTIN PRESENT AGE: 76 PATIENT ACCOUNT NO: [id number] : 42 LOCATION: [facility] ORDERING PHYSICIAN: Dario Paz MD SERVICE DATE: 06/25/17 EXAM TYPE: RAD - XRY-PORTABLE CHEST XRAY EXAMINATION: XR PORTABLE CHEST CLINICAL INFORMATION: Hypotension, chills and cough. Evaluate pneumonia. COMPARISON: 06/06/2016 TECHNIQUE: Portable frontal view of the chest was obtained. FINDINGS: The tip of a dialysis catheter is positioned within the right atrium. No pneumothorax or pleural effusion. Nonspecific hazy opacity in the perihilar region of the left lung. Also, discoid atelectasis is noted in this region. There appear to be a few linear streaks of atelectasis in left lower lobe, as well. Cardiac silhouette is normal in size. The visualized bones of the chest are intact. IMPRESSION: Nonspecific hazy opacity in the perihilar region of the left upper lobe (possible pneumonitis). Also, a few linear streaks of atelectasis are present in the left lung. No pleural effusion. DICTATED BY: Oren Franco MD DATE/TIME DICTATED:06/25/171333 HEAVY EQUIPMENT ENGINE MECHANIC:KERRY DATE/TIME TRANSCRIBED:06/25/171333 CONFIDENTIAL, DO NOT COPY WITHOUT APPROPRIATE AUTHORIZATION. <Electronically signed in Other Vendor System> SIGNED BY: Oren Franco MD 06/25/17 1344 Initial ED EKG: normal sinus rhythm, no ST T wave changes Departure Departure Disposition: STILL A PATIENT Condition: Stable Clinical Impression Primary Impression: Hypotension Secondary Impressions: Leukocytosis Referrals: Jim Ellsworth MD (PCP/Family) Departure Forms: Customer Survey General Discharge Information Admission Note Spoke With: Deshawn Faith MD Documentation of Exam: Documentation of any treatments & extenuating circumstances including Concerns Regarding Discharge (functional status, medication knowledge or non-compliance, living conditions, etc.) that warrant an admission rather than observation: PERSISTENT HYPOTENSION 63/44. wbc 25.3 WITH MULTIPLE FOCI OF POTENTIAL INFECTION , WILL ADMIT TO ICU FOR BP MONITORING, POSSIBLE CENTRAL LINE PLACEMENT, IV HYDRATION, IV ANTIBIOTICS, CRITICAL CARE AND INFECTIOUS DISEASE CONSULTS.
[2017-06-25 13:36] LABS: ABSOLUTE BASOPHIL COUNT 0 /CUMM (0.0-0.2); ABSOLUTE EOSINOPHIL COUNT 0.1 /CUMM (0.0-0.7); ABSOLUTE GRANULOCYTE CT 21.4 /CUMM (1.4-6.5); ABSOLUTE LYMPH COUNT 2.2 /CUMM (1.2-3.4); ABSOLUTE MONOCYTE COUNT 1.6 /CUMM (0.10-0.60); BASOPHIL % 0.1 % (0.0-2.0); EOSINOPHIL % 0.2 % (0-5); GRANULOCYTE % 84.6 % (42.2-75.2); HEMATOCRIT 29.7 % (37-47); MEAN CORPUSCULAR HGB 29.6 PG (27.0-31.0); MEAN CORPUSCULAR HGB CONC 32.6 G/DL (33.0-37.0); MEAN CORPUSCULAR VOLUME 90.9 FL (81.0-99.0); MEAN PLATELET VOLUME 7.5 FL (7.4-10.4); PLATELET COUNT 184 /CUMM (130-400); RBC DISTRIBUTION WIDTH 15.9 % (11.5-14.5); RED BLOOD CELL CT 3.27 /CUMM (4.20-5.40); WHITE BLOOD CELL COUNT 25.3 /CUMM (4.8-10.8)
--- NOTE | 2017-06-25 13:44 | RADIOLOGY REPORT ---
EXAMINATION: XR PORTABLE CHEST CLINICAL INFORMATION: Hypotension, chills and cough. Evaluate pneumonia. COMPARISON: 06/06/2016 TECHNIQUE: Portable frontal view of the chest was obtained. FINDINGS: The tip of a dialysis catheter is positioned within the right atrium. No pneumothorax or pleural effusion. Nonspecific hazy opacity in the perihilar region of the left lung. Also, discoid atelectasis is noted in this region. There appear to be a few linear streaks of atelectasis in left lower lobe, as well. Cardiac silhouette is normal in size. The visualized bones of the chest are intact. IMPRESSION: Nonspecific hazy opacity in the perihilar region of the left upper lobe (possible pneumonitis). Also, a few linear streaks of atelectasis are present in the left lung. No pleural effusion.
[2017-06-25] MEDS ORDERED: MIDODRINE HCL5 M1 PO (13:52)
[2017-06-25] MEDS ORDERED: LEVOTHYROXINE150 MCG PO (13:52)
[2017-06-25] MEDS ORDERED: MELATONIN3 M4 PO (13:53)
[2017-06-25] MEDS ORDERED: TRAZODONE HCL150 M1 PO (13:53)
[2017-06-25] MEDS ORDERED: MIDODRINE HCL10 M1 PO (13:53)
[2017-06-25] MEDS ORDERED: NEPHRO-VITE TA0.8 MG PO (13:54)
[2017-06-25] MEDS ORDERED: NYSTATIN15 G2 TOP (13:55)
[2017-06-25] MEDS ORDERED: RENVELA800 M1 PO (13:55)
--- NOTE | 2017-06-25 14:34 | History & Physical ---
Maikol ROBBINS,Feroz 06/25/17 1433: General Information and HPI MD Statement: I have seen and personally examined SIRENA CELESTIN and documented this H&P. The patient is a 76 year old F who presented with lightheadedness and weakness. Source of Information: patient Exam Limitations: no limitations History of Present Illness: 76 yo F with pmh of HTN, hypothyroidism s/p thyroidectomy, GERD, chronic pain, ex-smoker (quit since 05/2016), last admitted in [place] for hypertensive urgency , blood loss anemia requiring blood transfusion from 06/03/16 till 06/10/16, and ESRD on dialysis Mon//Mon presented to the ED after she reported low BP 54/ 35 at home, took one dose of Midodrine (improved SBP to 60), but still was lightheaded and felt weak. She appearantly was having low BP in the past four days, but was not as symptomatic as today when she had to take one 5 mg of Midodrine and later 5 mg of Midodrine again. She has been complaining of mild grade fever, temp not recorded, and some loose stools, but no joseluis diarrhea, or high grade fever, nausea, vomiting, abd pain. She ayers NOT have any dizziness now. At the time of interview her BP was 105/60 mm Hg. 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 Otherwise, she has been wheelchair-bound most of the time. She has otherwise an appointment with vascular surgeon in [place] tomorrow for discussion about fistula proceude tomorrow at 3 pm. Last echo 06/05/2016 showing Stage 1 diastolic dysfunction, RVSP at 33 mm Hg, severe LVH, among others. Allergies/Medications Allergies: Coded Allergies: lactose (DIARRHEA 06/08/16) Home Med list Levothyroxine Sodium 150 MCG TABLET 1 TAB PO DAILY THYROID (Reported) Melatonin 3 MG TABLET 2 TAB PO QPM SLEEP (Reported) Midodrine HCl 5 MG TABLET 1 TAB PO PRN LOW BP (Reported) Midodrine HCl 10 MG TABLET 1 TAB PO TUETHURSAT PRN LOW BP (Reported) Nephro-Vitamins (Nephro-Annette Tablet) 0.8 MG TABLET 1 TAB PO DAILY SUPPLEMENT (Reported) Nystatin 100,000 UNIT/GRAM POWDER 1 GABRIEL TOP AD PRN ABD FOLDS (Reported) Pantoprazole Sodium 40 MG TABLET.DR 40 MG PO DAILY ACID REFLUX (Reported) Sevelamer Carbonate (Renvela) 800 MG TABLET 2 TAB PO TIDWM PHOSPHORUS BINDER (Reported) Trazodone HCl 150 MG TABLET 0.5 TAB PO QPM SLEEP (Reported) Compliance With Home Meds: GOOD Past History Travel History Traveled to [place] past 21 day No Medical History Neurological: vertigo EENT: NONE Cardiovascular: hypertension Respiratory: NONE Gastrointestinal: diverticulitis, GERD, COLOSTOMY Hepatic: NONE Renal: ESRF Musculoskeletal: osteoarthritis Psychiatric: NONE Endocrine: obesity Blood Disorders: NONE Cancer(s): thyroid cancer OPTICAL ASSISTANT/Reproductive: NONE History of MRSA: No History of VRE: No History of CDIFF: No Surgical History Surgical History: appendectomy, cholecystectomy, hysterectomy, thyroidectomy. Past Family/Social History Family History Relations & Conditions if any MOTHER FH: Alzheimers disease Psychosocial History Where do you live? Home Who Do You Live With? spouse Primary Language: Omani Smoking Status: Former Smoker ETOH Use: denies use Illicit Drug Use: denies illicit drug use Living Will? no Functional Ability ADLs Independent: dressing, eating, toileting, bathing. Ambulation: wheel-chair bound IADLs Independent: shopping, housework, finances, food prep, telephone, transportation , medication admin. Review of Systems Review of Systems Constitutional: Reports: see HPI, weakness. EENTM: Reports: no symptoms. Cardiovascular: Reports: no symptoms. Respiratory: Reports: no symptoms. GI: Reports: no symptoms. Genitourinary: Reports: no symptoms (she barely makes any urine). Musculoskeletal: Reports: back pain (LBP, chronic). Skin: Reports: no symptoms. Neurological/Psychological: Reports: no symptoms. Hematologic/Endocrine: Reports: no symptoms. All Other Systems: Reviewed and Negative Post Menopausal: Yes Exam & Diagnostic Data Last 24 Hrs of Vital Signs/I&O Vital Signs Date Time Temp Pulse Resp B/P B/P Pulse O2 O2 Flow FiO2 Mean Ox Delivery Rate 06/25 1310 96 Room Air Room Air 06/25 1236 98.3 87 20 63/44 96 Room Air Intake & Output 06/25 1600 06/25 0800 06/25 0000 Intake Total Output Total Balance Patient 99.79 kg Weight Weight Reported by Patient Measurement Method Physical Exam General Appearance Alert, Oriented X3, Cooperative, No Acute Distress, obese Skin No Rashes, No Breakdown, No Significant Lesion Skin Temp/Moisture Exam: Warm/Dry Sepsis Skin Exam (color): Normal for Ethnicity HEENT Atraumatic, PERRLA, EOMI, Mucous Membr. moist/pink (at the time of my exam ) Neck Supple, No JVD, No thryomegaly Lymphatic Cervical nl Cardiovascular Regular Rate, Normal S1, Normal S2, No Murmurs Lungs Clear to Auscultation, Normal Air Movement, no crackles ot wheezes heard b /l Abdomen Normal Bowel Sounds, Soft, No Tenderness, colostomy bag in situ (Left side), healed scar of laparatomy and skin graft with fasteners in place Neurological grossly iatact, gait not examined Extremities No Clubbing, No Cyanosis, No Edema, Normal Pulses, No Tenderness/ Swelling, b/l warm (normal) Vascular Normal Pulses, Pulses Symmetrical Sepsis Peripheral Pulse Location: Radial Sepsis Peripheral Pulse Exam: Normal Sepsis Cap Refill Exam: <2 Sec Last 24 Hrs of Labs/Raji: Laboratory Tests 06/25/17 1300: Anion Gap 11, Estimated GFR 9 L, BUN/Creatinine Ratio 5.6 L, Glucose 124 H, Lactic Acid 1.7, Calcium 8.7, Total Bilirubin 1.2, AST 22, ALT 19, Alkaline Phosphatase 126, Total Protein 6.6, Albumin 3.2 L, Globulin 3.4, Albumin/ Globulin Ratio 0.9 L, CBC w Diff MAN DIFF ORDERED, RBC 3.27 L, MCV 90.9, MCH 29.6, MCHC 32.6 L, RDW 15.9 H, MPV 7.5, Gran % 84.6 H, Lymphocytes % 8.7 L, Monocytes % 6.4, Eosinophils % 0.2, Basophils % 0.1, Absolute Granulocytes 21.4 H, Segmented Neutrophils 77 H, Band Neutrophils 7 H, Absolute Lymphocytes 2.2, Lymphocytes 8 L, Monocytes 8, Absolute Monocytes 1.6 H, Absolute Eosinophils 0.1, Absolute Basophils 0, Anisocytosis 1+ Microbiology 06/26 1251 URINE ROUT: Urine Culture - ORD 06/25 125 BLOOD: Blood Culture - ORD 06/25 1252 BLOOD: Blood Culture - ORD Diagnostic Data EKG Results not done CXR Results Nonspecific hazy opacity in the perihilar region of the left upper lobe ( possible pneumonitis). Also, a few linear streaks of atelectasis are present in the left lung. No pleural effusion. DICTATED BY: Oren Franco MD DATE/TIME DICTATED:06/25/171333 ADMINISTRATION CLERK:KERRY DATE/TIME TRANSCRIBED:06/25/171333 Assessment/Plan Assessment: 76 yo F with pmh of HTN, hypothyroidism s/p thyroidectomy, GERD, chronic pain, ex-smoker (quit since 05/2016), last admitted in [place] for hypertensive urgency , blood loss anemia requiring blood transfusion from 06/03/16 till 06/10/16, and ESRD on dialysis Mon/ presented to the ED after she reported low BP 54/ 35 at home, took one dose of Midodrine (improved SBP to 60), but still was lightheaded and felt weak. Patient received 500 mL of normal saline in the emergency department, and was ordered another 500 mL bolus as well, but her blood pressure seems to be improving even before the second. Given her condition of sepsis without septic shock, but blood pressure on the lower side, she is being admitted in the ICU for the management of following issues: RESPIRATORY/INFECTIOUS DISEASE #Sepsis, without focus Patient's clinical picture and lab findings are consistent with sepsis, with differentials for the focus as diarrhea, pneumonia. UTI is also possible but she does not make much urine. For the time being, given her very low BP, we will start her on broad-spectrum abx, while awaiting for culture reports. Lactic acid 1.7 to 1.2. Will not trend anymore. CARDOILOGY Her cardiac status with low BP could be due to sepsis, which is not improving with 500 ml of IV bolus. Will plan for further fluid resuscitation with central line and IV pressors if necessary. She is agreeable with the plan. Will trend troponin and EKG to rule out ACS. HEMATOLOGY CBC as mentioned above, likely due to sepsis. Will check Coags. METABOLIC Patient has ESRD, and her labs are as expected. Will watch closely and maintain her lytes. her K was low, which was repleted in the ED. ALIMENTARY Renal dialysis diet NEPHRO Dialysis on /Mon Follows Dr Downing nursing home plan for fistula over left arm via vascular surgery (out patient) NEURO No issues currently. Diet: Renal dialysis DVT ppx: SQ Heparin Code status: Full code, patient does not wish java spring developer intubation or to be kept alive vegetatively. As Ranked By This Provider Problem List: 1. Sepsis 2. Hypotension Core Measures/Misc (11/13) Acute Coronary Syndrome ACS Diagnosis: No Congestive Heart Failure Congestive Heart Failure Diagnosis No Cerebrovascular Accident CVA/TIA Diagnosis: No VTE (View Protocol) VTE Risk Factors Age>40 No Mechanical VTE Prophylaxis d/t N/A MechProphylax Ordered No VTE Pharm Prophylaxis d/t NA PharmProphylax ordered Sepsis (View protocol) Sepsis Present: Yes Deshawn Faith MD 06/25/17 1446: Attending MD Review Statement Attending Statement Attending MD Statement: examined this patient, discuss w/resident/PA/DOPE EDGER, agreed w/resident/PA/DOPE EDGER, discussed with family, reviewed EMR data (avail), discussed with nursing, discussed with case mgmt, reviewed images, amended to note Attending Assessment/Plan: Deshawn Helton M.D. have examined this patient, reviewed available EMR data, personally reviewed images, discussed with resident/PA/DOPE EDGER, discussed management plan with housestaff and nursing staff, discussed managment plan all of healthcare providers, discussed management plan with patient and/or family, agreed with resident/PA/DOPE EDGER. The past history and parts of the chart have been autopopulated. Impression 76-year-old woman with a history of end-stage renal disease on hemodialysis Monday and Monday presents with chills, rigors and diarrhea. * hypotension, likely sepsis vs hypovolemia - diarrhea and leukocytosis. Differential can also include pneumonia, given a hazy opacification in the perihilar region of the KHRIS * ESRD on HD Plan Respiratory/ID -hazy opacification in the perihilar KHRIS, repeat CXR in am 06/26 -received vancomycin/ceftazadime -f/u all cultures -stool for cdiff -sputum cx if possible -monitor wbc, fevers CVS -monitor hemodynamics -if bp sustained after fluids will attribute hypotension to diarrhea -trend troponins Heme -check coags for baseline in anticipation of any procedures during hospital stay Metabolic -alert nephrogy of admission -continue midodrine -monitor electrolytes Alimentary -diet Neuro -no acute issues DVT prophylaxis at all times TTS 40 min
--- NOTE | 2017-06-25 14:51 | Admission Certification ---
Admission Certification Certification Statement - As attending physician, I certify that at the time of - admission, based on clinical presentation, severity of - symptoms, need for further diagnostic testing and - therapeutic interventions, and risk of adverse outcomes - without in-hospital treatment, in my clinical assessment, - this patient requires an acute hospital stay for a minimum - of two nights or longer. I have also considered psychsocial - factors such as support system, advanced age, financial - issues, cognitive issues, and failed out-patient treatments, - past re-admission history, safety of patient, and lack of - compliance as applicable. Specific rationale supporting this admission is: Hypotension in the setting of diarrhea and leukocytosis requiring ICU level of care
[2017-06-25 16:53] VITALS: BP 114/52
[2017-06-25 19:28] LABS: PT 13.2 SEC (9.4-12.5); PTT 27 SEC (25-37)
[2017-06-26] VITALS: BP 100/50
--- NOTE | 2017-06-26 03:43 | Event Note ---
Event Note Event Note: Blood culture x 1 bottle growing gram positive cocci in pairs. Patient is on Vanc/Ceftaz.
--- NOTE | 2017-06-26 07:14 | PN- Resident CRCU ---
Monik Hampton 06/26/17 0713: Subjective HPI/CRCU Issues: Tm 98.8 SD 82 Blood pressure 100-114 Pulse ox 92% on room air. Input 1400 mL, output 0 ml. She was comfortable this morning. No new concerns. No chest pain, shortness of breath or palpitations. Reported occasional right upper quadrant pain, which is chronic. No lightheadedness or dizziness. Blood pressure stay in the range of 100-114, with no need of pressors in the last 24 hours. Objective Vital Signs & I&O Last 8 Hrs of Vitals and I&O: . Vital Signs Date Time Temp Pulse Resp B/P B/P Pulse O2 O2 Flow FiO2 Mean Ox Delivery Rate 06/26 1600 96.9 71 16 132/70 93 Room Air 06/26 0800 98.0 73 17 110/54 94 Room Air 06/26 0800 94 Room Air 06/26 0400 93 06/26 0000 98.8 82 18 100/50 92 Room Air 06/26 0000 92 Room Air 06/25 2248 99.2 06/25 2149 100.5 06/25 2000 93 Room Air Intake & Output 06/26 1600 06/26 0800 06/26 0000 Intake Total 480 120 900 Output Total 0 0 1 Balance 480 120 899 Intake, IV 0 0 850 Intake, Oral 480 120 50 Number 1 0 Bowel Movements Output, Stool 0 1 Output, Urine 0 0 0 Patient 224 lb 224 lb 100 lb Weight Weight Bed scale Bed scale Measurement Method Exam General Appearance: awake Other Physical Findings: General Exam: AAOx3, palor, No acute distress, Skin: No rashes, no breakdown; HEENT: PERRLA, EOMI;Neck: Supple, No JVD, central access in place with no erythema or tenderness; No cervical lymphadenopathy;CVS: Reg Rate, Normal S1,S2, No MGR; Resp: Normal air entry, no ronchi and rales;Abdomen: Soft, RUQ tenderness, Normal Bowel Sounds, multiple surgical scars and small ulcer 1cm x 1cm in the skin folds, colostomy bag in place, ? coccygeal ulcer ( which was not examined );Neuro: Normal Speech, Strength 5/5 b/l x 4 extremities, Sensation intact, CN III-XII NL, Reflexes 2+;Extremities: No cyanosis, 1 +pedal edema Current Medications: Current Medications Sig/Liv Start time Last Medication Dose Route Stop Time Status Admin Acetaminophen 650 MG Q6P PRN 06/25 1600 AC PO Acetaminophen 1,000 MG Q6P PRN 06/25 1600 AC 06/26 IV 1954 Ceftazidime 1,000 MG DAILY@1400 06/26 1400 AC 06/26 IV 1351 Famotidine 20 MG DAILY 06/26 0900 AC 06/26 PO 0759 Heparin Sodium 5,000 UNIT Q8 06/25 2200 AC 06/26 (Porcine) SC 1351 Levothyroxine Sodium 0.15 MG DAILY AC 06/26 0700 AC 06/26 PO 0616 Melatonin 6 MG QPM 06/25 2100 AC 06/25 PO 2149 Multivitamins 1 TAB DAILY 06/26 0900 AC 06/26 PO 0759 Nystatin 1 GABRIEL BID PRN 06/25 1600 AC 06/26 TOP 1406 Sevelamer Carbonate 1,600 MG WM 06/25 1700 AC 06/26 PO 1139 Trazodone HCl 75 MG AT BEDTIME PRN 06/25 1600 AC 06/25 PO 2150 Vancomycin HCl 1,500 MG ONCE ONE 06/26 1800 DC 06/26 Sodium Chloride 250 ML IV 06/26 1859 1957 Impression/Plan Impression/Problem List Impression: Ms Barton is a 76 year old woman w/ a PMHx of ESRD ( on TTS schedule, Ora cath only placed over an year ), HTN, hypothyroidism, chronic back pain, recent admission to the hospital in 05/2016 for the management of diverticular bleed which was complicated by perforation requiring exploratory laparotomy with right hemicolectomy after colonoscopy and biopsy, was then transferred to [place] where she had a colostomy bag placed; this hospital course was complicated by acute kidney injury that led to ESRD requiring hemodialysis by Ora cath in right IJ. She was known to be in her usual state of health until 1 day prior to admission. She came to [facility] with a chief concern of hypotension, and chills. She did not require temperature at that time. She was found to be hypotensive up to 54/35, and has taken Midodrine as per her nephrologists recs. At the time of admission-temperature 98.2, pulse rate 80, respirations 18, blood pressure 103/53, pulse ox 97% on room air. She was given 500 mL bolus. Pertinent lab findings: WBC 25.3 (06/25)-->16.6(06/26) Hemoglobin 9.7(06/25)-->9.1(06/26) Platelets 184(06/25)-->189(06/26) Electrolytes Sodium 137 Potassium 3.2 BUN 27(06/25)-->37(06/26) Creatinine 4.8-->(06/25)-->6.3(06/26) UA, and UC pending. Blood Cultures 06/25 in Gram-positive cocci and gram-negative rods in 2 out of 2 bottles. Chest x-ray did not reveal any consolidation. Etiology in her case of hypertension, chills, blood cultures positive for gram- positive cocci in pairs and gram-negative rods makes me think that ora cath would likely be the source of infection, but having gram-negative rods is very unlikely. Other sources of infection, are intra-abdominal and urinary tract. Urinalysis and urine culture should be followed. She also has an ulcer in the skin fold of abdomen and possibly coccygeal region, making gram-positive rods and fecal contamination of gram-negative rods possible sources. Intra-abdominal abscesses should be kept in differential. Infective endocarditis should be kept in mind also. Plan: Respiratory-stable. Infectious -Continue ceftaz. -Dose vanc as per IDs recs. -Check Vanc level in the am. -Monitor white count, fever -Follow repeat blood cultures -Follow urine culture -Follow CT scan abdomen, pelvis with IV contrast and by mouth contrast. Since the patient had many surgeries, it might be difficult to evaluate any intra- abdominal abscesses. -Evaluation for removal of Ora cath, and placement of new catheter after repeat blood cultures are negative. Metabolic -Hemodialysis in the a.m. -Continue midodrine. -Monitor blood pressure closely Circulatory - Monitor BP closely. Hematology -Daily H&H. DVT prophylaxis-heparin subcutaneous. Problem List: 1. Hypotension 2. S/P right colectomy 3. Sepsis 4. Leukocytosis 5. Hypotension Pain Ratin Tomorrow's Labs & Rationales: cbc bep Plan DVT/Prophylaxis: pharmacological Deshawn Faith MD 06/26/17 1233: Attending MD Review Statement Attending Sign Off Attending Cosign Statement: I have: examined this patient, reviewed [facility] EMR data, personally reviewd images, discussd w/resident/PA/FIREMAN HELPER, discussed mgmt plan w/julio, discussed mgmt plan w/CM, discussed mgmt plan w/pt, agreed w/resident/PA/FIREMAN HELPER, amended to note. Other Findings: Deshawn Helton M.D. have examined this patient, reviewed available EMR data, personally reviewed images, discussed with resident/PA/FIREMAN HELPER, discussed management plan with housestaff and nursing staff, discussed managment plan all of healthcare providers, discussed management plan with patient and/or family, agreed with resident/PA/FIREMAN HELPER. The past history and parts of the chart have been autopopulated. Impression 76-year-old woman with a history of end-stage renal disease on hemodialysis Monday and Monday presents with chills, rigors and diarrhea. * hypotension, likely sepsis (GPCs in blood) vs hypovolemia - diarrhea and leukocytosis. Differential can also include pneumonia, given a hazy opacification in the perihilar region of the KHRIS * ESRD on HD Plan Respiratory/ID -hazy opacification has resolved -f/u ID consultation -received vancomycin/ceftazadime -f/u all cultures -stool for cdiff -monitor wbc, fevers -GPCs in blood CVS -monitor hemodynamics -bp normalized Heme -monitor cbc, coags Metabolic -alert nephrogy of admission -continue midodrine -monitor electrolytes Alimentary -diet Neuro -no acute issues DVT prophylaxis at all times TTS 35 min
[2017-06-26 08:00] VITALS: BP 110/54
--- NOTE | 2017-06-26 08:01 | RADIOLOGY REPORT ---
EXAMINATION: XR PORTABLE CHEST CLINICAL INFORMATION: Follow-up for sepsis. COMPARISON: Chest 06/25/2017 TECHNIQUE: Portable frontal view of the chest was obtained. FINDINGS: The lungs are well-expanded and clear. The heart size is enlarged. Pulmonary vascularity is normal. No gross bony abnormality seen. There is a dual lumen central catheter with its tip at the atriocaval junction. No gross bony abnormality seen. IMPRESSION: Satisfactory position of right central catheter. Previously seen opacity left upper lobe is no more visualized.
[2017-06-26 08:29] LABS: ABSOLUTE BASOPHIL COUNT 0 /CUMM (0.0-0.2); ABSOLUTE EOSINOPHIL COUNT 0.2 /CUMM (0.0-0.7); ABSOLUTE GRANULOCYTE CT 12.6 /CUMM (1.4-6.5); ABSOLUTE LYMPH COUNT 2.7 /CUMM (1.2-3.4); ABSOLUTE MONOCYTE COUNT 1.1 /CUMM (0.10-0.60); BASOPHIL % 0.3 % (0.0-2.0); EOSINOPHIL % 1.3 % (0-5); HEMATOCRIT 27.1 % (37-47); MEAN CORPUSCULAR HGB 30.6 PG (27.0-31.0); MEAN CORPUSCULAR HGB CONC 33.6 G/DL (33.0-37.0); MEAN CORPUSCULAR VOLUME 91.2 FL (81.0-99.0); MEAN PLATELET VOLUME 8.3 FL (7.4-10.4); PLATELET COUNT 189 /CUMM (130-400); RBC DISTRIBUTION WIDTH 15.4 % (11.5-14.5); RED BLOOD CELL CT 2.97 /CUMM (4.20-5.40); WHITE BLOOD CELL COUNT 16.6 /CUMM (4.8-10.8)
--- NOTE | 2017-06-26 11:41 | Cons- Nephrology ---
General Information and HPI Consulting Request Date of Consult: 06/26/17 Requested By: Deshawn Faith MD History of Present Illness: Ms. Barton is a complicated 76 yo F with a history of DM, HTN. She was hospitalized in May 2016 with hematochezia. Colonoscopy revealed a diverticular bleed but was complicated by colonic perforation requiring emergent hemocolectomy. She was transferred to [place] with a prolonged hospital course with hypotension and re-laporotomy. She developed MARGAUX and was started on dialysis (never recovered) and underwent rehab at [place]. She started dialysis at [place] in February and has now been on dialysis for about a year. She has been dialyzed via JEANETTE catheter and was to have outpatient mapping this week for AVF but is now in the hospital with low BP at home (50 systolic). She came to the ER with this and blood cultures are now growing GNR (1/2) and GPC pairs (2/2 ). She denies N/V. She does have chronic low BP. She was last dialyzed on Monday. Allergies/Medications Allergies: Coded Allergies: lactose (DIARRHEA 06/08/16) Home Med List: Levothyroxine Sodium 150 MCG TABLET 1 TAB PO DAILY THYROID (Reported) Melatonin 3 MG TABLET 2 TAB PO QPM SLEEP (Reported) Midodrine HCl 5 MG TABLET 1 TAB PO PRN LOW BP (Reported) Midodrine HCl 10 MG TABLET 1 TAB PO TUETHURSAT PRN LOW BP (Reported) Nephro-Vitamins (Nephro-Annette Tablet) 0.8 MG TABLET 1 TAB PO DAILY SUPPLEMENT (Reported) Nystatin 100,000 UNIT/GRAM POWDER 1 GABRIEL TOP AD PRN ABD FOLDS (Reported) Pantoprazole Sodium 40 MG TABLET.DR 40 MG PO DAILY ACID REFLUX (Reported) Sevelamer Carbonate (Renvela) 800 MG TABLET 2 TAB PO TIDWM PHOSPHORUS BINDER (Reported) Trazodone HCl 150 MG TABLET 0.5 TAB PO QPM SLEEP (Reported) Review of Systems Review of Systems: As in HPI chronic low BP lower now No fever chills No N/V/D no abdominal pain other systems negative. 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 MULTIPLE ABDOMINAL SURGER SKIN GRAFTS Family History Relations & Conditions If Any: MOTHER FH: Alzheimers disease Psychosocial History Where Do You Live? Home Who Do You Live With? spouse Services at Home: Nursing Primary Language: Yakut Smoking Status: Former Smoker ETOH Use: denies use Illicit Drug Use: denies illicit drug use Living Will? no Functional Ability ADLs Independent: dressing, eating, toileting, bathing. Ambulation: wheel-chair bound IADLs Independent: shopping, housework, finances, food prep, telephone, transportation , medication admin. Exam & Diagnostic Data Vital Signs and I&O Pleasant F NAD 110/54 73 98 Skin neg rash Eyes anicteric ENT moist Lungs clear Cor RRR Abd soft mild tender to deep palpation RUQ. Colostomy LLQ, multiple scars from prior surgery Ext tr edema Chest JEANETTE in place Results Pertinent Lab Results: 139/ 103 / 37 / 3.7 / 25 / 6.3\ Hg 9 WBC 16.6 Blood Cx 1 GPC pairs, GNR 2 GPC pairs Assessment/Plan Assessment/Recommendations Assessment: Hypotension most likely due to sepsis. Growing two organisms in blood culture. Given presence of GNR suspect GPC will be enterococcus (await ID of these). If so this is strongly suggestive of an intraabdominal source. She does have some RUQ tenderness (but is s/p cholecystectomy). Okay to do CT with po and IV contrast to evaluate for abcess. Doubt line is initial source with current bacteria but would not be suprised if it is secondarily infected. Would treat with antibiotics as you are doing and when source found /treated and blood cx negative may need line changed later this week. Will arrange dialysis tomorrow. Thanks will follow. Quentin Morataya MD Recommendations: .
[2017-06-26 16:00] VITALS: BP 132/70
--- NOTE | 2017-06-26 16:02 | Cons- Infect Disease ---
General Information and HPI Consulting Request Date of Consult: 06/26/17 Requested By: Deshawn Faith MD Reason for Consult: Positive blood cultures for gram-positive cocci in pairs and gram-negative rods Source of Information: patient, old records History of Present Illness: This is a 76-year-old woman with a history of hypertension, hypothyroidism and chronic back pain, hospitalized one year prior to admission with a diverticular bleed, requiring an exploratory laparotomy with right hemicolectomy after a colonoscopy and biopsy of a polyp (which revealed a tubular adenoma), with her course further complicated by an apparent anastomotic leak, for which she was transferred to [place] for further surgery, requiring a colostomy, which remains in place, and with her course complicated by renal failure, since which she has required dialysis via an Isak catheter in the right IJ, admitted on June 25 with a 2 day history of shaking chills, sweats and fatigue and the acute onset of hypotension. On admission she was afebrile but she developed a fever to 100.5 later in the evening. Her initial blood pressure was 63/44 but it increased after 1 L of fluid. Laboratory data revealed a white blood cell count of 25,000 , with 77 segs and 7 bands, BUN/creatinine 27 and 4.8, with normal liver enzymes , INR 1.21. Chest x-ray revealed a nonspecific hazy opacity in the perihilar region of the left upper lobe. She was given Vancomycin and Ceftazidime. This morning blood cultures were reported positive for gram-positive cocci in pairs and gram-negative rods. She has been afebrile overnight and feels improved today. She was noted to have purulent, foul-smelling discharge from the left groin region, which she reports has been present for several weeks. She also reports mild right flank/lower back discomfort over the last several days, which is worse with movement. Allergies/Medications Allergies: Coded Allergies: lactose (DIARRHEA 06/08/16) Home Med List: Levothyroxine Sodium 150 MCG TABLET 1 TAB PO DAILY THYROID (Reported) Melatonin 3 MG TABLET 2 TAB PO QPM SLEEP (Reported) Midodrine HCl 5 MG TABLET 1 TAB PO PRN LOW BP (Reported) Midodrine HCl 10 MG TABLET 1 TAB PO TUETHURSAT PRN LOW BP (Reported) Nephro-Vitamins (Nephro-Annette Tablet) 0.8 MG TABLET 1 TAB PO DAILY SUPPLEMENT (Reported) Nystatin 100,000 UNIT/GRAM POWDER 1 GABRIEL TOP AD PRN ABD FOLDS (Reported) Pantoprazole Sodium 40 MG TABLET.DR 40 MG PO DAILY ACID REFLUX (Reported) Sevelamer Carbonate (Renvela) 800 MG TABLET 2 TAB PO TIDWM PHOSPHORUS BINDER (Reported) Trazodone HCl 150 MG TABLET 0.5 TAB PO QPM SLEEP (Reported) Past History Travel History Traveled to [place] past 21 day No Medical History Blood Transfusion Hx: Yes Neurological: vertigo EENT: NONE Cardiovascular: hypertension Respiratory: NONE Gastrointestinal: GERD, diverticulosis Hepatic: NONE Renal: ESRF Musculoskeletal: osteoarthritis Psychiatric: NONE Endocrine: obesity Blood Disorders: NONE Cancer(s): thyroid cancer 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 MULTIPLE ABDOMINAL SURGER SKIN GRAFTS, s/p colostomy Family History Relations & Conditions If Any: MOTHER FH: Alzheimers disease Psychosocial History Where Do You Live? Home Who Do You Live With? spouse Services at Home: Nursing Primary Language: Sierra Leonean Smoking Status: Former Smoker ETOH Use: denies use Illicit Drug Use: denies illicit drug use Living Will? no Functional Ability ADLs Independent: dressing, eating, toileting, bathing. Ambulation: wheel-chair bound IADLs Independent: shopping, housework, finances, food prep, telephone, transportation , medication admin. Review of Systems Review of Systems Cardiovascular: Denies: chest pain. Respiratory: Reports: cough. Denies: short of breath, sputum production. GI: Denies: abdominal pain, diarrhea, nausea, vomiting. Genitourinary: Reports: no symptoms. All Other Systems: Reviewed and Negative Exam & Diagnostic Data Last 24 Hrs of Vital Signs/I&O Vital Signs Date Time Temp Pulse Resp B/P B/P Pulse O2 O2 Flow FiO2 Mean Ox Delivery Rate 06/26 0800 98.0 73 17 110/54 94 Room Air 06/26 0800 94 Room Air 06/26 0400 93 06/26 0000 98.8 82 18 100/50 92 Room Air 06/26 0000 92 Room Air 06/25 2248 99.2 06/25 2149 100.5 06/25 2000 93 Room Air 06/25 1653 99.0 84 20 114/52 96 Part ReBreather 06/25 1603 98.2 80 16 109/51 97 Room Air Intake & Output 06/26 1600 06/26 0800 06/26 0000 Intake Total 480 120 900 Output Total 0 0 1 Balance 480 120 899 Intake, IV 0 0 850 Intake, Oral 480 120 50 Number 1 0 Bowel Movements Output, Stool 0 1 Output, Urine 0 0 0 Patient 224 lb 224 lb 100 lb Weight Weight Bed scale Bed scale Measurement Method Physical Exam Other Physical Findings: She is awake and alert in no acute distress. T-max 100.5. Skin reveals no rash. HEENT exam is negative. Neck is supple with no adenopathy; Isak catheter in the right IJ with no inflammation at the site. Lungs are clear. Heart regular rhythm with a 1/6 systolic murmur. Abdomen is obese, soft, nontender, status post skin graft to the umbilical area, with a colostomy in place, with positive bowel sounds. Back right flank/lower back tenderness. Extremities no cyanosis, clubbing or edema. Neuro is without focality. Last 24 Hours of Lab Results: Laboratory Tests 06/26 06/26 06/26 06/25 0622 0622 0150 1855 Chemistry Sodium (137 - 145 mmol/L) 139 Potassium (3.5 - 5.1 mmol/L) 3.7 Chloride (98 - 107 mmol/L) 103 Carbon Dioxide (22 - 30 mmol/L) 25 Anion Gap (5 - 16) 12 BUN (7 - 17 mg/dL) 37 H Creatinine (0.5 - 1.0 mg/dL) 6.3 *H Estimated GFR (>60 ml/min) 6 L Glucose (65 - 99 mg/dL) 98 Calcium (8.4 - 10.2 mg/dL) 8.4 Phosphorus (2.5 - 4.5 mg/dL) 3.7 Magnesium (1.6 - 2.3 mg/dL) 1.7 Total Bilirubin (0.2 - 1.3 mg/dL) 0.7 AST (14 - 36 U/L) 18 ALT (9 - 52 U/L) 14 Troponin I (< 0.11 ng/ml) 0.03 0.03 Albumin (3.5 - 5.0 g/dL) 2.9 L Coagulation PT (9.4 - 12.5 SEC) 13.2 H INR (0.90 - 1.19) 1.21 H APTT (25 - 37 SEC) 27 Hematology CBC w Diff NO MAN DIFF REQ WBC (4.8 - 10.8 /CUMM) 16.6 H RBC (4.20 - 5.40 /CUMM) 2.97 L Hgb (12.0 - 16.0 G/DL) 9.1 L Hct (37 - 47 %) 27.1 L MCV (81.0 - 99.0 FL) 91.2 MCH (27.0 - 31.0 PG) 30.6 MCHC (33.0 - 37.0 G/DL) 33.6 RDW (11.5 - 14.5 %) 15.4 H Plt Count (130 - 400 /CUMM) 189 MPV (7.4 - 10.4 FL) 8.3 Gran % (42.2 - 75.2 %) 76.0 H Lymphocytes % (20.5 - 51.1 %) 16.1 L Monocytes % (1.7 - 9.3 %) 6.3 Eosinophils % (0 - 5 %) 1.3 Basophils % (0.0 - 2.0 %) 0.3 Absolute Granulocytes (1.4 - 6.5 /CUMM) 12.6 H Absolute Lymphocytes (1.2 - 3.4 /CUMM) 2.7 Absolute Monocytes (0.10 - 0.60 /CUMM) 1.1 H Absolute Eosinophils (0.0 - 0.7 /CUMM) 0.2 Absolute Basophils (0.0 - 0.2 /CUMM) 0 Toxicology Random Vancomycin (ug/ml) 6.1 Cancelled Last 24 Hours of Raji Results: Blood cultures June 25 1 bottle from each of the 2 sets positive for gram- positive cocci in pairs and 1 bottle positive for gram-negative rods Stool culture June 25 mixed venus Stool C. difficile June 25 negative Diagnostic Data Recent Imaging Findings: Chest x-ray June 26 negative Assessment/Plan Assessment/Plan Impression: This is a 76-year-old woman hospitalized one year prior to admission with a diverticular bleed, requiring an exploratory laparotomy with right hemicolectomy after a colonoscopy and biopsy of a polyp (which revealed a tubular adenoma), with her course complicated by an apparent anastomotic leak, for which she underwent further surgery with a colostomy at [place], with her course further complicated by renal failure, since which she has required dialysis via an Isak catheter in the right IJ, admitted on June 25 with a 2 day history of shaking chills, sweats and fatigue and acute onset of hypotension, found to have a low- grade fever and leukocytosis with blood cultures positive for gram-positive cocci in pairs and gram-negative rods. The most likely source of her sepsis appears to be the tunneled catheter in her right upper chest, as it has been in for approximately 1 year, though there is no overlying inflammation. An intra-abdominal/pelvic source is possible, particularly with the history of a foul-smelling discharge from the left groin, though she has no GI symptoms and no abdominal tenderness. A urinary source is also possible, with her questionable right flank tenderness, though she urinates infrequently and has had no symptoms. She can continue to be covered broadly with antibiotics pending final cultures. If no other source is identified she may require removal of the Isak catheter, but this will depend on the organisms isolated (for example Pseudomonas or Staph aureus would require removal of the catheter). Suggestion: 1. Await CT of the abdomen and pelvis, scheduled for later today 2. Would straight cath for a urinalysis and urine culture 3. Follow-up final blood cultures 4. Redose with Vancomycin 1.5 g IV 1 today pending above 5. Continue Ceftazidime pending above Consult Acknowledgment - Thank you for your consult request.
--- NOTE | 2017-06-26 19:05 | Transfer of Care Summary ---
Hospital Course Course Hospital Course: Ms Barton is a 76 year old woman w/ a PMHx of ESRD ( on TTS schedule, Ora cath only placed over an year ), HTN, hypothyroidism, chronic back pain, recent admission to the hospital in 05/2016 for the management of diverticular bleed which was complicated by perforation requiring exploratory laparotomy with right hemicolectomy after colonoscopy and biopsy, was then transferred to [place] where she had a colostomy bag placed; this hospital course was complicated by acute kidney injury that led to ESRD requiring hemodialysis by Ora cath in right IJ. She was known to be in her usual state of health until 1 day prior to admission. She came to [facility] with a chief concern of hypotension, and chills. She did not require temperature at that time. She was found to be hypotensive up to 54/35, and has taken Midodrine as per her nephrologists recs. At the time of admission-temperature 98.2, pulse rate 80, respirations 18, blood pressure 103/53, pulse ox 97% on room air. She was given 500 mL bolus. Pertinent lab findings: WBC 25.3 (06/25)-->16.6(06/26) Hemoglobin 9.7(06/25)-->9.1(06/26) Platelets 184(06/25)-->189(06/26) Electrolytes Sodium 137 Potassium 3.2 BUN 27(06/25)-->37(06/26) Creatinine 4.8-->(06/25)-->6.3(06/26) Troponin 0.04, 0.03, 0.03, no new EKG changes suggestive of DE. UA, and UC pending. Blood Cultures 06/25 in Gram-positive cocci and gram-negative rods in 2 out of 2 bottles. Repeat Chest x-ray did not reveal any consolidation. Etiology in her case of hypertension, chills, blood cultures positive for gram- positive cocci in pairs and gram-negative rods makes me think that ora cath would likely be the source of infection, but having gram-negative rods is very unlikely. Other sources of infection, are intra-abdominal and urinary tract. Urinalysis and urine culture should be followed. She also has an ulcer in the skin fold of abdomen and possibly coccygeal region, making gram-positive rods and fecal contamination of gram-negative rods possible sources. Intra-abdominal abscesses should be kept in differential. Infective endocarditis should be kept in mind also. She had an abnormal initial chest x-ray, which showed abnormal finding which was not seen on repeat chest x-ray, which makes lung source of infection too, for which she is appropriately covered with ceftazidime and vancomycin for possible healthcare associated pneumonia given her exposure to healthcare facilities. She was admitted to intensive care unit for the management of hypotension, and was started on Midrin. Blood pressure remains stable while she was in the unit. She did not require any further intervention. It was noted that she had an Ora cath in place, which is at least 1-year-old, which needs to be replaced. She did not get a chance to get evaluation for AV fistula placement yet. Given her recent evidence of bacteremia, the placement of AV fistula needs to be expedited. If she has any growth of staph or pseudomonas, she would have to have a new Ora cath placed. In regards to her leukocytosis which improved after she received vancomycin and ceftazidime. An infectious disease business systems consultant was consulted for advice. She was supposed to be redosed with an extra dose of vancomycin based upon her recent vancomycin level. Urine culture, sputum cultures cultures pending. There was a consideration for getting the CAT scan abdomen and pelvis with oral and IV contrast, which needs to be followed. Nephrology was consulted for advice. She was due to be hemodialysed, as per her schedule. Serum creatinine was monitored closely. She was continued on sevelemir and MVT. Problem list: #1 gram-positive, gram-negative bacteremia #2 sepsis #3 end-stage renal disease #4 history of hypothyroidism #1 Central line- ora cath in place, with no erythema, or tenderness placed ~ 1 yr ago. #2 Arterial line- none #3 Ng catheter- c #4 Rectal tube none #5 NG tube none #6 IV/peripheral line- yes. #7 IV drips- none #8 Vent settings- none. #9 pressors: none Consults: #1 infectious disease-Brock Hernandez MD #2 nephrology-Dr. Morataya Follow-up -CT scan of the abdomen and pelvis with by mouth and IV contrast -Hemodialysis schedule -Restart all her home medications. -Follow up blood cultures, urine culture, respiratory cultures. Assessment/Plan: as above. Attending MD Review Statement Documenting Attending: Vianney ROBBINS,Deshawn
--- NOTE | 2017-06-26 19:10 | ECHOCARDIOGRAM REPORT ---
SIRENA CELESTIN Age: 76 : 1940 Gender: F Exam Date: 06/26/2017 11:35 Exam Location: [facility] Ht (in): 64 Wt (lb): 224 BSA: 2.19 BP: 110 / 54 Ordering Physician: JOVANA CEJA MD Referring Physician: JOVANA CEJA MD Technologist: Bertrand Macias LOGAN Room Number: 114-1 Indications: INFECTIVE ENDOCARDITIS Rhythm: Sinus Technical Quality: Fair FINDINGS Left Ventricle Normal size left ventricle. Mild concentric left ventricular hypertrophy. No obvious regional wall motion abnormalities. Normal left ventricular ejection fraction visually estimated at >55%. "pseudonormal" filling pattern of the left ventricle for age (stage 2 diastolic dysfunction). Right Ventricle Normal right ventricular size and function. Right Atrium Normal right atrial size. Left Atrium Normal left atrial size. Mitral Valve Mild mitral annular calcification. Mitral valve thickened. No evidence of vegetation on the mitral valve. Trace mitral regurgitation. Aortic Valve Trileaflet aortic valve. Diffuse mild thickening of the aortic valve cusps with mildly reduced excursion. No evidence of vegetation on the aortic valve. Mild aortic stenosis. Trace aortic regurgitation. Tricuspid Valve Structurally normal tricuspid valve. No evidence of vegetation on the tricuspid valve. Trace tricuspid regurgitation. No evidence of pulmonary hypertension. Pulmonic Valve Pulmonic valve not well visualized, grossly normal. No evidence of vegetation on the pulmonic valve. Trace pulmonic regurgitation. Pericardium No pericardial effusion. Great Vessels Normal size aortic root. Dilated inferior vena cava. CONCLUSIONS Normal size left ventricle. Mild concentric left ventricular hypertrophy. Normal left ventricular ejection fraction visually estimated at > 55%. "pseudonormal" filling pattern of the left ventricle for age (stage 2 diastolic dysfunction). Normal right ventricular size and function. Normal left atrial size. Trace mitral regurgitation. Mild aortic stenosis. Trace aortic regurgitation. Trace tricuspid regurgitation. No evidence of pulmonary hypertension. Trace pulmonic regurgitation. No evidence of valvular vegetations. Dilated inferior vena cava. Hung Golden M.D. (Electronically Signed) Final Date: 26 June 2017 19:09 MEASUREMENTS (Male / Female) Normal Values 2D ECHO LV Diastolic Diameter PLAX 4.5 cm 4.2 - 5.9 / 3.9 - 5.3 cm LV Systolic Diameter PLAX 3.1 cm 2.1 - 4.0 cm LV Fractional Shortening PLAX 31.1 % 25 - 46 % LV Ejection Fraction 2D Teich 59.0 % IVS Diastolic Thickness 1.2 cm LVPW Diastolic Thickness 1.2 cm LV Relative Wall Thickness 0.5 RV Internal Dim ED PLAX 3.3 cm 1.9 - 3.8 cm LVOT Diameter 1.9 cm Aortic Root Diameter 3.0 cm LA Systolic Diameter LX 2.8 cm 3.0 - 4.0 / 2.7 - 3.8 cm LA Volume 49.0 cm 18 - 58 / 22 - 52 cm Ascending Aorta Diameter 3.4 cm DOPPLER AV Peak Velocity 219.0 cm/s AV Peak Gradient 19.2 mmHg AV Mean Velocity 130.0 cm/s AV Mean Gradient 8.0 mmHg AV Velocity Time Integral 44.3 cm AI Deceleration Camp 147.0 cm/s AI Peak Velocity 320.0 cm/s AI Pressure Half Time 638.0 ms AI Peak Gradient 41.0 mmHg LVOT Peak Velocity 111.0 cm/s LVOT Peak Gradient 4.9 mmHg LVOT Mean Velocity 64.8 cm/s LVOT Mean Gradient 2.0 mmHg LVOT Velocity Time Integral 21.1 cm LVOT Stroke Volume 59.8 cm AV Area Cont Eq vti 1.4 cm AV Area Cont Eq pk 1.4 cm MV Peak Velocity 123.0 cm/s MV Peak Gradient 6.1 mmHg MV Mean Velocity 80.0 cm/s MV Mean Gradient 3.0 mmHg Mitral E Point Velocity 121.0 cm/s Mitral A Point Velocity 104.0 cm/s Mitral E to A Ratio 1.2 MV PHT Velocity 128.0 cm/s MV Deceleration Camp 500.0 cm/s MV Pressure Half Time 76.8 ms MV Area PHT 2.9 cm MV Deceleration Time 254.0 ms TR Peak Velocity 217.0 cm/s TR Peak Gradient 18.8 mmHg Right Atrial Pressure 5.0 mmHg Pulmonary Artery Systolic Pressu 23.8 mmHg Right Ventricular Systolic Press 23.8 mmHg PV Peak Velocity 108.0 cm/s PV Peak Gradient 4.7 mmHg PV Mean Velocity 75.1 cm/s PV Mean Gradient 3.0 mmHg PV Velocity Time Integral 32.7 cm LV E' Lateral Velocity 10.3 cm/s Mitral E to LV E' Lateral Ratio 11.7 LV E' Septal Velocity 7.6 cm/s Mitral E to LV E' Septal Ratio 15.9
--- NOTE | 2017-06-26 20:20 | CT SCAN REPORT ---
EXAMINATION: CT ABDOMEN AND PELVIS WITH CONTRAST CLINICAL INFORMATION: Abdominal abscess. Gram-positive bacteremia. COMPARISON: CT abdomen and pelvis 06/05/2016. TECHNIQUE: Multidetector volumetric imaging was performed of the abdomen and pelvis following IV administration of 95 mL of Optiray 320 intravenous contrast. Sagittal and coronal reformatted images were obtained on the technologist's workstation. DLP: 1101.28mGy-cm FINDINGS: LUNG BASES: There is consolidative disease within the superior segment of the left lower lobe. Mild bibasilar subsegmental atelectasis. Trace left effusion. LIVER, GALLBLADDER, AND BILIARY TREE: Liver attenuation is homogeneous and there is no evidence of a discrete hepatic parenchymal mass. Grossly no intrahepatic or extrahepatic biliary ductal dilatation. The gallbladder is absent. PANCREAS: Unremarkable. SPLEEN: Unremarkable. ADRENAL GLANDS: Unremarkable. KIDNEYS AND URETERS: There are well marginated benign-appearing cystic lesions at the upper and lower poles of the left kidney. Kidneys demonstrate symmetric corticomedullary enhancement characteristics. No hydronephrosis. No worrisome mass or calcifications visualized along the expected course of the right or left ureter. BLADDER: Unremarkable. GASTROINTESTINAL TRACT: There is a small hiatal hernia. Small bowel is otherwise unremarkable. There appear to be changes of a right hemicolectomy and a left colostomy. There is no free intraperitoneal air or fluid. No drainable collection. ABDOMINAL WALL: There is diastases of the rectus abdominis muscles with a mesh repair of the ventral wall. LYMPH NODES: There are a few somewhat prominent retroperitoneal lymph nodes that are presumably reactive. VASCULAR: Scattered atherosclerotic calcification involves the abdominal aorta and iliac vessels. The inferior vena cava is grossly unremarkable. PELVIC VISCERA: Unremarkable. OSSEOUS STRUCTURES: There is no acute osseous finding. Multilevel degenerative spondylosis of the lower thoracic and lumbar spine is noted. No evidence of acute fracture. IMPRESSION: There is a left upper lobe pneumonia that is partially included within the [id number] of this examination that may be responsible for the patient's bacteremia. Recent postoperative changes of a right hemicolectomy and left colostomy are noted. There is no free intraperitoneal air or fluid within the abdominal compartment. No drainable fluid collection.
[2017-06-26 22:55] VITALS: BP 120/60
--- NOTE | 2017-06-27 06:43 | PN- Housestaff ---
Katlin ROBBINS,Anh 06/27/17 0643: Subjective Follow-up For: esrd sepsis Review of Systems Constitutional: Reports: no symptoms, see HPI. Objective Last 24 Hrs of Vital Signs/I&O Vital Signs Date Time Temp Pulse Resp B/P B/P Pulse O2 O2 Flow FiO2 Mean Ox Delivery Rate 06/27 0652 97.6 68 20 110/62 95 Room Air 06/26 2255 98.1 68 20 120/60 94 Room Air 06/26 1600 96.9 71 16 132/70 93 Room Air Intake & Output 06/27 1600 06/27 0800 06/27 0000 Intake Total 470 Output Total 500 1375 Balance -500 -905 Intake, IV 350 Intake, Oral 120 Output, Stool 500 1350 Output, Urine 25 Patient 219 lb Weight Weight Bed scale Measurement Method Physical Exam General Appearance: Alert, Oriented X3, Cooperative, No Acute Distress Cardiovascular: Regular Rate, Normal S1, Normal S2, No Murmurs Lungs: Clear to Auscultation Abdomen: Soft, No Tenderness, No Hepatospenomegaly Neurological: Normal Speech, Normal Tone, Sensation Intact Current Medications: Current Medications Sig/Liv Start time Last Medication Dose Route Stop Time Status Admin Acetaminophen 650 MG Q6P PRN 06/25 1600 AC PO Acetaminophen 1,000 MG Q6P PRN 06/25 1600 AC 06/26 IV 1954 Ceftazidime 1,000 MG DAILY@1400 06/26 1400 AC 06/26 IV 1351 Famotidine 20 MG DAILY 06/26 0900 AC 06/26 PO 0759 Heparin Sodium 5,000 UNIT Q8 06/25 2200 AC 06/27 (Porcine) SC 0548 Levothyroxine Sodium 0.15 MG DAILY AC 06/26 0700 AC 06/27 PO 0548 Melatonin 6 MG QPM 06/25 2100 AC 06/27 PO 0123 Multivitamins 1 TAB DAILY 06/26 0900 AC 06/26 PO 0759 Nystatin 1 GABRIEL BID PRN 06/25 1600 AC 06/26 TOP 1406 Sevelamer Carbonate 1,600 MG WM 06/25 1700 AC 06/26 PO 2013 Trazodone HCl 75 MG AT BEDTIME PRN 06/25 1600 AC 06/27 PO 0124 Vancomycin HCl 1,500 MG ONCE ONE 06/26 1800 DC 06/26 Sodium Chloride 250 ML IV 06/26 1859 1958 Last 24 Hrs of Lab/Raji Results Last 24 Hrs of Labs/Mics: Laboratory Tests 06/27/17 0800: Anion Gap 14, Estimated GFR 5 L, BUN/Creatinine Ratio 6.0 L, Glucose 74, Calcium 8.8, CBC w Diff NO MAN DIFF REQ, RBC 2.98 L, MCV 89.4, MCH 30.6, MCHC 34.2, RDW 15.4 H, MPV 7.7, Gran % 58.3, Lymphocytes % 26.4, Monocytes % 11.1 H , Eosinophils % 3.6, Basophils % 0.6, Absolute Granulocytes 3.9, Absolute Lymphocytes 1.8, Absolute Monocytes 0.7 H, Absolute Eosinophils 0.2, Absolute Basophils 0, Hep Bs Antigen Pending, Hep Bs Antibody Pending 06/27/17 0500: Sodium Cancelled, Potassium Cancelled, Chloride Cancelled, Carbon Dioxide Cancelled, Anion Gap Cancelled, BUN Cancelled, Creatinine Cancelled, Glucose Cancelled, Calcium Cancelled, Phosphorus Cancelled, Magnesium Cancelled, Total Bilirubin Cancelled, AST Cancelled, ALT Cancelled, Albumin Cancelled 06/26/172157: Urinalysis HEAVY H, Urine Color BROWN H, Urine Clarity TURBD H, Urine pH 7.0, Ur Specific [place] 1.025, Urine Protein >=300 H, Urine Ketones NEG, Urine Nitrite POS H, Urine Bilirubin NEG@ICTO, Urine Urobilinogen 0.2, Ur Leukocyte Esterase MOD H, Ur Microscopic SEDIMENT EXAMINED, Urine RBC 3-5, Urine WBC > 75 H, Ur Epithelial Cells FEW, Urine Bacteria FEW H, Urine Mucus MANY H, Urine Hemoglobin LARGE H, Urine Glucose NEG Microbiology 06/26 2157 URINE ROUT: Streptococcus pneumoniae Antigen (M - COMP 06/26 2157 URINE ROUT: Urine Culture - RECD 06/26 1024 BLOOD: Blood Culture - RECD 06/26 1013 BLOOD: Blood Culture - RECD Assessment/Plan Assessment: Ms Barton is a 76 year old woman w/ a PMHx of ESRD ( on TTS schedule, Ora cath only placed over an year ), HTN, hypothyroidism, chronic back pain, recent admission to the hospital in 05/2016 for the management of diverticular bleed which was complicated by perforation requiring exploratory laparotomy with right hemicolectomy after colonoscopy and biopsy, was then transferred to [place] where she had a colostomy bag placed; this hospital course was complicated by acute kidney injury that led to ESRD requiring hemodialysis by Ora cath in right IJ. Assessment and plan 1. Sepsis possibly due to GI/ source, infection of her right Ora Cath-patient is on vancomycin and ceftazidime- pt urine culture growing GNR- pt is non vanco and ceftaz. we will follow with final cultures.discussed with ID.We will also get vanvco level and dose vancomycin today.pt had dialysis today.Vitals stable. 2. End-stage renal disease-hemodialysis 3. sacral decubitus ulcer- off loading and duoderm dressing. Problem List: 1. Hypotension 2. Sepsis 3. ESRD (end stage renal disease) Pain Ratin Pain Location: none Pain Goal: Remain pain free Pain Plan: tylenol Tomorrow's Labs & Rationales: astrid Wells MD,Porsha 06/27/17 1300: Attending MD Review Statement Attending Statement Attending MD Statement: examined this patient, discuss w/resident/PA/TELECOMMUNICATIONS REPAIRER, agreed w/resident/PA/TELECOMMUNICATIONS REPAIRER, reviewed EMR data (avail), discussed with nursing, discussed with case mgmt, reviewed images, amended to note Attending Assessment/Plan: Patient seen and examined at Dialysis. C/O pain in her back. Denies any abd pain. The ora cath site looks clean. Vital Signs Date Time Temp Pulse Resp B/P B/P Pulse O2 O2 Flow FiO2 Mean Ox Delivery Rate 06/27 0652 97.6 68 20 110/62 95 Room Air 06/26 2255 98.1 68 20 120/60 94 Room Air 06/26 1600 96.9 71 16 132/70 93 Room Air on exam; aoxx, nad. cv; s1,s2, rrr resp; clear abd; soft, nt, bs+, + colostomy. ext; no edema Laboratory Tests 06/27 06/27 0800 0500 Chemistry Sodium (137 - 145 mmol/L) 137 Cancelled Potassium (3.5 - 5.1 mmol/L) 4.2 Cancelled Chloride (98 - 107 mmol/L) 100 Cancelled Carbon Dioxide (22 - 30 mmol/L) 22 Cancelled Anion Gap (5 - 16) 14 Cancelled BUN (7 - 17 mg/dL) 48 H Cancelled Creatinine (0.5 - 1.0 mg/dL) 8.0 *H Cancelled Estimated GFR (>60 ml/min) 5 L BUN/Creatinine Ratio (7 - 25 %) 6.0 L Glucose (65 - 99 mg/dL) 74 Cancelled Calcium (8.4 - 10.2 mg/dL) 8.8 Cancelled Phosphorus Cancelled Magnesium Cancelled Total Bilirubin Cancelled AST Cancelled ALT Cancelled Albumin Cancelled Hematology CBC w Diff NO MAN DIFF REQ WBC (4.8 - 10.8 /CUMM) 6.7 RBC (4.20 - 5.40 /CUMM) 2.98 L Hgb (12.0 - 16.0 G/DL) 9.1 L Hct (37 - 47 %) 26.6 L MCV (81.0 - 99.0 FL) 89.4 MCH (27.0 - 31.0 PG) 30.6 MCHC (33.0 - 37.0 G/DL) 34.2 RDW (11.5 - 14.5 %) 15.4 H Plt Count (130 - 400 /CUMM) 210 MPV (7.4 - 10.4 FL) 7.7 Gran % (42.2 - 75.2 %) 58.3 Lymphocytes % (20.5 - 51.1 %) 26.4 Monocytes % (1.7 - 9.3 %) 11.1 H Eosinophils % (0 - 5 %) 3.6 Basophils % (0.0 - 2.0 %) 0.6 Absolute Granulocytes (1.4 - 6.5 /CUMM) 3.9 Absolute Lymphocytes (1.2 - 3.4 /CUMM) 1.8 Absolute Monocytes (0.10 - 0.60 /CUMM) 0.7 H Absolute Eosinophils (0.0 - 0.7 /CUMM) 0.2 Absolute Basophils (0.0 - 0.2 /CUMM) 0 Serology Hep Bs Antigen (NONREACTIVE) NONREACTIVE Hep Bs Antibody (NONREACTIVE) NONREACTIVE 06/268 Urines Urinalysis HEAVY H Urine Color (YEL,AMB,STR) BROWN H Urine Clarity (CLEAR) TURBD H Urine pH (5.0 - 8.0) 7.0 Ur Specific [place] (1.001 - 1.035) 1.025 Urine Protein (NEG,<30 MG/DL) >=300 H Urine Ketones (NEG) NEG Urine Nitrite (NEG) POS H Urine Bilirubin (NEG) NEG@ICTO Urine Urobilinogen (0.1 - 1.0 EU/dl) 0.2 Ur Leukocyte Esterase (NEG) MOD H Ur Microscopic SEDIMENT EXAMINED Urine RBC (0 - 5 /HPF) 3-5 Urine WBC (0 - 2 /HPF) > 75 H Ur Epithelial Cells (NONE,FEW) FEW Urine Bacteria (NEG/NONE) FEW H Urine Mucus (FEW,NONE) MANY H Urine Hemoglobin (NEG) LARGE H Urine Glucose (N MG/DL) NEG A/P; PMHx of ESRD(on TTS schedule, Ora cath only placed over an year), HTN, hypothyroidism, chronic back pain, admission to the [facility] in 05/2016 for the management of diverticular bleed which was complicated by perforation requiring exploratory laparotomy with right hemicolectomy after colonoscopy and biopsy, was then transferred to [place] where she had a colostomy bag placed; this hospital course was complicated by acute kidney injury that led to ESRD requiring hemodialysis by Ora cath in right IJ. Pt is admitted with Sepsis, GPC bacteremia and Urine cx positive for GNR. Currenty on Vanco/ceftaz. Followed by ID. CT abd and pelvis shows lung infiltrate which is going along with initial CXR fdgs. HD per nephro. Will d/w ID about further abx recs. Continue other current mx. DVT px; Hep sq. PT eval.
[2017-06-27 06:52] VITALS: BP 110/62
[2017-06-27 08:34] LABS: ABSOLUTE EOSINOPHIL COUNT 0.2 /CUMM (0.0-0.7); ABSOLUTE GRANULOCYTE CT 3.9 /CUMM (1.4-6.5); ABSOLUTE LYMPH COUNT 1.8 /CUMM (1.2-3.4); ABSOLUTE MONOCYTE COUNT 0.7 /CUMM (0.10-0.60); EOSINOPHIL % 3.6 % (0-5); RED BLOOD CELL CT 2.98 /CUMM (4.20-5.40)
[2017-06-27 08:38] LABS: ABSOLUTE BASOPHIL COUNT 0 /CUMM (0.0-0.2); BASOPHIL % 0.6 % (0.0-2.0); GRANULOCYTE % 58.3 % (42.2-75.2); HEMATOCRIT 26.6 % (37-47); MEAN CORPUSCULAR HGB 30.6 PG (27.0-31.0); MEAN CORPUSCULAR HGB CONC 34.2 G/DL (33.0-37.0); MEAN CORPUSCULAR VOLUME 89.4 FL (81.0-99.0); MEAN PLATELET VOLUME 7.7 FL (7.4-10.4); PLATELET COUNT 210 /CUMM (130-400); RBC DISTRIBUTION WIDTH 15.4 % (11.5-14.5); WHITE BLOOD CELL COUNT 6.7 /CUMM (4.8-10.8)
--- NOTE | 2017-06-27 11:15 | PN- Pulmonary ---
Subjective HPI/Critical Care Issues: pt seen and examined she is undergoing HD currently she is stable and has been moved out of the ICU follow up for noted KHRIS infiltrate Objective Current Medications: Current Medications Sig/Liv Start time Last Medication Dose Route Stop Time Status Admin Acetaminophen 650 MG Q6P PRN 06/25 1600 AC PO Acetaminophen 1,000 MG Q6P PRN 06/25 1600 AC 06/26 IV 1954 Ceftazidime 1,000 MG DAILY@1400 06/26 1400 AC 06/26 IV 1351 Famotidine 20 MG DAILY 06/26 0900 AC 06/26 PO 0759 Heparin Sodium 5,000 UNIT Q8 06/25 2200 AC 06/27 (Porcine) SC 0548 Levothyroxine Sodium 0.15 MG DAILY AC 06/26 0700 AC 06/27 PO 0548 Melatonin 6 MG QPM 06/25 2100 AC 06/27 PO 0123 Multivitamins 1 TAB DAILY 06/26 0900 AC 06/26 PO 0759 Nystatin 1 GABRIEL BID PRN 06/25 1600 AC 06/26 TOP 1406 Sevelamer Carbonate 1,600 MG WM 06/25 1700 AC 06/26 PO 2013 Trazodone HCl 75 MG AT BEDTIME PRN 06/25 1600 AC 06/27 PO 0124 Vancomycin HCl 1,500 MG ONCE ONE 06/26 1800 DC 06/26 Sodium Chloride 250 ML IV 06/26 [id number] Vital Signs & I&O Last 24 Hrs of Vitals and I&O: Vital Signs Date Time Temp Pulse Resp B/P B/P Pulse O2 O2 Flow FiO2 Mean Ox Delivery Rate 06/27 0652 97.6 68 20 110/62 95 Room Air 06/26 2255 98.1 68 20 120/60 94 Room Air 06/26 1600 96.9 71 16 132/70 93 Room Air Intake & Output 06/27 1600 06/27 0800 05 0000 Intake Total 470 Output Total 500 1375 Balance -500 -905 Intake, IV 350 Intake, Oral 120 Output, Stool 500 1350 Output, Urine 25 Patient 219 lb Weight Weight Bed scale Measurement Method Exam Other Physical Findings: gen awake and alert head and neck - room air cvs s1, s2 lungs bibasilar crackles Results Last 24 Hrs of Lab Results: Laboratory Tests 06/27/17 0800: Anion Gap 14, Estimated GFR 5 L, BUN/Creatinine Ratio 6.0 L, Glucose 74, Calcium 8.8, CBC w Diff NO MAN DIFF REQ, RBC 2.98 L, MCV 89.4, MCH 30.6, MCHC 34.2, RDW 15.4 H, MPV 7.7, Gran % 58.3, Lymphocytes % 26.4, Monocytes % 11.1 H , Eosinophils % 3.6, Basophils % 0.6, Absolute Granulocytes 3.9, Absolute Lymphocytes 1.8, Absolute Monocytes 0.7 H, Absolute Eosinophils 0.2, Absolute Basophils 0, Hep Bs Antigen NONREACTIVE, Hep Bs Antibody NONREACTIVE 06/27/17 0500: Sodium Cancelled, Potassium Cancelled, Chloride Cancelled, Carbon Dioxide Cancelled, Anion Gap Cancelled, BUN Cancelled, Creatinine Cancelled, Glucose Cancelled, Calcium Cancelled, Phosphorus Cancelled, Magnesium Cancelled, Total Bilirubin Cancelled, AST Cancelled, ALT Cancelled, Albumin Cancelled 06/26/17 2158: Urinalysis HEAVY H, Urine Color BROWN H, Urine Clarity TURBD H, Urine pH 7.0, Ur Specific [place] 1.025, Urine Protein >=300 H, Urine Ketones NEG, Urine Nitrite POS H, Urine Bilirubin NEG@ICTO, Urine Urobilinogen 0.2, Ur Leukocyte Esterase MOD H, Ur Microscopic SEDIMENT EXAMINED, Urine RBC 3-5, Urine WBC > 75 H, Ur Epithelial Cells FEW, Urine Bacteria FEW H, Urine Mucus MANY H, Urine Hemoglobin LARGE H, Urine Glucose NEG Impression/Plan Impression/Plan Impression/Plan: Impression 76-year-old woman with a history of end-stage renal disease on hemodialysis Monday and Monday presents with chills, rigors and diarrhea. * sepsis with resolved hypotension - GNR and GPCs in blood * KHRIS infiltrate * ESRD on HD Plan -vanco/ceftaz -f/u all cultures -from the pulmonary perspective the patient should have a repeat cxr within 6-8 weeks of discharge unless clinically indicated earlier, if still with opacification can consider a repeat ct chest without contrast at that point -as she is currently on room air, I provided her with my contact information, alternatively she can have imaging performed with her primary care provider ( which she is in the process of obtaining) -will sign off at this time, please call with any issues or questions DVT prophylaxis at all times
--- NOTE | 2017-06-27 12:05 | PN- Nephrology ---
Assessment/Plan Nephrology Assessment: Appreciate Dr. Hernandez's input. Await final ID of bacteria. 2 organisms growing. Doubt this is a primary line infection although I suspect the line is likely secondarily infected. Would repeat blood cultures and continue antibiotics. On dialysis now. tolerating well BP much better. Quentin Morataya MD Suggestion: . Subjective Subjective: Pt on dialysis. Final ID of organism still pending. CT unremarkable. small pulmonary infiltrate. Objective Vital Signs and I&Os F NAD Skin neg rash Eyes anicteric ENT moist Lungs clear Abd soft surgical scars, colostomy N/T Ext neg edema Chest R JEANETTE Results Pertinent Lab Results: Laboratory Tests 06/27 06/27 0800 0500 Chemistry Sodium (137 - 145 mmol/L) 137 Cancelled Potassium (3.5 - 5.1 mmol/L) 4.2 Cancelled Chloride (98 - 107 mmol/L) 100 Cancelled Carbon Dioxide (22 - 30 mmol/L) 22 Cancelled Anion Gap (5 - 16) 14 Cancelled BUN (7 - 17 mg/dL) 48 H Cancelled Creatinine (0.5 - 1.0 mg/dL) 8.0 *H Cancelled Estimated GFR (>60 ml/min) 5 L BUN/Creatinine Ratio (7 - 25 %) 6.0 L Glucose (65 - 99 mg/dL) 74 Cancelled Calcium (8.4 - 10.2 mg/dL) 8.8 Cancelled Phosphorus Cancelled Magnesium Cancelled Total Bilirubin Cancelled AST Cancelled ALT Cancelled Albumin Cancelled Hematology CBC w Diff NO MAN DIFF REQ WBC (4.8 - 10.8 /CUMM) 6.7 RBC (4.20 - 5.40 /CUMM) 2.98 L Hgb (12.0 - 16.0 G/DL) 9.1 L Hct (37 - 47 %) 26.6 L MCV (81.0 - 99.0 FL) 89.4 MCH (27.0 - 31.0 PG) 30.6 MCHC (33.0 - 37.0 G/DL) 34.2 RDW (11.5 - 14.5 %) 15.4 H Plt Count (130 - 400 /CUMM) 210 MPV (7.4 - 10.4 FL) 7.7 Gran % (42.2 - 75.2 %) 58.3 Lymphocytes % (20.5 - 51.1 %) 26.4 Monocytes % (1.7 - 9.3 %) 11.1 H Eosinophils % (0 - 5 %) 3.6 Basophils % (0.0 - 2.0 %) 0.6 Absolute Granulocytes (1.4 - 6.5 /CUMM) 3.9 Absolute Lymphocytes (1.2 - 3.4 /CUMM) 1.8 Absolute Monocytes (0.10 - 0.60 /CUMM) 0.7 H Absolute Eosinophils (0.0 - 0.7 /CUMM) 0.2 Absolute Basophils (0.0 - 0.2 /CUMM) 0 Serology Hep Bs Antigen (NONREACTIVE) NONREACTIVE Hep Bs Antibody (NONREACTIVE) NONREACTIVE 06/26 06/26 2158 0622 Toxicology Random Vancomycin (ug/ml) 6.1 Urines Urinalysis HEAVY H Urine Color (YEL,AMB,STR) BROWN H Urine Clarity (CLEAR) TURBD H Urine pH (5.0 - 8.0) 7.0 Ur Specific [place] (1.001 - 1.035) 1.025 Urine Protein (NEG,<30 MG/DL) >=300 H Urine Ketones (NEG) NEG Urine Nitrite (NEG) POS H Urine Bilirubin (NEG) NEG@ICTO Urine Urobilinogen (0.1 - 1.0 EU/dl) 0.2 Ur Leukocyte Esterase (NEG) MOD H Ur Microscopic SEDIMENT EXAMINED Urine RBC (0 - 5 /HPF) 3-5 Urine WBC (0 - 2 /HPF) > 75 H Ur Epithelial Cells (NONE,FEW) FEW Urine Bacteria (NEG/NONE) FEW H Urine Mucus (FEW,NONE) MANY H Urine Hemoglobin (NEG) LARGE H Urine Glucose (N MG/DL) NEG 06/26 06/26 06/25 06/25 0622 0150 1855 1441 Chemistry Sodium (137 - 145 mmol/L) 139 Potassium (3.5 - 5.1 mmol/L) 3.7 Chloride (98 - 107 mmol/L) 103 Carbon Dioxide (22 - 30 mmol/L) 25 Anion Gap (5 - 16) 12 BUN (7 - 17 mg/dL) 37 H Creatinine (0.5 - 1.0 mg/dL) 6.3 *H Estimated GFR (>60 ml/min) 6 L Glucose (65 - 99 mg/dL) 98 Lactic Acid (0.7 - 2.1 mmol/L) 1.2 Calcium (8.4 - 10.2 mg/dL) 8.4 Phosphorus (2.5 - 4.5 mg/dL) 3.7 Magnesium (1.6 - 2.3 mg/dL) 1.7 Total Bilirubin (0.2 - 1.3 mg/dL) 0.7 AST (14 - 36 U/L) 18 ALT (9 - 52 U/L) 14 Troponin I (< 0.11 ng/ml) 0.03 0.03 Albumin (3.5 - 5.0 g/dL) 2.9 L Coagulation PT (9.4 - 12.5 SEC) 13.2 H INR (0.90 - 1.19) 1.21 H APTT (25 - 37 SEC) 27 Hematology CBC w Diff NO MAN DIFF REQ WBC (4.8 - 10.8 /CUMM) 16.6 H RBC (4.20 - 5.40 /CUMM) 2.97 L Hgb (12.0 - 16.0 G/DL) 9.1 L Hct (37 - 47 %) 27.1 L MCV (81.0 - 99.0 FL) 91.2 MCH (27.0 - 31.0 PG) 30.6 MCHC (33.0 - 37.0 G/DL) 33.6 RDW (11.5 - 14.5 %) 15.4 H Plt Count (130 - 400 /CUMM) 189 MPV (7.4 - 10.4 FL) 8.3 Gran % (42.2 - 75.2 %) 76.0 H Lymphocytes % (20.5 - 51.1 %) 16.1 L Monocytes % (1.7 - 9.3 %) 6.3 Eosinophils % (0 - 5 %) 1.3 Basophils % (0.0 - 2.0 %) 0.3 Absolute Granulocytes (1.4 - 6.5 /CUMM) 12.6 H Absolute Lymphocytes (1.2 - 3.4 /CUMM) 2.7 Absolute Monocytes (0.10 - 0.60 /CUMM) 1.1 H Absolute Eosinophils (0.0 - 0.7 /CUMM) 0.2 Absolute Basophils (0.0 - 0.2 /CUMM) 0 Toxicology Random Vancomycin Cancelled 06/25 06/25 1300 1252 Chemistry Sodium (137 - 145 mmol/L) 137 Potassium (3.5 - 5.1 mmol/L) 3.2 L Chloride (98 - 107 mmol/L) 99 Carbon Dioxide (22 - 30 mmol/L) 27 Anion Gap (5 - 16) 11 BUN (7 - 17 mg/dL) 27 H Creatinine (0.5 - 1.0 mg/dL) 4.8 H Estimated GFR (>60 ml/min) 9 L BUN/Creatinine Ratio (7 - 25 %) 5.6 L Glucose (65 - 99 mg/dL) 124 H Lactic Acid (0.7 - 2.1 mmol/L) 1.7 Calcium (8.4 - 10.2 mg/dL) 8.7 Total Bilirubin (0.2 - 1.3 mg/dL) 1.2 AST (14 - 36 U/L) 22 ALT (9 - 52 U/L) 19 Alkaline Phosphatase (<127 U/L) 126 Troponin I (< 0.11 ng/ml) 0.04 Total Protein (6.3 - 8.2 g/dL) 6.6 Albumin (3.5 - 5.0 g/dL) 3.2 L Globulin (1.9 - 4.2 gm/dL) 3.4 Albumin/Globulin Ratio (1.1 - 2.2 %) 0.9 L Hematology CBC w Diff MAN DIFF ORDERED WBC (4.8 - 10.8 /CUMM) 25.3 H RBC (4.20 - 5.40 /CUMM) 3.27 L Hgb (12.0 - 16.0 G/DL) 9.7 L Hct (37 - 47 %) 29.7 L MCV (81.0 - 99.0 FL) 90.9 MCH (27.0 - 31.0 PG) 29.6 MCHC (33.0 - 37.0 G/DL) 32.6 L RDW (11.5 - 14.5 %) 15.9 H Plt Count (130 - 400 /CUMM) 184 MPV (7.4 - 10.4 FL) 7.5 Gran % (42.2 - 75.2 %) 84.6 H Lymphocytes % (20.5 - 51.1 %) 8.7 L Monocytes % (1.7 - 9.3 %) 6.4 Eosinophils % (0 - 5 %) 0.2 Basophils % (0.0 - 2.0 %) 0.1 Absolute Granulocytes (1.4 - 6.5 /CUMM) 21.4 H Segmented Neutrophils (42.2 - 75.2 %) 77 H Band Neutrophils (0.0 - 5.0 %) 7 H Absolute Lymphocytes (1.2 - 3.4 /CUMM) 2.2 Lymphocytes (20.5 - 51.1 %) 8 L Monocytes (1.7 - 9.3 %) 8 Absolute Monocytes (0.10 - 0.60 /CUMM) 1.6 H Absolute Eosinophils (0.0 - 0.7 /CUMM) 0.1 Absolute Basophils (0.0 - 0.2 /CUMM) 0 Anisocytosis 1+ Urines Urine Color Cancelled Urine Clarity Cancelled Urine pH Cancelled Ur Specific [place] Cancelled Urine Protein Cancelled Urine Ketones Cancelled Urine Nitrite Cancelled Urine Bilirubin Cancelled Urine Urobilinogen Cancelled Ur Leukocyte Esterase Cancelled Ur Microscopic Cancelled Urine Hemoglobin Cancelled Urine Glucose Cancelled
[2017-06-27 14:34] VITALS: BP 110/70
[2017-06-27 22:33] VITALS: BP 114/60
[2017-06-28 06:51] VITALS: BP 100/50
--- NOTE | 2017-06-28 07:27 | PN- Housestaff ---
Subjective Follow-up For: Sepsis Hypertension-resolved Complaints: left shoulder pain Review of Systems Constitutional: Reports: no symptoms. Cardiovascular: Reports: no symptoms. Respiratory: Reports: no symptoms. Gastrointestinal: Reports: no symptoms. Objective Last 24 Hrs of Vital Signs/I&O Vital Signs Date Time Temp Pulse Resp B/P B/P Pulse O2 O2 Flow FiO2 Mean Ox Delivery Rate 06/28 0651 97.9 74 20 100/50 94 Room Air 06/28 0000 93 Room Air 06/27 2233 98.8 84 20 114/60 93 06/27 1434 98.3 67 20 110/70 97 Room Air Intake & Output 06/28 1600 06/28 0800 06/28 0000 Intake Total 240 160 Output Total Balance 240 160 Intake, IV 20 Intake, Oral 240 140 Patient 220 lb Weight Physical Exam General Appearance: Alert, Oriented X3, Cooperative, No Acute Distress Cardiovascular: Regular Rate, Normal S1, Normal S2, No Murmurs Lungs: Clear to Auscultation Abdomen: Soft, No Tenderness, No Hepatospenomegaly, skin tear seen in lower abd omen buttock-no ulcer Neurological: Normal Speech, Strength at 5/5 X4 Ext, Normal Tone, Sensation Intact Extremities: No Edema, Normal Pulses Last 24 Hrs of Lab/Raji Results Last 24 Hrs of Labs/Mics: Laboratory Tests 06/28/17 0600: Sodium Cancelled, Potassium Cancelled, Chloride Cancelled, Carbon Dioxide Cancelled, Anion Gap Cancelled, BUN Cancelled, Creatinine Cancelled, BUN/ Creatinine Ratio Cancelled Assessment/Plan Assessment: Ms Barton is a 76 year old woman w/ a PMHx of ESRD ( on TTS schedule, Isak cath only placed over an year ), HTN, hypothyroidism, chronic back pain, recent admission to the hospital in 05/2016 for the management of diverticular bleed which was complicated by perforation requiring exploratory laparotomy with right hemicolectomy after colonoscopy and biopsy, was then transferred to [place] where she had a colostomy bag placed; this hospital course was complicated by acute kidney injury that led to ESRD requiring hemodialysis by Isak cath in right IJ. Assessment and plan 1. Sepsis possibly due to GI/ source, possible infection of her right Isak Cath-patient/UTI. Urine culture growing Enterobacter pending final report. Blood culture growing gram-positive cocci [strep pneumonia]. Patient Is on vancomycin and ceftazidime-we will follow with final cultures. ID and nephrology on board. Discussed with Dr. Morataya blue split trimmer who is planning to remove the Isak catheter and inserted a new ONE and also would like to do the YUMIKO to rule out any infective endocarditis prior to that. Patient will have hemodialysis today.Vitals stable. 2. End-stage renal disease-hemodialysis 3. Sacrum-no ulcer. Old healed skin tears seen. 4. Abdomen-skin tear in the scar site. Keep the area dry and do duodenum dressing 5. Patient complained of left shoulder pain. We will take a x-ray left shoulder to rule out any fluid collection. Code-full code Diet-renal diet Problem List: 1. ESRD (end stage renal disease) 2. Sepsis Pain Ratin Pain Location: NONE Pain Goal: Remain pain free Pain Plan: TYLRNOL Tomorrow's Labs & Rationales: BEP
--- NOTE | 2017-06-28 10:11 | Patient Discharge Instructions ---
Discharge Instructions General Discharge Information Watch for these problems: In case of dysuria, nausea, vomiting, chest pain, skin ulcer ,fever please go to nearest ER Special Instructions: Please follow up with PCP/CAPACITY MANAGER in 1 week. Acute Coronary Syndrome Inclusion Criteria At DC or during hospital stay patient has or had the following: ACS DIAGNOSIS No Discharge Core Measures Meds if any: Prescribed or Continued at Discharge Meds if any: NOT Prescribed or Continued at Discharge Congestive Heart Failure Inclusion Criteria At DC or during hospital stay patient has or had the following: CHF DIAGNOSIS No Discharge Core Measures Meds if any: Prescribed or Continued at Discharge Meds if any: NOT Prescribed or Continued at Discharge Cerebrovascular accident Inclusion Criteria At DC or during hospital stay patient has or had the following: CVA/TIA Diagnosis No Discharge Core Measures Meds if any: Prescribed or Continued at Discharge Meds if any: NOT Prescribed or Continued at Discharge Venous thromboembolism Inclusion Criteria VTE Diagnosis No VTE Type NONE VTE Confirmed by (Test) NONE Discharge Core Measures - Per Current guidelines, there needs to be overlap - treatment for the first 5 days of Warfarin therapy. - If discharged on Warfarin prior to 5 days of - overlap therapy, the patient will need to be - assessed for post discharge needs including - *Post discharge parental anticoagulation - *Warfarin and/or parental anticoagulation education - *Follow up date to check INR post discharge At least 5 days overlap therapy as Inpatient No Meds if any: Prescribed or Continued at Discharge Note: Overlap Therapy is Warfarin and Anticoagulant Meds if any: NOT Prescribed or Continued at Discharge
--- NOTE | 2017-06-28 10:49 | PN- Nephrology ---
Assessment/Plan Nephrology Assessment: Gram positive and gram negative bacteremia ID of organism pending. GPC were reported as pairs. Await ID of organism. As in my previous note the presence of two bacteria in the bloodstream suggests a source other than the line as the primary altough I suspect the line is now secondarily infected. It is possible she had low grade GP bacteremia (viridans/enterococcus can do this) and the GN is her UTI (this would be consistent if blood culture grew enterobacter with the same sensitivity as urine). Follow-up blood cultures so far NGTD. Would ask micro for final ID of organism. Would consider doing YUMIKO to rule out endocarditis (especially if the former postulate is entertained - two separate infections with indolent GP infection and superimposed GN). Continue Vanco/ Fortaz for now. Would discuss with Dr. Hernandez timing of changing line. Optimally would have line out for at least 24 hrs while blood cultures remain negative. Could D/C JEANETTE tomorrow after dialysis (I will dialyze in AM) and replace JEANETTE Monday but if Dr. Hernandez not comfortable with JEANETTE going back in this early Could dialyze tomorrow/Monday/Monday then D/C JEANETTE and leave out 48 hrs (this allows longer course of antibiotics and a chance to do YUMIKO to help with rick term plan). Above discussed with medical team. Would NOT favor replacement with non-tunnelled temporary line (Nahun) unless blood cultures remained persistently positive and YUMIKO positive. Would rather wait a few more days with antibiotics on board to avoid multiple procedures. Quentin Morataya MD. Suggestion: . Subjective Subjective: Pt feels better. Blood Cx GPC pairs (ID not back yet) and 1/2 sets with GNR ( not ID'd) Urine culture growing enterobacter. Objective Vital Signs and I&Os F Comfortable BP 100/50 P 74 T 97.8 Skin neg rash ENT moist Lungs clear Abd soft n/t Surgical scars clean, colostomy Ext tr edema Chest JEANETTE in place Results Pertinent Lab Results: Hg 9 WBC 16.7 Blood Cx 06/25 (1) GPC / GNR (2) GPC Blood Cx 06/26 NGTD Urine Cx Enterobacter s Fortaz
--- NOTE | 2017-06-28 13:20 | PN- Att Addend ---
Attending Addendum Attending Brief Note Patient seen and examined, feels tired. Otherwise denies pains. Blood cx growing STrept Pneumo, Urine Cx GNR. Vital Signs Date Time Temp Pulse Resp B/P B/P Pulse O2 O2 Flow FiO2 Mean Ox Delivery Rate 06/28 0651 97.9 74 20 100/50 94 Room Air 06/28 0000 93 Room Air 06/27 2233 98.8 84 20 114/60 93 06/27 1434 98.3 67 20 110/70 97 Room Air On Exam; aox3, nad. cv; s1,s2, rrr resp; clear. abd; soft, nt, bs+ ext; no edema skin; no skin break down. No labs. A/P; 76 y/o F with pmh sig for PMHx of ESRD(on TTS schedule, Isak cath only placed over an year), HTN, hypothyroidism, chronic back pain, admission to the [facility] in 05/2016 for the management of diverticular bleed which was complicated by perforation requiring exploratory laparotomy with right hemicolectomy after colonoscopy and biopsy, was then transferred to [place] where she had a colostomy bag placed; this hospital course was complicated by acute kidney injury that led to ESRD requiring hemodialysis by Isak cath in right IJ. Pt is admitted with Sepsis, bacteremia and Urine cx positive for GNR. Blood cultures growing strep pneumo. Urine culture growing Enterobacter gram- negative rods. Will discuss with infectious disease about the choice of antibiotics and if there is any further workup needed. We'll also discuss if Isak cath needs to come out or not. Continue current medications. Patient on heparin subcutaneous for DVT prophylaxis.
--- NOTE | 2017-06-28 13:52 | PN- Infect Dx ---
Subjective Subjective: Afebrile without complaints Objective Last 24 Hrs of Vital Signs/I&O Vital Signs Date Time Temp Pulse Resp B/P B/P Pulse O2 O2 Flow FiO2 Mean Ox Delivery Rate 06/28 0551 97.9 74 20 100/50 94 Room Air 06/28 0000 93 Room Air 06/27 2233 98.8 84 20 114/60 93 06/27 1434 98.3 67 20 110/70 97 Room Air Intake & Output 06/28 1600 06/28 0800 06/28 0000 Intake Total 240 160 Output Total Balance 240 160 Intake, IV 20 Intake, Oral 240 140 Patient 220 lb Weight Physical Exam Other Physical Findings: She appears comfortable in no acute distress Chest tunneled catheter in the right upper chest with no inflammation at the site Lungs are clear Heart regular rhythm with no murmur Abdomen is obese, soft, nontender with positive bowel sounds Extremities no drainage noted from the left inguinal area Results Last 24 Hours of Lab Results: Laboratory Tests 06/28 06 Chemistry Sodium Cancelled Potassium Cancelled Chloride Cancelled Carbon Dioxide Cancelled Anion Gap Cancelled BUN Cancelled Creatinine Cancelled BUN/Creatinine Ratio Cancelled Last 24 Hours of Raji Results: Blood cultures x June 25 positive for strep pneumoniae sensitive to Ceftriaxone Blood cultures June 26 negative Urine culture June 26 greater than 100,000 colonies of Enterobacter aerogenes sensitive to Ceftriaxone, Ciprofloxacin and Bactrim and a possible second gram- negative prisca Urine strep pneumo antigen June 26 negative Recent Imaging Studies: CT of the abdomen and pelvis June 26 reveals a consolidative disease within the superior segment of the left lower lobe; no hydronephrosis; no free intraperitoneal air or fluid or collections Assessment/Plan ID Impression: Improved, with temperatures and white blood cell count now normal, on Vancomycin and Ceftazidime, Day 3 of treatment for pneumococcal sepsis, which is most likely secondary to a pneumonia, with the recent CT of the abdomen and pelvis revealing consolidative disease within the superior segment of the left lower lobe, though she has little in terms of respiratory symptoms. The gram-negative prisca noted on the initial smear of the blood culture has not grown and, therefore , is of unclear significance. Her urine culture is growing gram-negative rods, with pyuria noted on the UA, though the significance of this in a dialysis patient is unclear. Given the isolation of the strep pneumoniae, line sepsis seems less likely; therefore do not feel that the dialysis catheter will need to be removed. This has been discussed with Renal who concurs. Suggestion: 1. Follow-up final urine culture 2. Discontinue Ceftazidime 3. Begin Ceftriaxone 1 g IV every 24 hours pending above
[2017-06-28 14:34] VITALS: BP 110/78
--- NOTE | 2017-06-28 16:05 | RADIOLOGY REPORT ---
EXAMINATION: XR SHOULDER, LEFT CLINICAL INFORMATION: Pain in the left shoulder. Question arthritis. COMPARISON: Chest x-rays, most recent of which is dated 06/26/2017. MRI scan of the left shoulder dated 07/15/2015. TECHNIQUE: 5 views of the left shoulder. FINDINGS: Diffuse osteopenia. No acute fracture or dislocation. Mild degenerative change in the glenohumeral joint and acromioclavicular joint with joint space narrowing and spurring seen. No joint calcifications seen. Included left ribs intact. IMPRESSION: 1. Osteopenia. No acute fracture or dislocation. 2. Mild degenerative changes in glenohumeral and acromial clavicular joint.
[2017-06-28 22:26] VITALS: BP 110/60
[2017-06-29 05:42] VITALS: BP 126/70
[2017-06-29 09:03] LABS: ABSOLUTE BASOPHIL COUNT 0.1 /CUMM (0.0-0.2); ABSOLUTE EOSINOPHIL COUNT 0.2 /CUMM (0.0-0.7); ABSOLUTE GRANULOCYTE CT 3.5 /CUMM (1.4-6.5); ABSOLUTE LYMPH COUNT 2.4 /CUMM (1.2-3.4); ABSOLUTE MONOCYTE COUNT 0.8 /CUMM (0.10-0.60); BASOPHIL % 0.9 % (0.0-2.0); EOSINOPHIL % 3.2 % (0-5); HEMATOCRIT 26.2 % (37-47); MEAN CORPUSCULAR HGB 29.4 PG (27.0-31.0); MEAN CORPUSCULAR HGB CONC 32.4 G/DL (33.0-37.0); MEAN CORPUSCULAR VOLUME 90.6 FL (81.0-99.0); MEAN PLATELET VOLUME 7.1 FL (7.4-10.4); PLATELET COUNT 222 /CUMM (130-400); RBC DISTRIBUTION WIDTH 14.9 % (11.5-14.5)
--- NOTE | 2017-06-29 09:04 | Discharge Summary ---
Visit Information Visit Dates Admission Date: 06/25/17 Discharge Date: 06/29/17 Hospital Course Course Attending Physician: Porsha Wells MD Primary Care Physician: Jodee ROBBINS,Jim [place] Hospital Course: Ms Barton is a 76 year old woman w/ a PMHx of ESRD ( on TTS schedule, Isak cath only placed over an year ), HTN, hypothyroidism, chronic back pain, recent admission to the hospital in 05/2016 for the management of diverticular bleed which was complicated by perforation requiring exploratory laparotomy with right hemicolectomy after colonoscopy and biopsy, was then transferred to [place] where she had a colostomy bag placed; this hospital course was complicated by acute kidney injury that led to ESRD requiring hemodialysis by Isak cath in right IJ. She was known to be in her usual state of health until 1 day prior to admission. She came to [facility] with a chief concern of hypotension, and chills. She did not require temperature at that time. She was found to be hypotensive up to 54/35, and has taken Midodrine as per her nephrologists recs. At the time of admission-temperature 98.2, pulse rate 80, respirations 18, blood pressure 103/53, pulse ox 97% on room air. She was given 500 mL bolus. Hospital course #1 strep pneumonia, UTI-Enterobacter #2 sepsis-resolved #3 end-stage renal disease #4 history of hypothyroidism She was admitted to intensive care unit for the management of hypotension, and was started on Midorin. Blood pressure remained stable while she was in the unit. She did not require any further intervention. It was noted that she had an Isak cath in place, which is at least 1-year-old, and She did not get a chance to get evaluated for AV fistula placement yet. Given her recent evidence of bacteremia, initial thought was infection of the Isak cath but her blood cultures grew Streptococcus pneumonia and she had a CAT scan revealing consolidative disease within the superior segment of the left lower lobe though she had little respiratory symptoms. The gram-negative prisca noted in the initial smear of blood culture has not grown therefore it is of unclear significance. Her urine culture is growing 2 types of Enterobacter with pyuria. Patient was on ceftriaxone and switch to Bactrim upon discharge. It was discussed at length with ID that the removal of Isak cath or YUMIKO is not indicated at this time as Strept Pneumo bacteremia is likley coming from Pneumonia source. Bacteremia has finaly resolved and pt will be discharged on oarl abx as mentioned after discussing with ID. Patient is advised to follow-up with his line installer trolley and primary care physician. Allergies: Coded Allergies: lactose (DIARRHEA 06/08/16) Disposition Summary Disposition Principal Diagnosis: Streptococcus pneumonia Additional Diagnosis: UTI Discharge Disposition: home health services Discharge Instructions General Discharge Information Code Status: Full Code Patient's Diet: Renal diet Patient's Activity: As tolerated Follow-Up Instructions/Appts: Please follow-up with your primary care provider/line installer trolley within 1-2 weeks of discharge Continue antibiotics as prescribed Medications at Discharge Discharge Medications: Continue taking these medications: Pantoprazole Sodium (Pantoprazole Sodium) 40 MG TABLET.DR 40 Milligram ORAL DAILY Comments: Levothyroxine Sodium (Levothyroxine Sodium) 150 MCG TABLET 1 Tablet ORAL DAILY Qty = 30 Midodrine HCl (Midodrine HCl) 5 MG TABLET 1 Tablet ORAL DAILY as needed for LOW BP Qty = 90 Midodrine HCl (Midodrine HCl) 10 MG TABLET 1 Tablet ORAL TUETHURSAT as needed for LOW BP Qty = 15 Trazodone HCl (Trazodone HCl) 150 MG TABLET 0.5 Tablet ORAL Every night Qty = 45 Melatonin (Melatonin) 3 MG TABLET 2 Tablet ORAL Every night Nephro-Vitamins (Nephro-Annette Tablet) 0.8 MG TABLET 1 Tablet ORAL DAILY Sevelamer Carbonate (Renvela) 800 MG TABLET 2 Tablet ORAL TIDWM Qty = 180 Nystatin (Nystatin) 100,000 UNIT/GRAM POWDER 1 Application On the skin As Directed as needed for ABD FOLDS Qty = 15 Start taking the following new medications: Sulfamethoxazole/Trimethoprim (Bactrim Ds Tablet) 800 MG-160 MG TABLET 1 Tablet ORAL TWICE DAILY Qty = 1 No Refills Instructions: TAKE ONE DOSE TONIGHT (06/29/17) Sulfamethoxazole/Trimethoprim (Bactrim 400-80 MG Tablet) 400 MG-80 MG TABLET 1 Tablet ORAL TWICE DAILY Qty = 10 No Refills Instructions: Start taking on the morning of 06/30/17 and continue till 07/04/17 to complete a total 10 day antibiotic course. Please take after dialysis on dialysis days. Copies To: Jodee ROBBINS,Jmi
--- NOTE | 2017-06-29 09:37 | PN- Housestaff ---
Katlin ROBBINS,Anh 06/29/17 0937: Subjective Follow-up For: Sepsis-most likely source UTI, Hypotension-resolved End-stage renal disease on dialysis Complaints: no complaints Subjective: Patient seen and examined at bedside. No overnight events. No complaints. She denies cough, chest pain, nausea, vomiting. She is willing to work with physical therapy. Review of Systems Constitutional: Reports: no symptoms, see HPI. Objective Last 24 Hrs of Vital Signs/I&O Vital Signs Date Time Temp Pulse Resp B/P B/P Pulse O2 O2 Flow FiO2 Mean Ox Delivery Rate 06/29 0542 98.3 78 20 126/70 95 Room Air 06/29 0000 Room Air 06/28 2226 98.3 81 18 110/60 94 Room Air 06/28 1600 94 Room Air 06/28 1434 98.5 79 18 110/78 94 Room Air Intake & Output 06/29 1600 06/29 0800 06/29 0000 Intake Total 600 Output Total 1 Balance 599 Intake, Oral 600 Output, Stool 1 Patient 219 lb Weight Physical Exam General Appearance: Alert, Oriented X3, Cooperative, No Acute Distress Cardiovascular: Regular Rate, Normal S1, Normal S2, No Murmurs Lungs: Normal Air Movement Abdomen: small skin tear in lower abd Current Medications: Current Medications Sig/Liv Start time Last Medication Dose Route Stop Time Status Admin Acetaminophen 650 MG Q6P PRN 06/25 1600 AC PO Acetaminophen 1,000 MG Q6P PRN 06/25 1600 AC 06/26 IV 1954 Ceftazidime 1,000 MG DAILY@1400 06/26 1400 DC 06/27 IV 1302 Ceftriaxone Sodium 1,000 MG Q24H 06/28 1800 AC 06/28 IV 1847 Ceftriaxone Sodium 1,000 MG Q24H 06/28 1415 DC IV Famotidine 20 MG DAILY 06/26 0900 AC 06/28 PO 0829 Heparin Sodium 5,000 UNIT Q8 06/25 2200 AC 06/29 (Porcine) SC 0639 Levothyroxine Sodium 0.15 MG DAILY AC 06/26 0700 AC 06/29 PO 0639 Melatonin 6 MG QPM 06/25 2100 AC 06/28 PO 2117 Multivitamins 1 TAB DAILY 06/26 0900 AC 06/28 PO 0829 Nystatin 1 GABRIEL BID PRN 06/25 1600 AC 06/26 TOP 1406 Patient Medication 1 ED ONE ONE 06/28 1215 DC 05/02 Teaching ED 06/28 1216 1446 Sevelamer Carbonate 1,600 MG WM 06/25 1700 AC 06/28 PO 1846 Trazodone HCl 75 MG AT BEDTIME PRN 06/25 1600 AC 06/28 PO 2117 Wool Wax Alcohol 1 GABRIEL Q10MIN PRN 06/28 1715 AC 06/28 TOP 2117 Last 24 Hrs of Lab/Raji Results Last 24 Hrs of Labs/Mics: Laboratory Tests 06/29/17 0815: Anion Gap 9, Estimated GFR 6 L, BUN/Creatinine Ratio 5.3 L, Glucose 80, Calcium 8.9, CBC w Diff NO MAN DIFF REQ, RBC 2.90 L, MCV 90.6, MCH 29.4, MCHC 32.4 L, RDW 14.9 H, MPV 7.1 L, Gran % 50.0, Lymphocytes % 34.5, Monocytes % 11.4 H, Eosinophils % 3.2, Basophils % 0.9, Absolute Granulocytes 3.5, Absolute Lymphocytes 2.4, Absolute Monocytes 0.8 H, Absolute Eosinophils 0.2, Absolute Basophils 0.1 Assessment/Plan Assessment: Ms Barton is a 76 year old woman w/ a PMHx of ESRD ( on TTS schedule, Wilman cath only placed over an year ), HTN, hypothyroidism, chronic back pain, recent admission to the hospital in 05/2016 for the management of diverticular bleed which was complicated by perforation requiring exploratory laparotomy with right hemicolectomy after colonoscopy and biopsy, was then transferred to [place] where she had a colostomy bag placed; this hospital course was complicated by acute kidney injury that led to ESRD requiring hemodialysis by Wilman cath in right IJ. Assessment and plan 1. Sepsis possibly due to source. Urine culture growing Enterobacter pending final report. Blood culture growing gram-positive cocci [strep pneumonia]. Patient was on vancomycin and ceftazidime-this was changed to ceftriaxone yesterdayAs per ID. ID and nephrology on board. Patient will have hemodialysis today.Vitals stable. 2. End-stage renal disease-hemodialysis today. 3. Sacrum-no ulcer. Old healed skin tears seen. 4. Abdomen-skin tear in the scar site. Keep the area dry and do duodenum dressing 5. Patient complained of left shoulder pain. X-ray negative for any fracture or dislocation. Shows osteopenia. This was discussed with the patient. Code-full code Diet-renal diet Problem List: 1. ESRD (end stage renal disease) Pain Ratin Pain Location: none Pain Goal: Remain pain free Pain Plan: tylenol Tomorrow's Labs & Rationales: none Russell ROBBINS,Porsha 06/29/17 1309: Attending MD Review Statement Attending Statement Attending MD Statement: examined this patient, discuss w/resident/PA/NET WEB DEVELOPER, agreed w/resident/PA/NET WEB DEVELOPER, reviewed EMR data (avail), discussed with nursing, discussed with case mgmt, reviewed images, amended to note Attending Assessment/Plan: Patient seen and examined, overall feels nmuch better. Offers no complaints. Blood and urine cultures finalized. Strept Pneumo and Enterobactor. D/W ID. No Need to oull the Wilman cath and no need for YUMIKO. Pt has been switched to oral bactrim which she can be discharged on. Continue the rest of the meds. HD per nephrology. PT alejo ray says Discharge home if hsort term goals met. WIll d/w CM. Guillermo discharge today. Pt needs Dry Mattress due to Immobility and chronic medical conditions.
--- NOTE | 2017-06-29 11:02 | PN- Infect Dx ---
Subjective Subjective: Afebrile without complaints. Her cough has resolved. Objective Last 24 Hrs of Vital Signs/I&O Vital Signs Date Time Temp Pulse Resp B/P B/P Pulse O2 O2 Flow FiO2 Mean Ox Delivery Rate 06/29 0442 98.3 78 20 126/70 95 Room Air 06/29 0000 Room Air 06/28 2226 98.3 81 18 110/60 94 Room Air 06/28 1600 94 Room Air 06/28 1434 98.5 79 18 110/78 94 Room Air Intake & Output 06/29 1600 06/29 0800 06/29 0000 Intake Total 600 Output Total 1 Balance 599 Intake, Oral 600 Output, Stool 1 Patient 219 lb Weight Physical Exam Other Physical Findings: She appears comfortable in no acute distress Chest tunneled dialysis catheter in the right upper chest with no inflammation at the site Lungs are clear Heart regular rhythm with no murmur Abdomen is obese, soft, nontender with positive bowel sounds Results Last 24 Hours of Lab Results: Laboratory Tests 06/29 814 Chemistry Sodium (137 - 145 mmol/L) 137 Potassium (3.5 - 5.1 mmol/L) 3.9 Chloride (98 - 107 mmol/L) 100 Carbon Dioxide (22 - 30 mmol/L) 28 Anion Gap (5 - 16) 9 BUN (7 - 17 mg/dL) 34 H Creatinine (0.5 - 1.0 mg/dL) 6.4 *H Estimated GFR (>60 ml/min) 6 L BUN/Creatinine Ratio (7 - 25 %) 5.3 L Glucose (65 - 99 mg/dL) 80 Calcium (8.4 - 10.2 mg/dL) 8.9 Hematology CBC w Diff NO MAN DIFF REQ WBC (4.8 - 10.8 /CUMM) 7.0 RBC (4.20 - 5.40 /CUMM) 2.90 L Hgb (12.0 - 16.0 G/DL) 8.5 L Hct (37 - 47 %) 26.2 L MCV (81.0 - 99.0 FL) 90.6 MCH (27.0 - 31.0 PG) 29.4 MCHC (33.0 - 37.0 G/DL) 32.4 L RDW (11.5 - 14.5 %) 14.9 H Plt Count (130 - 400 /CUMM) 222 MPV (7.4 - 10.4 FL) 7.1 L Gran % (42.2 - 75.2 %) 50.0 Lymphocytes % (20.5 - 51.1 %) 34.5 Monocytes % (1.7 - 9.3 %) 11.4 H Eosinophils % (0 - 5 %) 3.2 Basophils % (0.0 - 2.0 %) 0.9 Absolute Granulocytes (1.4 - 6.5 /CUMM) 3.5 Absolute Lymphocytes (1.2 - 3.4 /CUMM) 2.4 Absolute Monocytes (0.10 - 0.60 /CUMM) 0.8 H Absolute Eosinophils (0.0 - 0.7 /CUMM) 0.2 Absolute Basophils (0.0 - 0.2 /CUMM) 0.1 Last 24 Hours of Raji Results: Urine culture June 26 greater than 100,000 colonies of 2 types of Enterobacter aerogenes, 1 of which is intermediate to Ceftriaxone, but both sensitive to Bactrim, Ciprofloxacin and Levofloxacin Blood cultures June 25 positive for strep pneumoniae sensitive to Penicillin , Bactrim, Ceftriaxone and Levaquin Blood cultures June 26 negative Recent Imaging Studies: X-ray of her left shoulder reveals osteopenia with no acute fracture or dislocation Assessment/Plan ID Impression: Doing well, with temperatures and white blood cell count remaining normal, now Ceftriaxone, Day 4 of treatment for pneumococcal sepsis, which is most likely secondary to a pneumonia, with the recent CT of the abdomen and pelvis revealing consolidative disease within the superior segment of the left lower lobe, though she had little in terms of respiratory symptoms. The gram-negative prisca noted on the initial smear of the blood culture has not grown and, therefore, is of unclear significance. Her urine culture is growing 2 types of Enterobacter, with pyuria noted on the UA, though the significance of this in a dialysis patient is unclear. Of note 1 of the Enterobacters isolated is intermediate to Ceftriaxone, but her antibiotics can be switched to p.o. at this point. Suggestion: 1. Discontinue Ceftriaxone 2. Begin Bactrim DS 1 p.o. today, followed by Bactrim SS 1 p.o. daily for 10 days (given after dialysis on dialysis days)
[2017-06-29] MEDS ORDERED: BACTRIM DS TAB1 EACH PO ×2 (13:17→13:22)
[2017-06-29] MEDS ORDERED: BACTRIM 400-801 EACH PO (13:25)
--- NOTE | 2017-06-29 13:51 | PN- Nephrology ---
Assessment/Plan Nephrology Assessment: ESRD. pneumococcal bacteremia / pneumonia (CXR/CT) and Enterobacter UTI. On p.o. Bactrim. Plans for discharge noted. Cesar Morataya MD. Suggestion: . Subjective Subjective: Pt comfortable. Dialyzed earlier. Spoke with Dr. Hernandez yesterday and today ( he called me) GPC are pneumococcus (great as it suggests pulmonary source and not endocarditis/endovascular/abcess). She is to be started on Bactrim DS daily (dose appropriate given ESRD) to treat both pneumococcus and Enterobacter. Objective Vital Signs and I&Os F NAD Skin neg rash Lungs clear Cor RRR Abd soft Ext tr edema Chest JEANETTE Results Pertinent Lab Results: Laboratory Tests 06/29 05 0815 0600 Chemistry Sodium (137 - 145 mmol/L) 137 Cancelled Potassium (3.5 - 5.1 mmol/L) 3.9 Cancelled Chloride (98 - 107 mmol/L) 100 Cancelled Carbon Dioxide (22 - 30 mmol/L) 28 Cancelled Anion Gap (5 - 16) 9 Cancelled BUN (7 - 17 mg/dL) 34 H Cancelled Creatinine (0.5 - 1.0 mg/dL) 6.4 *H Cancelled Estimated GFR (>60 ml/min) 6 L BUN/Creatinine Ratio (7 - 25 %) 5.3 L Cancelled Glucose (65 - 99 mg/dL) 80 Calcium (8.4 - 10.2 mg/dL) 8.9 Hematology CBC w Diff NO MAN DIFF REQ WBC (4.8 - 10.8 /CUMM) 7.0 RBC (4.20 - 5.40 /CUMM) 2.90 L Hgb (12.0 - 16.0 G/DL) 8.5 L Hct (37 - 47 %) 26.2 L MCV (81.0 - 99.0 FL) 90.6 MCH (27.0 - 31.0 PG) 29.4 MCHC (33.0 - 37.0 G/DL) 32.4 L RDW (11.5 - 14.5 %) 14.9 H Plt Count (130 - 400 /CUMM) 222 MPV (7.4 - 10.4 FL) 7.1 L Gran % (42.2 - 75.2 %) 50.0 Lymphocytes % (20.5 - 51.1 %) 34.5 Monocytes % (1.7 - 9.3 %) 11.4 H Eosinophils % (0 - 5 %) 3.2 Basophils % (0.0 - 2.0 %) 0.9 Absolute Granulocytes (1.4 - 6.5 /CUMM) 3.5 Absolute Lymphocytes (1.2 - 3.4 /CUMM) 2.4 Absolute Monocytes (0.10 - 0.60 /CUMM) 0.8 H Absolute Eosinophils (0.0 - 0.7 /CUMM) 0.2 Absolute Basophils (0.0 - 0.2 /CUMM) 0.1 05/ 05/ 05/ 0800 0600 0500 Chemistry Sodium (137 - 145 mmol/L) 137 Cancelled Cancelled Potassium (3.5 - 5.1 mmol/L) 4.2 Cancelled Cancelled Chloride (98 - 107 mmol/L) 100 Cancelled Cancelled Carbon Dioxide (22 - 30 mmol/L) 22 Cancelled Cancelled Anion Gap (5 - 16) 14 Cancelled Cancelled BUN (7 - 17 mg/dL) 48 H Cancelled Cancelled Creatinine (0.5 - 1.0 mg/dL) 8.0 *H Cancelled Cancelled Estimated GFR (>60 ml/min) 5 L BUN/Creatinine Ratio (7 - 25 %) 6.0 L Cancelled Glucose (65 - 99 mg/dL) 74 Cancelled Calcium (8.4 - 10.2 mg/dL) 8.8 Cancelled Phosphorus Cancelled Magnesium Cancelled Total Bilirubin Cancelled AST Cancelled ALT Cancelled Albumin Cancelled Hematology CBC w Diff NO MAN DIFF REQ Cancelled WBC (4.8 - 10.8 /CUMM) 6.7 Cancelled RBC (4.20 - 5.40 /CUMM) 2.98 L Cancelled Hgb (12.0 - 16.0 G/DL) 9.1 L Cancelled Hct (37 - 47 %) 26.6 L Cancelled MCV (81.0 - 99.0 FL) 89.4 Cancelled MCH (27.0 - 31.0 PG) 30.6 Cancelled MCHC (33.0 - 37.0 G/DL) 34.2 Cancelled RDW (11.5 - 14.5 %) 15.4 H Cancelled Plt Count (130 - 400 /CUMM) 210 Cancelled MPV (7.4 - 10.4 FL) 7.7 Cancelled Gran % (42.2 - 75.2 %) 58.3 Lymphocytes % (20.5 - 51.1 %) 26.4 Monocytes % (1.7 - 9.3 %) 11.1 H Eosinophils % (0 - 5 %) 3.6 Basophils % (0.0 - 2.0 %) 0.6 Absolute Granulocytes (1.4 - 6.5 /CUMM) 3.9 Absolute Lymphocytes (1.2 - 3.4 /CUMM) 1.8 Absolute Monocytes (0.10 - 0.60 /CUMM) 0.7 H Absolute Eosinophils (0.0 - 0.7 /CUMM) 0.2 Absolute Basophils (0.0 - 0.2 /CUMM) 0 Serology Hep Bs Antigen (NONREACTIVE) NONREACTIVE Hep Bs Antibody (NONREACTIVE) NONREACTIVE Toxicology Random Vancomycin (ug/ml) 16.0 06/26 2158 Urines Urinalysis HEAVY H Urine Color (YEL,AMB,STR) BROWN H Urine Clarity (CLEAR) TURBD H Urine pH (5.0 - 8.0) 7.0 Ur Specific Lorton (1.001 - 1.035) 1.025 Urine Protein (NEG,<30 MG/DL) >=300 H Urine Ketones (NEG) NEG Urine Nitrite (NEG) POS H Urine Bilirubin (NEG) NEG@ICTO Urine Urobilinogen (0.1 - 1.0 EU/dl) 0.2 Ur Leukocyte Esterase (NEG) MOD H Ur Microscopic SEDIMENT EXAMINED Urine RBC (0 - 5 /HPF) 3-5 Urine WBC (0 - 2 /HPF) > 75 H Ur Epithelial Cells (NONE,FEW) FEW Urine Bacteria (NEG/NONE) FEW H Urine Mucus (FEW,NONE) MANY H Urine Hemoglobin (NEG) LARGE H Urine Glucose (N MG/DL) NEG
[2017-06-29 14:28] VITALS: BP 120/76
--- NOTE | 2017-06-30 07:58 | Discharge Summary ---
Hospital Course Allergies: Coded Allergies: lactose (DIARRHEA 06/08/16) Discharge Instructions Medications at Discharge Discharge Medications: Continue taking these medications: Pantoprazole Sodium (Pantoprazole Sodium) 40 MG TABLET. 40 Milligram ORAL DAILY Comments: Levothyroxine Sodium (Levothyroxine Sodium) 150 MCG TABLET 1 Tablet ORAL DAILY Qty = 30 Midodrine HCl (Midodrine HCl) 5 MG TABLET 1 Tablet ORAL DAILY as needed for LOW BP Qty = 90 Midodrine HCl (Midodrine HCl) 10 MG TABLET 1 Tablet ORAL TUETHURSAT as needed for LOW BP Qty = 15 Trazodone HCl (Trazodone HCl) 150 MG TABLET 0.5 Tablet ORAL Every night Qty = 45 Melatonin (Melatonin) 3 MG TABLET 2 Tablet ORAL Every night Nephro-Vitamins (Nephro-Annette Tablet) 0.8 MG TABLET 1 Tablet ORAL DAILY Sevelamer Carbonate (Renvela) 800 MG TABLET 2 Tablet ORAL TIDWM Qty = 180 Nystatin (Nystatin) 100,000 UNIT/GRAM POWDER 1 Application On the skin As Directed as needed for ABD FOLDS Qty = 15 Start taking the following new medications: Sulfamethoxazole/Trimethoprim (Bactrim Ds Tablet) 800 MG-160 MG TABLET 1 Tablet ORAL TWICE DAILY Qty = 1 No Refills Instructions: TAKE ONE DOSE TONIGHT (06/29/17) Sulfamethoxazole/Trimethoprim (Bactrim 400-80 MG Tablet) 400 MG-80 MG TABLET 1 Tablet ORAL TWICE DAILY Qty = 10 No Refills Instructions: Start taking on the morning of 06/30/17 and continue till 07/04/17 to complete a total 10 day antibiotic course. Please take after dialysis on dialysis days.
== END 2017-06-29 18:35 | disposition home health service (06) | DRG 871 ==
LOC: ERH 12:28 → ERHI 14:37 → ERH 14:45 → ERHI 14:45 → CRI 14:45 → 2NA 14:45 → ERHI 14:54 → ENRESERV 15:32 → ENTRNSPT 16:09 → EDTRNSPTSTS 16:14 → CRI 16:22 → CMPTRNSPT 16:39 → ENTRNSPT 06-26 21:58 → EDTRNSPT 06-26 22:11 → EDTRNSPTSTS 06-26 22:11 → 2NA 06-26 22:20 → CMPTRNSPT 06-26 22:22 → 2NA 06-27 09:01 → ENTRNSPT 06-29 18:16 → EDTRNSPTSTS 06-29 18:24 → EDTRNSPT 06-29 18:24 → 2NA 06-29 18:35 → CMPTRNSPT 06-29 18:43
PROVIDERS: Internal Medicine; Internal Medicine Nephrology; Student in an Organized Health Care Education/Training Program
DX: A40.3 Sepsis due to Streptococcus pneumoniae (principal); J18.9 Pneumonia, unspecified organism; N39.0 Urinary tract infection, site not specified; B96.89 Other specified bacterial agents as the cause of diseases classified elsewhere; L89.159 Pressure ulcer of sacral region, unspecified stage; I12.0 Hypertensive chronic kidney disease with stage 5 chronic kidney disease or end stage renal disease; I95.9 Hypotension, unspecified; N18.6 End stage renal disease; Z99.2 Dependence on renal dialysis; E66.9 Obesity, unspecified; R19.7 Diarrhea, unspecified; L98.499 Non-pressure chronic ulcer of skin of other sites with unspecified severity; E03.9 Hypothyroidism, unspecified; K21.9 Gastro-esophageal reflux disease without esophagitis; G89.29 Other chronic pain; Z87.891 Personal history of nicotine dependence; Z93.3 Colostomy status; M19.90 Unspecified osteoarthritis, unspecified site; Z68.38 Body mass index [BMI] 38.0-38.9, adult
CPT/HCPCS: 2NAP; CCU; 36415; 71045; 73030-LT; 74177; 81001; 82436; 87040; 87045; 87070; 87086; 87450; 93005; 93010; 93306; 96374; 96375; 97116-GO; 97161-GP; 97166-GO; J0131; J0696; J0713; J1644; J3370; J7040

== ENCOUNTER 2017-07-25 21:02 | Emergency (ER) | payer OTHER ==
[~2017-07-25] VITALS: Ht 162.6 cm; Wt 102.1 kg
[~2017-07-25 21:02] MED LIST changes: +BACTRIM 400-801 EACH PO; +BACTRIM DS TAB1 EACH PO; +LEVOTHYROXINE150 MCG PO; +MELATONIN3 M4 PO; +MIDODRINE HCL10 M1 PO; +MIDODRINE HCL5 M1 PO; +NEPHRO-VITE TA0.8 MG PO; +NYSTATIN15 G2 TOP; +RENVELA800 M1 PO; +TRAZODONE HCL150 M1 PO
--- NOTE | 2017-07-25 21:47 | ED AMS/SEIZURE/WEAK/DIZZY ---
See Addendum History of Present Illness General Chief Complaint: General Adult Stated Complaint: HYPOTENSION S/P DIALYSIS Source: patient Exam Limitations: no limitations Vital Signs & Intake/Output Vital Signs & Intake/Output Vital Signs Date Time Temp Pulse Resp B/P B/P Pulse O2 O2 Flow FiO2 Mean Ox Delivery Rate 07/25 2312 96.2 72 20 145/60 97 Room Air 07/25 2111 97.7 89 16 88/51 97 Room Air Allergies Coded Allergies: lactose (DIARRHEA 06/08/16) Reconcile Medications Levothyroxine Sodium 150 MCG TABLET 1 TAB PO DAILY THYROID (Reported) Melatonin 3 MG TABLET 2 TAB PO QPM SLEEP (Reported) Midodrine HCl 5 MG TABLET 1 TAB PO DAILY PRN LOW BP (Reported) Midodrine HCl 10 MG TABLET 1 TAB PO TUETHURSAT PRN LOW BP (Reported) Nephro-Vitamins (Nephro-Annette Tablet) 0.8 MG TABLET 1 TAB PO DAILY SUPPLEMENT (Reported) Nystatin 100,000 UNIT/GRAM POWDER 1 GABRIEL TOP AD PRN ABD FOLDS (Reported) Pantoprazole Sodium 40 MG TABLET.DR 40 MG PO DAILY ACID REFLUX (Reported) Sevelamer Carbonate (Renvela) 800 MG TABLET 2 TAB PO TIDWM PHOSPHORUS BINDER (Reported) Sulfamethoxazole/Trimethoprim (Bactrim Ds Tablet) 800 MG-160 MG TABLET 1 TAB PO BID INFECTION TAKE ONE DOSE TONIGHT (06/29/17) Sulfamethoxazole/Trimethoprim (Bactrim 400-80 MG Tablet) 400 MG-80 MG TABLET 1 TAB PO BID Infection Start taking on the morning of 06/30/17 and continue till 07/04/17 to complete a total 10 day antibiotic course. Please take after dialysis on dialysis days. Trazodone HCl 150 MG TABLET 0.5 TAB PO QPM SLEEP (Reported) Triage Note: BIBA FROM HOME WITH CHIEF COMPLAINT OF "DIZZINESS". PATIENT REPORTS HX OF DIZZINESS AND LIGHTHEADEDNESS S/P DIALYSIS. PATIENT HAS DIALYSIS MONDAY/MONDAY/MONDAY. PATIENT ARRIVES ALERT AND ORIENTED, HYPOTENSIVE PER EMS AT 94/56. PATIENT DENIES FALL/SYNCOPE AT HOME. PLACED ON LEAD IOS DEVELOPER. RESTING COMFORTABLY ON STRETCHER. AWAITING PROVIDER EVAL. Triage Nurses Notes Reviewed? yes Onset: Gradual Duration: hour(s):, continues in ED, waxing and waning Severity: severe HPI: pt presents for eval of post dialysis dizziness. Patient states that she received dialysis this morning and had about 2-1/2 L taken off. She states when she returned home she began feeling severe dizziness and felt she would pass out. She took a Midadrine at home since she has had prior episodes of low blood pressure after dialysis. She did not receive immediate improvement. Past History Travel History Traveled to [place] past 21 day No Medical History Any Pertinent Medical History? see below for history Neurological: vertigo EENT: NONE Cardiovascular: hypertension Respiratory: NONE Gastrointestinal: GERD, diverticulosis Hepatic: NONE Renal: ESRF Musculoskeletal: osteoarthritis Psychiatric: NONE Endocrine: obesity Blood Disorders: NONE Cancer(s): thyroid cancer AUDIT OFFICER/Reproductive: NONE History of MRSA: No History of VRE: No History of CDIFF: No Surgical History Surgical History: appendectomy, cholecystectomy, hysterectomy, thyroidectomy. MULTIPLE ABDOMINAL SURGER SKIN GRAFTS s/p colostomy Psychosocial History Who do you live with Spouse Services at Home Nursing What is your primary language Mongolian Tobacco Use: Quit >30 days ago ETOH Use: denies use Illicit Drug Use: denies illicit drug use Family History Family History, If Any: MOTHER FH: Alzheimers disease Hx Contributory? No Review of Systems Review of Systems Constitutional: Reports: see HPI. EENTM: Reports: no symptoms. Respiratory: Reports: no symptoms. Cardiovascular: Reports: no symptoms. GI: Reports: no symptoms. Genitourinary: Reports: no symptoms. Musculoskeletal: Reports: no symptoms. Skin: Reports: no symptoms. Neurological/Psychological: Reports: no symptoms. Hematologic/Endocrine: Reports: no symptoms. Immunologic/Allergic: Reports: no symptoms. All Other Systems: Reviewed and Negative Physical Exam Physical Exam General Appearance: see below Comments: Gen.: Well-nourished, well-developed, no acute respiratory distress. Head: Normocephalic, atraumatic. Eyes: Normal inspection bilaterally Ears: Normal inspection bilaterally Nose: Normal inspection Throat/mouth : Moist mucosa Neck: Supple, full range of motion, no goiter Heart: Regular rate and rhythm, no murmurs rubs or gallops Lungs: Clear to auscultation bilaterally with normal air entry Chest: Nontender Back: Normal range of motion Abdomen: Soft, nontender, nondistended, normal bowel sounds Extremities: Normal range of motion grossly, equal radial pulses, no cyanosis clubbing or edema Neurologic: Cranial nerves grossly intact, speech is clear Skin: warm and dry Psychiatric: Calm, cooperative, no apparent delusions or hallucinations Core Measures ACS in differential dx? No CVA/TIA Diagnosis No Sepsis Present: No Sepsis Focused Exam Completed? No Progress Differential Diagnosis: volume depletion Plan of Care: Orders Procedure Date/time Status Vital Signs 07/25 2250 Active EKG 07/25 2122 Active Initial ED EKG: none Comments: 07/25/2017 11:19:39 PM Micky blood pressure has normalized with a 250 mL fluid bolus. I feel she is now stable for discharge. Departure Departure Disposition: HOME OR SELF CARE Condition: Stable Clinical Impression Primary Impression: Volume depletion Referrals: Shae Zazueta MD (PCP/Family) Additional Instructions: Follow-up with your primary care physician or publication director within the next 48 hours. Return if any concerns or sudden worsening. If you're unable to follow up as outlined in the discharge instructions please return to the emergency department. Thank you for choosing the [facility] Emergency Department for your care. It was a pleasure to serve you today. Brad Sofia M.D. [facility] Departure Forms: Customer Survey General Discharge Information
[2017-07-25 23:12] VITALS: BP 145/60
== END 2017-07-25 23:44 ==
LOC: ERH 21:02
DX: E86.9 Volume depletion, unspecified (principal)
CPT/HCPCS: 93005; 93010; J7040